=== PATIENT | male | born 1950 | race Caucasian/White ===

== ENCOUNTER → 2023-05-18 09:40 | Inpatient (IN) | payer SELFPAY ==
[2022-03-09] MEDS: CLOPIDOGREL 75 MG TABLET PO (08:24)
[2022-03-09] MEDS: ACETAMINOPHEN 650 MG TABLET ER 1300 MG PO ×2 (08:24→20:22)
[2022-03-09] MEDS: lisinopriL 2.5 MG TABLET PO (08:24)
[2022-03-09] MEDS: SERTRALINE 50 MG TABLET 75 MG PO (08:24)
[2022-03-09] MEDS: ASPIRIN 81 MG TAB.CHEW PO (08:24)
[2022-03-09] MEDS: ROSUVASTATIN CALCIUM 10 MG TABLET 40 MG PO (20:22)
[2022-03-09 22:39] VITALS: TEMP 36.3; O2SAT 96
[2022-03-10] MEDS: ASPIRIN 81 MG TAB.CHEW PO (08:00)
[2022-03-10] MEDS: CLOPIDOGREL 75 MG TABLET PO (08:00)
[2022-03-10] MEDS: lisinopriL 2.5 MG TABLET PO (08:00)
[2022-03-10] MEDS: ACETAMINOPHEN 650 MG TABLET ER 1300 MG PO ×2 (08:00→19:32)
[2022-03-10] MEDS: SERTRALINE 50 MG TABLET 75 MG PO (08:00)
[2022-03-10] MEDS: ROSUVASTATIN CALCIUM 10 MG TABLET 40 MG PO (19:32)
[2022-03-10 21:29] VITALS: TEMP 36.3; O2SAT 91
[2022-03-11] MEDS: CLOPIDOGREL 75 MG TABLET PO (08:22)
[2022-03-11] MEDS: ASPIRIN 81 MG TAB.CHEW PO (08:22)
[2022-03-11] MEDS: ACETAMINOPHEN 650 MG TABLET ER 1300 MG PO ×2 (08:22→19:46)
[2022-03-11] MEDS: SERTRALINE 50 MG TABLET 75 MG PO (08:22)
[2022-03-11] MEDS: lisinopriL 2.5 MG TABLET PO (08:22)
--- NOTE | 2022-03-11 13:32 | PC.PHA ---
Pharmacy Review ~ Patient admitted in January and continues on clopidogrel, asa 81 mg, sertraline, lisinopril, rosuvastatin and acetaminophen. No prn pain meds.
[2022-03-11] MEDS: ROSUVASTATIN CALCIUM 10 MG TABLET 40 MG PO (19:46)
[2022-03-11 21:07] VITALS: TEMP 36.6; O2SAT 94
[2022-03-12 08:00] VITALS: BP 135/78
[2022-03-12] MEDS: CLOPIDOGREL 75 MG TABLET PO (08:35)
[2022-03-12] MEDS: ACETAMINOPHEN 650 MG TABLET ER 1300 MG PO ×2 (08:35→20:05)
[2022-03-12] MEDS: ASPIRIN 81 MG TAB.CHEW PO (08:35)
[2022-03-12] MEDS: lisinopriL 2.5 MG TABLET PO (08:35)
[2022-03-12] MEDS: SERTRALINE 50 MG TABLET 75 MG PO (08:35)
[2022-03-12 17:07] VITALS: TEMP 36.2; O2SAT 95
[2022-03-12] MEDS: ROSUVASTATIN CALCIUM 10 MG TABLET 40 MG PO (20:05)
[2022-03-13] MEDS: ACETAMINOPHEN 650 MG TABLET ER 1300 MG PO ×2 (08:12→19:48)
[2022-03-13] MEDS: ASPIRIN 81 MG TAB.CHEW PO (08:12)
[2022-03-13] MEDS: CLOPIDOGREL 75 MG TABLET PO (08:12)
[2022-03-13] MEDS: lisinopriL 2.5 MG TABLET PO (08:12)
[2022-03-13] MEDS: SERTRALINE 50 MG TABLET 75 MG PO (08:12)
[2022-03-13] MEDS: ROSUVASTATIN CALCIUM 10 MG TABLET 40 MG PO (19:49)
[2022-03-13 21:53] VITALS: TEMP 36.7; O2SAT 95
[2022-03-14] MEDS: ASPIRIN 81 MG TAB.CHEW PO (08:17)
[2022-03-14] MEDS: SERTRALINE 50 MG TABLET 75 MG PO (08:17)
[2022-03-14] MEDS: CLOPIDOGREL 75 MG TABLET PO (08:17)
[2022-03-14] MEDS: lisinopriL 2.5 MG TABLET PO (08:17)
[2022-03-14] MEDS: ACETAMINOPHEN 650 MG TABLET ER 1300 MG PO ×2 (08:17→19:44)
[2022-03-14 17:03] VITALS: TEMP 36.4; O2SAT 96
[2022-03-14] MEDS: ROSUVASTATIN CALCIUM 10 MG TABLET 40 MG PO (19:45)
[2022-03-15 08:00] VITALS: BP 122/81
[2022-03-15] MEDS: ACETAMINOPHEN 650 MG TABLET ER 1300 MG PO ×2 (08:37→19:59)
[2022-03-15] MEDS: SERTRALINE 50 MG TABLET 75 MG PO (08:37)
[2022-03-15] MEDS: CLOPIDOGREL 75 MG TABLET PO (08:37)
[2022-03-15] MEDS: lisinopriL 2.5 MG TABLET PO (08:37)
[2022-03-15] MEDS: ASPIRIN 81 MG TAB.CHEW PO (08:37)
--- NOTE | 2022-03-15 13:51 | PC.NURSE ---
Open Area (Blood Blister) on (L) hand healed.
[2022-03-15 16:46] VITALS: TEMP 36.6; O2SAT 97
[2022-03-15] MEDS: ROSUVASTATIN CALCIUM 10 MG TABLET 40 MG PO (19:59)
[2022-03-16] MEDS: ACETAMINOPHEN 650 MG TABLET ER 1300 MG PO ×2 (08:11→19:57)
[2022-03-16] MEDS: SERTRALINE 50 MG TABLET 75 MG PO (08:11)
[2022-03-16] MEDS: lisinopriL 2.5 MG TABLET PO (08:11)
[2022-03-16] MEDS: CLOPIDOGREL 75 MG TABLET PO (08:11)
[2022-03-16] MEDS: ASPIRIN 81 MG TAB.CHEW PO (08:11)
[2022-03-16] MEDS: ROSUVASTATIN CALCIUM 10 MG TABLET 40 MG PO (19:58)
[2022-03-16 21:32] VITALS: TEMP 36.2; O2SAT 96
[2022-03-17] MEDS: ASPIRIN 81 MG TAB.CHEW PO (08:40)
[2022-03-17] MEDS: ACETAMINOPHEN 650 MG TABLET ER 1300 MG PO ×2 (08:40→20:13)
[2022-03-17] MEDS: CLOPIDOGREL 75 MG TABLET PO (08:40)
[2022-03-17] MEDS: SERTRALINE 50 MG TABLET 75 MG PO (08:41)
[2022-03-17] MEDS: lisinopriL 2.5 MG TABLET PO (08:41)
[2022-03-17 18:39] VITALS: TEMP 36.1; O2SAT 98
[2022-03-17] MEDS: ROSUVASTATIN CALCIUM 10 MG TABLET 40 MG PO (20:13)
[2022-03-18] MEDS: SERTRALINE 50 MG TABLET 75 MG PO (08:14)
[2022-03-18] MEDS: lisinopriL 2.5 MG TABLET PO (08:14)
[2022-03-18] MEDS: ASPIRIN 81 MG TAB.CHEW PO (08:14)
[2022-03-18] MEDS: ACETAMINOPHEN 650 MG TABLET ER 1300 MG PO ×2 (08:14→19:45)
[2022-03-18] MEDS: CLOPIDOGREL 75 MG TABLET PO (08:14)
[2022-03-18 16:00] VITALS: TEMP 36.6; O2SAT 96
[2022-03-18] MEDS: ROSUVASTATIN CALCIUM 10 MG TABLET 40 MG PO (19:45)
--- NOTE | 2022-03-19 02:53 | PC.NURSE ---
Week #1---care plan problems #1-19 reviewed. No changes made. Nothing added to temporary care plan. Has water available at bedside that he can drink per self. Pain---no c/o's pain during the noc. Continues to receive Tylenol 1300 mg BID.
--- NOTE | 2022-03-19 07:29 | PC.NURSE ---
Week #1: Care plan problems 1-19 and temporary care plan reviewed. No changes made. Nothing added to temporary care plan. Resident needs one assist with dressing, grooming, and bathing. He is able to participate and should be encouraged as much as possible. Does oral cares after staff set up. Staff assist as needed. Feeds self after set up. Is on 2 gram sodium diet. Uses adaptive mug for hot liquids. No reported problem with chewing or swallowing. Pain: Has no complaints of pain. Receives Tylenol 1300 mg BID scheduled.
[2022-03-19 08:00] VITALS: BP 138/82
[2022-03-19] MEDS: lisinopriL 2.5 MG TABLET PO (08:58)
[2022-03-19] MEDS: ACETAMINOPHEN 650 MG TABLET ER 1300 MG PO ×2 (08:58→19:54)
[2022-03-19] MEDS: ASPIRIN 81 MG TAB.CHEW PO (08:58)
[2022-03-19] MEDS: SERTRALINE 50 MG TABLET 75 MG PO (08:58)
[2022-03-19] MEDS: CLOPIDOGREL 75 MG TABLET PO (08:58)
--- NOTE | 2022-03-19 10:31 | PC.NURSE ---
Podiatry: Resident seen by In House Apple Sorter on 03/18/22.
--- NOTE | 2022-03-19 10:37 | PC.NURSE ---
Podiatry: Resident seen by In House Utility Worker [employer] on 03/18/22.
[2022-03-19] MEDS: COVID-19 VACC, MRNA(PFIZER)/PF 30 MCG/0.3 ML VIAL IM (15:43)
[2022-03-19 18:33] VITALS: BP 135/80; RESP 18; TEMP 36.6; O2SAT 97
[2022-03-19] MEDS: ROSUVASTATIN CALCIUM 10 MG TABLET 40 MG PO (19:54)
[2022-03-20] MEDS: ASPIRIN 81 MG TAB.CHEW PO (08:20)
[2022-03-20] MEDS: ACETAMINOPHEN 650 MG TABLET ER 1300 MG PO ×2 (08:20→19:48)
[2022-03-20] MEDS: lisinopriL 2.5 MG TABLET PO (08:20)
[2022-03-20] MEDS: CLOPIDOGREL 75 MG TABLET PO (08:20)
[2022-03-20] MEDS: SERTRALINE 50 MG TABLET 75 MG PO (08:20)
[2022-03-20 16:00] VITALS: TEMP 36.6; O2SAT 97
[2022-03-20] MEDS: ROSUVASTATIN CALCIUM 10 MG TABLET 40 MG PO (19:48)
[2022-03-21] MEDS: ASPIRIN 81 MG TAB.CHEW PO (08:09)
[2022-03-21] MEDS: ACETAMINOPHEN 650 MG TABLET ER 1300 MG PO ×2 (08:09→19:37)
[2022-03-21] MEDS: CLOPIDOGREL 75 MG TABLET PO (08:09)
[2022-03-21] MEDS: SERTRALINE 50 MG TABLET 75 MG PO (08:10)
[2022-03-21] MEDS: lisinopriL 2.5 MG TABLET PO (08:10)
--- NOTE | 2022-03-21 14:26 | PC.NURSE ---
Diarrhea: Resident had one loose stools after breakfast, nothing more reported as at now (end of this shift). Fluids encouraged and offered to prevent dehydration.
[2022-03-21 17:20] VITALS: TEMP 36.1; O2SAT 97
[2022-03-21] MEDS: ROSUVASTATIN CALCIUM 10 MG TABLET 40 MG PO (19:42)
[2022-03-22] MEDS: lisinopriL 2.5 MG TABLET PO (07:36)
[2022-03-22] MEDS: ASPIRIN 81 MG TAB.CHEW PO (07:36)
[2022-03-22] MEDS: SERTRALINE 50 MG TABLET 75 MG PO (07:36)
[2022-03-22] MEDS: ACETAMINOPHEN 650 MG TABLET ER 1300 MG PO ×2 (07:36→19:53)
[2022-03-22] MEDS: CLOPIDOGREL 75 MG TABLET PO (07:36)
[2022-03-22 12:53] VITALS: BP 136/84
[2022-03-22 16:00] VITALS: TEMP 36.8; O2SAT 96
[2022-03-22] MEDS: ROSUVASTATIN CALCIUM 10 MG TABLET 40 MG PO (19:53)
[2022-03-23] MEDS: CLOPIDOGREL 75 MG TABLET PO (08:16)
[2022-03-23] MEDS: ASPIRIN 81 MG TAB.CHEW PO (08:16)
[2022-03-23] MEDS: ACETAMINOPHEN 650 MG TABLET ER 1300 MG PO ×2 (08:16→19:37)
[2022-03-23] MEDS: SERTRALINE 50 MG TABLET 75 MG PO (08:16)
[2022-03-23] MEDS: lisinopriL 2.5 MG TABLET PO (08:16)
[2022-03-23 11:17] VITALS: TEMP 36.2; O2SAT 96
[2022-03-23] MEDS: ROSUVASTATIN CALCIUM 10 MG TABLET 40 MG PO (19:37)
[2022-03-23 21:03] VITALS: TEMP 36.6; O2SAT 96
[2022-03-23 23:00] VITALS: TEMP 36.1; O2SAT 96
[2022-03-24] MEDS: SERTRALINE 50 MG TABLET 75 MG PO (08:31)
[2022-03-24] MEDS: CLOPIDOGREL 75 MG TABLET PO (08:31)
[2022-03-24] MEDS: ASPIRIN 81 MG TAB.CHEW PO (08:31)
[2022-03-24] MEDS: ACETAMINOPHEN 650 MG TABLET ER 1300 MG PO ×2 (08:31→19:21)
[2022-03-24] MEDS: lisinopriL 2.5 MG TABLET PO (08:31)
[2022-03-24 10:37] VITALS: TEMP 36.2; O2SAT 95
[2022-03-24 15:19] VITALS: TEMP 36; O2SAT 96
[2022-03-24] MEDS: ROSUVASTATIN CALCIUM 10 MG TABLET 40 MG PO (19:21)
[2022-03-24 23:00] VITALS: TEMP 36.5; O2SAT 97
[2022-03-25 07:00] VITALS: TEMP 36.6; O2SAT 97
[2022-03-25] MEDS: ACETAMINOPHEN 650 MG TABLET ER 1300 MG PO ×2 (08:19→20:06)
[2022-03-25] MEDS: SERTRALINE 50 MG TABLET 75 MG PO (08:19)
[2022-03-25] MEDS: lisinopriL 2.5 MG TABLET PO (08:19)
[2022-03-25] MEDS: CLOPIDOGREL 75 MG TABLET PO (08:19)
[2022-03-25] MEDS: ASPIRIN 81 MG TAB.CHEW PO (08:19)
--- NOTE | 2022-03-25 10:41 | PC.SPIRITC ---
Information Services Assistant provided visit for support and connection.
[2022-03-25 16:46] VITALS: TEMP 36.7; O2SAT 98
[2022-03-25] MEDS: ROSUVASTATIN CALCIUM 10 MG TABLET 40 MG PO (20:06)
[2022-03-25 22:23] LABS: SARS PCR* Negative SARS-CoV-2 (Negative)
[2022-03-25 23:00] VITALS: TEMP 36.4; O2SAT 95
--- NOTE | 2022-03-26 03:25 | PC.NURSE ---
Week #2---care plan problems #20-29 reviewed and updated. Nothing added to temporary care plan. Does not get out of bed during the noc. Is independent with bed mobility using top siderails. Falls---no falls since 02/16/22. Is a high fall risk according to assessment done on 03/03/22.
--- NOTE | 2022-03-26 06:51 | PC.NURSE ---
Week #2: Care plan problems - and temporary care plan reviewed. No changes made. Nothing added to temporary care plan. He needs one assist with transfers and ambulation using transfer belt and 2ww. Needs encouragement to ambulate to meal. Is independent with wheelchair propulsion. Uses lap tray on the (L) side for arm support when in w/c. Independent with bed mobility and chair positioning. Top side rails in bed to aid for positioning. No alarms. Fall: No falls since 02/16/22. Is a high fall risk according to assessment done on 03/03/22.
[2022-03-26 07:00] VITALS: TEMP 36.5; O2SAT 99
[2022-03-26 08:00] VITALS: BP 138/80
[2022-03-26] MEDS: ACETAMINOPHEN 650 MG TABLET ER 1300 MG PO ×2 (08:12→19:19)
[2022-03-26] MEDS: CLOPIDOGREL 75 MG TABLET PO (08:12)
[2022-03-26] MEDS: ASPIRIN 81 MG TAB.CHEW PO (08:12)
[2022-03-26] MEDS: lisinopriL 2.5 MG TABLET PO (08:12)
[2022-03-26] MEDS: SERTRALINE 50 MG TABLET 75 MG PO (08:13)
[2022-03-26 13:07] VITALS: BP 141/85
[2022-03-26 17:15] VITALS: TEMP 36.3; O2SAT 95
[2022-03-26] MEDS: ROSUVASTATIN CALCIUM 10 MG TABLET 40 MG PO (19:19)
[2022-03-26] MEDS: CARBOXYMETHYLCELLULOSE (REFRESH PLUS) TEARS 1 DROP EYE-BOTH (19:25)
[2022-03-26 23:00] VITALS: TEMP 36.4; O2SAT 94
[2022-03-27 07:00] VITALS: TEMP 36.7; O2SAT 95
[2022-03-27] MEDS: ASPIRIN 81 MG TAB.CHEW PO (08:40)
[2022-03-27] MEDS: SERTRALINE 50 MG TABLET 75 MG PO (08:40)
[2022-03-27] MEDS: lisinopriL 2.5 MG TABLET PO (08:40)
[2022-03-27] MEDS: ACETAMINOPHEN 650 MG TABLET ER 1300 MG PO ×2 (08:40→19:34)
[2022-03-27] MEDS: CLOPIDOGREL 75 MG TABLET PO (08:40)
[2022-03-27 17:22] VITALS: TEMP 36.3; O2SAT 94
[2022-03-27] MEDS: CARBOXYMETHYLCELLULOSE (REFRESH PLUS) TEARS 1 DROP EYE-BOTH (19:34)
[2022-03-27] MEDS: ROSUVASTATIN CALCIUM 10 MG TABLET 40 MG PO (19:34)
[2022-03-28 00:35] VITALS: TEMP 36.2; O2SAT 94
[2022-03-28 07:00] VITALS: TEMP 36.8; O2SAT 94
[2022-03-28] MEDS: ASPIRIN 81 MG TAB.CHEW PO (08:10)
[2022-03-28] MEDS: SERTRALINE 50 MG TABLET 75 MG PO (08:10)
[2022-03-28] MEDS: ACETAMINOPHEN 650 MG TABLET ER 1300 MG PO ×2 (08:10→19:52)
[2022-03-28] MEDS: CLOPIDOGREL 75 MG TABLET PO (08:10)
[2022-03-28] MEDS: lisinopriL 2.5 MG TABLET PO (08:10)
[2022-03-28 17:05] VITALS: TEMP 36.9; O2SAT 96
[2022-03-28] MEDS: ROSUVASTATIN CALCIUM 10 MG TABLET 40 MG PO (19:52)
[2022-03-28 23:00] VITALS: TEMP 36.4; O2SAT 96
[2022-03-29] MEDS: ACETAMINOPHEN 650 MG TABLET ER 1300 MG PO ×2 (08:34→19:50)
[2022-03-29] MEDS: CLOPIDOGREL 75 MG TABLET PO (08:34)
[2022-03-29] MEDS: ASPIRIN 81 MG TAB.CHEW PO (08:34)
[2022-03-29] MEDS: SERTRALINE 50 MG TABLET 75 MG PO (08:34)
[2022-03-29] MEDS: lisinopriL 2.5 MG TABLET PO (08:34)
[2022-03-29 12:03] VITALS: TEMP 36.6; O2SAT 96
[2022-03-29 15:00] VITALS: TEMP 36.6; O2SAT 96
[2022-03-29 16:36] LABS: SARS PCR* Negative SARS-CoV-2 (Negative)
[2022-03-29] MEDS: ROSUVASTATIN CALCIUM 10 MG TABLET 40 MG PO (19:50)
[2022-03-29 23:00] VITALS: TEMP 36.6; O2SAT 96
[2022-03-30] MEDS: CLOPIDOGREL 75 MG TABLET PO (08:27)
[2022-03-30] MEDS: ACETAMINOPHEN 650 MG TABLET ER 1300 MG PO ×2 (08:27→19:21)
[2022-03-30] MEDS: lisinopriL 2.5 MG TABLET PO (08:27)
[2022-03-30] MEDS: SERTRALINE 50 MG TABLET 75 MG PO (08:27)
[2022-03-30] MEDS: ASPIRIN 81 MG TAB.CHEW PO (08:27)
[2022-03-30 13:49] VITALS: TEMP 36.3; O2SAT 97
[2022-03-30] MEDS: CARBOXYMETHYLCELLULOSE (REFRESH PLUS) TEARS 1 DROP EYE-BOTH (19:21)
[2022-03-30] MEDS: ROSUVASTATIN CALCIUM 10 MG TABLET 40 MG PO (19:22)
[2022-03-30 21:04] VITALS: TEMP 36.3; O2SAT 91
[2022-03-30 23:00] VITALS: TEMP 35.8; O2SAT 96
[2022-03-31] MEDS: ASPIRIN 81 MG TAB.CHEW PO (07:50)
[2022-03-31] MEDS: lisinopriL 2.5 MG TABLET PO (07:50)
[2022-03-31] MEDS: SERTRALINE 50 MG TABLET 75 MG PO (07:50)
[2022-03-31] MEDS: CLOPIDOGREL 75 MG TABLET PO (07:50)
[2022-03-31] MEDS: ACETAMINOPHEN 650 MG TABLET ER 1300 MG PO ×2 (07:50→19:40)
[2022-03-31 10:49] VITALS: TEMP 36.2; O2SAT 94
--- NOTE | 2022-03-31 14:14 | PC.PHA ---
Pharmacy Review~ Medication regimen unchanged since last review. Acetaminophen scheduled bid with no prn pain med. orders. Clopidogrel 75 mg daily with aspirin 81 mg continues. Low dose lisinopril continues, BP have been stable.
[2022-03-31] MEDS: ROSUVASTATIN CALCIUM 10 MG TABLET 40 MG PO (19:40)
[2022-03-31 21:39] VITALS: TEMP 36.6; O2SAT 95
[2022-03-31 23:00] VITALS: TEMP 36.3; O2SAT 92
[2022-04-01 07:00] VITALS: TEMP 36.8; O2SAT 100
[2022-04-01] MEDS: ACETAMINOPHEN 650 MG TABLET ER 1300 MG PO ×2 (08:16→20:02)
[2022-04-01] MEDS: ASPIRIN 81 MG TAB.CHEW PO (08:16)
[2022-04-01] MEDS: CLOPIDOGREL 75 MG TABLET PO (08:17)
[2022-04-01] MEDS: lisinopriL 2.5 MG TABLET PO (08:17)
[2022-04-01] MEDS: SERTRALINE 50 MG TABLET 75 MG PO (08:17)
--- NOTE | 2022-04-01 08:50 | PC.NURSE ---
Fall Follow-up: Neuro assessment completed and vital signs obtained. PERILLA is intact. Vitals signs are WNL. No new concerns at this time.
--- NOTE | 2022-04-01 09:10 | LTC.FALL ---
[facility] Fall Note: o Fall Date: 04/01/22 o Fall Time: 08:49 o What happened? ?According to resident, an attempt to kill a house fly on his bed resulted to falling. o Who found the resident and who responded? Unwitnessed o What was the resident doing? Attempting to kill a house fly on his bed o How the resident was found (knees, left side, arm under them), any hazards (cords, objects, nonskid slippers) brakes on? Proper equipment? Was sitting on the floor. Resident had nonskid socks on, he unlocked w/h brakes. o Did you assess for head trauma, spinal injuries, skeletal injuries, neurological changes and status, and head and neck pain? What did you find? Yes. No neuro concerns at this time. Resident reported not hitting head. o Did you assess ROM in shoulders, elbows, hips, knees, any other affected areas, unless there is suspected spinal injury. ROM assessment finding is within baseline. o Did you Assess for pain or discomfort? Yes. Denies pain. o What are the injuries and how are they being treated? No injuries noted at this time. o How was the resident transferred from the floor? Jose lift with two assist. o Did you call the MD or put a note in the ACCOUNT REVIEW SPECIALIST book? ACCOUNT REVIEW SPECIALIST is present in the facility, and has been notified and updated. o Enter vital signs. BP- 124/81; Pul- 87: 02- 96%; Resp- 20; Temp- 97.1 o Did you notify family? Yes. o What was the root cause of the fall? Why did it happen? Unknown. o Create an IMMEDIATE INTERVENTION to ensure that this won't immediately happen again. (Put in temporary care plan too) o Complete Safety report and huddle (now one form) o If resident is seen in ED or fractured something, note that you started a [facility] Report process. Instructions are at the East nurse's desk in a red binder labeled [facility] report.
--- NOTE | 2022-04-01 12:07 | PC.NURSE ---
Order: BP's reviewed by CAREER RESOURCE SPECIALISTDerrick. Change BP checks to weekly.
[2022-04-01 13:08] VITALS: BP 124/81; RESP 18; TEMP 36.8; O2SAT 100
--- NOTE | 2022-04-01 13:16 | PC.NURSE ---
Fall Incident: Fall incident reported at 08:49. According to resident, an attempt to kill a house fly on his bed resulted to falling. He denies hitting his head, and no denies pain. No injuries, bruising, and no signs of fracture or broken bones at this time. Neuro checks and Vital sign to be obtained hourly four 4 hours, then Q4H for 3 days.
--- NOTE | 2022-04-01 13:25 | PC.NURSE ---
Updates: Daughter Aracelis and Derrick ZIMMERMAN notified/updated on fall incident.
--- NOTE | 2022-04-01 13:43 | PC.NURSE ---
Fall Follow-up: Neuro assessment completed and vital signs obtained. PERILLA is intact. Vitals signs are WNL. No new concerns at this time.
--- NOTE | 2022-04-01 17:00 | PC.NURSE ---
Fall F/U: Resident resting comfortably in bed, watching TV. 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 VSS. Denies pain.
[2022-04-01 17:08] VITALS: BP 138/75; PULSE 80; RESP 16; TEMP 36.3; O2SAT 95
[2022-04-01] MEDS: ROSUVASTATIN CALCIUM 10 MG TABLET 40 MG PO (20:02)
[2022-04-01 21:08] VITALS: BP 128/80; PULSE 83; RESP 16; TEMP 36.6; O2SAT 94
[2022-04-01 21:28] VITALS: TEMP 36.6; O2SAT 95
--- NOTE | 2022-04-01 21:32 | PC.NURSE ---
Fall F/U: Resident resting in bed, watching TV. Ate 100% of dinner. Neuro at baseline and VSS. No pain reported at this time.
[2022-04-01 23:00] VITALS: TEMP 36.2; O2SAT 95
[2022-04-02 00:40] VITALS: BP 133/87; PULSE 60; RESP 16; TEMP 36.2; O2SAT 95
--- NOTE | 2022-04-02 01:38 | PC.NURSE ---
Fall f/u for 0040---Awakens easily. Denies any discomforts. VS stable. Hand grasps equal. SACHI.
--- NOTE | 2022-04-02 03:00 | PC.NURSE ---
Week #3---care plan problems #30-39 reviewed. No changes made. Temporary care plan updated re: fall of yesterday. No injuries noted. Continues to use the urinal per self during the noc. Does occ. miss it. Wears a pullup. Staff check urinal on rounds and empty if used. Skin---no issues at this time.
[2022-04-02 04:40] VITALS: BP 134/88; PULSE 64; RESP 16; TEMP 36.4; O2SAT 95
--- NOTE | 2022-04-02 05:18 | PC.NURSE ---
Fall f/u for 0440---Awake for VS and neuro checks. Both remain stable. Continues to deny any discomforts.
[2022-04-02 07:00] VITALS: BP 132/83; PULSE 75; TEMP 36.6; O2SAT 95; O2SAT 96
--- NOTE | 2022-04-02 07:51 | PC.NURSE ---
Week #3: Care plan problems 30-39 and temporary care plan reviewed. No changes made. No additions to temporary care plan. Resident is [place] [employer]. Needs staff assist with toileting. Staff toilets per his request. Encourage to ambulate to the toilet using transfer belt and walker, one assist. Wears pull ups. Pads, bo cares, clothing adjustment done by staff. Skin: No issues at this time. Skin is checked during cares and baths.
[2022-04-02] MEDS: ASPIRIN 81 MG TAB.CHEW PO (08:26)
[2022-04-02] MEDS: CLOPIDOGREL 75 MG TABLET PO (08:26)
[2022-04-02] MEDS: lisinopriL 2.5 MG TABLET PO (08:26)
[2022-04-02] MEDS: SERTRALINE 50 MG TABLET 75 MG PO (08:26)
[2022-04-02] MEDS: ACETAMINOPHEN 650 MG TABLET ER 1300 MG PO ×2 (08:26→19:59)
--- NOTE | 2022-04-02 13:02 | PC.NURSE ---
Fall Follow-up: Resident alert and oriented. No signs and symptoms of distress. PERRLA intact, and peripheral sandoval full, bilaterally. Denies pain with ROM in all joints except left weak arm. Vital signs obtained and are WNL. No new concerns, as related to fall incident, noted at this time.
--- NOTE | 2022-04-02 16:40 | PC.NURSE ---
Fall F/U: VSS, ROM WNL for resident, no c/o px, SACHI.
[2022-04-02 18:38] VITALS: BP 132/81; PULSE 75; RESP 16; TEMP 36.6; O2SAT 96
[2022-04-02] MEDS: ROSUVASTATIN CALCIUM 10 MG TABLET 40 MG PO (19:59)
[2022-04-02 20:26] VITALS: BP 135/79; PULSE 78; RESP 18; TEMP 36.1; O2SAT 95
--- NOTE | 2022-04-02 20:27 | PC.NURSE ---
Fall F/U: VSS, SACHI, ROM WNL. No c/o pain.
[2022-04-02 23:00] VITALS: TEMP 36; O2SAT 94
[2022-04-03] VITALS (7 sets, daily range): BP systolic 131–146; BP diastolic 76–92; PULSE 61–70; RESP 16; TEMP 36–36.7; O2SAT 94–96
--- NOTE | 2022-04-03 00:53 | PC.NURSE ---
Fall f/u for 0040---Lying in bed awake and watching TV. Denies any discomforts. VS stable. Hand grasps equal. SACHI.
--- NOTE | 2022-04-03 05:32 | PC.NURSE ---
Fall f/u for 439---Awakens easily when name called. VS and neuro's stable. Denies any discomforts.
[2022-04-03] MEDS: CLOPIDOGREL 75 MG TABLET PO (08:07)
[2022-04-03] MEDS: SERTRALINE 50 MG TABLET 75 MG PO (08:07)
[2022-04-03] MEDS: ASPIRIN 81 MG TAB.CHEW PO (08:07)
[2022-04-03] MEDS: ACETAMINOPHEN 650 MG TABLET ER 1300 MG PO ×2 (08:07→19:38)
[2022-04-03] MEDS: lisinopriL 2.5 MG TABLET PO (08:07)
--- NOTE | 2022-04-03 13:14 | PC.NURSE ---
Fall Follow-up: Resident alert and oriented. No signs and symptoms of distress. PERRLA intact, and peripheral sandoval full, bilaterally. Denies pain with ROM in all joints except left weak arm. Vital signs are within residents normal values. No new concerns, as related to fall incident, noted at this time.?
--- NOTE | 2022-04-03 16:47 | PC.NURSE ---
Fall F/U: VSS, SACHI, ROM WNL for resident, no c/o px. Last Vital Signs Temp 97.9 F 04/03/22 16:45 Pulse 70 04/03/22 16:45 Resp 16 04/03/22 16:45 BP 138/80 04/03/22 16:45 Pulse Ox 95 04/03/22 16:45
[2022-04-03] MEDS: ROSUVASTATIN CALCIUM 10 MG TABLET 40 MG PO (19:38)
--- NOTE | 2022-04-03 22:04 | PC.NURSE ---
Fall F/u: VSS, ROM WNL, SACHI, no c/o discomfort. Last Vital Signs Temp 98.0 F 04/03/22 21:45 Pulse 68 04/03/22 21:45 Resp 16 04/03/22 21:45 BP 136/82 04/03/22 21:45 Pulse Ox 96 04/03/22 21:45
[2022-04-04 00:40] VITALS: BP 128/80; PULSE 63; RESP 16; TEMP 36.1; O2SAT 95
--- NOTE | 2022-04-04 00:53 | PC.NURSE ---
Fall f/u for 39---Awakens easily when name called. Continues to deny any discomforts. Hand grasps equal. SACHI.
[2022-04-04 05:24] VITALS: BP 116/68; PULSE 67; RESP 16; TEMP 36.3; O2SAT 96
--- NOTE | 2022-04-04 05:24 | PC.NURSE ---
Fall f/u for 0440---Awakens easily. Denies any pain. VS and neuro's stable.
[2022-04-04 07:00] VITALS: TEMP 36.9; O2SAT 97
[2022-04-04] MEDS: lisinopriL 2.5 MG TABLET PO (08:24)
[2022-04-04] MEDS: CLOPIDOGREL 75 MG TABLET PO (08:24)
[2022-04-04] MEDS: SERTRALINE 50 MG TABLET 75 MG PO (08:24)
[2022-04-04] MEDS: ACETAMINOPHEN 650 MG TABLET ER 1300 MG PO ×2 (08:24→19:06)
[2022-04-04] MEDS: ASPIRIN 81 MG TAB.CHEW PO (08:24)
--- NOTE | 2022-04-04 14:25 | PC.NURSE ---
Addendum entered by Senait Sheehan RN 04/04/22 14:31: Out of Facility: Resident is out visiting with family. Was picked-up by daughter, Muna Orta, at 13:20. Original Note: Out of Facility: Resident is out visiting with family. Was picked-up by daughter, Muna Orta.
--- NOTE | 2022-04-04 14:33 | PC.NURSE ---
Fall Follow-up: Resident alert and oriented. No signs and symptoms of distress. PERRLA intact, and peripheral sandoval full, bilaterally. Denies pain. Vital signs are within residents normal values. No new concerns, as related to fall incident, noted at this time.?
--- NOTE | 2022-04-04 16:45 | PC.NURSE ---
Outing: Resident returned from family outing at 1640.
--- NOTE | 2022-04-04 17:54 | PC.NURSE ---
Fall F/U: Resident post fall VS and Neuro checks Q4Hx72 complete as of this AM. Intervention completed.
[2022-04-04] MEDS: ROSUVASTATIN CALCIUM 10 MG TABLET 40 MG PO (19:06)
[2022-04-04 21:46] VITALS: TEMP 36.8; O2SAT 97
--- NOTE | 2022-04-04 22:16 | PC.NURSE ---
Skin: Resident cut hand in bathroom at 1700. [id number] skin tear to back of right hand. Cleansed and bandage applied. Intervention started for monitoring.
[2022-04-04 23:00] VITALS: TEMP 36.6; O2SAT 96
[2022-04-05] MEDS: CLOPIDOGREL 75 MG TABLET PO (08:49)
[2022-04-05] MEDS: ASPIRIN 81 MG TAB.CHEW PO (08:49)
[2022-04-05] MEDS: SERTRALINE 50 MG TABLET 75 MG PO (08:49)
[2022-04-05] MEDS: lisinopriL 2.5 MG TABLET PO (08:49)
[2022-04-05] MEDS: ACETAMINOPHEN 650 MG TABLET ER 1300 MG PO ×2 (08:49→20:03)
[2022-04-05 11:00] VITALS: TEMP 36.3; O2SAT 97
[2022-04-05 15:00] VITALS: TEMP 36.9; O2SAT 94
[2022-04-05 19:33] LABS: SARS PCR* Negative SARS-CoV-2 (Negative)
[2022-04-05] MEDS: ROSUVASTATIN CALCIUM 10 MG TABLET 40 MG PO (20:03)
[2022-04-05 23:00] VITALS: TEMP 36.4; O2SAT 94
[2022-04-06] MEDS: SERTRALINE 50 MG TABLET 75 MG PO (08:58)
[2022-04-06] MEDS: lisinopriL 2.5 MG TABLET PO (08:58)
[2022-04-06] MEDS: ACETAMINOPHEN 650 MG TABLET ER 1300 MG PO ×2 (08:58→20:23)
[2022-04-06] MEDS: CLOPIDOGREL 75 MG TABLET PO (08:58)
[2022-04-06] MEDS: ASPIRIN 81 MG TAB.CHEW PO (08:58)
[2022-04-06 10:30] VITALS: TEMP 36.4; O2SAT 96
--- NOTE | 2022-04-06 10:54 | PC.SPIRITC ---
Liner Machine Operator provided visit for support and connection.
[2022-04-06 15:00] VITALS: TEMP 36.7; O2SAT 94
[2022-04-06] MEDS: ROSUVASTATIN CALCIUM 10 MG TABLET 40 MG PO (20:23)
[2022-04-06 23:00] VITALS: TEMP 37.1; O2SAT 98
[2022-04-07] MEDS: lisinopriL 2.5 MG TABLET PO (08:43)
[2022-04-07] MEDS: ACETAMINOPHEN 650 MG TABLET ER 1300 MG PO ×2 (08:43→19:42)
[2022-04-07] MEDS: SERTRALINE 50 MG TABLET 75 MG PO (08:43)
[2022-04-07] MEDS: CLOPIDOGREL 75 MG TABLET PO (08:43)
[2022-04-07] MEDS: ASPIRIN 81 MG TAB.CHEW PO (08:43)
[2022-04-07 11:27] VITALS: TEMP 36.8; O2SAT 96
[2022-04-07] MEDS: ROSUVASTATIN CALCIUM 10 MG TABLET 40 MG PO (19:42)
[2022-04-08] MEDS: lisinopriL 2.5 MG TABLET PO (07:59)
[2022-04-08] MEDS: ACETAMINOPHEN 650 MG TABLET ER 1300 MG PO ×2 (07:59→20:00)
[2022-04-08] MEDS: CLOPIDOGREL 75 MG TABLET PO (07:59)
[2022-04-08] MEDS: SERTRALINE 50 MG TABLET 75 MG PO (07:59)
[2022-04-08] MEDS: ASPIRIN 81 MG TAB.CHEW PO (07:59)
--- NOTE | 2022-04-08 11:54 | PC.NURSE ---
Week #4: Care plan problems 40-119 and temporary care plan reviewed. No changes made. Nothing added to temporary care plan. No changes noted in communication, hearing, vision, & orientation. He does communicate needs. Hearing intact. Wears glasses for reading. Is cognitively intact. Health condition stable. Staff administers medications. Mood/Behavior: Has one issue of resisting cares. Is on Zoloft 75mg daily with no adverse effects noted. Has no change in medication.
[2022-04-08] MEDS: ROSUVASTATIN CALCIUM 10 MG TABLET 40 MG PO (20:00)
[2022-04-08 21:34] VITALS: TEMP 36.8; O2SAT 96
--- NOTE | 2022-04-09 03:10 | PC.NURSE ---
Week #4---care plan problems #40+ reviewed. No changes made. Nothing added to temporary care plan. Can use call light for needs. No changes noted in hearing, vision, or orientation. No behavior problems at [facility]. Sleeps well. Continues to receive Zoloft 75 mg qd with no adverse effects noted.
[2022-04-09] MEDS: ACETAMINOPHEN 650 MG TABLET ER 1300 MG PO ×2 (08:42→20:20)
[2022-04-09] MEDS: ASPIRIN 81 MG TAB.CHEW PO (08:42)
[2022-04-09] MEDS: SERTRALINE 50 MG TABLET 75 MG PO (08:43)
[2022-04-09] MEDS: CLOPIDOGREL 75 MG TABLET PO (08:43)
[2022-04-09] MEDS: lisinopriL 2.5 MG TABLET PO (08:43)
--- NOTE | 2022-04-09 14:45 | PC.SOCIAL ---
Social work: Called Muna barry, who confirmed she is planning to take resident to his appointment at 10:00 on 04/16/22 at [facility]. Dtr is aware of how to contact social services specialist if plans change and transportation is needed.
[2022-04-09] MEDS: NICOTINE 4 MG GUM BUCCAL (18:49)
[2022-04-09] MEDS: ROSUVASTATIN CALCIUM 10 MG TABLET 40 MG PO (20:20)
[2022-04-09 21:57] VITALS: TEMP 35.9; O2SAT 97
--- NOTE | 2022-04-09 22:32 | PC.NURSE ---
Outing: Resident went out to family barbecue at 1715 and came back at 1999.
[2022-04-10] MEDS: ACETAMINOPHEN 650 MG TABLET ER 1300 MG PO ×2 (08:15→19:47)
[2022-04-10] MEDS: lisinopriL 2.5 MG TABLET PO (08:15)
[2022-04-10] MEDS: ASPIRIN 81 MG TAB.CHEW PO (08:15)
[2022-04-10] MEDS: CLOPIDOGREL 75 MG TABLET PO (08:15)
[2022-04-10] MEDS: SERTRALINE 50 MG TABLET 75 MG PO (08:15)
[2022-04-10] MEDS: ROSUVASTATIN CALCIUM 10 MG TABLET 40 MG PO (19:48)
[2022-04-10 22:32] VITALS: TEMP 36.9; O2SAT 95
[2022-04-11] MEDS: CLOPIDOGREL 75 MG TABLET PO (07:48)
[2022-04-11] MEDS: SERTRALINE 50 MG TABLET 75 MG PO (07:48)
[2022-04-11] MEDS: lisinopriL 2.5 MG TABLET PO (07:48)
[2022-04-11] MEDS: ASPIRIN 81 MG TAB.CHEW PO (07:48)
[2022-04-11] MEDS: ACETAMINOPHEN 650 MG TABLET ER 1300 MG PO ×2 (07:48→19:22)
[2022-04-11 18:28] VITALS: TEMP 36.4; O2SAT 95
[2022-04-11] MEDS: ROSUVASTATIN CALCIUM 10 MG TABLET 40 MG PO (19:22)
[2022-04-12] MEDS: ACETAMINOPHEN 650 MG TABLET ER 1300 MG PO ×2 (08:00→19:33)
[2022-04-12] MEDS: CLOPIDOGREL 75 MG TABLET PO (08:00)
[2022-04-12] MEDS: ASPIRIN 81 MG TAB.CHEW PO (08:00)
[2022-04-12] MEDS: lisinopriL 2.5 MG TABLET PO (08:01)
[2022-04-12] MEDS: SERTRALINE 50 MG TABLET 75 MG PO (08:01)
[2022-04-12 16:00] VITALS: TEMP 36.7; O2SAT 95
[2022-04-12] MEDS: ROSUVASTATIN CALCIUM 10 MG TABLET 40 MG PO (19:33)
[2022-04-13] MEDS: CLOPIDOGREL 75 MG TABLET PO (07:37)
[2022-04-13] MEDS: ACETAMINOPHEN 650 MG TABLET ER 1300 MG PO ×2 (07:37→19:12)
[2022-04-13] MEDS: SERTRALINE 50 MG TABLET 75 MG PO (07:37)
[2022-04-13] MEDS: lisinopriL 2.5 MG TABLET PO (07:37)
[2022-04-13] MEDS: ASPIRIN 81 MG TAB.CHEW PO (07:37)
[2022-04-13 17:05] VITALS: TEMP 36.4; O2SAT 93
[2022-04-13] MEDS: ROSUVASTATIN CALCIUM 10 MG TABLET 40 MG PO (19:12)
[2022-04-14] MEDS: lisinopriL 2.5 MG TABLET PO (08:33)
[2022-04-14] MEDS: CLOPIDOGREL 75 MG TABLET PO (08:33)
[2022-04-14] MEDS: ACETAMINOPHEN 650 MG TABLET ER 1300 MG PO ×2 (08:33→19:54)
[2022-04-14] MEDS: ASPIRIN 81 MG TAB.CHEW PO (08:33)
[2022-04-14] MEDS: SERTRALINE 50 MG TABLET 75 MG PO (08:34)
[2022-04-14 15:45] VITALS: TEMP 36.8; O2SAT 94
[2022-04-14] MEDS: ROSUVASTATIN CALCIUM 10 MG TABLET 40 MG PO (19:54)
[2022-04-14 21:32] VITALS: TEMP 36.8; O2SAT 94
[2022-04-15] MEDS: lisinopriL 2.5 MG TABLET PO (08:14)
[2022-04-15] MEDS: SERTRALINE 50 MG TABLET 75 MG PO (08:14)
[2022-04-15] MEDS: ACETAMINOPHEN 650 MG TABLET ER 1300 MG PO ×2 (08:14→19:47)
[2022-04-15] MEDS: ASPIRIN 81 MG TAB.CHEW PO (08:14)
[2022-04-15] MEDS: CLOPIDOGREL 75 MG TABLET PO (08:14)
--- NOTE | 2022-04-15 13:24 | PC.NURSE ---
Recertification Visit: Resident seen by NURSE RECEPTIONISTDerrick. Orders reviewed and renewed of 75 days with no changes.
[2022-04-15] MEDS: ROSUVASTATIN CALCIUM 10 MG TABLET 40 MG PO (19:47)
[2022-04-15 21:38] VITALS: TEMP 36.4; O2SAT 95
--- NOTE | 2022-04-16 03:22 | PC.NURSE ---
Week #1---care plan problems #1-19 reviewed. No changes as pertains to noc shift. Nothing added to temporary care plan. Has water available at bedside to drink per self. Staff replenish as needed. Pain---no c/o's pain at [facility]. Continues to receive Tylenol 1300 mg BID for pain control.
--- NOTE | 2022-04-16 07:23 | PC.NURSE ---
Week #1: Care plan problems 1-19 and temporary care plan reviewed. No changes made. Nothing added to temporary care plan. He needs assist with dressing, grooming and bathing. Is able to participate. Does shave self, oral cares & feeding after set up. Is on 2gm sodium diet. No problems with chewing or swallowing reported. Pain: Has no complain. Pain is managed with Tylenol 1300mg BID.
[2022-04-16] MEDS: SERTRALINE 50 MG TABLET 75 MG PO (08:54)
[2022-04-16] MEDS: lisinopriL 2.5 MG TABLET PO (08:54)
[2022-04-16] MEDS: ASPIRIN 81 MG TAB.CHEW PO (08:54)
[2022-04-16] MEDS: ACETAMINOPHEN 650 MG TABLET ER 1300 MG PO ×2 (08:54→19:34)
[2022-04-16] MEDS: CLOPIDOGREL 75 MG TABLET PO (08:54)
--- NOTE | 2022-04-16 11:30 | PC.NURSE ---
Appointment: Resident left [facility] for his Neurology appointment this morning. Daughter, Muna picked him up approximately, 9:35 AM..
--- NOTE | 2022-04-16 12:50 | PC.NURSE ---
Returned to Facility: Resident returned to [facility] at 1245. See new orders under charge nurse's notes.
--- NOTE | 2022-04-16 13:22 | NUTR.NU ---
Return to facility: Resident returned to [facility] at 1245. Has new orders - see more under Charge Nurse's notes.
[2022-04-16] MEDS: ROSUVASTATIN CALCIUM 10 MG TABLET 40 MG PO (19:34)
[2022-04-16 21:18] VITALS: BP 120/76; PULSE 76; RESP 16; TEMP 36.6; O2SAT 95; O2SAT 96
[2022-04-17] MEDS: lisinopriL 2.5 MG TABLET PO (08:26)
[2022-04-17] MEDS: ASPIRIN 81 MG TAB.CHEW PO (08:26)
[2022-04-17] MEDS: SERTRALINE 50 MG TABLET 75 MG PO (08:26)
[2022-04-17] MEDS: CLOPIDOGREL 75 MG TABLET PO (08:26)
[2022-04-17] MEDS: ACETAMINOPHEN 650 MG TABLET ER 1300 MG PO ×2 (08:26→19:57)
[2022-04-17 16:57] VITALS: TEMP 36.7; O2SAT 97
[2022-04-17] MEDS: ROSUVASTATIN CALCIUM 10 MG TABLET 40 MG PO (19:57)
[2022-04-18] MEDS: ASPIRIN 81 MG TAB.CHEW PO (08:43)
[2022-04-18] MEDS: CLOPIDOGREL 75 MG TABLET PO (08:43)
[2022-04-18] MEDS: lisinopriL 2.5 MG TABLET PO (08:43)
[2022-04-18] MEDS: SERTRALINE 50 MG TABLET 75 MG PO (08:43)
[2022-04-18] MEDS: ACETAMINOPHEN 650 MG TABLET ER 1300 MG PO ×2 (08:43→19:12)
[2022-04-18 17:10] VITALS: TEMP 36.7; O2SAT 97
[2022-04-18] MEDS: ROSUVASTATIN CALCIUM 10 MG TABLET 40 MG PO (19:12)
[2022-04-19 07:52] LABS: Cholesterol* 154 mg/dL (90-199); HDL Cholesterol* 50 mg/dL (>=40); LDL Cholesterol Calculated 78 mg/dL (<100); Triglycerides* 129 mg/dL (40-149)
[2022-04-19] MEDS: ASPIRIN 81 MG TAB.CHEW PO (09:01)
[2022-04-19] MEDS: ACETAMINOPHEN 650 MG TABLET ER 1300 MG PO ×2 (09:01→19:27)
[2022-04-19] MEDS: lisinopriL 2.5 MG TABLET PO (09:01)
[2022-04-19] MEDS: CLOPIDOGREL 75 MG TABLET PO (09:01)
[2022-04-19] MEDS: SERTRALINE 50 MG TABLET 75 MG PO (09:01)
[2022-04-19 15:00] VITALS: TEMP 36.6; O2SAT 95
[2022-04-19] MEDS: ROSUVASTATIN CALCIUM 10 MG TABLET 40 MG PO (19:27)
[2022-04-19 23:00] VITALS: TEMP 36.2; O2SAT 93
[2022-04-20] MEDS: ASPIRIN 81 MG TAB.CHEW PO (09:06)
[2022-04-20] MEDS: ACETAMINOPHEN 650 MG TABLET ER 1300 MG PO ×2 (09:06→19:34)
[2022-04-20] MEDS: CLOPIDOGREL 75 MG TABLET PO (09:06)
[2022-04-20] MEDS: SERTRALINE 50 MG TABLET 75 MG PO (09:07)
[2022-04-20] MEDS: lisinopriL 2.5 MG TABLET PO (09:07)
[2022-04-20 10:46] VITALS: TEMP 36.1; O2SAT 96
--- NOTE | 2022-04-20 14:32 | PC.NURSE ---
Lipid panel result reviewed by RN UROLOGY. Also 30 day manager of organizational development order from Neurologist noted by her. No new order.
[2022-04-20] MEDS: ROSUVASTATIN CALCIUM 10 MG TABLET 40 MG PO (19:34)
[2022-04-20 22:01] VITALS: TEMP 36.4; O2SAT 96
[2022-04-20 23:00] VITALS: TEMP 36.1; O2SAT 95
[2022-04-21] MEDS: lisinopriL 2.5 MG TABLET PO (08:46)
[2022-04-21] MEDS: SERTRALINE 50 MG TABLET 75 MG PO (08:46)
[2022-04-21] MEDS: ASPIRIN 81 MG TAB.CHEW PO (08:46)
[2022-04-21] MEDS: ACETAMINOPHEN 650 MG TABLET ER 1300 MG PO ×2 (08:46→19:21)
[2022-04-21] MEDS: CLOPIDOGREL 75 MG TABLET PO (08:46)
[2022-04-21 10:01] VITALS: TEMP 36.5; O2SAT 98
[2022-04-21 10:51] LABS: SARS PCR* Negative SARS-CoV-2 (Negative)
[2022-04-21 10:53] LABS: Chloride* 110 mmol/L (96-114); Potassium* 4.1 mmol/L (3.6-5.1); Sodium* 141 mmol/L (135-149)
[2022-04-21 10:56] LABS: Blood Urea Nitrogen* 33 mg/dL (7-30); Carbon Dioxide* 22 mmol/L (20-32); Creatinine* 0.8 mg/dL (0.5-1.5); Est. Creatinine Clearance* 59.37; Estimated Glomerular Filt Rate 93 ml/min
[2022-04-21 10:57] LABS: Calcium* 8.9 mg/dL (8.4-10.6); Glucose* 118 mg/dL (60-115)
[2022-04-21] MEDS: ROSUVASTATIN CALCIUM 10 MG TABLET 40 MG PO (19:21)
[2022-04-21 21:27] VITALS: TEMP 36.4; O2SAT 91
[2022-04-21 23:00] VITALS: TEMP 37.1; O2SAT 95
[2022-04-22] MEDS: lisinopriL 2.5 MG TABLET PO (08:45)
[2022-04-22] MEDS: SERTRALINE 50 MG TABLET 75 MG PO (08:45)
[2022-04-22] MEDS: CLOPIDOGREL 75 MG TABLET PO (08:45)
[2022-04-22] MEDS: ACETAMINOPHEN 650 MG TABLET ER 1300 MG PO ×2 (08:45→19:51)
[2022-04-22] MEDS: ASPIRIN 81 MG TAB.CHEW PO (08:45)
[2022-04-22 11:50] VITALS: TEMP 36.1; O2SAT 97
[2022-04-22 17:22] VITALS: TEMP 37.4; O2SAT 95
[2022-04-22 18:28] LABS: PCR FLU A Negative PCR FLU A (Negative); PCR FLU B Negative PCR FLU B (Negative)
[2022-04-22 18:37] LABS: SARS PCR* Negative SARS-CoV-2 (Negative)
--- NOTE | 2022-04-22 18:40 | PC.NURSE ---
Status: Tested resident for Covid/Flu A&B r/t 3 degree increase in temp from day shift, lethargy, and newly reported close contact exposure from resident daughter. Results negative for covid/flu.
[2022-04-22] MEDS: ROSUVASTATIN CALCIUM 10 MG TABLET 40 MG PO (19:51)
[2022-04-22 23:00] VITALS: TEMP 36.9; O2SAT 96
--- NOTE | 2022-04-23 02:22 | PC.NURSE ---
Week #2---care plan problems #20-29 reviewed. No changes made. Nothing added to temporary care plan. Does not get out of bed at [facility]. Remains independent with bed mobility using top siderails. Falls---had 1 fall from the w/c on 04/01. Sustained no injuries. Remains a high fall risk according to assessment done on 03/03/22.
[2022-04-23] MEDS: SERTRALINE 50 MG TABLET 75 MG PO (08:26)
[2022-04-23] MEDS: ACETAMINOPHEN 650 MG TABLET ER 1300 MG PO ×2 (08:26→19:46)
[2022-04-23] MEDS: lisinopriL 2.5 MG TABLET PO (08:26)
[2022-04-23] MEDS: ASPIRIN 81 MG TAB.CHEW PO (08:26)
[2022-04-23] MEDS: CLOPIDOGREL 75 MG TABLET PO (08:26)
[2022-04-23 10:33] VITALS: BP 121/79; PULSE 70; RESP 16; TEMP 36.5; TEMP 37.1; O2SAT 96; O2SAT 97
--- NOTE | 2022-04-23 11:00 | PC.NURSE ---
Week #2: Care plan problems - and temporary care plan reviewed. No changes made. Nothing added to temporary care plan. Resident needs one assist pivot transfer with turning to the (R), & ambulation with a walker & transfer belt. Independent with positioning in bed and chair. Top side rails up to aid with positioning. No alarms. Fall: Had one fall on 04/01 with no injury. Remains ahigh fall risk according to assessment done on 03/03.
[2022-04-23] MEDS: ROSUVASTATIN CALCIUM 10 MG TABLET 40 MG PO (19:47)
[2022-04-23 21:46] VITALS: TEMP 36.6; O2SAT 94
[2022-04-24 00:57] VITALS: TEMP 36.8; O2SAT 93
[2022-04-24] MEDS: CLOPIDOGREL 75 MG TABLET PO (08:56)
[2022-04-24] MEDS: ASPIRIN 81 MG TAB.CHEW PO (08:56)
[2022-04-24] MEDS: lisinopriL 2.5 MG TABLET PO (08:56)
[2022-04-24] MEDS: ACETAMINOPHEN 650 MG TABLET ER 1300 MG PO ×2 (08:56→19:13)
[2022-04-24] MEDS: SERTRALINE 50 MG TABLET 75 MG PO (08:57)
[2022-04-24 10:52] VITALS: TEMP 36.7; O2SAT 96
[2022-04-24] MEDS: ROSUVASTATIN CALCIUM 10 MG TABLET 40 MG PO (19:13)
[2022-04-24 21:12] VITALS: TEMP 36.6; O2SAT 94
[2022-04-24 23:00] VITALS: TEMP 36.5; O2SAT 96
[2022-04-25] MEDS: CLOPIDOGREL 75 MG TABLET PO (08:58)
[2022-04-25] MEDS: ACETAMINOPHEN 650 MG TABLET ER 1300 MG PO ×2 (08:58→19:30)
[2022-04-25] MEDS: SERTRALINE 50 MG TABLET 75 MG PO (08:58)
[2022-04-25] MEDS: ASPIRIN 81 MG TAB.CHEW PO (08:58)
[2022-04-25] MEDS: lisinopriL 2.5 MG TABLET PO (08:58)
[2022-04-25 09:58] VITALS: TEMP 36.2; O2SAT 96
[2022-04-25] MEDS: ROSUVASTATIN CALCIUM 10 MG TABLET 40 MG PO (19:31)
[2022-04-25 21:40] VITALS: TEMP 36.4; O2SAT 95
[2022-04-25 23:00] VITALS: TEMP 36.6; O2SAT 96
[2022-04-26] MEDS: ACETAMINOPHEN 650 MG TABLET ER 1300 MG PO ×2 (08:45→19:14)
[2022-04-26] MEDS: SERTRALINE 50 MG TABLET 75 MG PO (08:45)
[2022-04-26] MEDS: lisinopriL 2.5 MG TABLET PO (08:45)
[2022-04-26] MEDS: CLOPIDOGREL 75 MG TABLET PO (08:45)
[2022-04-26] MEDS: ASPIRIN 81 MG TAB.CHEW PO (08:45)
[2022-04-26 10:35] VITALS: TEMP 36.4; O2SAT 98
--- NOTE | 2022-04-26 10:59 | PC.NURSE ---
COVID TESTING: Resident provided verbal consent for outbreak COVID testing. Resident is currently asymptomatic. Resident/family will be notified only if resident is positive.
[2022-04-26 11:02] VITALS: BMI 27.2
[2022-04-26 14:52] LABS: SARS PCR* Negative SARS-CoV-2 (Negative)
[2022-04-26] MEDS: ROSUVASTATIN CALCIUM 10 MG TABLET 40 MG PO (19:14)
[2022-04-26 21:33] VITALS: TEMP 36.5; O2SAT 90
--- NOTE | 2022-04-26 21:59 | PC.NURSE ---
Per OT: Janes is able to ambulate using the left platform walker with a min A using gate belt with cues to attend to positioning of LUE and LLE during ambulation. Please encourage to walk to/from the bathroom with staff assistance. Please continue to use stroke positioning in bed and the wheelchair to provide support to Janes's LUE and LLE. Bed positioning handouts in posted on board. Please encourage Janes to complete his exercises 2x/daily. He is able to complete them on his own and just needs to be reminded to initiate them. Per Silvia Hi, OTR.
[2022-04-26 23:00] VITALS: TEMP 36.8; O2SAT 95
[2022-04-27] MEDS: ACETAMINOPHEN 650 MG TABLET ER 1300 MG PO ×2 (08:45→19:50)
[2022-04-27] MEDS: lisinopriL 2.5 MG TABLET PO (08:45)
[2022-04-27] MEDS: CLOPIDOGREL 75 MG TABLET PO (08:45)
[2022-04-27] MEDS: ASPIRIN 81 MG TAB.CHEW PO (08:45)
[2022-04-27] MEDS: SERTRALINE 50 MG TABLET 75 MG PO (08:46)
[2022-04-27 11:19] VITALS: TEMP 36.4; O2SAT 95
[2022-04-27] MEDS: ROSUVASTATIN CALCIUM 10 MG TABLET 40 MG PO (19:50)
[2022-04-27 21:28] VITALS: TEMP 36.5; O2SAT 92
[2022-04-27 23:00] VITALS: TEMP 36.6; O2SAT 96
[2022-04-28] MEDS: ACETAMINOPHEN 650 MG TABLET ER 1300 MG PO ×2 (07:40→19:25)
[2022-04-28] MEDS: ASPIRIN 81 MG TAB.CHEW PO (07:40)
[2022-04-28] MEDS: CLOPIDOGREL 75 MG TABLET PO (07:40)
[2022-04-28] MEDS: SERTRALINE 50 MG TABLET 75 MG PO (07:41)
[2022-04-28] MEDS: lisinopriL 2.5 MG TABLET PO (07:41)
[2022-04-28 10:57] VITALS: TEMP 35.8; O2SAT 95; BMI 26.6
[2022-04-28 10:59] VITALS: BMI 26.6
[2022-04-28] MEDS: ROSUVASTATIN CALCIUM 10 MG TABLET 40 MG PO (19:25)
[2022-04-28 21:46] VITALS: TEMP 36.7; O2SAT 94
[2022-04-28 23:00] VITALS: TEMP 36.5; O2SAT 93
[2022-04-29] MEDS: ASPIRIN 81 MG TAB.CHEW PO (08:51)
[2022-04-29] MEDS: CLOPIDOGREL 75 MG TABLET PO (08:51)
[2022-04-29] MEDS: ACETAMINOPHEN 650 MG TABLET ER 1300 MG PO ×2 (08:51→19:32)
[2022-04-29] MEDS: lisinopriL 2.5 MG TABLET PO (08:51)
[2022-04-29] MEDS: SERTRALINE 50 MG TABLET 75 MG PO (08:52)
[2022-04-29 10:07] VITALS: TEMP 36.2; O2SAT 97
[2022-04-29] MEDS: ROSUVASTATIN CALCIUM 10 MG TABLET 40 MG PO (19:32)
[2022-04-29 21:35] VITALS: TEMP 36.5; O2SAT 97
[2022-04-29 23:00] VITALS: TEMP 36.3; O2SAT 96
--- NOTE | 2022-04-30 02:44 | PC.NURSE ---
Week #3---care plan problems #30-39 reviewed. No changes made. Nothing added to temporary care plan. Uses urinal per self during the noc. Does occ. miss it but mostly stays dry. Skin---no issues at this time.
[2022-04-30] MEDS: CLOPIDOGREL 75 MG TABLET PO (08:09)
[2022-04-30] MEDS: ACETAMINOPHEN 650 MG TABLET ER 1300 MG PO ×2 (08:09→19:40)
[2022-04-30] MEDS: ASPIRIN 81 MG TAB.CHEW PO (08:09)
[2022-04-30] MEDS: lisinopriL 2.5 MG TABLET PO (08:09)
[2022-04-30] MEDS: SERTRALINE 50 MG TABLET 75 MG PO (08:10)
[2022-04-30 10:36] VITALS: TEMP 37.2; O2SAT 96
[2022-04-30] MEDS: ROSUVASTATIN CALCIUM 10 MG TABLET 40 MG PO (19:40)
[2022-04-30 21:50] VITALS: BP 118/78; PULSE 72; RESP 18; TEMP 37.1; O2SAT 96
[2022-04-30 23:00] VITALS: TEMP 36.5; O2SAT 96
[2022-05-01 07:00] VITALS: TEMP 36.7; O2SAT 94
[2022-05-01] MEDS: ACETAMINOPHEN 650 MG TABLET ER 1300 MG PO ×2 (08:28→20:24)
[2022-05-01] MEDS: SERTRALINE 50 MG TABLET 75 MG PO (08:28)
[2022-05-01] MEDS: lisinopriL 2.5 MG TABLET PO (08:28)
[2022-05-01] MEDS: ASPIRIN 81 MG TAB.CHEW PO (08:28)
[2022-05-01] MEDS: CLOPIDOGREL 75 MG TABLET PO (08:28)
[2022-05-01] MEDS: ROSUVASTATIN CALCIUM 10 MG TABLET 40 MG PO (20:24)
[2022-05-01 21:39] VITALS: TEMP 36.7; O2SAT 94
[2022-05-01 23:00] VITALS: TEMP 36.6; O2SAT 95
[2022-05-02] MEDS: SERTRALINE 50 MG TABLET 75 MG PO (08:26)
[2022-05-02] MEDS: lisinopriL 2.5 MG TABLET PO (08:26)
[2022-05-02] MEDS: CLOPIDOGREL 75 MG TABLET PO (08:26)
[2022-05-02] MEDS: ASPIRIN 81 MG TAB.CHEW PO (08:26)
[2022-05-02] MEDS: ACETAMINOPHEN 650 MG TABLET ER 1300 MG PO ×2 (08:26→19:43)
[2022-05-02 11:08] VITALS: TEMP 36.1; O2SAT 96
[2022-05-02 17:12] VITALS: TEMP 36.3; O2SAT 95
[2022-05-02] MEDS: ROSUVASTATIN CALCIUM 10 MG TABLET 40 MG PO (19:43)
[2022-05-02 23:00] VITALS: TEMP 36.3; O2SAT 94
--- NOTE | 2022-05-03 01:47 | PC.NURSE ---
Week #4: care plan problems #40-119 and vital signs reviewed.? No changes made, and nothing added to temporary care plan.? Vital signs are within resident's normal ranges. No significant changes noted in hearing, vision, or orientation.? No behavior problems noted or reported tonight.? Resident is able to use call light appropriately. Sleeps well at night.? Meds: Continues to receive Zoloft 75 mg PO Daily - no adverse effects noted or reported at this time.?
[2022-05-03] MEDS: SERTRALINE 50 MG TABLET 75 MG PO (07:48)
[2022-05-03] MEDS: ASPIRIN 81 MG TAB.CHEW PO (07:48)
[2022-05-03] MEDS: lisinopriL 2.5 MG TABLET PO (07:48)
[2022-05-03] MEDS: ACETAMINOPHEN 650 MG TABLET ER 1300 MG PO ×2 (07:48→19:52)
[2022-05-03] MEDS: CLOPIDOGREL 75 MG TABLET PO (07:48)
[2022-05-03 12:42] VITALS: TEMP 36.6; O2SAT 92
[2022-05-03 14:34] LABS: SARS PCR* Negative SARS-CoV-2 (Negative)
[2022-05-03 15:00] VITALS: TEMP 36.6; O2SAT 95
[2022-05-03] MEDS: ROSUVASTATIN CALCIUM 10 MG TABLET 40 MG PO (19:52)
[2022-05-03 23:00] VITALS: TEMP 36.6; O2SAT 95
[2022-05-04 07:00] VITALS: TEMP 36.6; O2SAT 97
[2022-05-04] MEDS: ACETAMINOPHEN 650 MG TABLET ER 1300 MG PO ×2 (08:18→19:20)
[2022-05-04] MEDS: lisinopriL 2.5 MG TABLET PO (08:18)
[2022-05-04] MEDS: ASPIRIN 81 MG TAB.CHEW PO (08:18)
[2022-05-04] MEDS: CLOPIDOGREL 75 MG TABLET PO (08:18)
[2022-05-04] MEDS: SERTRALINE 50 MG TABLET 75 MG PO (08:18)
[2022-05-04] MEDS: ROSUVASTATIN CALCIUM 10 MG TABLET 40 MG PO (19:20)
[2022-05-04 21:26] VITALS: TEMP 36.4; O2SAT 95
[2022-05-04 23:00] VITALS: TEMP 35.8; O2SAT 94
[2022-05-05] MEDS: SERTRALINE 50 MG TABLET 75 MG PO (07:19)
[2022-05-05] MEDS: ACETAMINOPHEN 650 MG TABLET ER 1300 MG PO ×2 (07:19→20:26)
[2022-05-05] MEDS: CLOPIDOGREL 75 MG TABLET PO (07:19)
[2022-05-05] MEDS: lisinopriL 2.5 MG TABLET PO (07:19)
[2022-05-05] MEDS: ASPIRIN 81 MG TAB.CHEW PO (07:19)
[2022-05-05 11:00] VITALS: TEMP 35.8; O2SAT 94; BMI 26.6
[2022-05-05] MEDS: ROSUVASTATIN CALCIUM 10 MG TABLET 40 MG PO (20:26)
[2022-05-05 21:12] VITALS: TEMP 36.4; O2SAT 96
[2022-05-05 23:00] VITALS: TEMP 36.5; O2SAT 95
[2022-05-06] MEDS: ACETAMINOPHEN 650 MG TABLET ER 1300 MG PO ×2 (08:29→19:30)
[2022-05-06] MEDS: CLOPIDOGREL 75 MG TABLET PO (08:30)
[2022-05-06] MEDS: lisinopriL 2.5 MG TABLET PO (08:30)
[2022-05-06] MEDS: ASPIRIN 81 MG TAB.CHEW PO (08:30)
[2022-05-06] MEDS: SERTRALINE 50 MG TABLET 75 MG PO (08:30)
--- NOTE | 2022-05-06 10:10 | PC.SPIRITC ---
Molder Fitting provided visit for support and connection.
[2022-05-06 10:19] VITALS: TEMP 36.2; O2SAT 97
[2022-05-06] MEDS: ROSUVASTATIN CALCIUM 10 MG TABLET 40 MG PO (19:30)
[2022-05-06 21:50] VITALS: TEMP 36.6; O2SAT 97
[2022-05-06 23:00] VITALS: TEMP 36.6; O2SAT 95
--- NOTE | 2022-05-07 04:01 | PC.NURSE ---
Week #4---care plan problems #40+ reviewed. No changes made. Nothing added to temporary care plan. Can use call light for needs. No changes noted in hearing, vision, or orientation. No behavior problems. Sleeps well. Continues to receive Zoloft 75 mg qd with no adverse effects noted.
[2022-05-07 07:00] VITALS: TEMP 36.9; O2SAT 94
[2022-05-07] MEDS: SERTRALINE 50 MG TABLET 75 MG PO (08:14)
[2022-05-07] MEDS: ACETAMINOPHEN 650 MG TABLET ER 1300 MG PO ×2 (08:14→19:13)
[2022-05-07] MEDS: ASPIRIN 81 MG TAB.CHEW PO (08:14)
[2022-05-07] MEDS: lisinopriL 2.5 MG TABLET PO (08:14)
[2022-05-07] MEDS: CLOPIDOGREL 75 MG TABLET PO (08:14)
[2022-05-07] MEDS: ROSUVASTATIN CALCIUM 10 MG TABLET 40 MG PO (19:13)
[2022-05-07 20:56] VITALS: TEMP 36.5; O2SAT 94
[2022-05-07 23:00] VITALS: TEMP 36.3; O2SAT 94
[2022-05-08 07:00] VITALS: TEMP 36.2; O2SAT 95
[2022-05-08] MEDS: ACETAMINOPHEN 650 MG TABLET ER 1300 MG PO ×2 (08:51→19:27)
[2022-05-08] MEDS: SERTRALINE 50 MG TABLET 75 MG PO (08:51)
[2022-05-08] MEDS: lisinopriL 2.5 MG TABLET PO (08:51)
[2022-05-08] MEDS: ASPIRIN 81 MG TAB.CHEW PO (08:51)
[2022-05-08] MEDS: CLOPIDOGREL 75 MG TABLET PO (08:51)
[2022-05-08 17:05] VITALS: TEMP 36.2; O2SAT 96
[2022-05-08] MEDS: ROSUVASTATIN CALCIUM 10 MG TABLET 40 MG PO (19:26)
[2022-05-09 00:22] VITALS: TEMP 36.3; O2SAT 96
[2022-05-09 07:00] VITALS: TEMP 36.5; O2SAT 94
[2022-05-09] MEDS: lisinopriL 2.5 MG TABLET PO (08:42)
[2022-05-09] MEDS: ACETAMINOPHEN 650 MG TABLET ER 1300 MG PO ×2 (08:42→19:38)
[2022-05-09] MEDS: SERTRALINE 50 MG TABLET 75 MG PO (08:42)
[2022-05-09] MEDS: ASPIRIN 81 MG TAB.CHEW PO (08:42)
[2022-05-09] MEDS: CLOPIDOGREL 75 MG TABLET PO (08:42)
[2022-05-09] MEDS: ROSUVASTATIN CALCIUM 10 MG TABLET 40 MG PO (19:38)
[2022-05-09 21:27] VITALS: TEMP 36.3; O2SAT 96
[2022-05-09 23:00] VITALS: TEMP 36.2; O2SAT 95
[2022-05-10 07:00] VITALS: TEMP 36.1; O2SAT 96
[2022-05-10] MEDS: ASPIRIN 81 MG TAB.CHEW PO (08:45)
[2022-05-10] MEDS: SERTRALINE 50 MG TABLET 75 MG PO (08:45)
[2022-05-10] MEDS: lisinopriL 2.5 MG TABLET PO (08:45)
[2022-05-10] MEDS: CLOPIDOGREL 75 MG TABLET PO (08:45)
[2022-05-10] MEDS: ACETAMINOPHEN 650 MG TABLET ER 1300 MG PO ×2 (08:45→19:59)
--- NOTE | 2022-05-10 11:26 | PC.NURSE ---
COVID OUTBREAK TESTING: Resident provided verbal consent for outbreak COVID testing. Resident is currently asymptomatic. Resident/family will be notified only if resident is positive.
[2022-05-10 13:13] LABS: SARS PCR* Negative SARS-CoV-2 (Negative)
[2022-05-10 15:00] VITALS: TEMP 36.7; O2SAT 94
[2022-05-10] MEDS: ROSUVASTATIN CALCIUM 10 MG TABLET 40 MG PO (19:59)
[2022-05-10 23:00] VITALS: TEMP 36.4; O2SAT 96
[2022-05-11] MEDS: CLOPIDOGREL 75 MG TABLET PO (08:58)
[2022-05-11] MEDS: ASPIRIN 81 MG TAB.CHEW PO (08:58)
[2022-05-11] MEDS: SERTRALINE 50 MG TABLET 75 MG PO (08:58)
[2022-05-11] MEDS: ACETAMINOPHEN 650 MG TABLET ER 1300 MG PO ×2 (08:58→19:38)
[2022-05-11] MEDS: lisinopriL 2.5 MG TABLET PO (08:58)
[2022-05-11 10:24] VITALS: TEMP 36; O2SAT 98
[2022-05-11] MEDS: ROSUVASTATIN CALCIUM 10 MG TABLET 40 MG PO (19:38)
[2022-05-11 21:27] VITALS: TEMP 36.4; O2SAT 95
[2022-05-11 23:00] VITALS: TEMP 36.2; O2SAT 96
[2022-05-12] MEDS: lisinopriL 2.5 MG TABLET PO (07:42)
[2022-05-12] MEDS: CLOPIDOGREL 75 MG TABLET PO (07:42)
[2022-05-12] MEDS: ACETAMINOPHEN 650 MG TABLET ER 1300 MG PO ×2 (07:42→20:04)
[2022-05-12] MEDS: ASPIRIN 81 MG TAB.CHEW PO (07:42)
[2022-05-12] MEDS: SERTRALINE 50 MG TABLET 75 MG PO (07:42)
[2022-05-12 09:20] VITALS: TEMP 36.1; O2SAT 94
[2022-05-12 10:10] VITALS: BMI 26.6
[2022-05-12] MEDS: ROSUVASTATIN CALCIUM 10 MG TABLET 40 MG PO (20:04)
[2022-05-12 21:42] VITALS: TEMP 36.5; O2SAT 95
[2022-05-12 23:00] VITALS: TEMP 36.5; O2SAT 94
[2022-05-13] MEDS: ACETAMINOPHEN 650 MG TABLET ER 1300 MG PO ×2 (08:22→19:08)
[2022-05-13] MEDS: CLOPIDOGREL 75 MG TABLET PO (08:22)
[2022-05-13] MEDS: lisinopriL 2.5 MG TABLET PO (08:22)
[2022-05-13] MEDS: SERTRALINE 50 MG TABLET 75 MG PO (08:22)
[2022-05-13] MEDS: ASPIRIN 81 MG TAB.CHEW PO (08:22)
[2022-05-13 11:05] VITALS: TEMP 36.4; O2SAT 97
[2022-05-13] MEDS: ROSUVASTATIN CALCIUM 10 MG TABLET 40 MG PO (19:08)
[2022-05-13 22:20] VITALS: TEMP 35.1; O2SAT 98
[2022-05-13 23:00] VITALS: TEMP 36.1; O2SAT 97
[2022-05-14 07:00] VITALS: TEMP 36.6; O2SAT 95
[2022-05-14] MEDS: ACETAMINOPHEN 650 MG TABLET ER 1300 MG PO ×2 (08:17→19:39)
[2022-05-14] MEDS: lisinopriL 2.5 MG TABLET PO (08:17)
[2022-05-14] MEDS: ASPIRIN 81 MG TAB.CHEW PO (08:17)
[2022-05-14] MEDS: SERTRALINE 50 MG TABLET 75 MG PO (08:17)
[2022-05-14] MEDS: CLOPIDOGREL 75 MG TABLET PO (08:17)
--- NOTE | 2022-05-14 16:47 | PC.NURSE ---
Week #1: Care plan problems 1-19 and temporary care plan reviewed. No changes made. Nothing added to temporary care plan. He needs assist with dressing, grooming and bathing. Is able to participate. Does shave self, oral cares & feeding after set up. Is on 2gm sodium diet. No problems with chewing or swallowing reported. Pain: Has no complaints. Pain is managed with Tylenol 1300mg BID.
[2022-05-14 18:38] VITALS: TEMP 36.7; O2SAT 96
[2022-05-14] MEDS: ROSUVASTATIN CALCIUM 10 MG TABLET 40 MG PO (19:39)
[2022-05-14 21:33] VITALS: BP 128/84; PULSE 72; RESP 16; TEMP 36.7; O2SAT 96
[2022-05-15] MEDS: ASPIRIN 81 MG TAB.CHEW PO (08:16)
[2022-05-15] MEDS: SERTRALINE 50 MG TABLET 75 MG PO (08:16)
[2022-05-15] MEDS: lisinopriL 2.5 MG TABLET PO (08:16)
[2022-05-15] MEDS: CLOPIDOGREL 75 MG TABLET PO (08:16)
[2022-05-15] MEDS: ACETAMINOPHEN 650 MG TABLET ER 1300 MG PO ×2 (08:16→19:39)
[2022-05-15] MEDS: ROSUVASTATIN CALCIUM 10 MG TABLET 40 MG PO (19:39)
[2022-05-15 20:33] VITALS: TEMP 36.7; O2SAT 96
--- NOTE | 2022-05-15 20:34 | PC.NURSE ---
Resident left unit for family outing at 1545. Returned to unit at 1934.
[2022-05-16] MEDS: lisinopriL 2.5 MG TABLET PO (08:15)
[2022-05-16] MEDS: SERTRALINE 50 MG TABLET 75 MG PO (08:15)
[2022-05-16] MEDS: ASPIRIN 81 MG TAB.CHEW PO (08:15)
[2022-05-16] MEDS: CLOPIDOGREL 75 MG TABLET PO (08:15)
[2022-05-16] MEDS: ACETAMINOPHEN 650 MG TABLET ER 1300 MG PO ×2 (08:15→19:16)
[2022-05-16] MEDS: ROSUVASTATIN CALCIUM 10 MG TABLET 40 MG PO (19:16)
[2022-05-16 20:50] VITALS: TEMP 36.6; O2SAT 95
[2022-05-17] MEDS: lisinopriL 2.5 MG TABLET PO (08:40)
[2022-05-17] MEDS: SERTRALINE 50 MG TABLET 75 MG PO (08:40)
[2022-05-17] MEDS: ASPIRIN 81 MG TAB.CHEW PO (08:40)
[2022-05-17] MEDS: ACETAMINOPHEN 650 MG TABLET ER 1300 MG PO ×2 (08:40→19:47)
[2022-05-17] MEDS: CLOPIDOGREL 75 MG TABLET PO (08:40)
[2022-05-17 17:11] VITALS: TEMP 36.4; O2SAT 93
[2022-05-17] MEDS: ROSUVASTATIN CALCIUM 10 MG TABLET 40 MG PO (19:47)
[2022-05-18] MEDS: CLOPIDOGREL 75 MG TABLET PO (08:18)
[2022-05-18] MEDS: lisinopriL 2.5 MG TABLET PO (08:18)
[2022-05-18] MEDS: SERTRALINE 50 MG TABLET 75 MG PO (08:18)
[2022-05-18] MEDS: ASPIRIN 81 MG TAB.CHEW PO (08:18)
[2022-05-18] MEDS: ACETAMINOPHEN 650 MG TABLET ER 1300 MG PO ×2 (08:18→19:30)
[2022-05-18 16:00] VITALS: TEMP 36.8; O2SAT 95
[2022-05-18] MEDS: ROSUVASTATIN CALCIUM 10 MG TABLET 40 MG PO (19:30)
[2022-05-19 07:00] VITALS: BMI 26.6
[2022-05-19] MEDS: SERTRALINE 50 MG TABLET 75 MG PO (08:49)
[2022-05-19] MEDS: ACETAMINOPHEN 650 MG TABLET ER 1300 MG PO ×2 (08:49→19:53)
[2022-05-19] MEDS: CLOPIDOGREL 75 MG TABLET PO (08:49)
[2022-05-19] MEDS: lisinopriL 2.5 MG TABLET PO (08:49)
[2022-05-19] MEDS: ASPIRIN 81 MG TAB.CHEW PO (08:49)
--- NOTE | 2022-05-19 09:07 | PC.NURSE ---
Skin check - Bruise noted on R shoulder and upper arm. Bruise has purple center and yellowing around the edges. Bruise is oblong in shape. 8 inches high. 3 inches wide. Pt says he fell when he attempted to walk using crutches on Tuesday while out with family. Pt says he fell on grass. Pt denies any pain. Pt capable of full ROM with no complaints or evidence of pain.
--- NOTE | 2022-05-19 13:38 | PC.NURSE ---
Worklist - Pain assessment intervention changed from Qshift to PRN.
[2022-05-19 16:00] VITALS: TEMP 36.9; O2SAT 95
[2022-05-19] MEDS: ROSUVASTATIN CALCIUM 10 MG TABLET 40 MG PO (19:53)
[2022-05-20] MEDS: ACETAMINOPHEN 650 MG TABLET ER 1300 MG PO ×2 (08:12→20:09)
[2022-05-20] MEDS: SERTRALINE 50 MG TABLET 75 MG PO (08:12)
[2022-05-20] MEDS: CLOPIDOGREL 75 MG TABLET PO (08:12)
[2022-05-20] MEDS: lisinopriL 2.5 MG TABLET PO (08:12)
[2022-05-20] MEDS: ASPIRIN 81 MG TAB.CHEW PO (08:12)
--- NOTE | 2022-05-20 11:32 | PC.NURSE ---
Week #1: Care plan problems 1-19 and temporary care plan reviewed. No changes made. Nothing added to temporary care plan. He needs extensive to limited assist with dressing, grooming and bathing. Is able to participate. Does shave self, oral cares after set up. Is on 2gm sodium diet. Feed independently after set up. No problems with chewing or swallowing reported. Pain: Has no complain. Pain is managed with Tylenol 1300mg BID. Is able to tell when in pain.
--- NOTE | 2022-05-20 12:32 | PC.NURSE ---
Order: Okay to administer Shingrix (Zoster vaccine). Administer 0.5ml IM X2 (each dose to be given 4 months apart) by Derrick ZIMMERMAN.
--- NOTE | 2022-05-20 14:44 | PC.NURSE ---
ASHLEY DALY: Resident aware of out of pocket cost of approx. $190 per pharmacy. Resident wants to continue w/vx despite cost.
[2022-05-20 17:01] VITALS: TEMP 36.6; O2SAT 96
[2022-05-20] MEDS: ROSUVASTATIN CALCIUM 10 MG TABLET 40 MG PO (20:09)
--- NOTE | 2022-05-20 21:33 | PC.NURSE ---
Shingles Vx: Shingrix Vx (Zoster) 0.5ml admin IM L deltoid @2014. Bandaid applied at site. No c/o pain at this time. T: 97.8 at time of injection. [employer]: Evocalize. Lyophilized gE Antigen component Lot #[id number]. Adjuvant Suspension Component Lot #[id number]. Exp: 05/13/23. Intervention for temp monitoring initiated.
--- NOTE | 2022-05-20 21:48 | PC.NURSE ---
Outing: Resident left unit with his daughter for a doctors appt at [facility] at 1430. Returned at 1630.
[2022-05-20 21:55] VITALS: TEMP 36.6
[2022-05-21 02:38] VITALS: TEMP 36.1
--- NOTE | 2022-05-21 02:39 | PC.NURSE ---
Week #1---care plan problems #1-19 reviewed. No changes made. Temporary care plan updated re: bruise right upper arm and shoulder from a fall he had while out with family on 05/15/22. Has water available at bedside to drink per self. Pain---no pain at noc this past month. Continues to receive Tylenol 1300 mg BID for pain control.
--- NOTE | 2022-05-21 05:21 | PC.NURSE ---
Status---Temp tonight was 97. Denied any discomforts. No side effects to shingles vaccine at this time.
[2022-05-21] MEDS: ACETAMINOPHEN 650 MG TABLET ER 1300 MG PO ×2 (08:44→20:06)
[2022-05-21] MEDS: SERTRALINE 50 MG TABLET 75 MG PO (08:44)
[2022-05-21] MEDS: lisinopriL 2.5 MG TABLET PO (08:44)
[2022-05-21] MEDS: ASPIRIN 81 MG TAB.CHEW PO (08:44)
[2022-05-21] MEDS: CLOPIDOGREL 75 MG TABLET PO (08:44)
[2022-05-21 10:55] VITALS: TEMP 36.1
--- NOTE | 2022-05-21 11:16 | PC.NURSE ---
Recert Visit: Resident seen by Dr. Cifuentes. Orders reviewed and renewed of 75 days with no changes. Request to obtain the visit note from neurology @ [facility] from 04/16/22 and note from his cardiology visit 05/20/22.
[2022-05-21 13:42] VITALS: BP 138/88; PULSE 75; RESP 16; TEMP 36.1; O2SAT 96
--- NOTE | 2022-05-21 15:17 | REH.OT ---
Addendum entered by Kaley Farley RN 07/15/22 16:01: After review with resident and staff for assessment. Have changed hot liquid assessment to: due to physical impairments resident may only drink hot liquids at table. Often eats/drinks in his room for meals . Original Note: Hot liquids assessment: Patient should consume hot liquids at table and with staff supervision due to physical deficits.
[2022-05-21] MEDS: ROSUVASTATIN CALCIUM 10 MG TABLET 40 MG PO (20:06)
[2022-05-21 21:14] VITALS: TEMP 36.6; O2SAT 94
[2022-05-22] MEDS: ASPIRIN 81 MG TAB.CHEW PO (08:44)
[2022-05-22] MEDS: CLOPIDOGREL 75 MG TABLET PO (08:44)
[2022-05-22] MEDS: lisinopriL 2.5 MG TABLET PO (08:44)
[2022-05-22] MEDS: ACETAMINOPHEN 650 MG TABLET ER 1300 MG PO ×2 (08:44→19:33)
[2022-05-22] MEDS: SERTRALINE 50 MG TABLET 75 MG PO (11:55)
[2022-05-22] MEDS: ROSUVASTATIN CALCIUM 10 MG TABLET 40 MG PO (19:33)
[2022-05-22 21:20] VITALS: TEMP 36.4; O2SAT 95
[2022-05-23] MEDS: SERTRALINE 50 MG TABLET 75 MG PO (08:36)
[2022-05-23] MEDS: ACETAMINOPHEN 650 MG TABLET ER 1300 MG PO ×2 (08:36→19:44)
[2022-05-23] MEDS: CLOPIDOGREL 75 MG TABLET PO (08:36)
[2022-05-23] MEDS: lisinopriL 2.5 MG TABLET PO (08:36)
[2022-05-23] MEDS: ASPIRIN 81 MG TAB.CHEW PO (08:36)
[2022-05-23] MEDS: ROSUVASTATIN CALCIUM 10 MG TABLET 40 MG PO (19:44)
[2022-05-23 20:52] VITALS: TEMP 36.4; O2SAT 96
[2022-05-24] MEDS: ACETAMINOPHEN 650 MG TABLET ER 1300 MG PO ×2 (09:00→19:16)
[2022-05-24] MEDS: SERTRALINE 50 MG TABLET 75 MG PO (09:00)
[2022-05-24] MEDS: lisinopriL 2.5 MG TABLET PO (09:00)
[2022-05-24] MEDS: CLOPIDOGREL 75 MG TABLET PO (09:00)
[2022-05-24] MEDS: ASPIRIN 81 MG TAB.CHEW PO (09:00)
[2022-05-24 16:00] VITALS: TEMP 36.7; O2SAT 95
[2022-05-24] MEDS: ROSUVASTATIN CALCIUM 10 MG TABLET 40 MG PO (19:16)
[2022-05-25] MEDS: lisinopriL 2.5 MG TABLET PO (08:57)
[2022-05-25] MEDS: ASPIRIN 81 MG TAB.CHEW PO (08:57)
[2022-05-25] MEDS: CLOPIDOGREL 75 MG TABLET PO (08:57)
[2022-05-25] MEDS: ACETAMINOPHEN 650 MG TABLET ER 1300 MG PO ×2 (08:57→19:43)
[2022-05-25] MEDS: SERTRALINE 50 MG TABLET 75 MG PO (08:58)
--- NOTE | 2022-05-25 13:30 | PC.NURSE ---
CARE CONFERENCE: Resident and daughter Muna present. Nursing, dietary, activities, and SW present. Nursing discussed current medications and provided a med list to daughter. Discussed recent cardiac/neuro follow up appointments--nursing to obtain notes from these visits per Dr. Cifuentes. Resident did participate in PT/OT for a couple of weeks this quarter per neurology order. Resident lacks motivation with ambulating and following therapy recommendations. Nursing to continue encouraging resident to walk short distances in his room and to and from meals. Resident agrees to this plan. Activities encouraged resident to participate in exercise class and other activities. Likes to spend time outside. SW reports that mood has been stable, no concerns. Resident and daughter deny any concerns with his care. Care plan reviewed and updated. Is full code. Uses no restraints. Does use 2 side rails to assist with positioning. Vulnerability- is at risk for being harmed due to balance and L sided deficit. No plans for discharge, parts counterman stay.
--- NOTE | 2022-05-25 14:02 | PC.NURSE ---
Outing: Went out with daughter for personal outing.
[2022-05-25 14:13] VITALS: BMI 26.6
--- NOTE | 2022-05-25 16:24 | PC.SOCIAL ---
Resident Care Conference was completed today at 1:30 pm. Team was present in room with resident and resident's daughter, Muna (in-person). Social Work discussed that resident's mood is stable and there are no concerns. Nursing, Nutrition, and Activities all provided updates on resident. Nursing asked family to notify [facility] if resident has any future appointments. Muna stated that the appointment resident just went to was for Cardiovascular and resident will have a follow up appointment in three months. Muna will provide the appointment information to Nursing when she gets the information from home.
--- NOTE | 2022-05-25 16:30 | PC.SPIRITC ---
provided visit for connection.
[2022-05-25] MEDS: ROSUVASTATIN CALCIUM 10 MG TABLET 40 MG PO (19:44)
[2022-05-25 21:38] VITALS: TEMP 36.3; O2SAT 94
--- NOTE | 2022-05-25 21:38 | PC.NURSE ---
Outing: Resident returned from outing at 1600.
[2022-05-26 07:00] VITALS: BMI 26.6
[2022-05-26] MEDS: SERTRALINE 50 MG TABLET 75 MG PO (08:32)
[2022-05-26] MEDS: ASPIRIN 81 MG TAB.CHEW PO (08:32)
[2022-05-26] MEDS: lisinopriL 2.5 MG TABLET PO (08:32)
[2022-05-26] MEDS: CLOPIDOGREL 75 MG TABLET PO (08:32)
[2022-05-26] MEDS: ACETAMINOPHEN 650 MG TABLET ER 1300 MG PO ×2 (08:32→19:27)
--- NOTE | 2022-05-26 10:58 | PC.NURSE ---
Skin check - Skin is intact, warm, dry, turgor <3, appropriate color. Bruise on RUE appears to be healing - fading, minimizing, turning more yellow/green.
[2022-05-26 16:00] VITALS: TEMP 36.6; O2SAT 95
[2022-05-26] MEDS: ROSUVASTATIN CALCIUM 10 MG TABLET 40 MG PO (19:27)
[2022-05-27] MEDS: ACETAMINOPHEN 650 MG TABLET ER 1300 MG PO ×2 (07:07→20:00)
[2022-05-27] MEDS: CLOPIDOGREL 75 MG TABLET PO (07:07)
[2022-05-27] MEDS: ASPIRIN 81 MG TAB.CHEW PO (07:07)
[2022-05-27] MEDS: lisinopriL 2.5 MG TABLET PO (07:08)
[2022-05-27] MEDS: SERTRALINE 50 MG TABLET 75 MG PO (07:08)
--- NOTE | 2022-05-27 10:22 | PC.SPIRITC ---
Gritting Machine Operator provided visit for connection and support, reflected on the past and how things have changed.
[2022-05-27 11:27] VITALS: TEMP 36.5; O2SAT 96
--- NOTE | 2022-05-27 11:28 | PC.NURSE ---
Tight socks: Resident took left sock off in the night stating it was too tight. No swelling noticed. Called daughter, Muna, to bring in larger socks.
[2022-05-27 18:33] VITALS: TEMP 36.5; O2SAT 96
[2022-05-27] MEDS: ROSUVASTATIN CALCIUM 10 MG TABLET 40 MG PO (20:00)
--- NOTE | 2022-05-28 02:49 | PC.NURSE ---
Week #2---care plan problems #20-29 reviewed. No changes made. Nothing added to temporary care plan. Does not get out of bed during the noc. Is independent with bed mobility using top siderails. Falls---had 1 fall this past month on 05/15/22 when out with family. Only injury was a bruise to right shoulder and upper arm. Remains a high fall risk according to assessment done on 03/03/22.
[2022-05-28] MEDS: ACETAMINOPHEN 650 MG TABLET ER 1300 MG PO ×2 (08:58→19:39)
[2022-05-28] MEDS: CLOPIDOGREL 75 MG TABLET PO (08:58)
[2022-05-28] MEDS: ASPIRIN 81 MG TAB.CHEW PO (08:58)
[2022-05-28] MEDS: lisinopriL 2.5 MG TABLET PO (08:58)
[2022-05-28] MEDS: SERTRALINE 50 MG TABLET 75 MG PO (08:59)
--- NOTE | 2022-05-28 09:29 | PC.NURSE ---
Week #2: Care plan problems - and temporary care plan reviewed. No changes made. Nothing added to temporary care plan. Resident needs one assist, transfer belt, walker with transfers and ambulation. Is able to self propel in wheelchair. Independent with repositioning self in bed/chair.
--- NOTE | 2022-05-28 09:37 | PC.NURSE ---
Week #2: Care plan problems - and temporary care plan reviewed. No changes made. Nothing added to temporary care plan. Needs one assist, transfer belt & walker with transfers and ambulation. Is able to self propel in wheelchair & reposition self in bed/chair. Staff to remind q2h repositioning. Top side rails up to aid for positioning. No alarms. Fall: No falls this past month. Is a low fall risk according to assessment done on 05/27/22.
[2022-05-28 14:06] VITALS: BP 130/80; PULSE 72; RESP 18; TEMP 36.3; O2SAT 96
[2022-05-28 18:16] VITALS: TEMP 36.6; O2SAT 96
[2022-05-28] MEDS: ROSUVASTATIN CALCIUM 10 MG TABLET 40 MG PO (19:39)
[2022-05-29] MEDS: ASPIRIN 81 MG TAB.CHEW PO (08:18)
[2022-05-29] MEDS: CLOPIDOGREL 75 MG TABLET PO (08:18)
[2022-05-29] MEDS: SERTRALINE 50 MG TABLET 75 MG PO (08:18)
[2022-05-29] MEDS: ACETAMINOPHEN 650 MG TABLET ER 1300 MG PO ×2 (08:18→19:00)
[2022-05-29] MEDS: lisinopriL 2.5 MG TABLET PO (08:18)
[2022-05-29] MEDS: ROSUVASTATIN CALCIUM 10 MG TABLET 40 MG PO (19:00)
[2022-05-29 20:21] VITALS: TEMP 37.1; O2SAT 96
[2022-05-30] MEDS: lisinopriL 2.5 MG TABLET PO (08:13)
[2022-05-30] MEDS: SERTRALINE 50 MG TABLET 75 MG PO (08:13)
[2022-05-30] MEDS: CLOPIDOGREL 75 MG TABLET PO (08:13)
[2022-05-30] MEDS: ACETAMINOPHEN 650 MG TABLET ER 1300 MG PO ×2 (08:13→20:11)
[2022-05-30] MEDS: ASPIRIN 81 MG TAB.CHEW PO (08:13)
[2022-05-30] MEDS: ROSUVASTATIN CALCIUM 10 MG TABLET 40 MG PO (20:11)
[2022-05-30 20:50] VITALS: TEMP 37.2; O2SAT 97
[2022-05-31] MEDS: ACETAMINOPHEN 650 MG TABLET ER 1300 MG PO ×2 (08:42→20:03)
[2022-05-31] MEDS: ASPIRIN 81 MG TAB.CHEW PO (08:42)
[2022-05-31] MEDS: CLOPIDOGREL 75 MG TABLET PO (08:42)
[2022-05-31] MEDS: lisinopriL 2.5 MG TABLET PO (08:42)
[2022-05-31] MEDS: SERTRALINE 50 MG TABLET 75 MG PO (08:42)
[2022-05-31 16:00] VITALS: TEMP 36.7; O2SAT 95
[2022-05-31] MEDS: ROSUVASTATIN CALCIUM 10 MG TABLET 40 MG PO (20:03)
[2022-06-01] MEDS: SERTRALINE 50 MG TABLET 75 MG PO (08:36)
[2022-06-01] MEDS: ASPIRIN 81 MG TAB.CHEW PO (08:36)
[2022-06-01] MEDS: CLOPIDOGREL 75 MG TABLET PO (08:36)
[2022-06-01] MEDS: lisinopriL 2.5 MG TABLET PO (08:36)
[2022-06-01] MEDS: ACETAMINOPHEN 650 MG TABLET ER 1300 MG PO ×2 (08:36→19:24)
[2022-06-01] MEDS: ROSUVASTATIN CALCIUM 10 MG TABLET 40 MG PO (19:24)
[2022-06-01 21:01] VITALS: TEMP 36.4; O2SAT 96
[2022-06-02 01:47] VITALS: TEMP 36.2; O2SAT 96
[2022-06-02 07:00] VITALS: TEMP 36.2; O2SAT 97
[2022-06-02] MEDS: ACETAMINOPHEN 650 MG TABLET ER 1300 MG PO ×2 (08:35→19:25)
[2022-06-02] MEDS: ASPIRIN 81 MG TAB.CHEW PO (08:35)
[2022-06-02] MEDS: lisinopriL 2.5 MG TABLET PO (08:35)
[2022-06-02] MEDS: SERTRALINE 50 MG TABLET 75 MG PO (08:35)
[2022-06-02] MEDS: CLOPIDOGREL 75 MG TABLET PO (08:35)
--- NOTE | 2022-06-02 10:26 | PC.NURSE ---
Skin check - No skin issues noted. Bruise on RUE resolved.
--- NOTE | 2022-06-02 12:23 | PC.PHA ---
Pharmacy Review ~ Patient continues on low dose aspirin and clopidogrel post stroke. Lisinopril 2.5 mg daily continues with blood pressures being stable. Sertraline 75 mg continues to be appropriate. No concerns with patient's current medication regimen.
[2022-06-02 15:00] VITALS: TEMP 36.6; O2SAT 95
[2022-06-02] MEDS: ROSUVASTATIN CALCIUM 10 MG TABLET 40 MG PO (19:25)
[2022-06-03 03:23] VITALS: TEMP 36.4; O2SAT 95
[2022-06-03] MEDS: ASPIRIN 81 MG TAB.CHEW PO (07:20)
[2022-06-03] MEDS: ACETAMINOPHEN 650 MG TABLET ER 1300 MG PO ×2 (07:20→20:05)
[2022-06-03] MEDS: CLOPIDOGREL 75 MG TABLET PO (07:20)
[2022-06-03] MEDS: lisinopriL 2.5 MG TABLET PO (07:20)
[2022-06-03] MEDS: SERTRALINE 50 MG TABLET 75 MG PO (07:20)
--- NOTE | 2022-06-03 09:37 | PC.NURSE ---
COVID OUTBREAK TESTING: Resident provided verbal consent for outbreak COVID testing. Resident is currently asymptomatic. Resident/family will be notified only if resident is positive.
--- NOTE | 2022-06-03 10:22 | PC.NURSE ---
Week #3: Care plan problems 30-39 and temporary care plan reviewed. No changes made. Nothing added to temporary care plan. He is continent of bowel & bladder. Needs one assist with toileting. Encourage to ambulate to the toilet with transfer belt and walker. When in bed uses a urinal, emptied by staff. Wears large briefs. Pads, bo cares, clothing adjustment managed by staff. Skin: No issues at this time. Bruises on (R) upper arm & shoulder resolved.
[2022-06-03 10:42] VITALS: TEMP 36.4; O2SAT 97
[2022-06-03 14:13] LABS: SARS PCR* Negative SARS-CoV-2 (Negative)
[2022-06-03] MEDS: ROSUVASTATIN CALCIUM 10 MG TABLET 40 MG PO (20:05)
[2022-06-03 21:14] VITALS: TEMP 36.7; O2SAT 97
--- NOTE | 2022-06-04 01:19 | PC.NURSE ---
Week #3: Skin summary: Resident has no new skin concerns at this time. Temporary care plan reviewed, no change. Care plan 30-39 reviewed, no change. Bathroom: Resident is independent in bathroom, will call if needing assistance.
[2022-06-04 04:00] VITALS: TEMP 36.6; O2SAT 98
[2022-06-04 07:00] VITALS: TEMP 36.3; O2SAT 97
[2022-06-04] MEDS: SERTRALINE 50 MG TABLET 75 MG PO (08:24)
[2022-06-04] MEDS: ACETAMINOPHEN 650 MG TABLET ER 1300 MG PO ×2 (08:24→20:05)
[2022-06-04] MEDS: CLOPIDOGREL 75 MG TABLET PO (08:24)
[2022-06-04] MEDS: ASPIRIN 81 MG TAB.CHEW PO (08:24)
[2022-06-04] MEDS: lisinopriL 2.5 MG TABLET PO (08:24)
--- NOTE | 2022-06-04 12:19 | PC.NURSE ---
MDS clarification: Reviewed MDS ADL charting for ANDRA 05/21-05/27, noted to have inconsistent charting. Interviewed NARs and determined that errors were made. Reviewed with staff. Resident uses limited assist of 1 with bed mobility, transfers, and hygiene. Resident needs extensive assist with dressing d/t to left sided weakness. Resident can independently use toilet and urinal at bedside. Resident is able to ambulate but did not do so in look back period. Once resident is in w/c can propel self with supervision to and from destinations. Resident eats independently after setup. Coded as such in MDS.
[2022-06-04 14:00] VITALS: BP 117/79; PULSE 80; RESP 18; TEMP 36.3; O2SAT 97
[2022-06-04] MEDS: ROSUVASTATIN CALCIUM 10 MG TABLET 40 MG PO (20:05)
[2022-06-04 22:30] VITALS: TEMP 36.4; O2SAT 96
[2022-06-05 01:32] VITALS: TEMP 36.4; O2SAT 96
[2022-06-05 07:00] VITALS: TEMP 36.3; O2SAT 95
[2022-06-05] MEDS: CLOPIDOGREL 75 MG TABLET PO (08:48)
[2022-06-05] MEDS: ACETAMINOPHEN 650 MG TABLET ER 1300 MG PO ×2 (08:48→19:53)
[2022-06-05] MEDS: ASPIRIN 81 MG TAB.CHEW PO (08:48)
[2022-06-05] MEDS: SERTRALINE 50 MG TABLET 75 MG PO (08:49)
[2022-06-05] MEDS: lisinopriL 2.5 MG TABLET PO (08:49)
[2022-06-05 16:48] VITALS: TEMP 36.3; O2SAT 97
[2022-06-05] MEDS: ROSUVASTATIN CALCIUM 10 MG TABLET 40 MG PO (19:53)
[2022-06-06 02:20] VITALS: TEMP 36.4; O2SAT 98
[2022-06-06 07:00] VITALS: TEMP 36.2; O2SAT 97
[2022-06-06] MEDS: ASPIRIN 81 MG TAB.CHEW PO (08:48)
[2022-06-06] MEDS: CLOPIDOGREL 75 MG TABLET PO (08:48)
[2022-06-06] MEDS: ACETAMINOPHEN 650 MG TABLET ER 1300 MG PO ×2 (08:48→19:46)
[2022-06-06] MEDS: lisinopriL 2.5 MG TABLET PO (08:48)
[2022-06-06] MEDS: SERTRALINE 50 MG TABLET 75 MG PO (08:48)
[2022-06-06 18:39] VITALS: TEMP 36.3; O2SAT 96
[2022-06-06] MEDS: ROSUVASTATIN CALCIUM 10 MG TABLET 40 MG PO (19:46)
[2022-06-06 23:00] VITALS: TEMP 36.7; O2SAT 96
[2022-06-07 07:00] VITALS: TEMP 36.2; O2SAT 96
[2022-06-07] MEDS: lisinopriL 2.5 MG TABLET PO (08:49)
[2022-06-07] MEDS: SERTRALINE 50 MG TABLET 75 MG PO (08:49)
[2022-06-07] MEDS: CLOPIDOGREL 75 MG TABLET PO (08:49)
[2022-06-07] MEDS: ACETAMINOPHEN 650 MG TABLET ER 1300 MG PO ×2 (08:49→20:02)
[2022-06-07] MEDS: ASPIRIN 81 MG TAB.CHEW PO (08:49)
--- NOTE | 2022-06-07 10:28 | PC.NURSE ---
COVID OUTBREAK TESTING: Resident provided verbal consent for outbreak COVID testing. Resident is currently asymptomatic. Resident/family will be notified only if resident is positive.
[2022-06-07 13:04] LABS: SARS PCR* Negative SARS-CoV-2 (Negative)
[2022-06-07 15:00] VITALS: TEMP 36.7; O2SAT 96
[2022-06-07] MEDS: ROSUVASTATIN CALCIUM 10 MG TABLET 40 MG PO (20:02)
[2022-06-08 03:56] VITALS: TEMP 36.4; O2SAT 96
[2022-06-08 07:00] VITALS: TEMP 36.7; O2SAT 98
[2022-06-08] MEDS: ASPIRIN 81 MG TAB.CHEW PO (08:29)
[2022-06-08] MEDS: ACETAMINOPHEN 650 MG TABLET ER 1300 MG PO ×2 (08:29→19:20)
[2022-06-08] MEDS: lisinopriL 2.5 MG TABLET PO (08:29)
[2022-06-08] MEDS: SERTRALINE 50 MG TABLET 75 MG PO (08:29)
[2022-06-08] MEDS: CLOPIDOGREL 75 MG TABLET PO (08:29)
[2022-06-08 17:07] VITALS: TEMP 36.4; O2SAT 97
[2022-06-08] MEDS: ROSUVASTATIN CALCIUM 10 MG TABLET 40 MG PO (19:20)
[2022-06-09 03:38] VITALS: TEMP 36.4; O2SAT 95
[2022-06-09 07:00] VITALS: TEMP 36.3; O2SAT 97; BMI 26.6
[2022-06-09] MEDS: ACETAMINOPHEN 650 MG TABLET ER 1300 MG PO ×2 (08:23→19:57)
[2022-06-09] MEDS: ASPIRIN 81 MG TAB.CHEW PO (08:23)
[2022-06-09] MEDS: CLOPIDOGREL 75 MG TABLET PO (08:23)
[2022-06-09] MEDS: SERTRALINE 50 MG TABLET 75 MG PO (08:23)
[2022-06-09] MEDS: lisinopriL 2.5 MG TABLET PO (08:23)
[2022-06-09 15:00] VITALS: TEMP 36.6; O2SAT 97
[2022-06-09] MEDS: ROSUVASTATIN CALCIUM 10 MG TABLET 40 MG PO (19:57)
[2022-06-10 03:36] VITALS: TEMP 36.6; O2SAT 95
[2022-06-10] MEDS: ACETAMINOPHEN 650 MG TABLET ER 1300 MG PO ×2 (07:02→19:57)
[2022-06-10] MEDS: CLOPIDOGREL 75 MG TABLET PO (07:03)
[2022-06-10] MEDS: SERTRALINE 50 MG TABLET 75 MG PO (07:03)
[2022-06-10] MEDS: ASPIRIN 81 MG TAB.CHEW PO (07:03)
[2022-06-10] MEDS: lisinopriL 2.5 MG TABLET PO (07:03)
[2022-06-10 11:16] VITALS: TEMP 36.6; O2SAT 97
[2022-06-10 17:17] VITALS: TEMP 36.4; O2SAT 99
[2022-06-10] MEDS: ROSUVASTATIN CALCIUM 10 MG TABLET 40 MG PO (19:57)
[2022-06-10 23:00] VITALS: TEMP 36.5; O2SAT 95
--- NOTE | 2022-06-11 03:32 | PC.NURSE ---
Week #4: Care plan 40-119, Temporary care plan, and Vital signs reviewed - nothing added and no change made at this time. No change in communication, hearing, vision, chronic health condition, or medication. Mood/behavior: Resident sleeps through the night - no behavioral concerns noted or reported at [facility] . Resident is on sertraline 75 mg daily - no adverse effect noted.
[2022-06-11 07:00] VITALS: TEMP 36.7; O2SAT 97
[2022-06-11] MEDS: SERTRALINE 50 MG TABLET 75 MG PO (08:24)
[2022-06-11] MEDS: ASPIRIN 81 MG TAB.CHEW PO (08:24)
[2022-06-11] MEDS: lisinopriL 2.5 MG TABLET PO (08:24)
[2022-06-11] MEDS: CLOPIDOGREL 75 MG TABLET PO (08:24)
[2022-06-11] MEDS: ACETAMINOPHEN 650 MG TABLET ER 1300 MG PO ×2 (08:24→19:05)
[2022-06-11 18:41] VITALS: TEMP 36.6; O2SAT 98
[2022-06-11] MEDS: ROSUVASTATIN CALCIUM 10 MG TABLET 40 MG PO (19:05)
--- NOTE | 2022-06-11 20:56 | PC.NURSE ---
Week #4 Weekly summary: Vital signs are stable. Resident is not on any Psychotropic meds. Mood is stable. spends alot of his day in his room watching television. No new temporary care plan additions. No changes to the care plan #40-119. There has been no changes to his ability to communicate. His hearing,vision and orientation have not changed. Chronic health conditions remain, no changes in medications. Resident has his medications administered to him.
[2022-06-11 21:44] VITALS: BP 119/77; PULSE 74; RESP 18; TEMP 36.6; O2SAT 98
[2022-06-12 03:56] VITALS: TEMP 36.6; O2SAT 96
[2022-06-12 07:00] VITALS: TEMP 36.6; O2SAT 96
[2022-06-12] MEDS: ACETAMINOPHEN 650 MG TABLET ER 1300 MG PO ×2 (08:12→19:36)
[2022-06-12] MEDS: lisinopriL 2.5 MG TABLET PO (08:12)
[2022-06-12] MEDS: SERTRALINE 50 MG TABLET 75 MG PO (08:12)
[2022-06-12] MEDS: ASPIRIN 81 MG TAB.CHEW PO (08:12)
[2022-06-12] MEDS: CLOPIDOGREL 75 MG TABLET PO (08:12)
[2022-06-12 15:00] VITALS: TEMP 36.7; O2SAT 95
[2022-06-12] MEDS: ROSUVASTATIN CALCIUM 10 MG TABLET 40 MG PO (19:36)
[2022-06-12 23:00] VITALS: TEMP 36.2; O2SAT 97
[2022-06-13] MEDS: CLOPIDOGREL 75 MG TABLET PO (08:24)
[2022-06-13] MEDS: SERTRALINE 50 MG TABLET 75 MG PO (08:24)
[2022-06-13] MEDS: lisinopriL 2.5 MG TABLET PO (08:24)
[2022-06-13] MEDS: ASPIRIN 81 MG TAB.CHEW PO (08:24)
[2022-06-13] MEDS: ACETAMINOPHEN 650 MG TABLET ER 1300 MG PO ×2 (08:24→19:19)
[2022-06-13 10:27] VITALS: TEMP 36.2; O2SAT 98
[2022-06-13] MEDS: ROSUVASTATIN CALCIUM 10 MG TABLET 40 MG PO (19:19)
[2022-06-13 20:52] VITALS: TEMP 36.4; O2SAT 94
[2022-06-14 02:49] VITALS: TEMP 36.6; O2SAT 94
[2022-06-14 07:00] VITALS: TEMP 37; O2SAT 95
[2022-06-14] MEDS: lisinopriL 2.5 MG TABLET PO (08:27)
[2022-06-14] MEDS: ASPIRIN 81 MG TAB.CHEW PO (08:27)
[2022-06-14] MEDS: ACETAMINOPHEN 650 MG TABLET ER 1300 MG PO ×2 (08:27→19:34)
[2022-06-14] MEDS: CLOPIDOGREL 75 MG TABLET PO (08:27)
[2022-06-14] MEDS: SERTRALINE 50 MG TABLET 75 MG PO (08:27)
[2022-06-14 12:49] LABS: SARS PCR* Negative SARS-CoV-2 (Negative)
[2022-06-14 15:00] VITALS: TEMP 37; O2SAT 95
[2022-06-14] MEDS: ROSUVASTATIN CALCIUM 10 MG TABLET 40 MG PO (19:34)
[2022-06-15 07:00] VITALS: TEMP 36.4; O2SAT 90
[2022-06-15] MEDS: lisinopriL 2.5 MG TABLET PO (08:47)
[2022-06-15] MEDS: ASPIRIN 81 MG TAB.CHEW PO (08:47)
[2022-06-15] MEDS: ACETAMINOPHEN 650 MG TABLET ER 1300 MG PO ×2 (08:47→20:07)
[2022-06-15] MEDS: SERTRALINE 50 MG TABLET 75 MG PO (08:47)
[2022-06-15] MEDS: CLOPIDOGREL 75 MG TABLET PO (08:47)
--- NOTE | 2022-06-15 11:54 | NUTR.NU ---
RDN informed of resident requesting 2 sausages at breakfast every morning. Resident is currently on a 2 gm diet - sausages are not in compliance with this diet. RDN visited with resident regarding this and provided different options for him at breakfast, however resident reported he really enjoys sausage. Resident interested in changing diet from 2 gm to Regular. RDN wrote diet request change in CAD PROGRAMMER book. RDN encouraged resident to let staff know of any questions or requests he may have. Informed POWER PRESS TENDER and Culinary staff.
[2022-06-15] MEDS: ROSUVASTATIN CALCIUM 10 MG TABLET 40 MG PO (20:07)
[2022-06-15 21:17] VITALS: TEMP 36.4; O2SAT 95
--- NOTE | 2022-06-15 21:18 | PC.NURSE ---
Outing: Resident left for outing with daughter at 1545, returned at 1730.
[2022-06-16 01:59] VITALS: TEMP 36.9; O2SAT 97
[2022-06-16] MEDS: lisinopriL 2.5 MG TABLET PO (07:05)
[2022-06-16] MEDS: ACETAMINOPHEN 650 MG TABLET ER 1300 MG PO ×2 (07:05→19:19)
[2022-06-16] MEDS: ASPIRIN 81 MG TAB.CHEW PO (07:05)
[2022-06-16] MEDS: CLOPIDOGREL 75 MG TABLET PO (07:05)
[2022-06-16] MEDS: SERTRALINE 50 MG TABLET 75 MG PO (07:05)
[2022-06-16 11:22] VITALS: BP 136/81; PULSE 62; RESP 16; TEMP 36.7; O2SAT 97; BMI 26.6
[2022-06-16 15:00] VITALS: TEMP 36.2; O2SAT 97
[2022-06-16] MEDS: ROSUVASTATIN CALCIUM 10 MG TABLET 40 MG PO (19:19)
[2022-06-16 23:00] VITALS: TEMP 36.1; O2SAT 94
[2022-06-17] MEDS: SERTRALINE 50 MG TABLET 75 MG PO (08:55)
[2022-06-17] MEDS: ASPIRIN 81 MG TAB.CHEW PO (08:55)
[2022-06-17] MEDS: lisinopriL 2.5 MG TABLET PO (08:55)
[2022-06-17] MEDS: ACETAMINOPHEN 650 MG TABLET ER 1300 MG PO ×2 (08:55→19:39)
[2022-06-17] MEDS: CLOPIDOGREL 75 MG TABLET PO (08:55)
[2022-06-17 11:03] VITALS: TEMP 36.3; O2SAT 95
[2022-06-17 18:46] VITALS: TEMP 36.4; O2SAT 95
[2022-06-17] MEDS: ROSUVASTATIN CALCIUM 10 MG TABLET 40 MG PO (19:39)
--- NOTE | 2022-06-18 01:37 | PC.NURSE ---
Week #1: Resident has not complained of pain on NOC in the past month. Is on Acetaminophen 1300mg PO BID. Temporary care plan reviewed, no change. Care plan -19 reviewed, no change. Resident is one assist with ADLs when needed, will call. Nutrition changed 06/17/22 to; 2gm sodium to regular. Has covered mug at bedside.
[2022-06-18 02:22] VITALS: TEMP 36.4; O2SAT 93
[2022-06-18] MEDS: SERTRALINE 50 MG TABLET 75 MG PO (07:40)
[2022-06-18] MEDS: ASPIRIN 81 MG TAB.CHEW PO (07:40)
[2022-06-18] MEDS: ACETAMINOPHEN 650 MG TABLET ER 1300 MG PO ×2 (07:40→19:47)
[2022-06-18] MEDS: lisinopriL 2.5 MG TABLET PO (07:40)
[2022-06-18] MEDS: CLOPIDOGREL 75 MG TABLET PO (07:40)
[2022-06-18 11:07] VITALS: TEMP 36.4; O2SAT 97
--- NOTE | 2022-06-18 11:13 | PC.NURSE ---
Week #1: Care plan problems -19 and temporary care plan reviewed. Care plan updated. Nothing added to temporary care plan. He needs extensive to limited? assist with dressing, grooming and bathing. Is able to participate. Does shave self, oral cares ? after set up. 06/17/22 diet changed to regular per resident request. Feed independently after set up. No problems with chewing or swallowing reported. Pain: Has no complain. Pain is managed with Tylenol 1300mg BID. Is able to tell when in pain.
[2022-06-18] MEDS: ROSUVASTATIN CALCIUM 10 MG TABLET 40 MG PO (19:47)
[2022-06-18 21:57] VITALS: TEMP 37.1; O2SAT 97
[2022-06-19 01:36] VITALS: TEMP 36.6; O2SAT 95
[2022-06-19] MEDS: CLOPIDOGREL 75 MG TABLET PO (08:21)
[2022-06-19] MEDS: ACETAMINOPHEN 650 MG TABLET ER 1300 MG PO ×2 (08:21→19:53)
[2022-06-19] MEDS: ASPIRIN 81 MG TAB.CHEW PO (08:21)
[2022-06-19] MEDS: lisinopriL 2.5 MG TABLET PO (08:21)
[2022-06-19] MEDS: SERTRALINE 50 MG TABLET 75 MG PO (08:21)
[2022-06-19 10:56] VITALS: TEMP 36.1; O2SAT 96
[2022-06-19 17:01] VITALS: TEMP 36.6; O2SAT 96
[2022-06-19] MEDS: ROSUVASTATIN CALCIUM 10 MG TABLET 40 MG PO (19:53)
[2022-06-19 23:00] VITALS: TEMP 36.7; O2SAT 96
[2022-06-20] MEDS: SERTRALINE 50 MG TABLET 75 MG PO (08:05)
[2022-06-20] MEDS: lisinopriL 2.5 MG TABLET PO (08:05)
[2022-06-20] MEDS: CLOPIDOGREL 75 MG TABLET PO (08:05)
[2022-06-20] MEDS: ASPIRIN 81 MG TAB.CHEW PO (08:05)
[2022-06-20] MEDS: ACETAMINOPHEN 650 MG TABLET ER 1300 MG PO ×2 (08:05→20:12)
[2022-06-20 11:03] VITALS: TEMP 36.3; O2SAT 95
[2022-06-20 16:58] VITALS: TEMP 36.4; O2SAT 98
[2022-06-20] MEDS: ROSUVASTATIN CALCIUM 10 MG TABLET 40 MG PO (20:11)
[2022-06-20 23:00] VITALS: TEMP 36.3; O2SAT 97
[2022-06-21] MEDS: lisinopriL 2.5 MG TABLET PO (08:30)
[2022-06-21] MEDS: SERTRALINE 50 MG TABLET 75 MG PO (08:30)
[2022-06-21] MEDS: CLOPIDOGREL 75 MG TABLET PO (08:30)
[2022-06-21] MEDS: ASPIRIN 81 MG TAB.CHEW PO (08:30)
[2022-06-21] MEDS: ACETAMINOPHEN 650 MG TABLET ER 1300 MG PO ×2 (08:30→19:41)
[2022-06-21 11:13] VITALS: TEMP 36.2; O2SAT 97
[2022-06-21 12:51] LABS: SARS PCR* Negative SARS-CoV-2 (Negative)
[2022-06-21 15:00] VITALS: TEMP 36.7; O2SAT 95
--- NOTE | 2022-06-21 16:00 | PC.NURSE ---
COVID OUTBREAK TESTING: Resident provided verbal consent for outbreak COVID testing. Resident is currently asymptomatic. Resident/family will be notified only if resident is positive.
[2022-06-21] MEDS: ROSUVASTATIN CALCIUM 10 MG TABLET 40 MG PO (19:41)
[2022-06-22 02:31] VITALS: TEMP 35.9; O2SAT 95
[2022-06-22] MEDS: ASPIRIN 81 MG TAB.CHEW PO (08:10)
[2022-06-22] MEDS: ACETAMINOPHEN 650 MG TABLET ER 1300 MG PO ×2 (08:10→19:53)
[2022-06-22] MEDS: lisinopriL 2.5 MG TABLET PO (08:10)
[2022-06-22] MEDS: SERTRALINE 50 MG TABLET 75 MG PO (08:10)
[2022-06-22] MEDS: CLOPIDOGREL 75 MG TABLET PO (08:10)
[2022-06-22 10:43] VITALS: TEMP 36.2; O2SAT 95
[2022-06-22] MEDS: ROSUVASTATIN CALCIUM 10 MG TABLET 40 MG PO (19:53)
[2022-06-22 21:08] VITALS: TEMP 36.6; O2SAT 96
--- NOTE | 2022-06-22 21:09 | PC.NURSE ---
Outing: Resident went out with daughter at 1425, returned at 1740.
[2022-06-22 23:00] VITALS: TEMP 36.6; O2SAT 96
[2022-06-23] MEDS: lisinopriL 2.5 MG TABLET PO (07:25)
[2022-06-23] MEDS: SERTRALINE 50 MG TABLET 75 MG PO (07:25)
[2022-06-23] MEDS: ACETAMINOPHEN 650 MG TABLET ER 1300 MG PO ×2 (07:25→19:05)
[2022-06-23] MEDS: CLOPIDOGREL 75 MG TABLET PO (07:25)
[2022-06-23] MEDS: ASPIRIN 81 MG TAB.CHEW PO (07:25)
[2022-06-23 13:36] VITALS: BP 129/75; PULSE 69; RESP 18; TEMP 36.2; O2SAT 95
[2022-06-23 13:39] VITALS: BMI 26.8
[2022-06-23 15:00] VITALS: TEMP 36.7; O2SAT 95
--- NOTE | 2022-06-23 15:56 | PC.SPIRITC ---
provided visit for connection and support.
[2022-06-23] MEDS: ROSUVASTATIN CALCIUM 10 MG TABLET 40 MG PO (19:05)
[2022-06-24 02:54] VITALS: TEMP 36.3; O2SAT 97
[2022-06-24] MEDS: SERTRALINE 50 MG TABLET 75 MG PO (08:30)
[2022-06-24] MEDS: CLOPIDOGREL 75 MG TABLET PO (08:30)
[2022-06-24] MEDS: lisinopriL 2.5 MG TABLET PO (08:30)
[2022-06-24] MEDS: ACETAMINOPHEN 650 MG TABLET ER 1300 MG PO ×2 (08:30→20:32)
[2022-06-24] MEDS: ASPIRIN 81 MG TAB.CHEW PO (08:30)
[2022-06-24 10:16] VITALS: TEMP 36.1; O2SAT 95
[2022-06-24 18:44] VITALS: TEMP 36.5; O2SAT 95
[2022-06-24] MEDS: ROSUVASTATIN CALCIUM 10 MG TABLET 40 MG PO (20:32)
--- NOTE | 2022-06-24 21:59 | PC.NURSE ---
Status: Resident reported feeling congested. Denied any other symptoms. Requested order for Claritan, stated he typically take this in the fall d/t allergies. Note left for MD to review.
[2022-06-24 23:00] VITALS: TEMP 36.3; O2SAT 94
--- NOTE | 2022-06-25 03:40 | PC.NURSE ---
Week #2: Temporary care plan, Vital signs, and Care plan problems #20-29 reviewed.? No changes made.? Nothing added to temporary care plan.? Does not get out of bed overnights.? Is independent with bed mobility using top side-rails for repositioning. Falls: Last fall incident occurred on 05/15/22 when out with family.? Remains a high fall risk based on assessment done on 05/27/22.
[2022-06-25] MEDS: SERTRALINE 50 MG TABLET 75 MG PO (08:23)
[2022-06-25] MEDS: ACETAMINOPHEN 650 MG TABLET ER 1300 MG PO ×2 (08:23→19:14)
[2022-06-25] MEDS: lisinopriL 2.5 MG TABLET PO (08:23)
[2022-06-25] MEDS: CLOPIDOGREL 75 MG TABLET PO (08:23)
[2022-06-25] MEDS: ASPIRIN 81 MG TAB.CHEW PO (08:23)
[2022-06-25 10:55] VITALS: TEMP 36.3; O2SAT 96
--- NOTE | 2022-06-25 12:19 | PC.NURSE ---
Order: Claritin 10mg daily PO PRN allergy symptoms x [address] Cifuentes.
[2022-06-25] MEDS: ROSUVASTATIN CALCIUM 10 MG TABLET 40 MG PO (19:14)
[2022-06-25 21:38] VITALS: TEMP 36.3; O2SAT 96
[2022-06-26 01:27] VITALS: TEMP 36.3; O2SAT 97
[2022-06-26] MEDS: lisinopriL 2.5 MG TABLET PO (08:13)
[2022-06-26] MEDS: CLOPIDOGREL 75 MG TABLET PO (08:13)
[2022-06-26] MEDS: SERTRALINE 50 MG TABLET 75 MG PO (08:13)
[2022-06-26] MEDS: ACETAMINOPHEN 650 MG TABLET ER 1300 MG PO ×2 (08:13→20:12)
[2022-06-26] MEDS: ASPIRIN 81 MG TAB.CHEW PO (08:13)
[2022-06-26 10:44] VITALS: TEMP 36.4; O2SAT 95
[2022-06-26] MEDS: ROSUVASTATIN CALCIUM 10 MG TABLET 40 MG PO (20:12)
[2022-06-26 21:54] VITALS: TEMP 36.5; O2SAT 95
[2022-06-26 23:00] VITALS: TEMP 36.3; O2SAT 97
[2022-06-27] MEDS: ASPIRIN 81 MG TAB.CHEW PO (08:21)
[2022-06-27] MEDS: ACETAMINOPHEN 650 MG TABLET ER 1300 MG PO ×2 (08:21→19:51)
[2022-06-27] MEDS: SERTRALINE 50 MG TABLET 75 MG PO (08:21)
[2022-06-27] MEDS: lisinopriL 2.5 MG TABLET PO (08:21)
[2022-06-27] MEDS: CLOPIDOGREL 75 MG TABLET PO (08:21)
[2022-06-27 10:42] VITALS: TEMP 36.1; O2SAT 96
[2022-06-27] MEDS: ROSUVASTATIN CALCIUM 10 MG TABLET 40 MG PO (19:51)
[2022-06-27 21:36] VITALS: TEMP 36.5; O2SAT 97
[2022-06-27 23:24] VITALS: TEMP 36.6; O2SAT 96
[2022-06-28] MEDS: ACETAMINOPHEN 650 MG TABLET ER 1300 MG PO ×2 (08:21→19:40)
[2022-06-28] MEDS: lisinopriL 2.5 MG TABLET PO (08:21)
[2022-06-28] MEDS: ASPIRIN 81 MG TAB.CHEW PO (08:21)
[2022-06-28] MEDS: SERTRALINE 50 MG TABLET 75 MG PO (08:21)
[2022-06-28] MEDS: CLOPIDOGREL 75 MG TABLET PO (08:21)
[2022-06-28 10:51] VITALS: TEMP 36.2; O2SAT 92
--- NOTE | 2022-06-28 13:49 | PC.NURSE ---
COVID OUTBREAK TESTING: Resident provided verbal consent for outbreak COVID testing. Resident is currently asymptomatic. Resident/family will be notified only if resident is positive.
[2022-06-28 15:00] VITALS: TEMP 36.6; O2SAT 95
[2022-06-28 16:11] LABS: SARS PCR* Negative SARS-CoV-2 (Negative)
[2022-06-28] MEDS: ROSUVASTATIN CALCIUM 10 MG TABLET 40 MG PO (19:40)
[2022-06-28 23:57] VITALS: TEMP 36.6; O2SAT 96
[2022-06-29] MEDS: ASPIRIN 81 MG TAB.CHEW PO (08:01)
[2022-06-29] MEDS: lisinopriL 2.5 MG TABLET PO (08:01)
[2022-06-29] MEDS: CLOPIDOGREL 75 MG TABLET PO (08:01)
[2022-06-29] MEDS: ACETAMINOPHEN 650 MG TABLET ER 1300 MG PO ×2 (08:01→19:47)
[2022-06-29] MEDS: SERTRALINE 50 MG TABLET 75 MG PO (08:01)
[2022-06-29 11:02] VITALS: TEMP 36.6; O2SAT 96
[2022-06-29] MEDS: LORATADINE 10 MG TABLET PO (16:51)
[2022-06-29] MEDS: ROSUVASTATIN CALCIUM 10 MG TABLET 40 MG PO (19:47)
[2022-06-29 21:28] VITALS: TEMP 36.6; O2SAT 94
[2022-06-30 01:32] VITALS: TEMP 36.6; O2SAT 97
[2022-06-30] MEDS: CLOPIDOGREL 75 MG TABLET PO (07:56)
[2022-06-30] MEDS: ASPIRIN 81 MG TAB.CHEW PO (07:56)
[2022-06-30] MEDS: ACETAMINOPHEN 650 MG TABLET ER 1300 MG PO ×2 (07:56→19:17)
[2022-06-30] MEDS: lisinopriL 2.5 MG TABLET PO (07:56)
[2022-06-30] MEDS: SERTRALINE 50 MG TABLET 75 MG PO (07:56)
[2022-06-30 14:00] VITALS: TEMP 36.4; O2SAT 98
--- NOTE | 2022-06-30 14:00 | PC.PHA ---
Pharmacy Review ~ Patient continues on same medication regime as he recovers from stroke and considers further interventions for stroke prevention therefore no recommendations to stop any meds this review. Renal Dosing for Oseltamivir: Treatment:30 mg po BID for 5 days Prophylaxis:30 mg po daily for 14 days or longer (see policy).
[2022-06-30 14:01] VITALS: BP 112/75; PULSE 74; RESP 18; TEMP 36.4; O2SAT 98
[2022-06-30 14:04] VITALS: BMI 58.8
[2022-06-30] MEDS: ROSUVASTATIN CALCIUM 10 MG TABLET 40 MG PO (19:17)
[2022-07-01] MEDS: SERTRALINE 50 MG TABLET 75 MG PO (08:17)
[2022-07-01] MEDS: ACETAMINOPHEN 650 MG TABLET ER 1300 MG PO ×2 (08:17→19:58)
[2022-07-01] MEDS: lisinopriL 2.5 MG TABLET PO (08:17)
[2022-07-01] MEDS: ASPIRIN 81 MG TAB.CHEW PO (08:17)
[2022-07-01] MEDS: CLOPIDOGREL 75 MG TABLET PO (08:17)
--- NOTE | 2022-07-01 10:35 | PC.NURSE ---
Order: Change Loratadine 10mg PRN to daily by Derrick ZIMMERMAN.
--- NOTE | 2022-07-01 12:25 | PC.NURSE ---
Week #3: Care plan problems 30-39 and temporary care plan reviewed. No changes made. Nothing added to temporary care plan. He is continent of bowel & bladder. Needs one assist with toileting. Encourage to ambulate to the toilet with transfer belt and walker. When in bed uses a urinal, emptied by staff. Wears large briefs. Pads, bo cares, clothing adjustment managed by staff. Skin: No issues at this time. Skin is checked during cares and on bath day..
[2022-07-01] MEDS: ROSUVASTATIN CALCIUM 10 MG TABLET 40 MG PO (19:58)
--- NOTE | 2022-07-02 01:09 | PC.NURSE ---
Week #3: Resident has no new skin issues at this time. Temporary care plan reviewed, no change. Care plan 30-39 reviewed, no change. Resident is continent of bowel and bladder. Has urinal at bedside. Will call if needing assistance.
[2022-07-02] MEDS: CLOPIDOGREL 75 MG TABLET PO (07:44)
[2022-07-02] MEDS: ASPIRIN 81 MG TAB.CHEW PO (07:44)
[2022-07-02] MEDS: lisinopriL 2.5 MG TABLET PO (07:44)
[2022-07-02] MEDS: ACETAMINOPHEN 650 MG TABLET ER 1300 MG PO ×2 (07:44→19:39)
[2022-07-02] MEDS: SERTRALINE 50 MG TABLET 75 MG PO (07:45)
[2022-07-02] MEDS: LORATADINE 10 MG TABLET PO (07:47)
[2022-07-02] MEDS: ROSUVASTATIN CALCIUM 10 MG TABLET 40 MG PO (19:39)
[2022-07-03] MEDS: CLOPIDOGREL 75 MG TABLET PO (07:48)
[2022-07-03] MEDS: SERTRALINE 50 MG TABLET 75 MG PO (07:48)
[2022-07-03] MEDS: ASPIRIN 81 MG TAB.CHEW PO (07:48)
[2022-07-03] MEDS: ACETAMINOPHEN 650 MG TABLET ER 1300 MG PO ×2 (07:48→20:01)
[2022-07-03] MEDS: lisinopriL 2.5 MG TABLET PO (07:48)
[2022-07-03] MEDS: LORATADINE 10 MG TABLET PO (07:48)
[2022-07-03] MEDS: ROSUVASTATIN CALCIUM 10 MG TABLET 40 MG PO (20:01)
[2022-07-04] MEDS: ASPIRIN 81 MG TAB.CHEW PO (07:30)
[2022-07-04] MEDS: lisinopriL 2.5 MG TABLET PO (07:30)
[2022-07-04] MEDS: CLOPIDOGREL 75 MG TABLET PO (07:30)
[2022-07-04] MEDS: SERTRALINE 50 MG TABLET 75 MG PO (07:30)
[2022-07-04] MEDS: ACETAMINOPHEN 650 MG TABLET ER 1300 MG PO ×2 (07:30→19:42)
[2022-07-04] MEDS: LORATADINE 10 MG TABLET PO (07:30)
[2022-07-04] MEDS: ROSUVASTATIN CALCIUM 10 MG TABLET 40 MG PO (19:42)
--- NOTE | 2022-07-04 21:21 | PC.NURSE ---
Outing: resident left with daughter at 1630, returned at 1815.
[2022-07-05] MEDS: lisinopriL 2.5 MG TABLET PO (08:51)
[2022-07-05] MEDS: ACETAMINOPHEN 650 MG TABLET ER 1300 MG PO ×2 (08:51→19:52)
[2022-07-05] MEDS: LORATADINE 10 MG TABLET PO (08:51)
[2022-07-05] MEDS: ASPIRIN 81 MG TAB.CHEW PO (08:51)
[2022-07-05] MEDS: SERTRALINE 50 MG TABLET 75 MG PO (08:51)
[2022-07-05] MEDS: CLOPIDOGREL 75 MG TABLET PO (08:51)
[2022-07-05] MEDS: ROSUVASTATIN CALCIUM 10 MG TABLET 40 MG PO (19:52)
[2022-07-06] MEDS: SERTRALINE 50 MG TABLET 75 MG PO (08:30)
[2022-07-06] MEDS: ASPIRIN 81 MG TAB.CHEW PO (08:30)
[2022-07-06] MEDS: lisinopriL 2.5 MG TABLET PO (08:30)
[2022-07-06] MEDS: CLOPIDOGREL 75 MG TABLET PO (08:30)
[2022-07-06] MEDS: ACETAMINOPHEN 650 MG TABLET ER 1300 MG PO ×2 (08:30→19:49)
[2022-07-06] MEDS: LORATADINE 10 MG TABLET PO (08:30)
--- NOTE | 2022-07-06 12:27 | PC.SPIRITC ---
Manager Category provided visit for support and connection.
[2022-07-06] MEDS: ROSUVASTATIN CALCIUM 10 MG TABLET 40 MG PO (19:49)
[2022-07-07 07:00] VITALS: PULSE 68; RESP 18; TEMP 36.6; O2SAT 97; BMI 26.9
[2022-07-07] MEDS: CLOPIDOGREL 75 MG TABLET PO (07:38)
[2022-07-07] MEDS: SERTRALINE 50 MG TABLET 75 MG PO (07:38)
[2022-07-07] MEDS: ASPIRIN 81 MG TAB.CHEW PO (07:38)
[2022-07-07] MEDS: ACETAMINOPHEN 650 MG TABLET ER 1300 MG PO ×2 (07:38→19:54)
[2022-07-07] MEDS: LORATADINE 10 MG TABLET PO (07:38)
[2022-07-07] MEDS: lisinopriL 2.5 MG TABLET PO (07:38)
--- NOTE | 2022-07-07 09:37 | PC.NURSE ---
Skin Check - No wilma of concern. Skin intact, appropriate color, warm, dry,
--- NOTE | 2022-07-07 11:32 | PC.SOCIAL ---
Met with resident and resident's daughter, Muna Orta, in residents room. Provided Muna with the paperwork and attached documentation needed to file a emt intermediate care claim. Informed Muna to called social work department if she has any other questions.
[2022-07-07] MEDS: ROSUVASTATIN CALCIUM 10 MG TABLET 40 MG PO (19:54)
[2022-07-08] MEDS: LORATADINE 10 MG TABLET PO (08:19)
[2022-07-08] MEDS: ACETAMINOPHEN 650 MG TABLET ER 1300 MG PO ×2 (08:19→20:10)
[2022-07-08] MEDS: SERTRALINE 50 MG TABLET 75 MG PO (08:19)
[2022-07-08] MEDS: lisinopriL 2.5 MG TABLET PO (08:19)
[2022-07-08] MEDS: ASPIRIN 81 MG TAB.CHEW PO (08:19)
[2022-07-08] MEDS: CLOPIDOGREL 75 MG TABLET PO (08:19)
[2022-07-08] MEDS: ROSUVASTATIN CALCIUM 10 MG TABLET 40 MG PO (20:10)
--- NOTE | 2022-07-09 02:31 | PC.NURSE ---
Week #4: No change in mood/behavior. Temporary care plan reviewed. Fall dated 04/02/22 resolved. Bruise dated 05/21/22 resolved. Care plan problems 40-119 reviewed with no changes or additions. Currently receives sertraline 75mg daily with no adverse effects. No change in communication, hearing, vision, or orientation. No change in chronic health condition. Was started on Claritin 10mg daily on 06/25/22 with no adverse drug effects. All medications administered by licensed nursing staff. Sleeps well through the night with no behavioral concerns.
--- NOTE | 2022-07-09 07:31 | PC.NURSE ---
Week #4: Care plan problems 40-119 and temporary care plan reviewed. No changes made. Nothing added to temporary care plan. No change in communication, hearing, vision, and orientation. He does communicate his needs. Hearing fine. Wears reading glasses. Cognition intact. Chronic health condition stable. Does not self administer medications. VS fine. Mood/Behavior: No issues. Continues on Zoloft 75mg daily with no adverse effects noted. No change in medication.
[2022-07-09] MEDS: LORATADINE 10 MG TABLET PO (08:01)
[2022-07-09] MEDS: lisinopriL 2.5 MG TABLET PO (08:01)
[2022-07-09] MEDS: SERTRALINE 50 MG TABLET 75 MG PO (08:01)
[2022-07-09] MEDS: ACETAMINOPHEN 650 MG TABLET ER 1300 MG PO ×2 (08:01→19:49)
[2022-07-09] MEDS: ASPIRIN 81 MG TAB.CHEW PO (08:01)
[2022-07-09] MEDS: CLOPIDOGREL 75 MG TABLET PO (08:01)
--- NOTE | 2022-07-09 16:36 | PC.NURSE ---
Week #4: Resident has no issues with mood/behavior is on Zoloft 75mg PO Daily. Temporary care plan reviewed, no change. Care plan 40-119 reviewed, no change. No change in communication or orientation. Resident is fed medication in pudding.
[2022-07-09] MEDS: ROSUVASTATIN CALCIUM 10 MG TABLET 40 MG PO (19:52)
[2022-07-10] MEDS: ASPIRIN 81 MG TAB.CHEW PO (07:49)
[2022-07-10] MEDS: CLOPIDOGREL 75 MG TABLET PO (07:49)
[2022-07-10] MEDS: lisinopriL 2.5 MG TABLET PO (07:49)
[2022-07-10] MEDS: LORATADINE 10 MG TABLET PO (07:49)
[2022-07-10] MEDS: SERTRALINE 50 MG TABLET 75 MG PO (07:49)
[2022-07-10] MEDS: ACETAMINOPHEN 650 MG TABLET ER 1300 MG PO ×2 (07:49→19:47)
[2022-07-10] MEDS: ROSUVASTATIN CALCIUM 10 MG TABLET 40 MG PO (19:47)
[2022-07-11] MEDS: lisinopriL 2.5 MG TABLET PO (07:51)
[2022-07-11] MEDS: ASPIRIN 81 MG TAB.CHEW PO (07:51)
[2022-07-11] MEDS: ACETAMINOPHEN 650 MG TABLET ER 1300 MG PO ×2 (07:51→19:39)
[2022-07-11] MEDS: CLOPIDOGREL 75 MG TABLET PO (07:51)
[2022-07-11] MEDS: LORATADINE 10 MG TABLET PO (07:52)
[2022-07-11] MEDS: SERTRALINE 50 MG TABLET 75 MG PO (07:52)
[2022-07-11] MEDS: ROSUVASTATIN CALCIUM 10 MG TABLET 40 MG PO (19:42)
[2022-07-12] MEDS: LORATADINE 10 MG TABLET PO (08:56)
[2022-07-12] MEDS: SERTRALINE 50 MG TABLET 75 MG PO (08:56)
[2022-07-12] MEDS: lisinopriL 2.5 MG TABLET PO (08:56)
[2022-07-12] MEDS: CLOPIDOGREL 75 MG TABLET PO (08:56)
[2022-07-12] MEDS: ASPIRIN 81 MG TAB.CHEW PO (08:56)
[2022-07-12] MEDS: ACETAMINOPHEN 650 MG TABLET ER 1300 MG PO ×2 (08:56→19:19)
[2022-07-12] MEDS: ROSUVASTATIN CALCIUM 10 MG TABLET 40 MG PO (19:19)
[2022-07-13] MEDS: LORATADINE 10 MG TABLET PO (08:57)
[2022-07-13] MEDS: SERTRALINE 50 MG TABLET 75 MG PO (08:57)
[2022-07-13] MEDS: ACETAMINOPHEN 650 MG TABLET ER 1300 MG PO ×2 (08:57→19:49)
[2022-07-13] MEDS: ASPIRIN 81 MG TAB.CHEW PO (08:57)
[2022-07-13] MEDS: lisinopriL 2.5 MG TABLET PO (08:57)
[2022-07-13] MEDS: CLOPIDOGREL 75 MG TABLET PO (08:57)
--- NOTE | 2022-07-13 13:08 | PC.NURSE ---
Addendum entered by Bere Hager RN 07/13/22 13:16: Per AN/SYQ 13 NAV/C2 OPERATOR complete blood pressure checks 3x/week x 1 week. Original Note: Order: AN/SYQ 13 NAV/C2 OPERATOR, Derrick here. Discontinue Refresh Plus 1 drop QID PRN, & Nicotine 4mg Q1H PRN.
--- NOTE | 2022-07-13 13:18 | PC.NURSE ---
Order: Discontinue Refresh plus 1 drop QID PRN & Nicotine 4mg Q1H PRN for non usage by Derrick ZIMMERMAN.
[2022-07-13] MEDS: ROSUVASTATIN CALCIUM 10 MG TABLET 40 MG PO (19:50)
[2022-07-14 07:00] VITALS: BP 120/76; PULSE 67; RESP 20; TEMP 36.6; O2SAT 98; BMI 26.9
[2022-07-14] MEDS: LORATADINE 10 MG TABLET PO (08:21)
[2022-07-14] MEDS: CLOPIDOGREL 75 MG TABLET PO (08:21)
[2022-07-14] MEDS: ACETAMINOPHEN 650 MG TABLET ER 1300 MG PO ×2 (08:21→20:05)
[2022-07-14] MEDS: lisinopriL 2.5 MG TABLET PO (08:21)
[2022-07-14] MEDS: ASPIRIN 81 MG TAB.CHEW PO (08:21)
[2022-07-14] MEDS: SERTRALINE 50 MG TABLET 75 MG PO (08:21)
--- NOTE | 2022-07-14 10:09 | PC.NURSE ---
Skin check - Noted less than 3 topical scratches bilaterally on shins. Pt said he was unaware of them and may have been scratching. Discussed applying lotion to BLL with GARY.
[2022-07-14] MEDS: ROSUVASTATIN CALCIUM 10 MG TABLET 40 MG PO (20:05)
[2022-07-15] MEDS: ASPIRIN 81 MG TAB.CHEW PO (07:31)
[2022-07-15] MEDS: lisinopriL 2.5 MG TABLET PO (07:31)
[2022-07-15] MEDS: CLOPIDOGREL 75 MG TABLET PO (07:31)
[2022-07-15] MEDS: SERTRALINE 50 MG TABLET 75 MG PO (07:31)
[2022-07-15] MEDS: LORATADINE 10 MG TABLET PO (07:31)
[2022-07-15] MEDS: ACETAMINOPHEN 650 MG TABLET ER 1300 MG PO ×2 (07:31→19:32)
[2022-07-15] MEDS: ROSUVASTATIN CALCIUM 10 MG TABLET 40 MG PO (19:32)
--- NOTE | 2022-07-16 01:36 | PC.NURSE ---
Week #1: Currently receives acetaminophen 1300mg BID for pain management which is noted to be effective. Has self reported chronic R shoulder pain. Temporary care plan and care plan problems 1-19 reviewed with no changes. Assist of 1 with ADLs. No concerns with chewing or swallowing.
--- NOTE | 2022-07-16 07:12 | PC.NURSE ---
Week #1: Care plan problems 1-19 and temporary care plan reviewed. No changes made. Nothing added to temporary care plan. He needs extensive to limited? assist with dressing, grooming and bathing. Is able to participate with ADL's & should be encouraged as much as possible. Does shave self, & oral cares ? after set up. Diet changed to regular. Feed independently after set up. No problems with chewing or swallowing reported. Pain: Has chronic pain. Pain is controlled with Tylenol 1300mg BID. Has had no complain. Is able to tell when in pain.
[2022-07-16] MEDS: SERTRALINE 50 MG TABLET 75 MG PO (08:00)
[2022-07-16] MEDS: ACETAMINOPHEN 650 MG TABLET ER 1300 MG PO ×2 (08:00→19:29)
[2022-07-16] MEDS: CLOPIDOGREL 75 MG TABLET PO (08:00)
[2022-07-16] MEDS: ASPIRIN 81 MG TAB.CHEW PO (08:00)
[2022-07-16] MEDS: lisinopriL 2.5 MG TABLET PO (08:00)
[2022-07-16] MEDS: LORATADINE 10 MG TABLET PO (08:00)
[2022-07-16] MEDS: ROSUVASTATIN CALCIUM 10 MG TABLET 40 MG PO (19:29)
[2022-07-17] MEDS: ASPIRIN 81 MG TAB.CHEW PO (08:58)
[2022-07-17] MEDS: ACETAMINOPHEN 650 MG TABLET ER 1300 MG PO ×2 (08:58→19:40)
[2022-07-17] MEDS: SERTRALINE 50 MG TABLET 75 MG PO (08:58)
[2022-07-17] MEDS: lisinopriL 2.5 MG TABLET PO (08:58)
[2022-07-17] MEDS: CLOPIDOGREL 75 MG TABLET PO (08:58)
[2022-07-17] MEDS: LORATADINE 10 MG TABLET PO (08:58)
[2022-07-17] MEDS: ROSUVASTATIN CALCIUM 10 MG TABLET 40 MG PO (19:40)
[2022-07-18] MEDS: lisinopriL 2.5 MG TABLET PO (08:56)
[2022-07-18] MEDS: LORATADINE 10 MG TABLET PO (08:56)
[2022-07-18] MEDS: CLOPIDOGREL 75 MG TABLET PO (08:56)
[2022-07-18] MEDS: ACETAMINOPHEN 650 MG TABLET ER 1300 MG PO ×2 (08:56→19:58)
[2022-07-18] MEDS: ASPIRIN 81 MG TAB.CHEW PO (08:56)
[2022-07-18] MEDS: SERTRALINE 50 MG TABLET 75 MG PO (08:56)
[2022-07-18] MEDS: ROSUVASTATIN CALCIUM 10 MG TABLET 40 MG PO (19:58)
[2022-07-19] MEDS: ASPIRIN 81 MG TAB.CHEW PO (08:52)
[2022-07-19] MEDS: LORATADINE 10 MG TABLET PO (08:52)
[2022-07-19] MEDS: ACETAMINOPHEN 650 MG TABLET ER 1300 MG PO ×2 (08:52→19:24)
[2022-07-19] MEDS: SERTRALINE 50 MG TABLET 75 MG PO (08:52)
[2022-07-19] MEDS: lisinopriL 2.5 MG TABLET PO (08:52)
[2022-07-19] MEDS: CLOPIDOGREL 75 MG TABLET PO (08:52)
[2022-07-19] MEDS: ROSUVASTATIN CALCIUM 10 MG TABLET 40 MG PO (19:24)
[2022-07-20] MEDS: LORATADINE 10 MG TABLET PO (08:51)
[2022-07-20] MEDS: ACETAMINOPHEN 650 MG TABLET ER 1300 MG PO ×2 (08:51→19:48)
[2022-07-20] MEDS: ASPIRIN 81 MG TAB.CHEW PO (08:51)
[2022-07-20] MEDS: lisinopriL 2.5 MG TABLET PO (08:51)
[2022-07-20] MEDS: CLOPIDOGREL 75 MG TABLET PO (08:51)
[2022-07-20] MEDS: SERTRALINE 50 MG TABLET 75 MG PO (08:52)
--- NOTE | 2022-07-20 14:47 | PC.NURSE ---
PSYCHOTROPIC MED CONSENT FORM: Signed by resident and put in residents paper chart.
[2022-07-20] MEDS: ROSUVASTATIN CALCIUM 10 MG TABLET 40 MG PO (19:48)
[2022-07-21 07:00] VITALS: BP 143/86; PULSE 67; RESP 18; TEMP 35.8; O2SAT 97
[2022-07-21] MEDS: CLOPIDOGREL 75 MG TABLET PO (08:58)
[2022-07-21] MEDS: lisinopriL 2.5 MG TABLET PO (08:58)
[2022-07-21] MEDS: ASPIRIN 81 MG TAB.CHEW PO (08:58)
[2022-07-21] MEDS: ACETAMINOPHEN 650 MG TABLET ER 1300 MG PO ×2 (08:58→19:44)
[2022-07-21] MEDS: LORATADINE 10 MG TABLET PO (08:58)
[2022-07-21] MEDS: SERTRALINE 50 MG TABLET 75 MG PO (08:58)
--- NOTE | 2022-07-21 11:07 | PC.NURSE ---
Skin check - Resident got no skin concerns.
[2022-07-21] MEDS: ROSUVASTATIN CALCIUM 10 MG TABLET 40 MG PO (19:44)
[2022-07-22] MEDS: ACETAMINOPHEN 650 MG TABLET ER 1300 MG PO ×2 (07:43→19:34)
[2022-07-22] MEDS: CLOPIDOGREL 75 MG TABLET PO (07:43)
[2022-07-22] MEDS: lisinopriL 2.5 MG TABLET PO (07:43)
[2022-07-22] MEDS: ASPIRIN 81 MG TAB.CHEW PO (07:43)
[2022-07-22] MEDS: SERTRALINE 50 MG TABLET 75 MG PO (07:43)
[2022-07-22] MEDS: LORATADINE 10 MG TABLET PO (07:43)
[2022-07-22] MEDS: ROSUVASTATIN CALCIUM 10 MG TABLET 40 MG PO (19:34)
--- NOTE | 2022-07-23 02:50 | PC.NURSE ---
WEEKLY CHARTING - WEEK 2: Vital signs reviewed with no concerns. Temporary and comprehensive care plan reviewed. No changes. Resident is independent with bed mobility with half side rails bilaterally. Assist of 1 for pivot transfer. Able to propel self in w/c. Uses left sided lap tray for arm support when in w/c. limited to extensive assist of 1 for ambulation. Is resistive to ambulation. Staff provide encouragement to ambulate. Per latest fall risk assessment, resident is at low risk for falls.
[2022-07-23] MEDS: lisinopriL 2.5 MG TABLET PO (08:01)
[2022-07-23] MEDS: ACETAMINOPHEN 650 MG TABLET ER 1300 MG PO ×2 (08:01→19:47)
[2022-07-23] MEDS: ASPIRIN 81 MG TAB.CHEW PO (08:01)
[2022-07-23] MEDS: SERTRALINE 50 MG TABLET 75 MG PO (08:01)
[2022-07-23] MEDS: CLOPIDOGREL 75 MG TABLET PO (08:01)
[2022-07-23] MEDS: LORATADINE 10 MG TABLET PO (08:01)
--- NOTE | 2022-07-23 10:48 | PC.NURSE ---
Week #2 -Mobility: Care plan reviewed, no changes made. Nothing added to temporary care plan. Transfers and ambulate with one assist, transfer belt and walker. Continue to encourage with ambulation as he is resistive. Is able to wheel self. Staff to remind or assist with repositioning q2h and PRN. Top side rails up in bed to aid for positioning. No alarms. Fall: No falls the past month. Remains alow fall risk according to assessment done on 05/27/22.
[2022-07-23] MEDS: ROSUVASTATIN CALCIUM 10 MG TABLET 40 MG PO (19:47)
[2022-07-24] MEDS: lisinopriL 2.5 MG TABLET PO (08:02)
[2022-07-24] MEDS: ASPIRIN 81 MG TAB.CHEW PO (08:02)
[2022-07-24] MEDS: LORATADINE 10 MG TABLET PO (08:02)
[2022-07-24] MEDS: ACETAMINOPHEN 650 MG TABLET ER 1300 MG PO ×2 (08:02→19:27)
[2022-07-24] MEDS: CLOPIDOGREL 75 MG TABLET PO (08:02)
[2022-07-24] MEDS: SERTRALINE 50 MG TABLET 75 MG PO (08:02)
[2022-07-24] MEDS: ROSUVASTATIN CALCIUM 10 MG TABLET 40 MG PO (19:46)
[2022-07-25] MEDS: CLOPIDOGREL 75 MG TABLET PO (08:18)
[2022-07-25] MEDS: ASPIRIN 81 MG TAB.CHEW PO (08:18)
[2022-07-25] MEDS: SERTRALINE 50 MG TABLET 75 MG PO (08:18)
[2022-07-25] MEDS: LORATADINE 10 MG TABLET PO (08:18)
[2022-07-25] MEDS: ACETAMINOPHEN 650 MG TABLET ER 1300 MG PO ×2 (08:18→19:43)
[2022-07-25] MEDS: lisinopriL 2.5 MG TABLET PO (08:18)
[2022-07-25] MEDS: ROSUVASTATIN CALCIUM 10 MG TABLET 40 MG PO (19:46)
[2022-07-26] MEDS: ASPIRIN 81 MG TAB.CHEW PO (08:03)
[2022-07-26] MEDS: ACETAMINOPHEN 650 MG TABLET ER 1300 MG PO ×2 (08:03→20:40)
[2022-07-26] MEDS: CLOPIDOGREL 75 MG TABLET PO (08:04)
[2022-07-26] MEDS: LORATADINE 10 MG TABLET PO (08:04)
[2022-07-26] MEDS: SERTRALINE 50 MG TABLET 75 MG PO (08:04)
[2022-07-26] MEDS: lisinopriL 2.5 MG TABLET PO (08:04)
[2022-07-26] MEDS: ROSUVASTATIN CALCIUM 10 MG TABLET 40 MG PO (20:40)
[2022-07-27] MEDS: ACETAMINOPHEN 650 MG TABLET ER 1300 MG PO ×2 (08:52→19:17)
[2022-07-27] MEDS: lisinopriL 2.5 MG TABLET PO (08:52)
[2022-07-27] MEDS: LORATADINE 10 MG TABLET PO (08:52)
[2022-07-27] MEDS: SERTRALINE 50 MG TABLET 75 MG PO (08:52)
[2022-07-27] MEDS: ASPIRIN 81 MG TAB.CHEW PO (08:52)
[2022-07-27] MEDS: CLOPIDOGREL 75 MG TABLET PO (08:52)
--- NOTE | 2022-07-27 12:09 | PC.NURSE ---
Recert Visit: Resident seen by EVENT SET UP SPECIALISTDerrick. Orders reviewed and renewed of 75 days without changes.
[2022-07-27] MEDS: ROSUVASTATIN CALCIUM 10 MG TABLET 40 MG PO (19:17)
[2022-07-28 07:00] VITALS: BP 135/84; PULSE 68; RESP 24; TEMP 36.8; O2SAT 95; BMI 27.1
[2022-07-28] MEDS: ACETAMINOPHEN 650 MG TABLET ER 1300 MG PO ×2 (08:14→20:12)
[2022-07-28] MEDS: lisinopriL 2.5 MG TABLET PO (08:15)
[2022-07-28] MEDS: CLOPIDOGREL 75 MG TABLET PO (08:15)
[2022-07-28] MEDS: ASPIRIN 81 MG TAB.CHEW PO (08:15)
[2022-07-28] MEDS: LORATADINE 10 MG TABLET PO (08:16)
[2022-07-28] MEDS: SERTRALINE 50 MG TABLET 75 MG PO (08:16)
--- NOTE | 2022-07-28 10:10 | PC.NURSE ---
Skin check - No areas of concern
[2022-07-28] MEDS: ROSUVASTATIN CALCIUM 10 MG TABLET 40 MG PO (20:12)
[2022-07-29] MEDS: CLOPIDOGREL 75 MG TABLET PO (08:51)
[2022-07-29] MEDS: ASPIRIN 81 MG TAB.CHEW PO (08:51)
[2022-07-29] MEDS: ACETAMINOPHEN 650 MG TABLET ER 1300 MG PO ×2 (08:51→20:21)
[2022-07-29] MEDS: lisinopriL 2.5 MG TABLET PO (08:51)
[2022-07-29] MEDS: LORATADINE 10 MG TABLET PO (08:51)
[2022-07-29] MEDS: SERTRALINE 50 MG TABLET 75 MG PO (08:51)
[2022-07-29] MEDS: ROSUVASTATIN CALCIUM 10 MG TABLET 40 MG PO (20:24)
--- NOTE | 2022-07-30 03:02 | PC.NURSE ---
WEEKLY CHARTING - WEEK 3: Vital signs reviewed with no significant abnormalities. Temporary and comprehensive care plan reviewed with no changes. Per weekly skin assessment documentation, no skin integrity issues at this time. Is continent of bowel and bladder. Uses the urinal independently when in bed. 1 extensive assist with toileting for bo-cares, clothing adjustment, and incontinent product management. Wears a large brief. Keep call light in reach. Staff encourage resident to ambulate to toilet.
--- NOTE | 2022-07-30 07:23 | PC.NURSE ---
Week #3 - Toileting: Care plan problems reviewed, no changes made. Nothing added to temporary care plan. Resident is continent of bowel and bladder. Needs one extensive assist with toileting: pericares, clothing and pad management. Uses a urinal when in bed. Wears large briefs. Encourage to ambulate to the toilet as much as possible with assist, gait belt and walker. Vital signs reviewed, no concerns. Skin: No issues at this time. Skin is checked during acres and on bath day.
[2022-07-30] MEDS: ASPIRIN 81 MG TAB.CHEW PO (08:50)
[2022-07-30] MEDS: ACETAMINOPHEN 650 MG TABLET ER 1300 MG PO ×2 (08:50→19:22)
[2022-07-30] MEDS: SERTRALINE 50 MG TABLET 75 MG PO (08:51)
[2022-07-30] MEDS: lisinopriL 2.5 MG TABLET PO (08:51)
[2022-07-30] MEDS: LORATADINE 10 MG TABLET PO (08:51)
[2022-07-30] MEDS: CLOPIDOGREL 75 MG TABLET PO (08:51)
[2022-07-30] MEDS: ROSUVASTATIN CALCIUM 10 MG TABLET 40 MG PO (19:22)
[2022-07-31] MEDS: ACETAMINOPHEN 650 MG TABLET ER 1300 MG PO ×2 (07:34→20:08)
[2022-07-31] MEDS: SERTRALINE 50 MG TABLET 75 MG PO (07:35)
[2022-07-31] MEDS: ASPIRIN 81 MG TAB.CHEW PO (07:35)
[2022-07-31] MEDS: CLOPIDOGREL 75 MG TABLET PO (07:35)
[2022-07-31] MEDS: lisinopriL 2.5 MG TABLET PO (07:35)
[2022-07-31] MEDS: LORATADINE 10 MG TABLET PO (07:35)
[2022-07-31] MEDS: ROSUVASTATIN CALCIUM 10 MG TABLET 40 MG PO (20:08)
[2022-08-01] MEDS: LORATADINE 10 MG TABLET PO (08:57)
[2022-08-01] MEDS: SERTRALINE 50 MG TABLET 75 MG PO (08:57)
[2022-08-01] MEDS: CLOPIDOGREL 75 MG TABLET PO (08:57)
[2022-08-01] MEDS: lisinopriL 2.5 MG TABLET PO (08:57)
[2022-08-01] MEDS: ACETAMINOPHEN 650 MG TABLET ER 1300 MG PO ×2 (08:57→19:33)
[2022-08-01] MEDS: ASPIRIN 81 MG TAB.CHEW PO (08:57)
[2022-08-01] MEDS: ROSUVASTATIN CALCIUM 10 MG TABLET 40 MG PO (19:33)
[2022-08-02] MEDS: lisinopriL 2.5 MG TABLET PO (07:51)
[2022-08-02] MEDS: CLOPIDOGREL 75 MG TABLET PO (07:51)
[2022-08-02] MEDS: ASPIRIN 81 MG TAB.CHEW PO (07:51)
[2022-08-02] MEDS: ACETAMINOPHEN 650 MG TABLET ER 1300 MG PO ×2 (07:51→19:32)
[2022-08-02] MEDS: SERTRALINE 50 MG TABLET 75 MG PO (07:52)
[2022-08-02] MEDS: LORATADINE 10 MG TABLET PO (07:52)
[2022-08-02] MEDS: ROSUVASTATIN CALCIUM 10 MG TABLET 40 MG PO (19:32)
[2022-08-03] MEDS: lisinopriL 2.5 MG TABLET PO (07:52)
[2022-08-03] MEDS: ACETAMINOPHEN 650 MG TABLET ER 1300 MG PO ×2 (07:52→19:19)
[2022-08-03] MEDS: CLOPIDOGREL 75 MG TABLET PO (07:52)
[2022-08-03] MEDS: ASPIRIN 81 MG TAB.CHEW PO (07:52)
[2022-08-03] MEDS: SERTRALINE 50 MG TABLET 75 MG PO (07:53)
[2022-08-03] MEDS: LORATADINE 10 MG TABLET PO (07:53)
--- NOTE | 2022-08-03 14:49 | PC.SPIRITC ---
provided visit for connection and support.
[2022-08-03 17:48] LABS: SARS PCR* Negative SARS-CoV-2 (Negative)
[2022-08-03] MEDS: ROSUVASTATIN CALCIUM 10 MG TABLET 40 MG PO (19:19)
--- NOTE | 2022-08-03 21:09 | PC.NURSE ---
Resident c/o a sore throat that started this afternoon. No other symptoms present. T:97.6, Sats: 94%. COVID swab done.
[2022-08-04] MEDS: SERTRALINE 50 MG TABLET 75 MG PO (08:08)
[2022-08-04] MEDS: lisinopriL 2.5 MG TABLET PO (08:08)
[2022-08-04] MEDS: LORATADINE 10 MG TABLET PO (08:08)
[2022-08-04] MEDS: ACETAMINOPHEN 650 MG TABLET ER 1300 MG PO ×2 (08:08→19:58)
[2022-08-04] MEDS: ASPIRIN 81 MG TAB.CHEW PO (08:08)
[2022-08-04] MEDS: CLOPIDOGREL 75 MG TABLET PO (08:08)
[2022-08-04 09:37] VITALS: BP 148/80; PULSE 68; RESP 20; TEMP 36.3; O2SAT 95; BMI 26.9
--- NOTE | 2022-08-04 15:08 | PC.PHA ---
Medication Review~ Medication monitoring:Sertraline 75 mg Comments or Irregularity:Patient continues on sertraline for depression and expresses that he would like to continue. Suggested Course: Patient has cognitive capacity to request continuation of sertraline, GDR clinically contraindicated at this time. Other medications reviewed. Clopidogrel continues post stroke and is appropriate, note that he will bruise easier while taking this medication and it is considered an anticoagulant.
[2022-08-04] MEDS: ROSUVASTATIN CALCIUM 10 MG TABLET 40 MG PO (19:58)
[2022-08-05] MEDS: ACETAMINOPHEN 650 MG TABLET ER 1300 MG PO ×2 (08:14→19:37)
[2022-08-05] MEDS: ASPIRIN 81 MG TAB.CHEW PO (08:14)
[2022-08-05] MEDS: CLOPIDOGREL 75 MG TABLET PO (08:14)
[2022-08-05] MEDS: SERTRALINE 50 MG TABLET 75 MG PO (08:14)
[2022-08-05] MEDS: lisinopriL 2.5 MG TABLET PO (08:14)
[2022-08-05] MEDS: LORATADINE 10 MG TABLET PO (08:14)
[2022-08-05] MEDS: ROSUVASTATIN CALCIUM 10 MG TABLET 40 MG PO (19:37)
--- NOTE | 2022-08-06 00:08 | PC.NURSE ---
WEEKLY CHARTING - WEEK 4: Vital signs reviewed - no concerns. Temporary and comprehensive care plan reviewed with no change. No documented behaviors in the last month. Currently receives sertraline 75mg daily with no adverse effects. Hearing is intact. Able to communicate needs without difficulty. Has visual impairment. Requires glasses for reading only. Cognitively intact and able to make own decisions. No medication changes in the last month. Medications administered by licensed nurse. Chronic health conditions stable.
--- NOTE | 2022-08-06 07:44 | PC.NURSE ---
Week #4: Care plan reviewed, no changes made. Nothing added to temporary care plan. No changes noted in communication, hearing, vision, or orientation. Resident does communicate needs and use the call light. Cognition intact. Hearing adequate. Wears reading glasses. Chronic health condition stable. Does not self administer medications. Vital signs reviewed with no concerns. Mood/Behavior: No issues the past month. Continues on Zoloft 75 mg daily with no adverse effects noted. No change in medication.
[2022-08-06] MEDS: ASPIRIN 81 MG TAB.CHEW PO (08:33)
[2022-08-06] MEDS: LORATADINE 10 MG TABLET PO (08:33)
[2022-08-06] MEDS: lisinopriL 2.5 MG TABLET PO (08:33)
[2022-08-06] MEDS: CLOPIDOGREL 75 MG TABLET PO (08:33)
[2022-08-06] MEDS: ACETAMINOPHEN 650 MG TABLET ER 1300 MG PO ×2 (08:33→19:46)
[2022-08-06] MEDS: SERTRALINE 50 MG TABLET 75 MG PO (08:33)
[2022-08-06] MEDS: ROSUVASTATIN CALCIUM 10 MG TABLET 40 MG PO (19:49)
[2022-08-07] MEDS: LORATADINE 10 MG TABLET PO (08:24)
[2022-08-07] MEDS: ACETAMINOPHEN 650 MG TABLET ER 1300 MG PO ×2 (08:24→21:06)
[2022-08-07] MEDS: SERTRALINE 50 MG TABLET 75 MG PO (08:24)
[2022-08-07] MEDS: CLOPIDOGREL 75 MG TABLET PO (08:24)
[2022-08-07] MEDS: lisinopriL 2.5 MG TABLET PO (08:24)
[2022-08-07] MEDS: ASPIRIN 81 MG TAB.CHEW PO (08:24)
[2022-08-07] MEDS: ROSUVASTATIN CALCIUM 10 MG TABLET 40 MG PO (21:06)
[2022-08-08] MEDS: LORATADINE 10 MG TABLET PO (07:56)
[2022-08-08] MEDS: lisinopriL 2.5 MG TABLET PO (07:56)
[2022-08-08] MEDS: ACETAMINOPHEN 650 MG TABLET ER 1300 MG PO ×2 (07:56→19:46)
[2022-08-08] MEDS: CLOPIDOGREL 75 MG TABLET PO (07:56)
[2022-08-08] MEDS: ASPIRIN 81 MG TAB.CHEW PO (07:56)
[2022-08-08] MEDS: SERTRALINE 50 MG TABLET 75 MG PO (07:57)
[2022-08-08] MEDS: ROSUVASTATIN CALCIUM 10 MG TABLET 40 MG PO (19:57)
[2022-08-09] MEDS: ACETAMINOPHEN 650 MG TABLET ER 1300 MG PO ×2 (09:00→19:46)
[2022-08-09] MEDS: lisinopriL 2.5 MG TABLET PO (09:00)
[2022-08-09] MEDS: ASPIRIN 81 MG TAB.CHEW PO (09:00)
[2022-08-09] MEDS: CLOPIDOGREL 75 MG TABLET PO (09:00)
[2022-08-09] MEDS: SERTRALINE 50 MG TABLET 75 MG PO (09:01)
[2022-08-09] MEDS: LORATADINE 10 MG TABLET PO (09:01)
[2022-08-09] MEDS: ROSUVASTATIN CALCIUM 10 MG TABLET 40 MG PO (19:46)
[2022-08-10] MEDS: ACETAMINOPHEN 650 MG TABLET ER 1300 MG PO ×2 (08:52→19:17)
[2022-08-10] MEDS: SERTRALINE 50 MG TABLET 75 MG PO (08:53)
[2022-08-10] MEDS: LORATADINE 10 MG TABLET PO (08:53)
[2022-08-10] MEDS: ASPIRIN 81 MG TAB.CHEW PO (08:53)
[2022-08-10] MEDS: lisinopriL 2.5 MG TABLET PO (08:53)
[2022-08-10] MEDS: CLOPIDOGREL 75 MG TABLET PO (08:53)
[2022-08-10 15:31] VITALS: BMI 26.9
[2022-08-10] MEDS: ROSUVASTATIN CALCIUM 10 MG TABLET 40 MG PO (19:17)
[2022-08-11 07:00] VITALS: BP 138/84; PULSE 72; RESP 16; TEMP 36.4; O2SAT 94; BMI 26.9
[2022-08-11] MEDS: ASPIRIN 81 MG TAB.CHEW PO (08:15)
[2022-08-11] MEDS: LORATADINE 10 MG TABLET PO (08:15)
[2022-08-11] MEDS: ACETAMINOPHEN 650 MG TABLET ER 1300 MG PO ×2 (08:15→19:08)
[2022-08-11] MEDS: SERTRALINE 50 MG TABLET 75 MG PO (08:15)
[2022-08-11] MEDS: CLOPIDOGREL 75 MG TABLET PO (08:15)
[2022-08-11] MEDS: lisinopriL 2.5 MG TABLET PO (08:15)
--- NOTE | 2022-08-11 10:10 | PC.NURSE ---
Skin check - No areas of concern noted. Skin warm, dry, appropriate color, intact.
[2022-08-11] MEDS: ROSUVASTATIN CALCIUM 10 MG TABLET 40 MG PO (19:08)
[2022-08-12] MEDS: ACETAMINOPHEN 650 MG TABLET ER 1300 MG PO ×2 (08:10→19:45)
[2022-08-12] MEDS: LORATADINE 10 MG TABLET PO (08:10)
[2022-08-12] MEDS: ASPIRIN 81 MG TAB.CHEW PO (08:10)
[2022-08-12] MEDS: lisinopriL 2.5 MG TABLET PO (08:10)
[2022-08-12] MEDS: CLOPIDOGREL 75 MG TABLET PO (08:10)
[2022-08-12] MEDS: SERTRALINE 50 MG TABLET 75 MG PO (08:10)
--- NOTE | 2022-08-12 15:10 | PC.NURSE ---
MDS clarification: Reviewed MDS ADL charting for ANDRA 08/12/22, noted to have inconsistent charting. Interviewed NARs and determined that errors were made. Reviewed with staff. Coded as such in MDS.
[2022-08-12] MEDS: ROSUVASTATIN CALCIUM 10 MG TABLET 40 MG PO (19:49)
--- NOTE | 2022-08-12 20:00 | PC.NURSE ---
Hot Liquid Assessment: due to physical impairments resident to only drink hot liquids at a table.
[2022-08-13] MEDS: LORATADINE 10 MG TABLET PO (08:15)
[2022-08-13] MEDS: ASPIRIN 81 MG TAB.CHEW PO (08:15)
[2022-08-13] MEDS: ACETAMINOPHEN 650 MG TABLET ER 1300 MG PO ×2 (08:15→19:10)
[2022-08-13] MEDS: lisinopriL 2.5 MG TABLET PO (08:15)
[2022-08-13] MEDS: SERTRALINE 50 MG TABLET 75 MG PO (08:15)
[2022-08-13] MEDS: CLOPIDOGREL 75 MG TABLET PO (08:15)
[2022-08-13] MEDS: ROSUVASTATIN CALCIUM 10 MG TABLET 40 MG PO (19:10)
[2022-08-14] MEDS: ACETAMINOPHEN 650 MG TABLET ER 1300 MG PO ×2 (08:02→19:54)
[2022-08-14] MEDS: SERTRALINE 50 MG TABLET 75 MG PO (08:02)
[2022-08-14] MEDS: CLOPIDOGREL 75 MG TABLET PO (08:02)
[2022-08-14] MEDS: lisinopriL 2.5 MG TABLET PO (08:02)
[2022-08-14] MEDS: LORATADINE 10 MG TABLET PO (08:02)
[2022-08-14] MEDS: ASPIRIN 81 MG TAB.CHEW PO (08:02)
[2022-08-14] MEDS: ROSUVASTATIN CALCIUM 10 MG TABLET 40 MG PO (19:54)
[2022-08-15] MEDS: ACETAMINOPHEN 650 MG TABLET ER 1300 MG PO ×2 (08:04→19:31)
[2022-08-15] MEDS: lisinopriL 2.5 MG TABLET PO (08:04)
[2022-08-15] MEDS: ASPIRIN 81 MG TAB.CHEW PO (08:04)
[2022-08-15] MEDS: LORATADINE 10 MG TABLET PO (08:04)
[2022-08-15] MEDS: CLOPIDOGREL 75 MG TABLET PO (08:04)
[2022-08-15] MEDS: SERTRALINE 50 MG TABLET 75 MG PO (08:04)
[2022-08-15] MEDS: ROSUVASTATIN CALCIUM 10 MG TABLET 40 MG PO (19:31)
[2022-08-16] MEDS: lisinopriL 2.5 MG TABLET PO (08:14)
[2022-08-16] MEDS: CLOPIDOGREL 75 MG TABLET PO (08:14)
[2022-08-16] MEDS: ASPIRIN 81 MG TAB.CHEW PO (08:14)
[2022-08-16] MEDS: SERTRALINE 50 MG TABLET 75 MG PO (08:14)
[2022-08-16] MEDS: LORATADINE 10 MG TABLET PO (08:14)
[2022-08-16] MEDS: ACETAMINOPHEN 650 MG TABLET ER 1300 MG PO ×2 (08:14→19:43)
--- NOTE | 2022-08-16 13:21 | PC.NURSE ---
Appointment: Resident went to see the neurologist with daughter @1000, returned @ 1300. Has an appointment on 08/26 @ 0815 for a heart monitor. Daughter will fruit picker machine operator @ 0715.
[2022-08-16] MEDS: ROSUVASTATIN CALCIUM 10 MG TABLET 40 MG PO (19:43)
[2022-08-17] MEDS: ACETAMINOPHEN 650 MG TABLET ER 1300 MG PO ×2 (08:29→19:59)
[2022-08-17] MEDS: ASPIRIN 81 MG TAB.CHEW PO (08:29)
[2022-08-17] MEDS: CLOPIDOGREL 75 MG TABLET PO (08:29)
[2022-08-17] MEDS: lisinopriL 2.5 MG TABLET PO (08:29)
[2022-08-17] MEDS: SERTRALINE 50 MG TABLET 75 MG PO (08:30)
[2022-08-17] MEDS: LORATADINE 10 MG TABLET PO (08:30)
--- NOTE | 2022-08-17 15:16 | PC.SOCIAL ---
Care Conference held in resident's room today at 1:30 pm. Resident's daughter, Muna, was present in person for care conference. Reviewed resident's care plan and provided updates from Ratna Farley in Nursing, Sharda Hale in Nutrition, Valery Alvarez in Life Enrichment, and this worker from Social Work. Social Work met with resident and conducted a mood assessment. Resident's mood is stable and there are no concerns with resident's mood. Resident and daughter discussed looking into the possibility of resident moving to assisted living at [facility]. Family is wondering if assisted living is appropriate for resident. Nursing will discuss with therapy and nursing staff. Encouraged resident to come out to eat for meals more. Resident will begin to try to come out for lunch to start. Encouraged resident to come out of resident's room and join in on activities that are available. Daughter would like to see resident walk more and join in on activities more.
--- NOTE | 2022-08-17 15:30 | PC.NURSE ---
CARE CONFERENCE: Resident and daughter Muna present. Nursing, dietary, activities, and SW present. Nursing discussed current medications and provided a med list to daughter. Discussed recent cardiac/neuro follow up appointments. Resident lacks motivation with ambulating and following therapy recommendations. During care conference daughter had stated that resident has been telling her that he is walking and going down to meals frequently. This has not been the case the past few months. Encouraged resident to go out for meals and to walk with staff. Nursing to continue encouraging resident to walk short distances in his room and to and from meals. Resident agrees to this plan. Activities encouraged resident to participate in exercise class and other activities, resident was reluctant. Likes to spend time in room watching TV. SW reports that mood has been stable, no concerns. Resident stated he does not want to do a GDR of Zoloft at this time. Resident and daughter deny any concerns with his care. Care plan reviewed and updated. Is full code. Uses no restraints. Does use 2 side rails to assist with positioning.? Vulnerability- is at risk for being harmed due to balance and L sided deficit. No plans for discharge, mcc stay. Resident asked about a different walker and if staff felt he could move to an assisted living. Advised that nurse will discuss with therapy team on recommendations and follow up with resident and daughter.
[2022-08-17] MEDS: ROSUVASTATIN CALCIUM 10 MG TABLET 40 MG PO (19:59)
[2022-08-18 07:00] VITALS: BP 134/89; PULSE 66; RESP 20; TEMP 36.3; O2SAT 95; BMI 27.2
[2022-08-18] MEDS: ACETAMINOPHEN 650 MG TABLET ER 1300 MG PO (07:23)
[2022-08-18] MEDS: LORATADINE 10 MG TABLET PO (07:24)
[2022-08-18] MEDS: SERTRALINE 50 MG TABLET 75 MG PO (07:24)
[2022-08-18] MEDS: CLOPIDOGREL 75 MG TABLET PO (07:24)
[2022-08-18] MEDS: lisinopriL 2.5 MG TABLET PO (07:24)
[2022-08-18] MEDS: ASPIRIN 81 MG TAB.CHEW PO (07:24)
[2022-08-18 07:51] LABS: Cholesterol* 140 mg/dL (90-199); Triglycerides* 142 mg/dL (40-149)
[2022-08-18 07:52] LABS: HDL Cholesterol* 48 mg/dL (>=40); LDL Cholesterol Calculated 64 mg/dL (<100)
--- NOTE | 2022-08-18 09:25 | PC.NURSE ---
Skin check - No areas of concern noted. Skin dry, intact, warm, appropriate color.
[2022-08-19] MEDS: ACETAMINOPHEN 650 MG TABLET ER 1300 MG PO ×3 (08:04→19:28)
[2022-08-19] MEDS: ROSUVASTATIN CALCIUM 10 MG TABLET 40 MG PO ×2 (08:04→19:28)
[2022-08-19] MEDS: CLOPIDOGREL 75 MG TABLET PO (08:05)
[2022-08-19] MEDS: LORATADINE 10 MG TABLET PO (08:05)
[2022-08-19] MEDS: lisinopriL 2.5 MG TABLET PO (08:05)
[2022-08-19] MEDS: SERTRALINE 50 MG TABLET 75 MG PO (08:05)
[2022-08-19] MEDS: ASPIRIN 81 MG TAB.CHEW PO (08:05)
--- NOTE | 2022-08-19 13:48 | PC.NURSE ---
Appointment: Resident went to [facility] to have an MRI then to see sales assistants and salespersons with daughter.
--- NOTE | 2022-08-19 21:36 | PC.NURSE ---
Appointment: Resident returned from appointment at 1610. Written order to follow up in 1 yr w/ carotid duplex.
--- NOTE | 2022-08-20 02:11 | PC.NURSE ---
WEEKLY CHARTING - WEEK 1: Vital signs reviewed. Occasional minor elevations in BP. Temporary and comprehensive care plans reviewed with no change. Hx of right shoulder pain. Currently receives acetaminophen 1300mg BID for pain management which is noted to be effective. Denies pain when asked. Requires limited to extensive assist of 1 with dressing, grooming, and bathing. Able to complete oral cares independently after set-up. Regular diet, regular texture, with thin liquids. Able to eat independently after set-up. No reports of chewing/swallowing issues. Weight is stable.
--- NOTE | 2022-08-20 07:41 | PC.NURSE ---
Week #1: Comprehensive care plan reviewed, no changes made. Nothing added to temporary care plan. Resident needs limited to extensive assist of one with dressing, grooming and bathing. Encourage to participate as much as he can. Able to do own oral cares & shaving after set up. Feed independently after set up. No problems with chewing or swallowing reported. Pain: Has chronic pain controlled with Tylenol 1300mg BID. Has had no complain of pain. Is able to verbalize when in pain.
[2022-08-20] MEDS: SERTRALINE 50 MG TABLET 75 MG PO (08:37)
[2022-08-20] MEDS: LORATADINE 10 MG TABLET PO (08:37)
[2022-08-20] MEDS: lisinopriL 2.5 MG TABLET PO (08:37)
[2022-08-20] MEDS: CLOPIDOGREL 75 MG TABLET PO (08:37)
[2022-08-20] MEDS: ASPIRIN 81 MG TAB.CHEW PO (08:37)
[2022-08-20] MEDS: ACETAMINOPHEN 650 MG TABLET ER 1300 MG PO ×2 (08:37→19:59)
[2022-08-20] MEDS: ROSUVASTATIN CALCIUM 10 MG TABLET 40 MG PO (20:03)
[2022-08-21] MEDS: LORATADINE 10 MG TABLET PO (08:26)
[2022-08-21] MEDS: CLOPIDOGREL 75 MG TABLET PO (08:26)
[2022-08-21] MEDS: ACETAMINOPHEN 650 MG TABLET ER 1300 MG PO ×2 (08:26→19:23)
[2022-08-21] MEDS: lisinopriL 2.5 MG TABLET PO (08:26)
[2022-08-21] MEDS: ASPIRIN 81 MG TAB.CHEW PO (08:26)
[2022-08-21] MEDS: SERTRALINE 50 MG TABLET 75 MG PO (08:26)
[2022-08-21] MEDS: ROSUVASTATIN CALCIUM 10 MG TABLET 40 MG PO (19:23)
[2022-08-22] MEDS: CLOPIDOGREL 75 MG TABLET PO (08:39)
[2022-08-22] MEDS: ACETAMINOPHEN 650 MG TABLET ER 1300 MG PO ×2 (08:39→19:02)
[2022-08-22] MEDS: SERTRALINE 50 MG TABLET 75 MG PO (08:39)
[2022-08-22] MEDS: ASPIRIN 81 MG TAB.CHEW PO (08:39)
[2022-08-22] MEDS: LORATADINE 10 MG TABLET PO (08:39)
[2022-08-22] MEDS: lisinopriL 2.5 MG TABLET PO (08:39)
[2022-08-22] MEDS: ROSUVASTATIN CALCIUM 10 MG TABLET 40 MG PO (19:02)
[2022-08-23] MEDS: ASPIRIN 81 MG TAB.CHEW PO (07:29)
[2022-08-23] MEDS: lisinopriL 2.5 MG TABLET PO (07:29)
[2022-08-23] MEDS: CLOPIDOGREL 75 MG TABLET PO (07:29)
[2022-08-23] MEDS: SERTRALINE 50 MG TABLET 75 MG PO (07:29)
[2022-08-23] MEDS: ACETAMINOPHEN 650 MG TABLET ER 1300 MG PO ×2 (07:29→19:49)
[2022-08-23] MEDS: LORATADINE 10 MG TABLET PO (07:29)
--- NOTE | 2022-08-23 11:02 | PC.NURSE ---
Resident APPt: Resident out with his daughter for Line Camera Operator appointment at 0715.
--- NOTE | 2022-08-23 11:18 | PC.NURSE ---
Resident APPt: Resident out of facility to see programmer analyst health it at 0715 with his daughter.
[2022-08-23] MEDS: ROSUVASTATIN CALCIUM 10 MG TABLET 40 MG PO (19:49)
[2022-08-24] MEDS: ASPIRIN 81 MG TAB.CHEW PO (07:43)
[2022-08-24] MEDS: lisinopriL 2.5 MG TABLET PO (07:43)
[2022-08-24] MEDS: LORATADINE 10 MG TABLET PO (07:43)
[2022-08-24] MEDS: CLOPIDOGREL 75 MG TABLET PO (07:43)
[2022-08-24] MEDS: ACETAMINOPHEN 650 MG TABLET ER 1300 MG PO ×2 (07:43→19:55)
[2022-08-24] MEDS: SERTRALINE 50 MG TABLET 75 MG PO (07:43)
--- NOTE | 2022-08-24 10:40 | PC.NURSE ---
Heart Monitor: Change heart pad every 5 days for 30 days, charge heart sensor every 5 days for 90 minutes for 30 days by Derrick ZIMMERMAN.
[2022-08-24] MEDS: ROSUVASTATIN CALCIUM 10 MG TABLET 40 MG PO (19:55)
[2022-08-25 07:00] VITALS: BP 142/92; PULSE 85; RESP 20; TEMP 36.5; O2SAT 95; BMI 27.4
[2022-08-25] MEDS: CLOPIDOGREL 75 MG TABLET PO (07:39)
[2022-08-25] MEDS: lisinopriL 2.5 MG TABLET PO (07:39)
[2022-08-25] MEDS: ACETAMINOPHEN 650 MG TABLET ER 1300 MG PO ×2 (07:39→19:56)
[2022-08-25] MEDS: ASPIRIN 81 MG TAB.CHEW PO (07:39)
[2022-08-25] MEDS: LORATADINE 10 MG TABLET PO (07:40)
[2022-08-25] MEDS: SERTRALINE 50 MG TABLET 75 MG PO (07:40)
--- NOTE | 2022-08-25 09:33 | PC.PHA ---
MEDICATION REVIEW: MEDICATION MONITORING: Sertraline 75 mg daily, continues per patient's wishes for no GDR (see care conference note). Acetaminophen for pain bid, no other prn pain med. orders Rosuvastatin, Aspirin, clopidogrel, lisinopril for cardiac and stroke indications, per nursing notes patient continues to see retail client manager and neurologist. Loratadine 10 mg daily for allergies IRREGULARITY OR COMMENTS:Per nursing notes patient not always motivated to move to meals and other activities, therefore I am also in favor of continuing Sertraline and consider GDR not clinically indicated at time of August review. No antibiotics or benzodiazepines prescribed since last review. SUGGESTED COURSE OF ACTION: Depending on patient's level of motivation on going, he may benefit from an increase in his sertraline. Recommend providers assess and discuss with patient.
[2022-08-25] MEDS: ROSUVASTATIN CALCIUM 10 MG TABLET 40 MG PO (19:56)
[2022-08-26] MEDS: SERTRALINE 50 MG TABLET 75 MG PO (08:32)
[2022-08-26] MEDS: ASPIRIN 81 MG TAB.CHEW PO (08:32)
[2022-08-26] MEDS: lisinopriL 2.5 MG TABLET PO (08:32)
[2022-08-26] MEDS: LORATADINE 10 MG TABLET PO (08:32)
[2022-08-26] MEDS: CLOPIDOGREL 75 MG TABLET PO (08:32)
[2022-08-26] MEDS: ACETAMINOPHEN 650 MG TABLET ER 1300 MG PO ×2 (08:32→20:20)
[2022-08-26] MEDS: ROSUVASTATIN CALCIUM 10 MG TABLET 40 MG PO (20:20)
--- NOTE | 2022-08-27 02:54 | PC.NURSE ---
WEEKLY CHARTING - WEEK 2: Vital signs reviewed with no concerns. Temporary and comprehensive care plan reviewed - no change. Requires 1 assist for transfers and ambulation. Is able to propel w/c independently with use of lap tray on the left side. Is independent with bed mobility. Half side rails in place bilaterally. Per fall risk assessment, is at low risk for falls. Call light in reach.
[2022-08-27] MEDS: ASPIRIN 81 MG TAB.CHEW PO (07:13)
[2022-08-27] MEDS: LORATADINE 10 MG TABLET PO (07:13)
[2022-08-27] MEDS: SERTRALINE 50 MG TABLET 75 MG PO (07:13)
[2022-08-27] MEDS: CLOPIDOGREL 75 MG TABLET PO (07:13)
[2022-08-27] MEDS: lisinopriL 2.5 MG TABLET PO (07:13)
[2022-08-27] MEDS: ACETAMINOPHEN 650 MG TABLET ER 1300 MG PO ×2 (07:13→20:24)
--- NOTE | 2022-08-27 08:21 | PC.NURSE ---
Week #2 -Mobility: Care plan reviewed, no changes made. Nothing added to temporary care plan. Transfers and ambulate with one assist, transfer belt and walker. Continue to encourage with ambulation. Frequently refused. Is able to wheel self. Staff to remind or assist with repositioning q2h and PRN. Is able to reposition self. Top side rails up in bed to aid for positioning/bed mobility. No alarms. Fall: No falls the past month. Remains a low fall risk according to assessment done on 08/12/22.
[2022-08-27] MEDS: ROSUVASTATIN CALCIUM 10 MG TABLET 40 MG PO (20:24)
[2022-08-28] MEDS: LORATADINE 10 MG TABLET PO (08:46)
[2022-08-28] MEDS: CLOPIDOGREL 75 MG TABLET PO (08:46)
[2022-08-28] MEDS: ASPIRIN 81 MG TAB.CHEW PO (08:46)
[2022-08-28] MEDS: lisinopriL 2.5 MG TABLET PO (08:46)
[2022-08-28] MEDS: ACETAMINOPHEN 650 MG TABLET ER 1300 MG PO ×2 (08:46→19:46)
[2022-08-28] MEDS: SERTRALINE 50 MG TABLET 75 MG PO (08:46)
[2022-08-28] MEDS: ROSUVASTATIN CALCIUM 10 MG TABLET 40 MG PO (19:46)
[2022-08-29] MEDS: ACETAMINOPHEN 650 MG TABLET ER 1300 MG PO ×2 (08:34→19:51)
[2022-08-29] MEDS: ASPIRIN 81 MG TAB.CHEW PO (08:34)
[2022-08-29] MEDS: LORATADINE 10 MG TABLET PO (08:35)
[2022-08-29] MEDS: CLOPIDOGREL 75 MG TABLET PO (08:35)
[2022-08-29] MEDS: SERTRALINE 50 MG TABLET 75 MG PO (08:35)
[2022-08-29] MEDS: lisinopriL 2.5 MG TABLET PO (08:35)
[2022-08-29] MEDS: ROSUVASTATIN CALCIUM 10 MG TABLET 40 MG PO (19:51)
[2022-08-30] MEDS: LORATADINE 10 MG TABLET PO (08:25)
[2022-08-30] MEDS: CLOPIDOGREL 75 MG TABLET PO (08:25)
[2022-08-30] MEDS: SERTRALINE 50 MG TABLET 75 MG PO (08:25)
[2022-08-30] MEDS: ASPIRIN 81 MG TAB.CHEW PO (08:25)
[2022-08-30] MEDS: ACETAMINOPHEN 650 MG TABLET ER 1300 MG PO ×2 (08:25→19:53)
[2022-08-30] MEDS: lisinopriL 2.5 MG TABLET PO (08:25)
[2022-08-30] MEDS: ROSUVASTATIN CALCIUM 10 MG TABLET 40 MG PO (19:53)
[2022-08-31] MEDS: LORATADINE 10 MG TABLET PO (07:57)
[2022-08-31] MEDS: lisinopriL 2.5 MG TABLET PO (07:57)
[2022-08-31] MEDS: CLOPIDOGREL 75 MG TABLET PO (07:57)
[2022-08-31] MEDS: ASPIRIN 81 MG TAB.CHEW PO (07:57)
[2022-08-31] MEDS: ACETAMINOPHEN 650 MG TABLET ER 1300 MG PO ×2 (07:57→19:38)
[2022-08-31] MEDS: SERTRALINE 50 MG TABLET 75 MG PO (07:57)
[2022-08-31] MEDS: ROSUVASTATIN CALCIUM 10 MG TABLET 40 MG PO (19:38)
[2022-09-01 07:00] VITALS: BP 145/83; PULSE 54; RESP 16; TEMP 36.4; O2SAT 95; BMI 27.6
[2022-09-01] MEDS: ACETAMINOPHEN 650 MG TABLET ER 1300 MG PO ×2 (08:26→19:15)
[2022-09-01] MEDS: CLOPIDOGREL 75 MG TABLET PO (08:26)
[2022-09-01] MEDS: ASPIRIN 81 MG TAB.CHEW PO (08:26)
[2022-09-01] MEDS: lisinopriL 2.5 MG TABLET PO (08:27)
[2022-09-01] MEDS: LORATADINE 10 MG TABLET PO (08:27)
[2022-09-01] MEDS: SERTRALINE 50 MG TABLET 75 MG PO (08:27)
--- NOTE | 2022-09-01 08:38 | PC.SPIRITC ---
Late entry for 08/31/22: Flight Readiness Technician provided visit for support and connection.
--- NOTE | 2022-09-01 09:42 | PC.NURSE ---
Skin check - No areas of concern. Skin dry, intact, appropriate color, warm.
[2022-09-01] MEDS: ROSUVASTATIN CALCIUM 10 MG TABLET 40 MG PO (19:15)
[2022-09-02] MEDS: ACETAMINOPHEN 650 MG TABLET ER 1300 MG PO ×2 (08:43→20:31)
[2022-09-02] MEDS: ASPIRIN 81 MG TAB.CHEW PO (08:44)
[2022-09-02] MEDS: LORATADINE 10 MG TABLET PO (08:44)
[2022-09-02] MEDS: lisinopriL 2.5 MG TABLET PO (08:44)
[2022-09-02] MEDS: CLOPIDOGREL 75 MG TABLET PO (08:44)
[2022-09-02] MEDS: SERTRALINE 50 MG TABLET 75 MG PO (08:44)
--- NOTE | 2022-09-02 08:50 | PC.NURSE ---
Met with resident to complete a side rail utilization assessment and he indicated he did not want to use side rails. Will continue with interventions call light in reach, w/c at bedside, bed in low position.
--- NOTE | 2022-09-02 13:38 | PC.NURSE ---
Evacuee Assessment: Resident is ambulatory but only short distances due to weakness. Level 2 appropriate at this time.
--- NOTE | 2022-09-02 15:00 | PC.NURSE ---
[employer] information faxed per request. Folder with information in DRAWER IN STITCH BONDING MACHINE office.
[2022-09-02] MEDS: ROSUVASTATIN CALCIUM 10 MG TABLET 40 MG PO (20:31)
--- NOTE | 2022-09-02 21:50 | PC.NURSE ---
Resident requested L side bed rail be left up for positioning this evening.
--- NOTE | 2022-09-03 02:49 | PC.NURSE ---
WEEKLY CHARTING - WEEK 3: Vital signs reviewed with no concerns. Temporary and comprehensive care plan reviewed - incontinent product updated. Per weekly skin assessment, no skin concerns. Is continent of bowel and bladder. Uses urinal independently. Will occasionally miss the urinal when using in bed. Staff empty urinal PRN. Assist of 1 to ambulate to toilet and provide bo-care, pad management, and clothing adjustment.
[2022-09-03] MEDS: CLOPIDOGREL 75 MG TABLET PO (07:56)
[2022-09-03] MEDS: ACETAMINOPHEN 650 MG TABLET ER 1300 MG PO ×2 (07:56→20:09)
[2022-09-03] MEDS: ASPIRIN 81 MG TAB.CHEW PO (07:56)
[2022-09-03] MEDS: SERTRALINE 50 MG TABLET 75 MG PO (07:57)
[2022-09-03] MEDS: lisinopriL 2.5 MG TABLET PO (07:57)
[2022-09-03] MEDS: LORATADINE 10 MG TABLET PO (07:57)
[2022-09-03] MEDS: ROSUVASTATIN CALCIUM 10 MG TABLET 40 MG PO (20:13)
--- NOTE | 2022-09-03 22:14 | PC.NURSE ---
Week #3 Charting: Temporary care plan reviewed, no change. Care plan reviewed, no change. Skin summary: no skin issues or concerns at this time. Toileting: Resident is continent of bowel and bladder, wears a pull up for break through incontinence. Resident typically uses urinal at bedside.
[2022-09-04] MEDS: lisinopriL 2.5 MG TABLET PO (08:07)
[2022-09-04] MEDS: ASPIRIN 81 MG TAB.CHEW PO (08:07)
[2022-09-04] MEDS: CLOPIDOGREL 75 MG TABLET PO (08:07)
[2022-09-04] MEDS: ACETAMINOPHEN 650 MG TABLET ER 1300 MG PO ×2 (08:07→20:31)
[2022-09-04] MEDS: LORATADINE 10 MG TABLET PO (08:07)
[2022-09-04] MEDS: SERTRALINE 50 MG TABLET 75 MG PO (08:08)
[2022-09-04] MEDS: ROSUVASTATIN CALCIUM 10 MG TABLET 40 MG PO (20:31)
[2022-09-05] MEDS: LORATADINE 10 MG TABLET PO (08:36)
[2022-09-05] MEDS: CLOPIDOGREL 75 MG TABLET PO (08:36)
[2022-09-05] MEDS: ACETAMINOPHEN 650 MG TABLET ER 1300 MG PO ×2 (08:36→19:56)
[2022-09-05] MEDS: ASPIRIN 81 MG TAB.CHEW PO (08:36)
[2022-09-05] MEDS: SERTRALINE 50 MG TABLET 75 MG PO (08:36)
[2022-09-05] MEDS: lisinopriL 2.5 MG TABLET PO (08:36)
[2022-09-05] MEDS: ROSUVASTATIN CALCIUM 10 MG TABLET 40 MG PO (19:56)
[2022-09-06] MEDS: ACETAMINOPHEN 650 MG TABLET ER 1300 MG PO ×2 (07:56→20:13)
[2022-09-06] MEDS: CLOPIDOGREL 75 MG TABLET PO (07:56)
[2022-09-06] MEDS: SERTRALINE 50 MG TABLET 75 MG PO (07:56)
[2022-09-06] MEDS: ASPIRIN 81 MG TAB.CHEW PO (07:56)
[2022-09-06] MEDS: LORATADINE 10 MG TABLET PO (07:56)
[2022-09-06] MEDS: lisinopriL 2.5 MG TABLET PO (07:56)
[2022-09-06] MEDS: ROSUVASTATIN CALCIUM 10 MG TABLET 40 MG PO (20:13)
[2022-09-07] MEDS: SERTRALINE 50 MG TABLET 75 MG PO (08:54)
[2022-09-07] MEDS: ACETAMINOPHEN 650 MG TABLET ER 1300 MG PO ×2 (08:54→19:40)
[2022-09-07] MEDS: CLOPIDOGREL 75 MG TABLET PO (08:54)
[2022-09-07] MEDS: LORATADINE 10 MG TABLET PO (08:54)
[2022-09-07] MEDS: lisinopriL 2.5 MG TABLET PO (08:54)
[2022-09-07] MEDS: ASPIRIN 81 MG TAB.CHEW PO (08:54)
[2022-09-07] MEDS: ROSUVASTATIN CALCIUM 10 MG TABLET 40 MG PO (19:40)
[2022-09-08 07:00] VITALS: BP 155/90; PULSE 65; RESP 16; TEMP 36.1; O2SAT 97; BMI 27.7
[2022-09-08] MEDS: SERTRALINE 50 MG TABLET 75 MG PO (08:30)
[2022-09-08] MEDS: ACETAMINOPHEN 650 MG TABLET ER 1300 MG PO ×2 (08:30→19:48)
[2022-09-08] MEDS: CLOPIDOGREL 75 MG TABLET PO (08:30)
[2022-09-08] MEDS: ASPIRIN 81 MG TAB.CHEW PO (08:30)
[2022-09-08] MEDS: LORATADINE 10 MG TABLET PO (08:30)
[2022-09-08] MEDS: lisinopriL 2.5 MG TABLET PO (08:30)
--- NOTE | 2022-09-08 09:07 | PC.NURSE ---
Skin check - No areas of conecern noted. Skin dry, warm, intact, appropriate color, elastic.
--- NOTE | 2022-09-08 14:39 | PC.SPIRITC ---
I provided visit for support and connection.
[2022-09-08] MEDS: ROSUVASTATIN CALCIUM 10 MG TABLET 40 MG PO (19:48)
[2022-09-09] MEDS: CLOPIDOGREL 75 MG TABLET PO (08:05)
[2022-09-09] MEDS: ACETAMINOPHEN 650 MG TABLET ER 1300 MG PO ×2 (08:05→19:36)
[2022-09-09] MEDS: SERTRALINE 50 MG TABLET 75 MG PO (08:05)
[2022-09-09] MEDS: lisinopriL 2.5 MG TABLET PO (08:05)
[2022-09-09] MEDS: ASPIRIN 81 MG TAB.CHEW PO (08:05)
[2022-09-09] MEDS: LORATADINE 10 MG TABLET PO (08:33)
--- NOTE | 2022-09-09 09:15 | PC.NURSE ---
Late Entry for 09/08/22: Walker: Family brought walker from home. Assessed by PT, recommends not to use, continue to use the platform walker for amb & transfers. Will return to family.
[2022-09-09] MEDS: ROSUVASTATIN CALCIUM 10 MG TABLET 40 MG PO (19:38)
--- NOTE | 2022-09-10 01:15 | PC.NURSE ---
WEEKLY CHARTING - WEEK 4: Vital signs reviewed. Temporary and comprehensive care plan reviewed - no change. Five documented behaviors in the last month including refusing cares, lack of motivation, and social isolation. Currently receives sertraline 75mg daily with no adverse effects. Able to communicate needs appropriately. Hearing is intact. Wears glasses for reading. Is cognitively intact. No medication changes. Medications administered by nurse. No change in health condition.
[2022-09-10] MEDS: ACETAMINOPHEN 650 MG TABLET ER 1300 MG PO ×2 (08:09→19:39)
[2022-09-10] MEDS: CLOPIDOGREL 75 MG TABLET PO (08:10)
[2022-09-10] MEDS: LORATADINE 10 MG TABLET PO (08:10)
[2022-09-10] MEDS: lisinopriL 2.5 MG TABLET PO (08:10)
[2022-09-10] MEDS: ASPIRIN 81 MG TAB.CHEW PO (08:10)
[2022-09-10] MEDS: SERTRALINE 50 MG TABLET 75 MG PO (08:10)
--- NOTE | 2022-09-10 11:08 | PC.NURSE ---
WEEKLY CHARTING - WEEK 4: Temporary, comprehensive and vital signs care plan reviewed with no change. Resident refuses cares at times and social isolation most of time. Resident is on sertraline 75mg daily with no adverse effects noted or reported for the last 4 wks. No changes with health statues. No medication changes. Resident alert and oriented x4, able to communicate needs appropriately. Hearing is intact. Wears glasses for reading. Medications administered by nurse.
--- NOTE | 2022-09-10 15:30 | PC.NURSE ---
Side rail Assessment/Providers Orders/Informed Consent: Completed side rail utilization assessment, RBVO both bed rails up to promote independence/positioning at all times. Requested by resident. DX: cerebrovascular disease per Destini Meza NP. Bed rail informed consent form signed and filed. Side rail pamphlet given to resident at this time. Intervention in place/Care Plan and Care Sheets updated.
[2022-09-10] MEDS: ROSUVASTATIN CALCIUM 10 MG TABLET 40 MG PO (19:39)
[2022-09-11] MEDS: ACETAMINOPHEN 650 MG TABLET ER 1300 MG PO ×2 (08:15→19:31)
[2022-09-11] MEDS: LORATADINE 10 MG TABLET PO (08:15)
[2022-09-11] MEDS: CLOPIDOGREL 75 MG TABLET PO (08:15)
[2022-09-11] MEDS: SERTRALINE 50 MG TABLET 75 MG PO (08:15)
[2022-09-11] MEDS: lisinopriL 2.5 MG TABLET PO (08:15)
[2022-09-11] MEDS: ASPIRIN 81 MG TAB.CHEW PO (08:15)
[2022-09-11] MEDS: ROSUVASTATIN CALCIUM 10 MG TABLET 40 MG PO (19:31)
[2022-09-12] MEDS: ACETAMINOPHEN 650 MG TABLET ER 1300 MG PO ×2 (08:41→20:47)
[2022-09-12] MEDS: ASPIRIN 81 MG TAB.CHEW PO (08:41)
[2022-09-12] MEDS: lisinopriL 2.5 MG TABLET PO (08:42)
[2022-09-12] MEDS: LORATADINE 10 MG TABLET PO (08:42)
[2022-09-12] MEDS: SERTRALINE 50 MG TABLET 75 MG PO (08:42)
[2022-09-12] MEDS: CLOPIDOGREL 75 MG TABLET PO (08:42)
[2022-09-12] MEDS: ROSUVASTATIN CALCIUM 10 MG TABLET 40 MG PO (20:47)
[2022-09-13] MEDS: LORATADINE 10 MG TABLET PO (08:49)
[2022-09-13] MEDS: lisinopriL 2.5 MG TABLET PO (08:49)
[2022-09-13] MEDS: ACETAMINOPHEN 650 MG TABLET ER 1300 MG PO ×2 (08:49→19:56)
[2022-09-13] MEDS: ASPIRIN 81 MG TAB.CHEW PO (08:49)
[2022-09-13] MEDS: SERTRALINE 50 MG TABLET 75 MG PO (08:49)
[2022-09-13] MEDS: CLOPIDOGREL 75 MG TABLET PO (08:49)
[2022-09-13 09:54] VITALS: TEMP 36; O2SAT 97
--- NOTE | 2022-09-13 13:22 | PC.NURSE ---
COVID OUTBREAK TESTING: Resident provided verbal consent for outbreak COVID testing. Resident is currently asymptomatic. Resident/family will be notified only if resident is positive.
[2022-09-13 16:55] VITALS: TEMP 36.7; O2SAT 95
[2022-09-13 17:18] LABS: SARS PCR* Negative SARS-CoV-2 (Negative)
[2022-09-13] MEDS: ROSUVASTATIN CALCIUM 10 MG TABLET 40 MG PO (19:56)
[2022-09-13 23:00] VITALS: TEMP 36.7; O2SAT 93
[2022-09-14 07:00] VITALS: TEMP 36.2; O2SAT 98
[2022-09-14] MEDS: LORATADINE 10 MG TABLET PO (08:54)
[2022-09-14] MEDS: ACETAMINOPHEN 650 MG TABLET ER 1300 MG PO ×2 (08:54→19:47)
[2022-09-14] MEDS: CLOPIDOGREL 75 MG TABLET PO (08:54)
[2022-09-14] MEDS: SERTRALINE 50 MG TABLET 75 MG PO (08:54)
[2022-09-14] MEDS: ASPIRIN 81 MG TAB.CHEW PO (08:54)
[2022-09-14] MEDS: lisinopriL 2.5 MG TABLET PO (08:54)
[2022-09-14] MEDS: ROSUVASTATIN CALCIUM 10 MG TABLET 40 MG PO (19:47)
[2022-09-14 20:50] VITALS: TEMP 36.6; O2SAT 95
[2022-09-14 23:00] VITALS: TEMP 36.2; O2SAT 93
[2022-09-15 07:00] VITALS: BP 156/86; PULSE 67; RESP 20; TEMP 36; O2SAT 95; BMI 27.7
[2022-09-15] MEDS: CLOPIDOGREL 75 MG TABLET PO (07:38)
[2022-09-15] MEDS: ACETAMINOPHEN 650 MG TABLET ER 1300 MG PO ×2 (07:38→19:47)
[2022-09-15] MEDS: LORATADINE 10 MG TABLET PO (07:38)
[2022-09-15] MEDS: lisinopriL 2.5 MG TABLET PO (07:38)
[2022-09-15] MEDS: ASPIRIN 81 MG TAB.CHEW PO (07:38)
[2022-09-15] MEDS: SERTRALINE 50 MG TABLET 75 MG PO (07:38)
--- NOTE | 2022-09-15 10:06 | PC.NURSE ---
Skin check - No areas of concern. Skin is dry, warm, appropriate color, elastic, and intact.
--- NOTE | 2022-09-15 13:10 | PC.SPIRITC ---
I provided brief visit for support and connection.
[2022-09-15 15:00] VITALS: TEMP 36.6; O2SAT 96
[2022-09-15] MEDS: ROSUVASTATIN CALCIUM 10 MG TABLET 40 MG PO (19:47)
[2022-09-15 23:00] VITALS: TEMP 36.4; O2SAT 93
[2022-09-16 07:00] VITALS: TEMP 36.5; O2SAT 97
[2022-09-16] MEDS: lisinopriL 2.5 MG TABLET PO (08:31)
[2022-09-16] MEDS: CLOPIDOGREL 75 MG TABLET PO (08:31)
[2022-09-16] MEDS: SERTRALINE 50 MG TABLET 75 MG PO (08:31)
[2022-09-16] MEDS: ASPIRIN 81 MG TAB.CHEW PO (08:31)
[2022-09-16] MEDS: ACETAMINOPHEN 650 MG TABLET ER 1300 MG PO (08:31)
[2022-09-16] MEDS: LORATADINE 10 MG TABLET PO (08:31)
--- NOTE | 2022-09-16 10:53 | PC.NURSE ---
Order: VENTILATOR SPECIALIST here. Discontinue Tylenol 1300mg BID. Tylenol 1000mg BID @ ,20
--- NOTE | 2022-09-16 10:55 | PC.NURSE ---
Addendum entered by Bere Hager RN 09/16/22 10:59: Charted on wrong resident. Original Note: Family Update: Daughter contacted and updated of fall, no injury.
--- NOTE | 2022-09-16 11:57 | PC.NURSE ---
Order: Decrease Zoloft 75mg daily to 50mg by Derrick ZIMMERMAN.
[2022-09-16] MEDS: ACETAMINOPHEN 500 MG TABLET 1000 MG PO (20:05)
[2022-09-16] MEDS: ROSUVASTATIN CALCIUM 10 MG TABLET 40 MG PO (20:05)
[2022-09-16 21:54] VITALS: TEMP 36.6; O2SAT 96
[2022-09-16 23:00] VITALS: TEMP 36.3; O2SAT 93
--- NOTE | 2022-09-17 03:11 | PC.NURSE ---
WEEKLY CHARTING - WEEK 1: Vital signs reviewed. Most recent BP values elevated. Temporary and comprehensive care plan reviewed - no change. Hx of intermittent right shoulder pain. Receives scheduled ES acetaminophen BID for pain management. Limited to extensive assist of 1 with dressing, grooming, and bathing. Set-up with encouragement for oral care. Eats independently after set-up. No chewing or swallowing problems. Receives a regular diet. Weight is trending upward.
--- NOTE | 2022-09-17 06:53 | PC.NURSE ---
Week #1- ADL's: Comprehensive care plan reviewed, no changes made. Nothing added to temporary care plan. Resident needs limited to extensive assist of one with dressing, grooming and bathing. Encourage to participate as much as he can. Able to do own oral cares & shaving after set up. Feed independently after set up. Is on regular diet. No problems with chewing or swallowing reported. Vital signs reviewed. Latest BP's slightly elevated. Continue with weekly VS monitoring. Pain: Has history of (R) shoulder pain. Pain controlled with Tylenol 1300mg BID. 09/16/22 Tylenol ER discontinued, changed to Tylenol 1000mg BID. Has had no complain of pain. Is able to verbalize when in pain.
[2022-09-17] MEDS: ACETAMINOPHEN 500 MG TABLET 1000 MG PO ×2 (08:33→20:14)
[2022-09-17] MEDS: lisinopriL 2.5 MG TABLET PO (08:34)
[2022-09-17] MEDS: LORATADINE 10 MG TABLET PO (08:34)
[2022-09-17] MEDS: ASPIRIN 81 MG TAB.CHEW PO (08:34)
[2022-09-17] MEDS: SERTRALINE 50 MG TABLET PO (08:34)
[2022-09-17] MEDS: CLOPIDOGREL 75 MG TABLET PO (08:34)
[2022-09-17 10:43] VITALS: TEMP 36.2; O2SAT 94
--- NOTE | 2022-09-17 12:35 | PC.NURSE ---
Recert Visit: Resident seen by Dr. Cifuentes. Orders reviewed and renewed of 75 days without changes. 08/16/22 Neuro notes reviewed.
[2022-09-17] MEDS: ROSUVASTATIN CALCIUM 10 MG TABLET 40 MG PO (20:18)
[2022-09-17 21:21] VITALS: TEMP 36.4; O2SAT 97
[2022-09-17 23:00] VITALS: TEMP 35.8; O2SAT 96
[2022-09-18] MEDS: ASPIRIN 81 MG TAB.CHEW PO (08:15)
[2022-09-18] MEDS: CLOPIDOGREL 75 MG TABLET PO (08:15)
[2022-09-18] MEDS: LORATADINE 10 MG TABLET PO (08:15)
[2022-09-18] MEDS: lisinopriL 2.5 MG TABLET PO (08:15)
[2022-09-18] MEDS: ACETAMINOPHEN 500 MG TABLET 1000 MG PO ×2 (08:15→19:44)
[2022-09-18] MEDS: SERTRALINE 50 MG TABLET PO (08:16)
[2022-09-18 09:52] VITALS: TEMP 36.4; O2SAT 95
[2022-09-18] MEDS: ROSUVASTATIN CALCIUM 10 MG TABLET 40 MG PO (19:45)
[2022-09-18 20:59] VITALS: TEMP 36.6; O2SAT 95
[2022-09-18 23:00] VITALS: TEMP 36.6; O2SAT 95
[2022-09-19] MEDS: ASPIRIN 81 MG TAB.CHEW PO (08:25)
[2022-09-19] MEDS: CLOPIDOGREL 75 MG TABLET PO (08:25)
[2022-09-19] MEDS: ACETAMINOPHEN 500 MG TABLET 1000 MG PO ×2 (08:25→20:26)
[2022-09-19] MEDS: lisinopriL 2.5 MG TABLET PO (08:26)
[2022-09-19] MEDS: LORATADINE 10 MG TABLET PO (08:26)
[2022-09-19] MEDS: SERTRALINE 50 MG TABLET PO (08:26)
[2022-09-19 09:42] VITALS: TEMP 36.2; O2SAT 96
[2022-09-19] MEDS: ROSUVASTATIN CALCIUM 10 MG TABLET 40 MG PO (20:26)
[2022-09-19 21:15] VITALS: TEMP 36.1; O2SAT 96
[2022-09-19 23:00] VITALS: TEMP 35.7; O2SAT 95
[2022-09-20] MEDS: LORATADINE 10 MG TABLET PO (07:26)
[2022-09-20] MEDS: lisinopriL 2.5 MG TABLET PO (07:26)
[2022-09-20] MEDS: ACETAMINOPHEN 500 MG TABLET 1000 MG PO ×2 (07:26→19:08)
[2022-09-20] MEDS: CLOPIDOGREL 75 MG TABLET PO (07:26)
[2022-09-20] MEDS: ASPIRIN 81 MG TAB.CHEW PO (07:26)
[2022-09-20] MEDS: SERTRALINE 50 MG TABLET PO (07:27)
[2022-09-20 14:54] VITALS: TEMP 36.9; O2SAT 96
--- NOTE | 2022-09-20 14:56 | PC.NURSE ---
Mushtaq Cortez here to meet with resident about finances and spoke to myself and his daughter.
[2022-09-20 15:00] VITALS: TEMP 36.4; O2SAT 97
[2022-09-20] MEDS: ROSUVASTATIN CALCIUM 10 MG TABLET 40 MG PO (19:09)
[2022-09-20 22:01] LABS: SARS PCR* Negative SARS-CoV-2 (Negative)
[2022-09-20 23:00] VITALS: TEMP 36.6; O2SAT 95
--- NOTE | 2022-09-21 06:52 | PC.NURSE ---
Order: Increase Lisinopril to 5mg daily, check BP daily x 2 weeks & update MD/FORMS ANALYST with BP readings.
[2022-09-21 07:00] VITALS: TEMP 36.7; O2SAT 96
[2022-09-21] MEDS: CLOPIDOGREL 75 MG TABLET PO (08:22)
[2022-09-21] MEDS: ASPIRIN 81 MG TAB.CHEW PO (08:22)
[2022-09-21] MEDS: ACETAMINOPHEN 500 MG TABLET 1000 MG PO ×2 (08:22→20:56)
[2022-09-21] MEDS: SERTRALINE 50 MG TABLET PO (08:22)
[2022-09-21] MEDS: lisinopriL 2.5 MG TABLET 5 MG PO (08:22)
[2022-09-21] MEDS: LORATADINE 10 MG TABLET PO (08:22)
[2022-09-21] MEDS: ROSUVASTATIN CALCIUM 10 MG TABLET 40 MG PO (20:56)
[2022-09-21 21:54] VITALS: TEMP 36.6; O2SAT 98
[2022-09-21 23:00] VITALS: TEMP 36.3; O2SAT 93
[2022-09-22] MEDS: lisinopriL 2.5 MG TABLET 5 MG PO (09:00)
[2022-09-22] MEDS: ACETAMINOPHEN 500 MG TABLET 1000 MG PO ×2 (09:00→19:26)
[2022-09-22] MEDS: CLOPIDOGREL 75 MG TABLET PO (09:00)
[2022-09-22] MEDS: SERTRALINE 50 MG TABLET PO (09:00)
[2022-09-22] MEDS: ASPIRIN 81 MG TAB.CHEW PO (09:00)
[2022-09-22] MEDS: LORATADINE 10 MG TABLET PO (09:00)
[2022-09-22 10:25] VITALS: BP 137/88; PULSE 78; RESP 18; TEMP 36.3; O2SAT 96
[2022-09-22 11:09] VITALS: BMI 27.6
[2022-09-22 15:00] VITALS: TEMP 36.5; O2SAT 96
[2022-09-22 16:00] VITALS: BP 126/78
[2022-09-22] MEDS: ROSUVASTATIN CALCIUM 10 MG TABLET 40 MG PO (19:26)
[2022-09-22 23:00] VITALS: TEMP 36.4; O2SAT 93
[2022-09-23] MEDS: ACETAMINOPHEN 500 MG TABLET 1000 MG PO ×2 (08:33→19:27)
[2022-09-23] MEDS: ASPIRIN 81 MG TAB.CHEW PO (08:34)
[2022-09-23] MEDS: SERTRALINE 50 MG TABLET PO (08:34)
[2022-09-23] MEDS: LORATADINE 10 MG TABLET PO (08:34)
[2022-09-23] MEDS: lisinopriL 2.5 MG TABLET 5 MG PO (08:34)
[2022-09-23] MEDS: CLOPIDOGREL 75 MG TABLET PO (08:34)
[2022-09-23 10:29] VITALS: TEMP 36.4; O2SAT 94
--- NOTE | 2022-09-23 11:25 | PC.NURSE ---
[employer] information faxed per request. Folder with information in DIRECTOR OF ASSESSING office.
[2022-09-23] MEDS: ROSUVASTATIN CALCIUM 10 MG TABLET 40 MG PO (19:30)
[2022-09-23 21:32] VITALS: BP 133/77; TEMP 36.3; O2SAT 95
--- NOTE | 2022-09-23 21:44 | PC.NURSE ---
Status: Resident removed heart monitor and told securities underwriter that today is the day that he is scheduled to be done with the heart monitor. Heart monitor, senior informatica developer, and accessories were given to SHEAR SCRAP[employer] to mail out tomorrow.
[2022-09-23 23:00] VITALS: TEMP 36.4; O2SAT 95
--- NOTE | 2022-09-24 03:26 | PC.NURSE ---
WEEKLY CHARTING - WEEK 2: Vital signs reviewed. Temporary and comprehensive care plan reviewed - temporary care plan updated. Heart monitor has been removed per order. Requires 1 limited to extensive assist with transfers and ambulation. Uses FWW with left sided platform attachment for ambulation. Able to propel w/c independently with left lap tray for arm support. Independent with bed mobility. Has 1/4 side rails bilaterally as enabler for bed mobility. Per fall risk assessment, resident is at low risk for falls. Fall interventions: call light in reach, w/c at bedside, falling star magnet, bed in low position.
--- NOTE | 2022-09-24 07:30 | PC.NURSE ---
Week #2 -Mobility: Care plan reviewed, no changes made. Nothing added to temporary care plan. Transfers and ambulate with one assist, transfer belt and platform walker. Continue to encourage with ambulation. Frequently refused. Is able to wheel self. Staff to remind or assist with repositioning q2h and PRN. Is able to reposition self. Both side rails up for bed mobility & comfort per his request. No alarms. Fall: No falls the past month. Remains a low fall risk according to assessment done on 08/12/22.
[2022-09-24] MEDS: ACETAMINOPHEN 500 MG TABLET 1000 MG PO ×2 (08:19→19:50)
[2022-09-24] MEDS: SERTRALINE 50 MG TABLET PO (08:20)
[2022-09-24] MEDS: CLOPIDOGREL 75 MG TABLET PO (08:20)
[2022-09-24] MEDS: ASPIRIN 81 MG TAB.CHEW PO (08:20)
[2022-09-24] MEDS: lisinopriL 2.5 MG TABLET 5 MG PO (08:20)
[2022-09-24] MEDS: LORATADINE 10 MG TABLET PO (08:20)
[2022-09-24 10:08] VITALS: TEMP 36.5; O2SAT 96
--- NOTE | 2022-09-24 13:26 | PC.NURSE ---
Ambulation Assistance: Resident was encourage to come out for lunch , however he refused and informed that he prefer to eat in his room.
[2022-09-24 17:00] VITALS: TEMP 36.7; O2SAT 95
[2022-09-24 17:07] VITALS: BP 122/78
[2022-09-24] MEDS: ROSUVASTATIN CALCIUM 10 MG TABLET 40 MG PO (19:50)
[2022-09-24 23:00] VITALS: TEMP 36.3; O2SAT 94
[2022-09-25 07:00] VITALS: TEMP 36.1; O2SAT 96
[2022-09-25] MEDS: CLOPIDOGREL 75 MG TABLET PO (08:48)
[2022-09-25] MEDS: ACETAMINOPHEN 500 MG TABLET 1000 MG PO ×2 (08:48→20:10)
[2022-09-25] MEDS: lisinopriL 2.5 MG TABLET 5 MG PO (08:48)
[2022-09-25] MEDS: SERTRALINE 50 MG TABLET PO (08:48)
[2022-09-25] MEDS: LORATADINE 10 MG TABLET PO (08:48)
[2022-09-25] MEDS: ASPIRIN 81 MG TAB.CHEW PO (08:48)
[2022-09-25 16:58] VITALS: TEMP 36.6; O2SAT 97
[2022-09-25] MEDS: ROSUVASTATIN CALCIUM 10 MG TABLET 40 MG PO (20:10)
[2022-09-25 21:35] VITALS: BP 131/73
[2022-09-25 23:00] VITALS: TEMP 36.7; O2SAT 92
[2022-09-26 07:00] VITALS: TEMP 36.5; O2SAT 95
[2022-09-26] MEDS: CLOPIDOGREL 75 MG TABLET PO (08:35)
[2022-09-26] MEDS: lisinopriL 2.5 MG TABLET 5 MG PO (08:35)
[2022-09-26] MEDS: LORATADINE 10 MG TABLET PO (08:35)
[2022-09-26] MEDS: SERTRALINE 50 MG TABLET PO (08:35)
[2022-09-26] MEDS: ACETAMINOPHEN 500 MG TABLET 1000 MG PO ×2 (08:35→19:21)
[2022-09-26] MEDS: ASPIRIN 81 MG TAB.CHEW PO (08:35)
[2022-09-26 17:04] VITALS: TEMP 36.8; O2SAT 97
[2022-09-26] MEDS: ROSUVASTATIN CALCIUM 10 MG TABLET 40 MG PO (19:22)
[2022-09-26 21:27] VITALS: BP 118/79
[2022-09-26 23:00] VITALS: TEMP 36.7; O2SAT 96
[2022-09-27 07:00] VITALS: TEMP 36.6; O2SAT 98
[2022-09-27] MEDS: LORATADINE 10 MG TABLET PO (08:23)
[2022-09-27] MEDS: lisinopriL 2.5 MG TABLET 5 MG PO (08:23)
[2022-09-27] MEDS: ACETAMINOPHEN 500 MG TABLET 1000 MG PO ×2 (08:23→19:30)
[2022-09-27] MEDS: SERTRALINE 50 MG TABLET PO (08:23)
[2022-09-27] MEDS: CLOPIDOGREL 75 MG TABLET PO (08:23)
[2022-09-27] MEDS: ASPIRIN 81 MG TAB.CHEW PO (08:23)
--- NOTE | 2022-09-27 11:52 | PC.NURSE ---
COVID OUTBREAK TESTING: Resident provided verbal consent for outbreak COVID testing. Resident is currently asymptomatic. Resident/family will be notified only if resident is positive.
[2022-09-27 13:04] LABS: SARS PCR* Negative SARS-CoV-2 (Negative)
[2022-09-27 15:00] VITALS: TEMP 36.6; O2SAT 96
[2022-09-27 16:00] VITALS: BP 119/79
[2022-09-27] MEDS: ROSUVASTATIN CALCIUM 10 MG TABLET 40 MG PO (19:30)
[2022-09-27 23:00] VITALS: TEMP 36.6; O2SAT 95
[2022-09-28 07:00] VITALS: TEMP 36.6; O2SAT 97
[2022-09-28] MEDS: CLOPIDOGREL 75 MG TABLET PO (08:47)
[2022-09-28] MEDS: ACETAMINOPHEN 500 MG TABLET 1000 MG PO ×2 (08:47→20:00)
[2022-09-28] MEDS: ASPIRIN 81 MG TAB.CHEW PO (08:47)
[2022-09-28] MEDS: lisinopriL 2.5 MG TABLET 5 MG PO (08:47)
[2022-09-28] MEDS: SERTRALINE 50 MG TABLET PO (08:48)
[2022-09-28] MEDS: LORATADINE 10 MG TABLET PO (08:48)
[2022-09-28 17:11] VITALS: TEMP 36.9; O2SAT 98
[2022-09-28] MEDS: ROSUVASTATIN CALCIUM 10 MG TABLET 40 MG PO (20:00)
[2022-09-28 21:18] VITALS: BP 132/91
[2022-09-28 23:00] VITALS: TEMP 36.6; O2SAT 93
[2022-09-29 07:00] VITALS: BP 155/86; PULSE 74; RESP 20; TEMP 36.2; O2SAT 96; BMI 27.7
[2022-09-29] MEDS: ASPIRIN 81 MG TAB.CHEW PO (07:13)
[2022-09-29] MEDS: SERTRALINE 50 MG TABLET PO (07:13)
[2022-09-29] MEDS: LORATADINE 10 MG TABLET PO (07:13)
[2022-09-29] MEDS: CLOPIDOGREL 75 MG TABLET PO (07:13)
[2022-09-29] MEDS: ACETAMINOPHEN 500 MG TABLET 1000 MG PO ×2 (07:13→19:17)
[2022-09-29] MEDS: lisinopriL 2.5 MG TABLET 5 MG PO (07:13)
--- NOTE | 2022-09-29 09:39 | PC.NURSE ---
Skin check - No areas of concern. Skin is dry, intact, warm, appropriate color, elastic.
--- NOTE | 2022-09-29 14:30 | PC.PHA ---
MEDICATION REVIEW MEDICATION MONITORING:Sertraline 50 mg daily decreased from 75 mg on 09/16/22 IRREGULARITY/COMMENTS: Blood pressure has been trending high at time of this review, current blood pressure medications have room for adjustment if necessary given his stroke history. Clopidogrel continues. SUGGESTED COURSE OF ACTION: No medication recommendations for September
[2022-09-29 15:00] VITALS: TEMP 36.6; O2SAT 95
[2022-09-29 16:00] VITALS: BP 144/79
[2022-09-29] MEDS: ROSUVASTATIN CALCIUM 10 MG TABLET 40 MG PO (19:17)
[2022-09-29 23:00] VITALS: TEMP 36.7; O2SAT 94
[2022-09-30] MEDS: ACETAMINOPHEN 500 MG TABLET 1000 MG PO ×2 (07:41→19:59)
[2022-09-30] MEDS: ASPIRIN 81 MG TAB.CHEW PO (07:41)
[2022-09-30] MEDS: CLOPIDOGREL 75 MG TABLET PO (07:42)
[2022-09-30] MEDS: lisinopriL 2.5 MG TABLET 5 MG PO (07:42)
[2022-09-30] MEDS: SERTRALINE 50 MG TABLET PO (07:42)
[2022-09-30] MEDS: LORATADINE 10 MG TABLET PO (07:42)
[2022-09-30 10:11] VITALS: TEMP 36.2; O2SAT 96
--- NOTE | 2022-09-30 13:30 | PC.NURSE ---
Ambulation Assistance : Resident refused to come to the dining area for breakfast and lunch, He however sat on the wheel chair in his room to have lunch.
[2022-09-30 16:49] VITALS: TEMP 36.7; O2SAT 94
--- NOTE | 2022-09-30 16:51 | PC.SOCIAL ---
Received a phone call from resident's sister, Kathy Logan, at [phone]. Kathy visited resident yesterday in [facility] and was inquiring on whether [facility] was an appropriate setting for resident as he seems isolated and like he possibly could be in another setting like assisted living. Informed Kathy that this worker would have to see if [facility] has permission to share information with her as this worker does not see her on the contact list. Suggested that Kathy discuss with resident's children. Kathy stated that she has tried to ask resident's daughter questions before but she gets mad. Kathy stated she will try to discuss with her again. Kathy informed that when she was in resident's room she noticed that resident had a stack of unopened [employer] cards in his room. Kathy wondered if staff would assist with mail for resident. Kathy did open the cards and read them to resident yesterday. This worker assured that this worker will discuss with the team and ensure that resident is getting his needs met with his mail. This worker offered to Kathy if she has any concerns or further questions she can reach out to the social work department. This worker will follow up with [facility] team regarding phone call.
[2022-09-30] MEDS: ROSUVASTATIN CALCIUM 10 MG TABLET 40 MG PO (19:59)
[2022-09-30 21:39] VITALS: BP 133/78
[2022-09-30 23:00] VITALS: TEMP 36.8; O2SAT 94
--- NOTE | 2022-10-01 02:45 | PC.NURSE ---
WEEKLY CHARTING - WEEK 3: Vital signs reviewed.Temporary and comprehensive care plan reviewed - no change. No documented skin concerns. Continent of bowel and bladder. Wears pull-up. Uses urinal independently when in bed. Staff to encourage ambulation to toilet, though resident is resistive. Extensive assist of 1 with toileting including clothing/pad management and bo-cares.
[2022-10-01] MEDS: SERTRALINE 50 MG TABLET PO (08:20)
[2022-10-01] MEDS: ACETAMINOPHEN 500 MG TABLET 1000 MG PO ×2 (08:20→19:58)
[2022-10-01] MEDS: CLOPIDOGREL 75 MG TABLET PO (08:20)
[2022-10-01] MEDS: ASPIRIN 81 MG TAB.CHEW PO (08:20)
[2022-10-01] MEDS: lisinopriL 2.5 MG TABLET 5 MG PO (08:20)
[2022-10-01] MEDS: LORATADINE 10 MG TABLET PO (08:20)
[2022-10-01 10:27] VITALS: TEMP 36.8; O2SAT 97
[2022-10-01] MEDS: ROSUVASTATIN CALCIUM 10 MG TABLET 40 MG PO (19:58)
[2022-10-01 20:59] VITALS: BP 131/81; TEMP 36.9; O2SAT 96
[2022-10-01 23:00] VITALS: TEMP 36.6; O2SAT 95
[2022-10-02] MEDS: SERTRALINE 50 MG TABLET PO (08:16)
[2022-10-02] MEDS: CLOPIDOGREL 75 MG TABLET PO (08:16)
[2022-10-02] MEDS: ACETAMINOPHEN 500 MG TABLET 1000 MG PO ×2 (08:16→19:44)
[2022-10-02] MEDS: ASPIRIN 81 MG TAB.CHEW PO (08:16)
[2022-10-02] MEDS: lisinopriL 2.5 MG TABLET 5 MG PO (08:16)
[2022-10-02] MEDS: LORATADINE 10 MG TABLET PO (08:16)
[2022-10-02 09:20] VITALS: TEMP 36.9; O2SAT 97
--- NOTE | 2022-10-02 13:51 | PC.NURSE ---
Ambulation Assistance: Resident refused ambulation today. He says that he is feeling tired.
[2022-10-02] MEDS: ROSUVASTATIN CALCIUM 10 MG TABLET 40 MG PO (19:44)
[2022-10-02 21:19] VITALS: BP 123/78; TEMP 36.9; O2SAT 94
[2022-10-02 23:00] VITALS: TEMP 36.8; O2SAT 96
[2022-10-03] MEDS: SERTRALINE 50 MG TABLET PO (08:04)
[2022-10-03] MEDS: CLOPIDOGREL 75 MG TABLET PO (08:04)
[2022-10-03] MEDS: ACETAMINOPHEN 500 MG TABLET 1000 MG PO ×2 (08:04→19:31)
[2022-10-03] MEDS: ASPIRIN 81 MG TAB.CHEW PO (08:04)
[2022-10-03] MEDS: LORATADINE 10 MG TABLET PO (08:04)
[2022-10-03] MEDS: lisinopriL 2.5 MG TABLET 5 MG PO (08:04)
[2022-10-03 11:01] VITALS: TEMP 37.2; O2SAT 98
[2022-10-03] MEDS: ROSUVASTATIN CALCIUM 10 MG TABLET 40 MG PO (19:31)
[2022-10-03 20:47] VITALS: BP 125/84; TEMP 36.7; O2SAT 95
--- NOTE | 2022-10-03 20:48 | PC.NURSE ---
Ambulation assistance: Resident refused ambulation.
[2022-10-03 23:00] VITALS: TEMP 35.8; O2SAT 96
[2022-10-04] MEDS: ASPIRIN 81 MG TAB.CHEW PO (08:30)
[2022-10-04] MEDS: LORATADINE 10 MG TABLET PO (08:30)
[2022-10-04] MEDS: ACETAMINOPHEN 500 MG TABLET 1000 MG PO ×2 (08:30→19:22)
[2022-10-04] MEDS: lisinopriL 2.5 MG TABLET 5 MG PO (08:30)
[2022-10-04] MEDS: CLOPIDOGREL 75 MG TABLET PO (08:30)
[2022-10-04] MEDS: SERTRALINE 50 MG TABLET PO (08:30)
[2022-10-04 10:25] VITALS: TEMP 36.6; O2SAT 97
[2022-10-04 14:50] LABS: SARS PCR* Negative SARS-CoV-2 (Negative)
[2022-10-04 15:00] VITALS: TEMP 36.6; O2SAT 97
[2022-10-04 16:00] VITALS: BP 125/70
[2022-10-04] MEDS: ROSUVASTATIN CALCIUM 10 MG TABLET 40 MG PO (19:22)
[2022-10-04 23:00] VITALS: TEMP 35.8; O2SAT 93
[2022-10-05 07:00] VITALS: TEMP 36.8; O2SAT 97
[2022-10-05] MEDS: ASPIRIN 81 MG TAB.CHEW PO (08:23)
[2022-10-05] MEDS: CLOPIDOGREL 75 MG TABLET PO (08:23)
[2022-10-05] MEDS: ACETAMINOPHEN 500 MG TABLET 1000 MG PO ×2 (08:23→20:21)
[2022-10-05] MEDS: SERTRALINE 50 MG TABLET PO (08:23)
[2022-10-05] MEDS: LORATADINE 10 MG TABLET PO (08:23)
[2022-10-05] MEDS: lisinopriL 2.5 MG TABLET 5 MG PO (08:23)
--- NOTE | 2022-10-05 10:57 | PC.NURSE ---
Skin - L great toe has skin flap 2.5cmx1.5cm on tip. Minimal bleeding. Skin flap removed and toe cleaned. Area is pink and fleshy. Pt denies pain. Toe shows no s/s of infection - not warm, swollen, or red. Wound covered with band-aid. Will continue to monitor. Pt thinks he may have injured toe yesterday when he stubbed it against his w/c.
[2022-10-05] MEDS: ROSUVASTATIN CALCIUM 10 MG TABLET 40 MG PO (20:21)
[2022-10-05 21:25] VITALS: TEMP 37.1; O2SAT 94
[2022-10-05 21:26] VITALS: BP 113/72
[2022-10-05 23:00] VITALS: TEMP 36.6; O2SAT 94
[2022-10-06 07:00] VITALS: BP 138/83; PULSE 72; RESP 20; TEMP 36.4; O2SAT 96; BMI 27.7
[2022-10-06] MEDS: lisinopriL 2.5 MG TABLET 5 MG PO (08:03)
[2022-10-06] MEDS: SERTRALINE 50 MG TABLET PO (08:03)
[2022-10-06] MEDS: ASPIRIN 81 MG TAB.CHEW PO (08:03)
[2022-10-06] MEDS: LORATADINE 10 MG TABLET PO (08:03)
[2022-10-06] MEDS: CLOPIDOGREL 75 MG TABLET PO (08:03)
[2022-10-06] MEDS: ACETAMINOPHEN 500 MG TABLET 1000 MG PO ×2 (08:03→19:36)
--- NOTE | 2022-10-06 09:12 | PC.NURSE ---
Skin check - Skin warm, dry, elastic, appropriate color. Small open area tip of L great toe - top layer of skin missing. 2.5cmx1.5cm. Pt thinks it was caused by stubbing toe. Pt denies pain. No signs of infection.
[2022-10-06 15:00] VITALS: TEMP 36.5; O2SAT 94
[2022-10-06 16:00] VITALS: BP 107/73
[2022-10-06] MEDS: ROSUVASTATIN CALCIUM 10 MG TABLET 40 MG PO (19:36)
--- NOTE | 2022-10-06 20:51 | PC.NURSE ---
Ambulation Assistance: Resident refused to ambulate.
[2022-10-06 23:00] VITALS: TEMP 36.4; O2SAT 94
[2022-10-07] MEDS: SERTRALINE 50 MG TABLET PO (08:22)
[2022-10-07] MEDS: lisinopriL 2.5 MG TABLET 5 MG PO (08:22)
[2022-10-07] MEDS: LORATADINE 10 MG TABLET PO (08:22)
[2022-10-07] MEDS: ACETAMINOPHEN 500 MG TABLET 1000 MG PO ×2 (08:22→19:14)
[2022-10-07] MEDS: CLOPIDOGREL 75 MG TABLET PO (08:22)
[2022-10-07] MEDS: ASPIRIN 81 MG TAB.CHEW PO (08:22)
[2022-10-07 10:24] VITALS: TEMP 36.6; O2SAT 96
--- NOTE | 2022-10-07 12:07 | PC.NURSE ---
Reviewed pharmacy notes: Discussed blood pressure with provider ACTUARIAL SCIENCE PROFESSOR Destini Meza. No changes in medications needed at this time per ACTUARIAL SCIENCE PROFESSOR.
[2022-10-07 15:00] VITALS: TEMP 36; O2SAT 95
[2022-10-07 16:00] VITALS: BP 110/74
[2022-10-07] MEDS: ROSUVASTATIN CALCIUM 10 MG TABLET 40 MG PO (19:14)
--- NOTE | 2022-10-07 21:44 | PC.NURSE ---
Ambulation Assistance: Resident refused to ambulate.
[2022-10-07 23:00] VITALS: TEMP 36.3; O2SAT 93
--- NOTE | 2022-10-08 03:08 | PC.NURSE ---
WEEKLY CHARTING - WEEK 4: Vital signs reviewed. Improvement noted in BP values since increase in lisinopril dose. Temporary and comprehensive care plan reviewed - no change. Two behaviors of refusing cares documented in the last month. Currently receives sertraline 50mg daily with no adverse effects. Dose reduction on 09/16 with no noted change in behavior or sleep pattern. Able to communicate needs appropriately. Hearing is intact. Wears glasses for reading. Cognitively intact. Medications administered by nurse. No change in health condition.
[2022-10-08] MEDS: ACETAMINOPHEN 500 MG TABLET 1000 MG PO ×2 (08:24→20:00)
[2022-10-08] MEDS: ASPIRIN 81 MG TAB.CHEW PO (08:24)
[2022-10-08] MEDS: CLOPIDOGREL 75 MG TABLET PO (08:24)
[2022-10-08] MEDS: LORATADINE 10 MG TABLET PO (08:24)
[2022-10-08] MEDS: SERTRALINE 50 MG TABLET PO (08:24)
[2022-10-08] MEDS: lisinopriL 2.5 MG TABLET 5 MG PO (08:24)
[2022-10-08 11:14] VITALS: TEMP 37; O2SAT 96
--- NOTE | 2022-10-08 13:21 | PC.NURSE ---
Week #4: Comprehensive care plan reviewed, no changes made. Nothing added to temporary care plan. No changes noted in communication, hearing, vision, or orientation. Resident does communicate needs. Hearing fine. Use reading glasses. Cognition intact. 09/21 Lisinopril was increased. BP checked x 2 weeks & is within normal range. Continue with weekly VS monitoring. Nurse administer all medications. Mood/Behavior: Last month has episodes of resisting cares and improved with re-approach and given space. 09/16/22 Zoloft decreased, no changes in mood noted. Continue to monitor for changes.
[2022-10-08] MEDS: ROSUVASTATIN CALCIUM 10 MG TABLET 40 MG PO (20:00)
[2022-10-08 22:45] VITALS: TEMP 36.7; O2SAT 96
[2022-10-08 22:46] VITALS: BP 126/78
[2022-10-08 23:00] VITALS: TEMP 36.4; O2SAT 93
[2022-10-09 07:00] VITALS: TEMP 36.6; O2SAT 95
[2022-10-09] MEDS: ACETAMINOPHEN 500 MG TABLET 1000 MG PO ×2 (08:09→20:10)
[2022-10-09] MEDS: ASPIRIN 81 MG TAB.CHEW PO (08:09)
[2022-10-09] MEDS: SERTRALINE 50 MG TABLET PO (08:10)
[2022-10-09] MEDS: LORATADINE 10 MG TABLET PO (08:10)
[2022-10-09] MEDS: lisinopriL 2.5 MG TABLET 5 MG PO (08:10)
[2022-10-09] MEDS: CLOPIDOGREL 75 MG TABLET PO (08:10)
[2022-10-09] MEDS: ROSUVASTATIN CALCIUM 10 MG TABLET 40 MG PO (20:10)
[2022-10-09 21:41] VITALS: BP 126/85; TEMP 36.6; O2SAT 95
[2022-10-09 23:00] VITALS: TEMP 36.6; O2SAT 95
[2022-10-10 07:00] VITALS: TEMP 36.2; O2SAT 96
[2022-10-10] MEDS: ACETAMINOPHEN 500 MG TABLET 1000 MG PO ×2 (08:17→20:01)
[2022-10-10] MEDS: CLOPIDOGREL 75 MG TABLET PO (08:18)
[2022-10-10] MEDS: ASPIRIN 81 MG TAB.CHEW PO (08:18)
[2022-10-10] MEDS: LORATADINE 10 MG TABLET PO (08:18)
[2022-10-10] MEDS: SERTRALINE 50 MG TABLET PO (08:18)
[2022-10-10] MEDS: lisinopriL 2.5 MG TABLET 5 MG PO (08:18)
[2022-10-10 17:12] VITALS: TEMP 36.7; O2SAT 94
[2022-10-10] MEDS: ROSUVASTATIN CALCIUM 10 MG TABLET 40 MG PO (20:01)
[2022-10-10 23:00] VITALS: TEMP 36.6; O2SAT 95
[2022-10-11] MEDS: ACETAMINOPHEN 500 MG TABLET 1000 MG PO ×2 (08:30→19:44)
[2022-10-11] MEDS: LORATADINE 10 MG TABLET PO (08:30)
[2022-10-11] MEDS: SERTRALINE 50 MG TABLET PO (08:30)
[2022-10-11] MEDS: lisinopriL 2.5 MG TABLET 5 MG PO (08:30)
[2022-10-11] MEDS: ASPIRIN 81 MG TAB.CHEW PO (08:30)
[2022-10-11] MEDS: CLOPIDOGREL 75 MG TABLET PO (08:30)
--- NOTE | 2022-10-11 10:20 | PC.NURSE ---
COVID OUTBREAK TESTING Resident provided verbal consent for outbreak COVID testing. Resident is currently asymptomatic.? Resident/family will be notified only if resident is positive.
[2022-10-11 10:33] VITALS: TEMP 36.3; O2SAT 99
[2022-10-11 13:06] LABS: SARS PCR* Negative SARS-CoV-2 (Negative)
[2022-10-11 15:00] VITALS: TEMP 36.8; O2SAT 95
[2022-10-11 16:00] VITALS: BP 121/76
[2022-10-11] MEDS: ROSUVASTATIN CALCIUM 10 MG TABLET 40 MG PO (19:44)
[2022-10-11 23:00] VITALS: TEMP 36.8; O2SAT 94
[2022-10-12] MEDS: ASPIRIN 81 MG TAB.CHEW PO (08:08)
[2022-10-12] MEDS: ACETAMINOPHEN 500 MG TABLET 1000 MG PO ×2 (08:08→20:23)
[2022-10-12] MEDS: CLOPIDOGREL 75 MG TABLET PO (08:08)
[2022-10-12] MEDS: lisinopriL 2.5 MG TABLET 5 MG PO (08:08)
[2022-10-12] MEDS: LORATADINE 10 MG TABLET PO (08:09)
[2022-10-12] MEDS: SERTRALINE 50 MG TABLET PO (08:09)
[2022-10-12 09:53] VITALS: TEMP 36.3; O2SAT 96
[2022-10-12] MEDS: ROSUVASTATIN CALCIUM 10 MG TABLET 40 MG PO (20:23)
[2022-10-12 21:16] VITALS: TEMP 36.8; O2SAT 94
[2022-10-12 23:00] VITALS: TEMP 36.3; O2SAT 93
[2022-10-13 07:00] VITALS: BP 152/87; PULSE 70; RESP 16; TEMP 36.2; O2SAT 98; BMI 28.1
--- NOTE | 2022-10-13 07:02 | PC.NURSE ---
BP's: 10/12/22 reviewed by BOARD SETTER, no new order.
[2022-10-13] MEDS: lisinopriL 2.5 MG TABLET 5 MG PO (07:10)
[2022-10-13] MEDS: ASPIRIN 81 MG TAB.CHEW PO (07:10)
[2022-10-13] MEDS: LORATADINE 10 MG TABLET PO (07:10)
[2022-10-13] MEDS: CLOPIDOGREL 75 MG TABLET PO (07:10)
[2022-10-13] MEDS: ACETAMINOPHEN 500 MG TABLET 1000 MG PO ×2 (07:10→19:23)
[2022-10-13] MEDS: SERTRALINE 50 MG TABLET PO (07:11)
--- NOTE | 2022-10-13 07:13 | PC.NURSE ---
Skin: Open area 1cm x.75 on (L) great toe noted, covered with band aid. Per resident it was a blood blister from last week that opened. Cleansed, bacitracin applied, cover with band aid. PUFF IRONER to check.
[2022-10-13 15:00] VITALS: TEMP 36.8; O2SAT 95
[2022-10-13] MEDS: ROSUVASTATIN CALCIUM 10 MG TABLET 40 MG PO (19:23)
[2022-10-13 23:00] VITALS: TEMP 36.6; O2SAT 93
[2022-10-14 07:00] VITALS: TEMP 36.6; O2SAT 95
[2022-10-14] MEDS: ASPIRIN 81 MG TAB.CHEW PO (08:08)
[2022-10-14] MEDS: CLOPIDOGREL 75 MG TABLET PO (08:08)
[2022-10-14] MEDS: ACETAMINOPHEN 500 MG TABLET 1000 MG PO ×2 (08:08→19:48)
[2022-10-14] MEDS: lisinopriL 2.5 MG TABLET 5 MG PO (08:08)
[2022-10-14] MEDS: SERTRALINE 50 MG TABLET PO (08:09)
[2022-10-14] MEDS: LORATADINE 10 MG TABLET PO (08:09)
--- NOTE | 2022-10-14 12:59 | PC.NURSE ---
Addendum entered by Kaley Farley RN 10/15/22 14:08: Spoke to resident and he stated he hit his left great toe last week on his w/c causing a blister which now has opened. Original Note: Left great toe open area assessed by ENTRY MANAGER. Order: Cleanse with wound pattern cleaner, apply Mepilex, change Q3D or PRN.
[2022-10-14 15:00] VITALS: TEMP 36.6; O2SAT 96
[2022-10-14] MEDS: ROSUVASTATIN CALCIUM 10 MG TABLET 40 MG PO (19:48)
[2022-10-14 23:00] VITALS: TEMP 36.5; O2SAT 96
[2022-10-15] MEDS: LORATADINE 10 MG TABLET PO (07:25)
[2022-10-15] MEDS: ACETAMINOPHEN 500 MG TABLET 1000 MG PO ×2 (07:25→20:07)
[2022-10-15] MEDS: CLOPIDOGREL 75 MG TABLET PO (07:25)
[2022-10-15] MEDS: lisinopriL 2.5 MG TABLET 5 MG PO (07:25)
[2022-10-15] MEDS: ASPIRIN 81 MG TAB.CHEW PO (07:25)
[2022-10-15] MEDS: SERTRALINE 50 MG TABLET PO (07:26)
[2022-10-15 10:15] VITALS: TEMP 36.6; O2SAT 97
[2022-10-15] MEDS: ROSUVASTATIN CALCIUM 10 MG TABLET 40 MG PO (20:08)
[2022-10-15 21:13] VITALS: TEMP 36.4; O2SAT 95
[2022-10-15 23:00] VITALS: TEMP 37; O2SAT 95
[2022-10-16] MEDS: lisinopriL 2.5 MG TABLET 5 MG PO (08:19)
[2022-10-16] MEDS: ACETAMINOPHEN 500 MG TABLET 1000 MG PO ×2 (08:19→20:10)
[2022-10-16] MEDS: ASPIRIN 81 MG TAB.CHEW PO (08:19)
[2022-10-16] MEDS: LORATADINE 10 MG TABLET PO (08:19)
[2022-10-16] MEDS: SERTRALINE 50 MG TABLET PO (08:19)
[2022-10-16] MEDS: CLOPIDOGREL 75 MG TABLET PO (08:19)
[2022-10-16 09:27] VITALS: TEMP 36.9; O2SAT 99
[2022-10-16] MEDS: ROSUVASTATIN CALCIUM 10 MG TABLET 40 MG PO (20:11)
[2022-10-16 21:16] VITALS: TEMP 36.3; O2SAT 95
[2022-10-16 23:00] VITALS: TEMP 36.4; O2SAT 93
[2022-10-17] MEDS: ACETAMINOPHEN 500 MG TABLET 1000 MG PO ×2 (08:11→20:10)
[2022-10-17] MEDS: lisinopriL 2.5 MG TABLET 5 MG PO (08:12)
[2022-10-17] MEDS: ASPIRIN 81 MG TAB.CHEW PO (08:12)
[2022-10-17] MEDS: SERTRALINE 50 MG TABLET PO (08:12)
[2022-10-17] MEDS: LORATADINE 10 MG TABLET PO (08:12)
[2022-10-17] MEDS: CLOPIDOGREL 75 MG TABLET PO (08:12)
[2022-10-17 10:51] VITALS: TEMP 36.7; O2SAT 97
[2022-10-17] MEDS: ROSUVASTATIN CALCIUM 10 MG TABLET 40 MG PO (20:10)
[2022-10-17 21:05] VITALS: TEMP 36.6; O2SAT 99
[2022-10-17 23:00] VITALS: TEMP 36.6; O2SAT 95
[2022-10-18 07:00] VITALS: TEMP 36.4; O2SAT 94
[2022-10-18] MEDS: CLOPIDOGREL 75 MG TABLET PO (08:03)
[2022-10-18] MEDS: LORATADINE 10 MG TABLET PO (08:03)
[2022-10-18] MEDS: SERTRALINE 50 MG TABLET PO (08:03)
[2022-10-18] MEDS: lisinopriL 2.5 MG TABLET 5 MG PO (08:03)
[2022-10-18] MEDS: ACETAMINOPHEN 500 MG TABLET 1000 MG PO ×2 (08:03→19:21)
[2022-10-18] MEDS: ASPIRIN 81 MG TAB.CHEW PO (08:04)
--- NOTE | 2022-10-18 09:43 | PC.NURSE ---
COVID OUTBREAK TESTING Residents family gave verbal consent for outbreak COVID testing. Resident is currently asymptomatic.? Resident/family will be notified only if resident is positive.
[2022-10-18 12:33] LABS: SARS PCR* Negative SARS-CoV-2 (Negative)
[2022-10-18 15:00] VITALS: TEMP 36.6; O2SAT 94
[2022-10-18] MEDS: ROSUVASTATIN CALCIUM 10 MG TABLET 40 MG PO (19:21)
[2022-10-19 03:51] VITALS: TEMP 36.6; O2SAT 95
[2022-10-19 07:00] VITALS: TEMP 36.3; O2SAT 94
[2022-10-19] MEDS: ACETAMINOPHEN 500 MG TABLET 1000 MG PO ×2 (08:35→20:21)
[2022-10-19] MEDS: CLOPIDOGREL 75 MG TABLET PO (08:36)
[2022-10-19] MEDS: lisinopriL 2.5 MG TABLET 5 MG PO (08:36)
[2022-10-19] MEDS: ASPIRIN 81 MG TAB.CHEW PO (08:36)
[2022-10-19] MEDS: SERTRALINE 50 MG TABLET PO (08:36)
[2022-10-19] MEDS: LORATADINE 10 MG TABLET PO (08:36)
[2022-10-19 14:02] VITALS: BMI 28.0
[2022-10-19] MEDS: ROSUVASTATIN CALCIUM 10 MG TABLET 40 MG PO (20:21)
[2022-10-19 21:37] VITALS: TEMP 36.1; O2SAT 96
[2022-10-19 23:00] VITALS: TEMP 36.9; O2SAT 95
[2022-10-20] MEDS: SERTRALINE 50 MG TABLET PO (08:10)
[2022-10-20] MEDS: LORATADINE 10 MG TABLET PO (08:10)
[2022-10-20] MEDS: ASPIRIN 81 MG TAB.CHEW PO (08:10)
[2022-10-20] MEDS: ACETAMINOPHEN 500 MG TABLET 1000 MG PO ×2 (08:10→19:12)
[2022-10-20] MEDS: CLOPIDOGREL 75 MG TABLET PO (08:10)
[2022-10-20] MEDS: lisinopriL 2.5 MG TABLET 5 MG PO (08:10)
[2022-10-20 10:32] VITALS: BP 152/92; PULSE 88; RESP 18; TEMP 36.1; O2SAT 96
[2022-10-20 15:00] VITALS: TEMP 36.6; O2SAT 96
[2022-10-20] MEDS: ROSUVASTATIN CALCIUM 10 MG TABLET 40 MG PO (19:12)
[2022-10-20 21:27] VITALS: TEMP 36.6; O2SAT 96
[2022-10-21] MEDS: ASPIRIN 81 MG TAB.CHEW PO (07:58)
[2022-10-21] MEDS: ACETAMINOPHEN 500 MG TABLET 1000 MG PO ×2 (07:58→20:20)
[2022-10-21] MEDS: SERTRALINE 50 MG TABLET PO (07:58)
[2022-10-21] MEDS: LORATADINE 10 MG TABLET PO (07:58)
[2022-10-21] MEDS: lisinopriL 2.5 MG TABLET 5 MG PO (07:58)
[2022-10-21] MEDS: CLOPIDOGREL 75 MG TABLET PO (07:58)
[2022-10-21 10:04] VITALS: TEMP 36.8; O2SAT 94
[2022-10-21] MEDS: ROSUVASTATIN CALCIUM 10 MG TABLET 40 MG PO (20:20)
[2022-10-21 20:54] VITALS: TEMP 36.5; O2SAT 94
[2022-10-21 23:00] VITALS: TEMP 36.6; O2SAT 94
--- NOTE | 2022-10-22 02:48 | PC.NURSE ---
WEEKLY CHARTING - WEEK 1: Vital signs reviewed. BP values remain elevated at times. Temporary and comprehensive care plan reviewed - no change. Occasional right shoulder pain. Able to verbalize pain appropriately. Receives scheduled ES acetaminophen BID for pain management. Limited to extensive assist of 1 with dressing, grooming, and bathing. Set-up for oral cares. Staff provide encouragement. Able to eat independently after set-up. No chewing or swallowing problems. Receives a regular diet with thin liquids.
[2022-10-22 07:00] VITALS: TEMP 36.3; O2SAT 93
[2022-10-22] MEDS: SERTRALINE 50 MG TABLET PO (08:10)
[2022-10-22] MEDS: ASPIRIN 81 MG TAB.CHEW PO (08:10)
[2022-10-22] MEDS: LORATADINE 10 MG TABLET PO (08:10)
[2022-10-22] MEDS: ACETAMINOPHEN 500 MG TABLET 1000 MG PO ×2 (08:10→19:54)
[2022-10-22] MEDS: CLOPIDOGREL 75 MG TABLET PO (08:10)
[2022-10-22] MEDS: lisinopriL 2.5 MG TABLET 5 MG PO (08:10)
[2022-10-22 15:00] VITALS: TEMP 36.3; O2SAT 97
[2022-10-22] MEDS: ROSUVASTATIN CALCIUM 10 MG TABLET 40 MG PO (19:54)
[2022-10-22 21:42] VITALS: TEMP 36.4; O2SAT 95
--- NOTE | 2022-10-22 21:50 | PC.NURSE ---
Weekly Charting: Week 1_ Care plans reviewed. No changes to the Comprehensive care plan and addition to Temporary is increase in Lisinopril and monitor B/P daily until 10-04-22. He continues to have some elevated blood pressures. No complaints of pain and receives scheduled DONIS 1000mg BID. Resident continues to spend most of his day if not all of his day in his room in his bed watching television. Is in a good mood each time this designer writer approaches him. He receives limited assist for dressing and bathing. Able to do grooming with set up. Uses urinal for urination.
[2022-10-22 23:00] VITALS: TEMP 36.6; O2SAT 95
[2022-10-23 07:00] VITALS: TEMP 36.4; O2SAT 93
[2022-10-23] MEDS: SERTRALINE 50 MG TABLET PO (08:05)
[2022-10-23] MEDS: LORATADINE 10 MG TABLET PO (08:05)
[2022-10-23] MEDS: ASPIRIN 81 MG TAB.CHEW PO (08:05)
[2022-10-23] MEDS: lisinopriL 2.5 MG TABLET 5 MG PO (08:05)
[2022-10-23] MEDS: ACETAMINOPHEN 500 MG TABLET 1000 MG PO ×2 (08:05→20:01)
[2022-10-23] MEDS: CLOPIDOGREL 75 MG TABLET PO (08:05)
[2022-10-23 18:53] VITALS: TEMP 36.6; O2SAT 94
[2022-10-23] MEDS: ROSUVASTATIN CALCIUM 10 MG TABLET 40 MG PO (20:01)
[2022-10-23 23:00] VITALS: TEMP 36.4; O2SAT 93
[2022-10-24 07:00] VITALS: TEMP 36.1; O2SAT 95
[2022-10-24] MEDS: LORATADINE 10 MG TABLET PO (07:56)
[2022-10-24] MEDS: SERTRALINE 50 MG TABLET PO (07:56)
[2022-10-24] MEDS: ASPIRIN 81 MG TAB.CHEW PO (07:56)
[2022-10-24] MEDS: lisinopriL 2.5 MG TABLET 5 MG PO (07:56)
[2022-10-24] MEDS: CLOPIDOGREL 75 MG TABLET PO (07:56)
[2022-10-24] MEDS: ACETAMINOPHEN 500 MG TABLET 1000 MG PO ×2 (07:56→19:41)
[2022-10-24] MEDS: ROSUVASTATIN CALCIUM 10 MG TABLET 40 MG PO (19:41)
[2022-10-24 21:59] VITALS: TEMP 36.6; O2SAT 95
[2022-10-24 23:00] VITALS: TEMP 36.4; O2SAT 93
[2022-10-25] MEDS: ASPIRIN 81 MG TAB.CHEW PO (08:16)
[2022-10-25] MEDS: CLOPIDOGREL 75 MG TABLET PO (08:16)
[2022-10-25] MEDS: ACETAMINOPHEN 500 MG TABLET 1000 MG PO ×2 (08:16→19:31)
[2022-10-25] MEDS: LORATADINE 10 MG TABLET PO (08:17)
[2022-10-25] MEDS: lisinopriL 2.5 MG TABLET 5 MG PO (08:17)
[2022-10-25] MEDS: SERTRALINE 50 MG TABLET PO (08:17)
[2022-10-25 10:23] VITALS: TEMP 36.5; O2SAT 96
[2022-10-25 11:59] LABS: SARS PCR* Negative SARS-CoV-2 (Negative)
--- NOTE | 2022-10-25 14:05 | PC.NURSE ---
COVID OUTBREAK TESTING Resident gave verbal consent for outbreak COVID testing. Resident is currently asymptomatic.? Resident/family will be notified only if resident is positive.
[2022-10-25 15:00] VITALS: TEMP 36.5; O2SAT 98
[2022-10-25] MEDS: ROSUVASTATIN CALCIUM 10 MG TABLET 40 MG PO (19:31)
[2022-10-25 23:00] VITALS: TEMP 36.7; O2SAT 92
[2022-10-26] MEDS: SERTRALINE 50 MG TABLET PO (08:39)
[2022-10-26] MEDS: ASPIRIN 81 MG TAB.CHEW PO (08:39)
[2022-10-26] MEDS: lisinopriL 2.5 MG TABLET 5 MG PO (08:39)
[2022-10-26] MEDS: CLOPIDOGREL 75 MG TABLET PO (08:39)
[2022-10-26] MEDS: LORATADINE 10 MG TABLET PO (08:39)
[2022-10-26] MEDS: ACETAMINOPHEN 500 MG TABLET 1000 MG PO ×2 (08:39→19:58)
[2022-10-26 10:00] VITALS: TEMP 36.7; O2SAT 95
--- NOTE | 2022-10-26 12:23 | PC.NURSE ---
(L) great toe wound assessed by KAIWHAKAHAERE. Order:Cleanse with wound cleanser, apply large band aid, change q2 days.
--- NOTE | 2022-10-26 15:30 | PC.NURSE ---
CARE CONFERENCE: Resident and daughter Muna present. Nursing, dietary, activities, and SW present. Discussed recent cardiac/neuro follow up appointments. Daughter states she is trying to find the password so that she can get into his mychart to see results. She stated I'm working on it. Medication list not need at this time per daughter/resident. Discussed decrease in Zoloft over past 90 days and no ill effects noted. Daughter stated that he dad is how he was previous to stroke and that she did not see a difference in his mood on or off the Zoloft. Will update EDUCATION CONSULTANT. SW reports that mood has been stable, no concerns. Resident lacks motivation with ambulating and following therapy recommendations. Resident has been walking in hallway once per day since previous care conference and today asked to have 3# weights brought to his room for arm exercises. Also stated he will try coming out for exercise class twice weekly. Continued to encourage resident to go out for meals and to walk with staff.? Nursing to continue encouraging resident to walk short distances in his room and to and from meals. Resident agrees to this plan. Resident likes to spend time in room watching TV. Resident stated he does not want to do a GDR of Zoloft at this time. Resident and daughter deny any concerns with his care. Care plan reviewed and updated. Is full code. Uses no restraints. Does use 2 side rails to assist with positioning.? Vulnerability- is at risk for being harmed due to balance and L sided deficit. No plans for discharge, meterman stay.
--- NOTE | 2022-10-26 15:53 | PC.SOCIAL ---
Resident care conference held today in resident's room at 1:30 pm. Resident's daughter, Muna Orta, was present in person. Updates provided by Ratna Farley in Nursing, Valery Lund in Life Enrichment, Sharda Najera in Nutrition, and this worker in social work. Resident's care plan was reviewed. Resident requested 3lb weights for in his room to exercise. [employer] will provide the weights to resident. Resident agreed to join the group exercise on Tuesday's and Tuesday's each week. Resident's mood is stable at this time. Social work will follow up as necessary.
[2022-10-26 16:54] VITALS: TEMP 37; O2SAT 96
[2022-10-26] MEDS: ROSUVASTATIN CALCIUM 10 MG TABLET 40 MG PO (19:58)
[2022-10-26 23:00] VITALS: TEMP 36.6; O2SAT 94
[2022-10-27] MEDS: ASPIRIN 81 MG TAB.CHEW PO (07:13)
[2022-10-27] MEDS: LORATADINE 10 MG TABLET PO (07:13)
[2022-10-27] MEDS: lisinopriL 2.5 MG TABLET 5 MG PO (07:13)
[2022-10-27] MEDS: SERTRALINE 50 MG TABLET PO (07:13)
[2022-10-27] MEDS: ACETAMINOPHEN 500 MG TABLET 1000 MG PO ×2 (07:13→19:22)
[2022-10-27] MEDS: CLOPIDOGREL 75 MG TABLET PO (07:13)
[2022-10-27 09:45] VITALS: BMI 62.4
[2022-10-27 09:47] VITALS: BP 157/84; PULSE 76; RESP 17; TEMP 36.8; O2SAT 98
--- NOTE | 2022-10-27 11:08 | PC.SPIRITC ---
I provided visit for connection and support.
--- NOTE | 2022-10-27 12:55 | PC.PHA1 ---
COMMERCIAL ADMINISTRATOR PHARMACIST'S MEDICATION REVIEW: MEDICATION MONITORING:sertraline 50 mg daily, GDR continues but at yesterday's care conference patient expressed that he does not want to stop sertraline. IRREGULARITY OR COMMENTS: Blood pressures have been trending high at time of review. SUGGESTED COURSE OF ACTION TAKEN: Sertraline dose may need to be resumed per patient request. Lisinopril dose may need increase.
[2022-10-27 15:00] VITALS: TEMP 36.8; O2SAT 95
[2022-10-27] MEDS: ROSUVASTATIN CALCIUM 10 MG TABLET 40 MG PO (19:22)
[2022-10-27 23:00] VITALS: TEMP 37; O2SAT 92
[2022-10-28] MEDS: ACETAMINOPHEN 500 MG TABLET 1000 MG PO ×2 (07:25→20:04)
[2022-10-28] MEDS: LORATADINE 10 MG TABLET PO (07:26)
[2022-10-28] MEDS: lisinopriL 2.5 MG TABLET 5 MG PO (07:26)
[2022-10-28] MEDS: SERTRALINE 50 MG TABLET PO (07:26)
[2022-10-28] MEDS: ASPIRIN 81 MG TAB.CHEW PO (07:26)
[2022-10-28] MEDS: CLOPIDOGREL 75 MG TABLET PO (07:26)
[2022-10-28 09:17] VITALS: TEMP 36.6; O2SAT 97
--- NOTE | 2022-10-28 11:50 | PC.NURSE ---
BP's/Order: Elevated values, reviewed by E LEARNING SPECIALIST. Order: Check BP 3X/week.
[2022-10-28 16:47] VITALS: TEMP 36.2; O2SAT 96
--- NOTE | 2022-10-28 18:06 | PC.NURSE ---
Pharmacy Review done: Reviewed with CASING SPLITTER. At this time rejected recommendation d/t lisinopril increased on 09/17 to 5 mg ordered for 3x/week BP monitoring instead of weekly.
[2022-10-28] MEDS: ROSUVASTATIN CALCIUM 10 MG TABLET 40 MG PO (20:04)
[2022-10-28 23:00] VITALS: TEMP 37.1; O2SAT 92
--- NOTE | 2022-10-29 03:23 | PC.NURSE ---
WEEKLY CHARTING - WEEK 2: Vital signs reviewed. Continues with elevated BP values. Reviewed by FOOD EXPEDITOR on 10/28 - new order to check BP 3x/week. Temporary and comprehensive care plan reviewed - no change. 1 limited to extensive assist with transfers and ambulation. Uses FWW with left sided platform attachment for ambulation. Is resistive to ambulation. Able to propel w/c independently with left lap tray for arm support. Independent with bed mobility. Staff to provide cues/reminders to reposition. Has 1/4 side rails bilaterally as enabler for bed mobility. Per fall risk assessment, resident is at low risk for falls. Fall interventions: call light in reach, w/c at bedside, falling star magnet, bed in low position with brakes locked.
--- NOTE | 2022-10-29 07:30 | PC.NURSE ---
Week #2-Mobility: Comprehensive and temporary care plan reviewed. No changes made and nothing added to temporary care plan. Resident needs one assist, gait belt and platform walker for transfers & ambulation. Needs encouragement with ambulation. Is able to wheel self with a left tray for arm support. Able to reposition self in bed/chair. 2 1/4 side rails up at all times to promote independence with positioning. No alarms. Continues with elevated BP, HUMAN RESOURCES ANALYST aware. Recommends BP checks 3x/wk and will be reviewed. Fall: No falls the past month. Remains a low fall risk according to assessment done on 10/21/22. Fall interventions: Call light within reach, wheelchair at bedside locked, bed in low position with brakes locked.
[2022-10-29] MEDS: ACETAMINOPHEN 500 MG TABLET 1000 MG PO ×2 (08:16→19:28)
[2022-10-29] MEDS: lisinopriL 2.5 MG TABLET 5 MG PO (08:16)
[2022-10-29] MEDS: CLOPIDOGREL 75 MG TABLET PO (08:16)
[2022-10-29] MEDS: SERTRALINE 50 MG TABLET PO (08:16)
[2022-10-29] MEDS: LORATADINE 10 MG TABLET PO (08:16)
[2022-10-29] MEDS: ASPIRIN 81 MG TAB.CHEW PO (08:16)
[2022-10-29 09:55] VITALS: TEMP 36.6; O2SAT 97
--- NOTE | 2022-10-29 18:38 | PC.NURSE ---
Ambulation assistance: Resident refused ambulation
[2022-10-29] MEDS: ROSUVASTATIN CALCIUM 10 MG TABLET 40 MG PO (19:28)
[2022-10-29 20:24] VITALS: BP 155/86; TEMP 36.6; O2SAT 94
[2022-10-29 23:00] VITALS: TEMP 35.9; O2SAT 94
[2022-10-30] MEDS: CLOPIDOGREL 75 MG TABLET PO (07:58)
[2022-10-30] MEDS: ACETAMINOPHEN 500 MG TABLET 1000 MG PO ×2 (07:58→19:42)
[2022-10-30] MEDS: SERTRALINE 50 MG TABLET PO (07:58)
[2022-10-30] MEDS: ASPIRIN 81 MG TAB.CHEW PO (07:58)
[2022-10-30] MEDS: LORATADINE 10 MG TABLET PO (07:58)
[2022-10-30] MEDS: lisinopriL 2.5 MG TABLET 5 MG PO (07:58)
[2022-10-30 09:26] VITALS: TEMP 36.9; O2SAT 97
--- NOTE | 2022-10-30 10:52 | PC.NURSE ---
Wound care : Dressing done to left toe and it has healed well. The wound is dry and no discharge. Resident has no pain. To discuss with ZAK Segundo whether to leave it expose to air.
--- NOTE | 2022-10-30 15:41 | PC.NURSE ---
Resident left unit with daughter at 1345, returned at 1510.
[2022-10-30 15:43] VITALS: TEMP 36.8; O2SAT 98
[2022-10-30] MEDS: ROSUVASTATIN CALCIUM 10 MG TABLET 40 MG PO (19:42)
[2022-10-30 23:00] VITALS: TEMP 36.6; O2SAT 96
[2022-10-31] MEDS: CLOPIDOGREL 75 MG TABLET PO (07:57)
[2022-10-31] MEDS: ACETAMINOPHEN 500 MG TABLET 1000 MG PO ×2 (07:57→19:21)
[2022-10-31] MEDS: ASPIRIN 81 MG TAB.CHEW PO (07:57)
[2022-10-31] MEDS: lisinopriL 2.5 MG TABLET 5 MG PO (07:58)
[2022-10-31] MEDS: LORATADINE 10 MG TABLET PO (07:58)
[2022-10-31] MEDS: SERTRALINE 50 MG TABLET PO (07:58)
[2022-10-31 09:42] VITALS: TEMP 36.6; O2SAT 96
[2022-10-31] MEDS: ROSUVASTATIN CALCIUM 10 MG TABLET 40 MG PO (19:21)
[2022-10-31 21:26] VITALS: TEMP 36.6; O2SAT 96
[2022-10-31 23:00] VITALS: TEMP 36.1; O2SAT 93
[2022-11-01] MEDS: ACETAMINOPHEN 500 MG TABLET 1000 MG PO ×2 (07:22→19:43)
[2022-11-01] MEDS: ASPIRIN 81 MG TAB.CHEW PO (07:22)
[2022-11-01] MEDS: CLOPIDOGREL 75 MG TABLET PO (07:22)
[2022-11-01] MEDS: SERTRALINE 50 MG TABLET PO (07:22)
[2022-11-01] MEDS: LORATADINE 10 MG TABLET PO (07:22)
[2022-11-01] MEDS: lisinopriL 2.5 MG TABLET 5 MG PO (07:22)
[2022-11-01 09:38] VITALS: TEMP 36; O2SAT 95
--- NOTE | 2022-11-01 11:12 | PC.NURSE ---
COVID OUTBREAK TESTING Resident gave verbal consent for outbreak COVID testing. Resident is currently asymptomatic.? Resident/family will be notified only if resident is positive.
[2022-11-01 12:29] LABS: SARS PCR* Negative SARS-CoV-2 (Negative)
[2022-11-01 16:55] VITALS: TEMP 36.3; O2SAT 96
[2022-11-01] MEDS: ROSUVASTATIN CALCIUM 10 MG TABLET 40 MG PO (19:43)
[2022-11-01 19:59] VITALS: BP 119/81
[2022-11-01 23:00] VITALS: TEMP 36.3; O2SAT 97
[2022-11-02] MEDS: LORATADINE 10 MG TABLET PO (08:18)
[2022-11-02] MEDS: SERTRALINE 50 MG TABLET PO (08:18)
[2022-11-02] MEDS: ASPIRIN 81 MG TAB.CHEW PO (08:18)
[2022-11-02] MEDS: lisinopriL 2.5 MG TABLET 5 MG PO (08:18)
[2022-11-02] MEDS: CLOPIDOGREL 75 MG TABLET PO (08:18)
[2022-11-02] MEDS: ACETAMINOPHEN 500 MG TABLET 1000 MG PO ×2 (08:18→19:57)
[2022-11-02 10:27] VITALS: TEMP 36.8; O2SAT 96
--- NOTE | 2022-11-02 12:10 | PC.NURSE ---
(L) great toe wound viewed by SERVICE PLUMBER. Treatment discontinued.
[2022-11-02] MEDS: ROSUVASTATIN CALCIUM 10 MG TABLET 40 MG PO (19:57)
[2022-11-02 21:21] VITALS: TEMP 37.1; O2SAT 95
[2022-11-02 23:00] VITALS: TEMP 37.1; O2SAT 95
[2022-11-03] MEDS: CLOPIDOGREL 75 MG TABLET PO (07:47)
[2022-11-03] MEDS: ASPIRIN 81 MG TAB.CHEW PO (07:47)
[2022-11-03] MEDS: lisinopriL 2.5 MG TABLET 5 MG PO (07:47)
[2022-11-03] MEDS: ACETAMINOPHEN 500 MG TABLET 1000 MG PO ×2 (07:47→20:30)
[2022-11-03] MEDS: LORATADINE 10 MG TABLET PO (07:47)
[2022-11-03] MEDS: SERTRALINE 50 MG TABLET PO (07:47)
[2022-11-03 09:03] VITALS: TEMP 36.1; O2SAT 95
[2022-11-03 11:07] VITALS: BP 124/72; PULSE 60; RESP 18; TEMP 36.2; O2SAT 97; BMI 28.7
[2022-11-03 15:00] VITALS: TEMP 36.5; O2SAT 96
[2022-11-03 16:00] VITALS: BP 122/72
[2022-11-03] MEDS: ROSUVASTATIN CALCIUM 10 MG TABLET 40 MG PO (20:31)
[2022-11-03 23:47] VITALS: TEMP 36.4; O2SAT 96
[2022-11-04] MEDS: ACETAMINOPHEN 500 MG TABLET 1000 MG PO ×2 (07:44→19:42)
[2022-11-04] MEDS: CLOPIDOGREL 75 MG TABLET PO (07:44)
[2022-11-04] MEDS: ASPIRIN 81 MG TAB.CHEW PO (07:44)
[2022-11-04] MEDS: SERTRALINE 50 MG TABLET PO (07:44)
[2022-11-04] MEDS: lisinopriL 2.5 MG TABLET 5 MG PO (07:44)
[2022-11-04] MEDS: LORATADINE 10 MG TABLET PO (07:44)
[2022-11-04 11:03] VITALS: TEMP 36.1; O2SAT 96
[2022-11-04] MEDS: ROSUVASTATIN CALCIUM 10 MG TABLET 40 MG PO (19:42)
[2022-11-04 21:15] VITALS: TEMP 37; O2SAT 96
--- NOTE | 2022-11-04 21:29 | PC.NURSE ---
Ambulation assistance: Resident refused ambulation
[2022-11-04 23:00] VITALS: TEMP 36.4; O2SAT 96
--- NOTE | 2022-11-05 06:42 | PC.NURSE ---
WEEK 3 TOILETING AND SKIN Vital signs reviewed, stable. Temporary and comprehensive care plan reviewed - no change. Resident got no documented skin concerns. Continent of bowel and bladder but wears pull-up and uses urinal independently when in bed. Extensive assist of 1 with toileting including clothing/pad management and bo-cares.
[2022-11-05] MEDS: ASPIRIN 81 MG TAB.CHEW PO (07:38)
[2022-11-05] MEDS: CLOPIDOGREL 75 MG TABLET PO (07:38)
[2022-11-05] MEDS: ACETAMINOPHEN 500 MG TABLET 1000 MG PO ×2 (07:38→20:18)
[2022-11-05] MEDS: lisinopriL 2.5 MG TABLET 5 MG PO (07:38)
[2022-11-05] MEDS: LORATADINE 10 MG TABLET PO (07:39)
[2022-11-05] MEDS: SERTRALINE 50 MG TABLET PO (07:39)
[2022-11-05 10:42] VITALS: TEMP 36.4; O2SAT 96
[2022-11-05] MEDS: ROSUVASTATIN CALCIUM 10 MG TABLET 40 MG PO (20:18)
[2022-11-05 22:02] VITALS: TEMP 36.8; O2SAT 97
[2022-11-06 01:04] VITALS: TEMP 36.4; O2SAT 94
[2022-11-06 07:00] VITALS: TEMP 36.5; O2SAT 98
[2022-11-06] MEDS: ACETAMINOPHEN 500 MG TABLET 1000 MG PO ×2 (07:47→19:37)
[2022-11-06] MEDS: CLOPIDOGREL 75 MG TABLET PO (07:47)
[2022-11-06] MEDS: lisinopriL 2.5 MG TABLET 5 MG PO (07:47)
[2022-11-06] MEDS: ASPIRIN 81 MG TAB.CHEW PO (07:47)
[2022-11-06] MEDS: LORATADINE 10 MG TABLET PO (07:47)
[2022-11-06] MEDS: SERTRALINE 50 MG TABLET PO (07:48)
[2022-11-06 15:10] VITALS: BP 131/82
--- NOTE | 2022-11-06 15:18 | PC.NURSE ---
Weekly Charting-Week # 3: Reviewed temporary care plan and comprehensive care plan with no changes. Vital signs are stable with blood pressure lower. Left great toe is healed. No other new skin concerns. Resident is independant with urinal use in bed and receives assistance to the bathroom for bowel movements. He wears pull ups and is able to wipe himself.
--- NOTE | 2022-11-06 17:04 | PC.NURSE ---
Covid Test: Resident complained of a scratchy sore throat and has a nasal sounding voice. Afebrile. Was sleeping soundly this afternoon which is not the norm for him. Awaiting results of the test.
[2022-11-06 17:40] LABS: SARS PCR* Negative SARS-CoV-2 (Negative)
--- NOTE | 2022-11-06 18:15 | PC.NURSE ---
Sars Report: Covid test was negative.
[2022-11-06] MEDS: ROSUVASTATIN CALCIUM 10 MG TABLET 40 MG PO (19:38)
[2022-11-06 21:33] VITALS: TEMP 37; O2SAT 95
--- NOTE | 2022-11-06 21:58 | PC.NURSE ---
Cold Symptoms: Joselito continues to complain of sore throat and also a headache. His Covid test was negative. Was given his scheduled DONIS at bedtime and upon going to his room to see if Tylenol was helpful he was sleeping.
[2022-11-07 00:11] VITALS: TEMP 37; O2SAT 95
[2022-11-07 07:00] VITALS: TEMP 36.6; O2SAT 95
[2022-11-07] MEDS: SERTRALINE 50 MG TABLET PO (07:57)
[2022-11-07] MEDS: lisinopriL 2.5 MG TABLET 5 MG PO (07:57)
[2022-11-07] MEDS: ASPIRIN 81 MG TAB.CHEW PO (07:57)
[2022-11-07] MEDS: CLOPIDOGREL 75 MG TABLET PO (07:57)
[2022-11-07] MEDS: LORATADINE 10 MG TABLET PO (07:57)
[2022-11-07] MEDS: ACETAMINOPHEN 500 MG TABLET 1000 MG PO ×2 (07:57→19:50)
[2022-11-07] MEDS: ROSUVASTATIN CALCIUM 10 MG TABLET 40 MG PO (19:50)
[2022-11-07 21:31] VITALS: TEMP 37.2; O2SAT 100
--- NOTE | 2022-11-07 21:58 | PC.NURSE ---
Cold Symptoms: Janes is still having sinus headache pain. Able to give him Tylenol which is helpful and also put a warm pack on his sinuses.
[2022-11-07 23:00] VITALS: TEMP 36.3; O2SAT 94
[2022-11-08] MEDS: ASPIRIN 81 MG TAB.CHEW PO (07:44)
[2022-11-08] MEDS: LORATADINE 10 MG TABLET PO (07:44)
[2022-11-08] MEDS: SERTRALINE 50 MG TABLET PO (07:44)
[2022-11-08] MEDS: lisinopriL 2.5 MG TABLET 5 MG PO (07:44)
[2022-11-08] MEDS: CLOPIDOGREL 75 MG TABLET PO (07:44)
[2022-11-08] MEDS: ACETAMINOPHEN 500 MG TABLET 1000 MG PO ×2 (07:44→19:36)
[2022-11-08 10:50] VITALS: TEMP 36.6; O2SAT 94
--- NOTE | 2022-11-08 11:50 | PC.NURSE ---
COVID OUTBREAK TESTING Resident gave verbal consent for outbreak COVID testing. Resident is currently asymptomatic.? Resident/family will be notified only if resident is positive.
[2022-11-08 14:00] LABS: SARS PCR* Negative SARS-CoV-2 (Negative)
--- NOTE | 2022-11-08 14:00 | PC.NURSE ---
Ambulation: Resident refused d/t not feeling well.
[2022-11-08 15:00] VITALS: TEMP 36.7; O2SAT 94
[2022-11-08 16:00] VITALS: BP 121/82
[2022-11-08] MEDS: ROSUVASTATIN CALCIUM 10 MG TABLET 40 MG PO (19:37)
[2022-11-08 23:00] VITALS: TEMP 36.4; O2SAT 93
[2022-11-09] MEDS: ACETAMINOPHEN 500 MG TABLET 1000 MG PO ×2 (07:37→20:34)
[2022-11-09] MEDS: SERTRALINE 50 MG TABLET PO (07:37)
[2022-11-09] MEDS: ASPIRIN 81 MG TAB.CHEW PO (07:37)
[2022-11-09] MEDS: LORATADINE 10 MG TABLET PO (07:37)
[2022-11-09] MEDS: lisinopriL 2.5 MG TABLET 5 MG PO (07:37)
[2022-11-09] MEDS: CLOPIDOGREL 75 MG TABLET PO (07:37)
[2022-11-09 10:18] VITALS: TEMP 36.4; O2SAT 94
[2022-11-09] MEDS: ROSUVASTATIN CALCIUM 10 MG TABLET 40 MG PO (20:34)
[2022-11-09 21:51] VITALS: TEMP 36.3; O2SAT 94
[2022-11-09 23:00] VITALS: TEMP 36.4; O2SAT 94
[2022-11-10 07:00] VITALS: BP 118/71; PULSE 73; RESP 16; TEMP 36.4; O2SAT 97; BMI 28.5
[2022-11-10] MEDS: CLOPIDOGREL 75 MG TABLET PO (08:18)
[2022-11-10] MEDS: ACETAMINOPHEN 500 MG TABLET 1000 MG PO ×2 (08:18→19:16)
[2022-11-10] MEDS: ASPIRIN 81 MG TAB.CHEW PO (08:18)
[2022-11-10] MEDS: LORATADINE 10 MG TABLET PO (08:18)
[2022-11-10] MEDS: SERTRALINE 50 MG TABLET PO (08:18)
[2022-11-10] MEDS: lisinopriL 2.5 MG TABLET 5 MG PO (08:18)
[2022-11-10 15:00] VITALS: TEMP 36.6; O2SAT 95
[2022-11-10 16:00] VITALS: BP 124/68
[2022-11-10] MEDS: ROSUVASTATIN CALCIUM 10 MG TABLET 40 MG PO (19:17)
[2022-11-10 23:00] VITALS: TEMP 37.1; O2SAT 91
[2022-11-11] MEDS: lisinopriL 2.5 MG TABLET 5 MG PO (07:43)
[2022-11-11] MEDS: SERTRALINE 50 MG TABLET PO (07:43)
[2022-11-11] MEDS: CLOPIDOGREL 75 MG TABLET PO (07:43)
[2022-11-11] MEDS: ACETAMINOPHEN 500 MG TABLET 1000 MG PO ×2 (07:43→19:32)
[2022-11-11] MEDS: LORATADINE 10 MG TABLET PO (07:43)
[2022-11-11] MEDS: ASPIRIN 81 MG TAB.CHEW PO (07:43)
[2022-11-11 10:28] VITALS: TEMP 36.3; O2SAT 93
[2022-11-11] MEDS: ROSUVASTATIN CALCIUM 10 MG TABLET 40 MG PO (19:32)
[2022-11-11 22:03] VITALS: TEMP 36.6; O2SAT 96
[2022-11-11 23:00] VITALS: TEMP 37; O2SAT 94
--- NOTE | 2022-11-12 03:36 | PC.NURSE ---
WEEKLY CHARTING - WEEK 4: Vital signs reviewed - no concerns. Temporary and comprehensive care plan reviewed - no change. Documented behaviors of refusal of care. Sleeps well through the night. Currently receives sertraline 50mg daily with no adverse effects. Able to communicate needs. No hearing impairment. Wears glasses for reading. Cognitively intact. All medications administered by licensed nurse. No change in health condition.
[2022-11-12 07:00] VITALS: TEMP 36.6; O2SAT 96
--- NOTE | 2022-11-12 07:29 | PC.NURSE ---
Week #4: Comprehensive & temporary care plan reviewed. No changes made. Nothing added to temporary care plan. No changes noted in communication, hearing, vision, or orientation. Resident does communicate needs. Hearing fine. Use reading glasses. Cognition intact. Chronic health condition stable. Continue BP monitoring 3x/week and FIELD ACCOUNT MANAGER to review. Nurse administer all medications. Mood/Behavior: Last month has few episodes of resisting cares r/t not feeling well. Continues on Zoloft 50mg daily with no adverse effects noted. Continues on mood/behavior monitoring PRN.
[2022-11-12] MEDS: ACETAMINOPHEN 500 MG TABLET 1000 MG PO ×2 (08:22→19:31)
[2022-11-12] MEDS: ASPIRIN 81 MG TAB.CHEW PO (08:22)
[2022-11-12] MEDS: LORATADINE 10 MG TABLET PO (08:22)
[2022-11-12] MEDS: SERTRALINE 50 MG TABLET PO (08:22)
[2022-11-12] MEDS: CLOPIDOGREL 75 MG TABLET PO (08:22)
[2022-11-12] MEDS: lisinopriL 2.5 MG TABLET 5 MG PO (08:22)
[2022-11-12] MEDS: ROSUVASTATIN CALCIUM 10 MG TABLET 40 MG PO (19:31)
[2022-11-12 21:27] VITALS: BP 113/76; TEMP 36.4; O2SAT 93
--- NOTE | 2022-11-12 21:36 | PC.NURSE ---
Ambulation assistance: Resident refused ambulation
[2022-11-12 23:00] VITALS: TEMP 36.4; O2SAT 93
[2022-11-13] MEDS: LORATADINE 10 MG TABLET PO (07:44)
[2022-11-13] MEDS: ASPIRIN 81 MG TAB.CHEW PO (07:44)
[2022-11-13] MEDS: ACETAMINOPHEN 500 MG TABLET 1000 MG PO ×2 (07:44→19:14)
[2022-11-13] MEDS: CLOPIDOGREL 75 MG TABLET PO (07:44)
[2022-11-13] MEDS: SERTRALINE 50 MG TABLET PO (07:44)
[2022-11-13] MEDS: lisinopriL 2.5 MG TABLET 5 MG PO (07:44)
[2022-11-13 11:04] VITALS: TEMP 36.5; O2SAT 98
[2022-11-13 16:39] VITALS: TEMP 36.6; O2SAT 96
[2022-11-13] MEDS: ROSUVASTATIN CALCIUM 10 MG TABLET 40 MG PO (19:14)
--- NOTE | 2022-11-13 21:39 | PC.NURSE ---
Ambulation assistance: Resident refused to ambulate this shift.
[2022-11-13 23:00] VITALS: TEMP 36.3; O2SAT 96
[2022-11-14] MEDS: ACETAMINOPHEN 500 MG TABLET 1000 MG PO ×2 (08:17→19:18)
[2022-11-14] MEDS: lisinopriL 2.5 MG TABLET 5 MG PO (08:17)
[2022-11-14] MEDS: ASPIRIN 81 MG TAB.CHEW PO (08:17)
[2022-11-14] MEDS: CLOPIDOGREL 75 MG TABLET PO (08:17)
[2022-11-14] MEDS: LORATADINE 10 MG TABLET PO (08:18)
[2022-11-14] MEDS: SERTRALINE 50 MG TABLET PO (08:18)
[2022-11-14 10:08] VITALS: TEMP 36.2; O2SAT 97
[2022-11-14 16:20] VITALS: TEMP 36.6; O2SAT 96
[2022-11-14] MEDS: ROSUVASTATIN CALCIUM 10 MG TABLET 40 MG PO (19:18)
[2022-11-14 21:43] VITALS: TEMP 36.6; O2SAT 95
[2022-11-15 07:00] VITALS: TEMP 36.3; O2SAT 94
[2022-11-15] MEDS: ASPIRIN 81 MG TAB.CHEW PO (08:15)
[2022-11-15] MEDS: ACETAMINOPHEN 500 MG TABLET 1000 MG PO ×2 (08:15→19:12)
[2022-11-15] MEDS: LORATADINE 10 MG TABLET PO (08:15)
[2022-11-15] MEDS: lisinopriL 2.5 MG TABLET 5 MG PO (08:15)
[2022-11-15] MEDS: CLOPIDOGREL 75 MG TABLET PO (08:15)
[2022-11-15] MEDS: SERTRALINE 50 MG TABLET PO (08:15)
--- NOTE | 2022-11-15 10:00 | PC.NURSE ---
COVID OUTBREAK TESTING Resident gave verbal consent for outbreak COVID testing. Resident is currently asymptomatic.? Resident/family will be notified only if resident is positive.
[2022-11-15 11:52] LABS: SARS PCR* Negative SARS-CoV-2 (Negative)
[2022-11-15 15:00] VITALS: TEMP 36.6; O2SAT 95
[2022-11-15 16:00] VITALS: BP 122/78
[2022-11-15] MEDS: ROSUVASTATIN CALCIUM 10 MG TABLET 40 MG PO (19:12)
[2022-11-15 23:00] VITALS: TEMP 36.2; O2SAT 94
[2022-11-16 07:00] VITALS: TEMP 36.6; O2SAT 96
[2022-11-16] MEDS: ACETAMINOPHEN 500 MG TABLET 1000 MG PO ×2 (08:21→20:13)
[2022-11-16] MEDS: ASPIRIN 81 MG TAB.CHEW PO (08:22)
[2022-11-16] MEDS: CLOPIDOGREL 75 MG TABLET PO (08:22)
[2022-11-16] MEDS: LORATADINE 10 MG TABLET PO (08:23)
[2022-11-16] MEDS: lisinopriL 2.5 MG TABLET 5 MG PO (08:23)
[2022-11-16] MEDS: SERTRALINE 50 MG TABLET PO (08:23)
[2022-11-16] MEDS: ROSUVASTATIN CALCIUM 10 MG TABLET 40 MG PO (20:13)
[2022-11-16 21:39] VITALS: TEMP 36.9; O2SAT 96
[2022-11-16 23:55] VITALS: TEMP 36.6; O2SAT 92
[2022-11-17 07:00] VITALS: BP 126/80; PULSE 76; RESP 18; TEMP 36.3; O2SAT 93; BMI 28.7
[2022-11-17] MEDS: lisinopriL 2.5 MG TABLET 5 MG PO (08:19)
[2022-11-17] MEDS: ACETAMINOPHEN 500 MG TABLET 1000 MG PO ×2 (08:19→19:32)
[2022-11-17] MEDS: SERTRALINE 50 MG TABLET PO (08:19)
[2022-11-17] MEDS: CLOPIDOGREL 75 MG TABLET PO (08:19)
[2022-11-17] MEDS: LORATADINE 10 MG TABLET PO (08:19)
[2022-11-17] MEDS: ASPIRIN 81 MG TAB.CHEW PO (08:19)
[2022-11-17 15:00] VITALS: TEMP 36.6; O2SAT 100
[2022-11-17 16:00] VITALS: BP 135/84
[2022-11-17] MEDS: ROSUVASTATIN CALCIUM 10 MG TABLET 40 MG PO (19:32)
[2022-11-17 23:00] VITALS: TEMP 36.7; O2SAT 96
[2022-11-18 07:00] VITALS: TEMP 36.2; O2SAT 96
[2022-11-18] MEDS: LORATADINE 10 MG TABLET PO (08:11)
[2022-11-18] MEDS: ASPIRIN 81 MG TAB.CHEW PO (08:11)
[2022-11-18] MEDS: ACETAMINOPHEN 500 MG TABLET 1000 MG PO ×2 (08:11→19:29)
[2022-11-18] MEDS: CLOPIDOGREL 75 MG TABLET PO (08:11)
[2022-11-18] MEDS: lisinopriL 2.5 MG TABLET 5 MG PO (08:11)
[2022-11-18] MEDS: SERTRALINE 50 MG TABLET PO (08:12)
[2022-11-18 15:00] VITALS: TEMP 36.4; O2SAT 94
[2022-11-18] MEDS: ROSUVASTATIN CALCIUM 10 MG TABLET 40 MG PO (19:29)
--- NOTE | 2022-11-19 00:36 | PC.NURSE ---
WEEKLY CHARTING - WEEK 1: Vital signs reviewed - no concerns. Temporary and comprehensive care plan reviewed - no change. Chronic right shoulder pain. Receives acetaminophen 1000mg BID for pain management which is noted to be effective. Requires limited to extensive assist with dressing, grooming, and bathing. Is able to participate with ADLs and should be encouraged to do so. Set-up and cueing for oral care. Receives a regular diet with regular texture and thin liquids. Appetite is excellent. Able to eat independently after set-up. Is to sit up for all meals. No eating in bed. Gradual weight gain noted.
[2022-11-19] MEDS: ACETAMINOPHEN 500 MG TABLET 1000 MG PO ×2 (07:48→19:43)
[2022-11-19] MEDS: CLOPIDOGREL 75 MG TABLET PO (07:49)
[2022-11-19] MEDS: SERTRALINE 50 MG TABLET PO (07:49)
[2022-11-19] MEDS: lisinopriL 2.5 MG TABLET 5 MG PO (07:49)
[2022-11-19] MEDS: LORATADINE 10 MG TABLET PO (07:49)
[2022-11-19] MEDS: ASPIRIN 81 MG TAB.CHEW PO (07:49)
--- NOTE | 2022-11-19 10:51 | PC.NURSE ---
Week #1- ADL's: Comprehensive and temporary care plan reviewed. No changes made. Nothing added to temporary care plan. Resident needs limited to extensive assist of one with dressing, grooming and bathing. Encourage to participate as much as he can. Able to do own oral cares & shaving after set up/cueing. Feed independently after set up. Is on regular diet, thin liquids. No problems with chewing or swallowing reported. Vital signs reviewed, no concerns. BP monitored 3x/week. REHABILITATION DIRECTOR to review. Pain: Has history of (R) shoulder pain. Pain controlled with Tylenol 1000mg BID. Has had no complain of pain. Is able to verbalize when in pain.
[2022-11-19 16:37] VITALS: TEMP 36.6; O2SAT 95
[2022-11-19] MEDS: ROSUVASTATIN CALCIUM 10 MG TABLET 40 MG PO (19:43)
[2022-11-19 21:34] VITALS: TEMP 36.6; O2SAT 959
[2022-11-19 21:36] VITALS: BP 158/82
[2022-11-20] MEDS: ACETAMINOPHEN 500 MG TABLET 1000 MG PO ×2 (07:56→19:52)
[2022-11-20] MEDS: lisinopriL 2.5 MG TABLET 5 MG PO (07:57)
[2022-11-20] MEDS: CLOPIDOGREL 75 MG TABLET PO (07:57)
[2022-11-20] MEDS: LORATADINE 10 MG TABLET PO (07:57)
[2022-11-20] MEDS: SERTRALINE 50 MG TABLET PO (07:57)
[2022-11-20] MEDS: ASPIRIN 81 MG TAB.CHEW PO (07:57)
[2022-11-20 16:46] VITALS: TEMP 36.5; O2SAT 92
[2022-11-20] MEDS: ROSUVASTATIN CALCIUM 10 MG TABLET 40 MG PO (19:53)
[2022-11-20 21:44] VITALS: TEMP 36.4; O2SAT 92
[2022-11-21] MEDS: lisinopriL 2.5 MG TABLET 5 MG PO (08:14)
[2022-11-21] MEDS: SERTRALINE 50 MG TABLET PO (08:14)
[2022-11-21] MEDS: ASPIRIN 81 MG TAB.CHEW PO (08:14)
[2022-11-21] MEDS: ACETAMINOPHEN 500 MG TABLET 1000 MG PO ×2 (08:14→20:14)
[2022-11-21] MEDS: CLOPIDOGREL 75 MG TABLET PO (08:14)
[2022-11-21] MEDS: LORATADINE 10 MG TABLET PO (08:16)
[2022-11-21] MEDS: ROSUVASTATIN CALCIUM 10 MG TABLET 40 MG PO (20:14)
[2022-11-21 23:09] VITALS: TEMP 36.5; O2SAT 94
[2022-11-22] MEDS: LORATADINE 10 MG TABLET PO (07:40)
[2022-11-22] MEDS: ACETAMINOPHEN 500 MG TABLET 1000 MG PO ×2 (07:40→19:04)
[2022-11-22] MEDS: SERTRALINE 50 MG TABLET PO (07:40)
[2022-11-22] MEDS: lisinopriL 2.5 MG TABLET 5 MG PO (07:40)
[2022-11-22] MEDS: ASPIRIN 81 MG TAB.CHEW PO (07:40)
[2022-11-22] MEDS: CLOPIDOGREL 75 MG TABLET PO (07:40)
--- NOTE | 2022-11-22 13:35 | PC.NURSE ---
Podiatry: Resident refused service.
[2022-11-22 15:00] VITALS: TEMP 36.6; O2SAT 96
[2022-11-22 16:00] VITALS: BP 121/80
[2022-11-22] MEDS: ROSUVASTATIN CALCIUM 10 MG TABLET 40 MG PO (19:04)
[2022-11-23] MEDS: ACETAMINOPHEN 500 MG TABLET 1000 MG PO ×2 (07:36→20:37)
[2022-11-23] MEDS: ASPIRIN 81 MG TAB.CHEW PO (07:37)
[2022-11-23] MEDS: CLOPIDOGREL 75 MG TABLET PO (07:37)
[2022-11-23] MEDS: lisinopriL 2.5 MG TABLET 5 MG PO (07:37)
[2022-11-23] MEDS: LORATADINE 10 MG TABLET PO (07:37)
[2022-11-23] MEDS: SERTRALINE 50 MG TABLET PO (07:37)
[2022-11-23 15:00] VITALS: TEMP 37; O2SAT 97
[2022-11-23] MEDS: ROSUVASTATIN CALCIUM 10 MG TABLET 40 MG PO (20:37)
[2022-11-24 07:00] VITALS: BP 148/83; PULSE 64; RESP 18; TEMP 36.3; O2SAT 97; BMI 28.5
[2022-11-24] MEDS: ACETAMINOPHEN 500 MG TABLET 1000 MG PO ×2 (07:03→19:56)
[2022-11-24] MEDS: LORATADINE 10 MG TABLET PO (07:03)
[2022-11-24] MEDS: ASPIRIN 81 MG TAB.CHEW PO (07:03)
[2022-11-24] MEDS: lisinopriL 2.5 MG TABLET 5 MG PO (07:03)
[2022-11-24] MEDS: CLOPIDOGREL 75 MG TABLET PO (07:03)
[2022-11-24] MEDS: SERTRALINE 50 MG TABLET PO (07:04)
--- NOTE | 2022-11-24 11:27 | PC.NURSE ---
Small bruise measuring approximately 1 cm x 0.7 cm located to posterior R hand this morning: Resident reported this is a result of him bumping his hand in the bathroom when toileting. No complications observed.
--- NOTE | 2022-11-24 11:44 | PC.PHA1 ---
BAND SEWER PHARMACIST'S MEDICATION REVIEW: MEDICATION MONITORING:Sertraline 50 mg daily IRREGULARITY OR COMMENTS:Patient continues to recover from a stroke, he wishes to continue sertraline and dose increase could be considered as his rehab. continues. Blood pressures in November have been higher that usual, currently taking lisinopril 5 mg daily SUGGESTED COURSE OF ACTION TAKEN: Patient could be taking subtherapeutic doses of sertraline and lisinopril.
--- NOTE | 2022-11-24 16:05 | PC.SPIRITC ---
Late entry from 11/23/2022 I provided visit for support and connection.
[2022-11-24 17:13] VITALS: TEMP 36.4; O2SAT 95
[2022-11-24] MEDS: ROSUVASTATIN CALCIUM 10 MG TABLET 40 MG PO (19:56)
--- NOTE | 2022-11-25 08:27 | PC.NURSE ---
Neurology appointment for today cancelled as per resident. Daughter has jury duty.
[2022-11-25] MEDS: CLOPIDOGREL 75 MG TABLET PO (08:39)
[2022-11-25] MEDS: LORATADINE 10 MG TABLET PO (08:39)
[2022-11-25] MEDS: lisinopriL 2.5 MG TABLET 5 MG PO (08:39)
[2022-11-25] MEDS: ACETAMINOPHEN 500 MG TABLET 1000 MG PO ×2 (08:39→20:01)
[2022-11-25] MEDS: ASPIRIN 81 MG TAB.CHEW PO (08:39)
[2022-11-25] MEDS: SERTRALINE 50 MG TABLET PO (08:41)
--- NOTE | 2022-11-25 12:34 | PC.NURSE ---
BP's: Reviewed by MUSIC COORDINATORDerrick. Change 3x/week to weekly. BP's are stable.
[2022-11-25] MEDS: ROSUVASTATIN CALCIUM 10 MG TABLET 40 MG PO (20:01)
[2022-11-25 21:56] VITALS: TEMP 36.3; O2SAT 92
[2022-11-25 23:46] VITALS: TEMP 36.7; O2SAT 94
--- NOTE | 2022-11-26 01:28 | PC.NURSE ---
Weekly charting Week 2: Vitals reviewed, Noted some elevated BP. Comprehensive care plan and temporary care plan reviewed. No changes made, Nothing added to temporary care plan. Res is able to reposition himself in bed independently. As per fall assessment, is at high risk for fall. Fall Prevention: Call light within reach w/c at bedside locked, bed in low position locked. Res resistive to ambulation in room/hallway, staff continue to encourage ambulation using GB and 2ww.
[2022-11-26 06:52] VITALS: TEMP 36.6; O2SAT 98
--- NOTE | 2022-11-26 07:13 | PC.NURSE ---
Week #2-Mobility: Comprehensive and temporary care plan reviewed. No changes made and nothing added to temporary care plan. Resident needs one assist, gait belt and platform walker for transfers & ambulation. Needs encouragement with ambulation. Is able to wheel self with a left tray for arm support. Able to reposition self in bed/chair. Bilateral 1/4 side rails up at all times to promote independence with positioning. No alarms. BP's reviewed by SPARK PLUG ASSEMBLER on 11/25/22. BP monitoring changed to weekly, BP's stable. Fall: No falls the past month. Remains a low fall risk according to assessment done on 10/21/22. Fall interventions: Call light within reach, wheelchair at bedside locked, bed in low position with brakes locked.
[2022-11-26] MEDS: ACETAMINOPHEN 500 MG TABLET 1000 MG PO ×2 (07:40→19:28)
[2022-11-26] MEDS: LORATADINE 10 MG TABLET PO (07:41)
[2022-11-26] MEDS: lisinopriL 2.5 MG TABLET 5 MG PO (07:41)
[2022-11-26] MEDS: SERTRALINE 50 MG TABLET PO (07:41)
[2022-11-26] MEDS: CLOPIDOGREL 75 MG TABLET PO (07:41)
[2022-11-26] MEDS: ASPIRIN 81 MG TAB.CHEW PO (07:41)
[2022-11-26 15:00] VITALS: TEMP 36.6; O2SAT 95
[2022-11-26 16:00] VITALS: BP 121/80; BP 129/79
[2022-11-26] MEDS: ROSUVASTATIN CALCIUM 10 MG TABLET 40 MG PO (19:28)
[2022-11-27 00:18] VITALS: TEMP 36.4; O2SAT 97
[2022-11-27] MEDS: lisinopriL 2.5 MG TABLET 5 MG PO (08:38)
[2022-11-27] MEDS: CLOPIDOGREL 75 MG TABLET PO (08:38)
[2022-11-27] MEDS: ASPIRIN 81 MG TAB.CHEW PO (08:38)
[2022-11-27] MEDS: ACETAMINOPHEN 500 MG TABLET 1000 MG PO ×2 (08:38→19:03)
[2022-11-27] MEDS: LORATADINE 10 MG TABLET PO (08:38)
[2022-11-27] MEDS: SERTRALINE 50 MG TABLET PO (08:38)
[2022-11-27 10:19] VITALS: TEMP 36.3; O2SAT 96
[2022-11-27 15:00] VITALS: TEMP 36.8; O2SAT 95
[2022-11-27] MEDS: ROSUVASTATIN CALCIUM 10 MG TABLET 40 MG PO (19:03)
[2022-11-28 00:02] VITALS: TEMP 36.7; O2SAT 95
[2022-11-28] MEDS: CLOPIDOGREL 75 MG TABLET PO (08:05)
[2022-11-28] MEDS: ASPIRIN 81 MG TAB.CHEW PO (08:05)
[2022-11-28] MEDS: ACETAMINOPHEN 500 MG TABLET 1000 MG PO ×2 (08:05→19:26)
[2022-11-28] MEDS: lisinopriL 2.5 MG TABLET 5 MG PO (08:05)
[2022-11-28] MEDS: SERTRALINE 50 MG TABLET PO (08:05)
[2022-11-28] MEDS: LORATADINE 10 MG TABLET PO (08:05)
[2022-11-28 10:10] VITALS: TEMP 36.4; O2SAT 97
[2022-11-28 15:00] VITALS: TEMP 36.5; O2SAT 98
[2022-11-28] MEDS: ROSUVASTATIN CALCIUM 10 MG TABLET 40 MG PO (19:26)
[2022-11-28 23:49] VITALS: TEMP 36.4; O2SAT 95
[2022-11-29 07:00] VITALS: TEMP 36.6; O2SAT 98
[2022-11-29] MEDS: LORATADINE 10 MG TABLET PO (07:23)
[2022-11-29] MEDS: lisinopriL 2.5 MG TABLET 5 MG PO (07:23)
[2022-11-29] MEDS: SERTRALINE 50 MG TABLET PO (07:23)
[2022-11-29] MEDS: CLOPIDOGREL 75 MG TABLET PO (07:23)
[2022-11-29] MEDS: ASPIRIN 81 MG TAB.CHEW PO (07:23)
[2022-11-29] MEDS: ACETAMINOPHEN 500 MG TABLET 1000 MG PO ×2 (07:23→19:17)
--- NOTE | 2022-11-29 10:00 | PC.NURSE ---
COVID OUTBREAK TESTING Resident gave verbal consent for outbreak COVID testing. Resident is currently asymptomatic.? Resident/family will be notified only if resident is positive.
[2022-11-29 12:31] LABS: SARS PCR* Negative SARS-CoV-2 (Negative)
[2022-11-29 15:00] VITALS: TEMP 36.6; O2SAT 96
[2022-11-29 16:00] VITALS: BP 133/84
[2022-11-29] MEDS: ROSUVASTATIN CALCIUM 10 MG TABLET 40 MG PO (19:17)
[2022-11-29 23:56] VITALS: TEMP 36.6; O2SAT 98
[2022-11-30 07:00] VITALS: TEMP 36.5; O2SAT 95
[2022-11-30] MEDS: ACETAMINOPHEN 500 MG TABLET 1000 MG PO ×2 (07:52→20:05)
[2022-11-30] MEDS: ASPIRIN 81 MG TAB.CHEW PO (07:52)
[2022-11-30] MEDS: CLOPIDOGREL 75 MG TABLET PO (07:52)
[2022-11-30] MEDS: LORATADINE 10 MG TABLET PO (07:53)
[2022-11-30] MEDS: lisinopriL 2.5 MG TABLET 5 MG PO (07:53)
[2022-11-30] MEDS: SERTRALINE 50 MG TABLET PO (07:53)
--- NOTE | 2022-11-30 16:10 | PC.NURSE ---
Antipsychotropic Medication Review: Resident doing well. Decrease in his Zoloft noted today per Destini Meza NP. Will review again February 2023 or sooner if needed.
[2022-11-30] MEDS: ROSUVASTATIN CALCIUM 10 MG TABLET 40 MG PO (20:06)
[2022-11-30 22:57] VITALS: TEMP 36.6; O2SAT 94
[2022-11-30 23:00] VITALS: TEMP 36.7; O2SAT 94
[2022-12-01 07:00] VITALS: BP 161/90; PULSE 84; RESP 18; TEMP 37; O2SAT 94
[2022-12-01] MEDS: ACETAMINOPHEN 500 MG TABLET 1000 MG PO ×2 (07:50→19:57)
[2022-12-01] MEDS: ASPIRIN 81 MG TAB.CHEW PO (07:51)
[2022-12-01] MEDS: LORATADINE 10 MG TABLET PO (07:51)
[2022-12-01] MEDS: lisinopriL 2.5 MG TABLET 5 MG PO (07:51)
[2022-12-01] MEDS: CLOPIDOGREL 75 MG TABLET PO (07:51)
[2022-12-01] MEDS: SERTRALINE 50 MG TABLET 25 MG PO (07:52)
[2022-12-01 10:38] VITALS: BMI 28.8
[2022-12-01 15:00] VITALS: TEMP 36.6; O2SAT 97
[2022-12-01] MEDS: ROSUVASTATIN CALCIUM 10 MG TABLET 40 MG PO (19:58)
[2022-12-01 23:00] VITALS: TEMP 36.4; O2SAT 97
[2022-12-02] MEDS: CLOPIDOGREL 75 MG TABLET PO (07:44)
[2022-12-02] MEDS: ASPIRIN 81 MG TAB.CHEW PO (07:44)
[2022-12-02] MEDS: LORATADINE 10 MG TABLET PO (07:44)
[2022-12-02] MEDS: lisinopriL 2.5 MG TABLET 5 MG PO (07:44)
[2022-12-02] MEDS: ACETAMINOPHEN 500 MG TABLET 1000 MG PO ×2 (07:44→19:22)
[2022-12-02] MEDS: SERTRALINE 50 MG TABLET 25 MG PO (07:46)
[2022-12-02 09:53] VITALS: TEMP 36.8; O2SAT 96
[2022-12-02 15:13] VITALS: TEMP 36.3; O2SAT 95
[2022-12-02] MEDS: ROSUVASTATIN CALCIUM 10 MG TABLET 40 MG PO (19:22)
[2022-12-02 23:00] VITALS: TEMP 36.6; O2SAT 95
--- NOTE | 2022-12-03 03:31 | PC.NURSE ---
WEEKLY CHARTING - WEEK 3: Vital signs reviewed. Last recorded BP value elevated. Continue with routine monitoring and update MD/LATHE TENDER as needed. Temporary and comprehensive care plan reviewed - no change. Currently has small scabbed area on anterior LLE left SHANIKA with no s/sx of infection. No other documented skin integrity concerns. Continent of bowel and bladder. Wears pull-up. Assist of 1 with toileting needs including bo-cares, pad management, and clothing adjustment. Uses urinal independently when in bed. Staff empty urinal on 1st and 3rd rounds at night.
[2022-12-03 07:00] VITALS: TEMP 36.5; O2SAT 93
--- NOTE | 2022-12-03 07:26 | PC.NURSE ---
Week #3 - Toileting: Comprehensive and temporary care plan reviewed. No changes made. Nothing added to temporary care plan. Resident is continent of bowel and bladder. Needs one extensive assist with toileting: bo cares, clothing and pad management. Uses a urinal when in bed. Wears medium pull ups.? Encourage to ambulate to the toilet as much as possible with assist, gait belt and walker. Vital signs reviewed, BP last assessment is elevated. Continue weekly monitoring & refer to INSPECTOR MACHINE CUT GLASS/MD as needed. Skin: Has a small scab on LLE, PATTERN GRADER, no s/s of infection. Skin is checked during cares and on bath day.
[2022-12-03] MEDS: ACETAMINOPHEN 500 MG TABLET 1000 MG PO ×2 (07:37→20:39)
[2022-12-03] MEDS: CLOPIDOGREL 75 MG TABLET PO (07:37)
[2022-12-03] MEDS: ASPIRIN 81 MG TAB.CHEW PO (07:37)
[2022-12-03] MEDS: SERTRALINE 50 MG TABLET 25 MG PO (07:38)
[2022-12-03] MEDS: lisinopriL 2.5 MG TABLET 5 MG PO (07:38)
[2022-12-03] MEDS: LORATADINE 10 MG TABLET PO (07:38)
--- NOTE | 2022-12-03 13:43 | PC.NURSE ---
Out for lunch: Resident went out with family for lunch at 1200 and will be back this evening at 1700 hours. No med sent with him.
[2022-12-03 17:11] VITALS: TEMP 37; O2SAT 94
[2022-12-03] MEDS: ROSUVASTATIN CALCIUM 10 MG TABLET 40 MG PO (20:39)
[2022-12-03 23:00] VITALS: TEMP 36.4; O2SAT 94
[2022-12-04 07:00] VITALS: TEMP 36.3; O2SAT 95
[2022-12-04] MEDS: CLOPIDOGREL 75 MG TABLET PO (08:05)
[2022-12-04] MEDS: LORATADINE 10 MG TABLET PO (08:05)
[2022-12-04] MEDS: ACETAMINOPHEN 500 MG TABLET 1000 MG PO ×2 (08:05→20:07)
[2022-12-04] MEDS: ASPIRIN 81 MG TAB.CHEW PO (08:05)
[2022-12-04] MEDS: lisinopriL 2.5 MG TABLET 5 MG PO (08:05)
[2022-12-04] MEDS: SERTRALINE 50 MG TABLET 25 MG PO (08:05)
[2022-12-04 17:00] VITALS: TEMP 36.8; O2SAT 95
[2022-12-04] MEDS: ROSUVASTATIN CALCIUM 10 MG TABLET 40 MG PO (20:07)
[2022-12-04 23:00] VITALS: TEMP 36.7; O2SAT 94
[2022-12-05 07:00] VITALS: TEMP 36.2; O2SAT 97
[2022-12-05] MEDS: lisinopriL 2.5 MG TABLET 5 MG PO (07:59)
[2022-12-05] MEDS: CLOPIDOGREL 75 MG TABLET PO (07:59)
[2022-12-05] MEDS: ASPIRIN 81 MG TAB.CHEW PO (07:59)
[2022-12-05] MEDS: ACETAMINOPHEN 500 MG TABLET 1000 MG PO ×2 (07:59→19:43)
[2022-12-05] MEDS: SERTRALINE 50 MG TABLET 25 MG PO (08:00)
[2022-12-05] MEDS: LORATADINE 10 MG TABLET PO (08:00)
[2022-12-05 16:49] VITALS: TEMP 36.4; O2SAT 94
[2022-12-05] MEDS: ROSUVASTATIN CALCIUM 10 MG TABLET 40 MG PO (19:43)
[2022-12-05 23:00] VITALS: TEMP 36.3; O2SAT 94
[2022-12-06 07:00] VITALS: TEMP 36.7; O2SAT 97
[2022-12-06] MEDS: ACETAMINOPHEN 500 MG TABLET 1000 MG PO ×2 (07:08→19:10)
[2022-12-06] MEDS: SERTRALINE 50 MG TABLET 25 MG PO (07:08)
[2022-12-06] MEDS: CLOPIDOGREL 75 MG TABLET PO (07:08)
[2022-12-06] MEDS: LORATADINE 10 MG TABLET PO (07:08)
[2022-12-06] MEDS: lisinopriL 2.5 MG TABLET 5 MG PO (07:08)
[2022-12-06] MEDS: ASPIRIN 81 MG TAB.CHEW PO (07:08)
--- NOTE | 2022-12-06 11:58 | PC.NURSE ---
COVID OUTBREAK TESTING Resident gave verbal consent for outbreak COVID testing. Resident is currently asymptomatic.? Resident/family will be notified only if resident is positive.
[2022-12-06 12:49] LABS: SARS PCR* Negative SARS-CoV-2 (Negative)
[2022-12-06 15:00] VITALS: TEMP 36.5; O2SAT 96
[2022-12-06] MEDS: ROSUVASTATIN CALCIUM 10 MG TABLET 40 MG PO (19:10)
[2022-12-06 23:00] VITALS: TEMP 36.3; O2SAT 95
[2022-12-07] MEDS: LORATADINE 10 MG TABLET PO (07:45)
[2022-12-07] MEDS: lisinopriL 2.5 MG TABLET 5 MG PO (07:45)
[2022-12-07] MEDS: ACETAMINOPHEN 500 MG TABLET 1000 MG PO ×2 (07:45→20:00)
[2022-12-07] MEDS: SERTRALINE 50 MG TABLET 25 MG PO (07:45)
[2022-12-07] MEDS: CLOPIDOGREL 75 MG TABLET PO (07:45)
[2022-12-07] MEDS: ASPIRIN 81 MG TAB.CHEW PO (07:45)
[2022-12-07 10:23] VITALS: TEMP 36.9; O2SAT 95
[2022-12-07] MEDS: ROSUVASTATIN CALCIUM 10 MG TABLET 40 MG PO (20:00)
[2022-12-07 21:42] VITALS: TEMP 36.3; O2SAT 94
[2022-12-07 23:00] VITALS: TEMP 36.5; O2SAT 94
[2022-12-08 07:00] VITALS: BP 127/80; PULSE 82; RESP 18; TEMP 35.9; TEMP 36.1; O2SAT 97; BMI 28.5
[2022-12-08] MEDS: ASPIRIN 81 MG TAB.CHEW PO (08:29)
[2022-12-08] MEDS: CLOPIDOGREL 75 MG TABLET PO (08:29)
[2022-12-08] MEDS: LORATADINE 10 MG TABLET PO (08:29)
[2022-12-08] MEDS: SERTRALINE 50 MG TABLET 25 MG PO (08:29)
[2022-12-08] MEDS: ACETAMINOPHEN 500 MG TABLET 1000 MG PO ×2 (08:29→20:17)
[2022-12-08] MEDS: lisinopriL 2.5 MG TABLET 5 MG PO (08:29)
[2022-12-08 15:00] VITALS: TEMP 36.6; O2SAT 97
[2022-12-08] MEDS: ROSUVASTATIN CALCIUM 10 MG TABLET 40 MG PO (20:17)
[2022-12-08 23:00] VITALS: TEMP 36.7; O2SAT 93
[2022-12-09 07:00] VITALS: TEMP 36.8; O2SAT 93
[2022-12-09] MEDS: ACETAMINOPHEN 500 MG TABLET 1000 MG PO ×2 (08:51→19:57)
[2022-12-09] MEDS: ASPIRIN 81 MG TAB.CHEW PO (08:51)
[2022-12-09] MEDS: LORATADINE 10 MG TABLET PO (08:52)
[2022-12-09] MEDS: SERTRALINE 50 MG TABLET 25 MG PO (08:52)
[2022-12-09] MEDS: CLOPIDOGREL 75 MG TABLET PO (08:52)
[2022-12-09] MEDS: lisinopriL 2.5 MG TABLET 5 MG PO (08:52)
[2022-12-09 16:53] VITALS: TEMP 36.4; O2SAT 96
[2022-12-09] MEDS: ROSUVASTATIN CALCIUM 10 MG TABLET 40 MG PO (19:57)
[2022-12-09 23:00] VITALS: TEMP 36.7; O2SAT 95
--- NOTE | 2022-12-10 01:08 | PC.NURSE ---
WEEKLY CHARTING - WEEK 4: Vital signs reviewed - no concerns. Temporary and comprehensive care plan reviewed - no change. Two documented behaviors in the last month of refusal of care and meals. Receives sertraline 25mg daily with no adverse effects. Sertraline dose was decreased on 11/30. No noted change in mood or behavior. Able to communicate needs without difficulty. Hearing intact. Wears glasses for reading. Cognitively intact. All medications administered by licensed nurse. Health condition stable at this time.
--- NOTE | 2022-12-10 07:39 | PC.NURSE ---
Week #4: Comprehensive and temporary care plan reviewed. No changes made, & nothing added to temporary care plan. No changes noted in communication, hearing, vision, or orientation. Resident does make his needs known. Uses reading glasses. Hears fine. Cognition intact. Chronic health condition stable. BP's stable, reviewed by NURSE COLLEGE. Monitoring back to weekly. Mood/Behavior: Has few episodes of resisting cares. Re approach did help. 11/30 Zoloft decreased to 25mg daily with no adverse effects noted. And no behavioral/mood changes noted. Staff to monitor changes and report to provider as needed.
[2022-12-10] MEDS: ACETAMINOPHEN 500 MG TABLET 1000 MG PO ×2 (08:19→20:18)
[2022-12-10] MEDS: LORATADINE 10 MG TABLET PO (08:19)
[2022-12-10] MEDS: SERTRALINE 50 MG TABLET 25 MG PO (08:19)
[2022-12-10] MEDS: lisinopriL 2.5 MG TABLET 5 MG PO (08:19)
[2022-12-10] MEDS: CLOPIDOGREL 75 MG TABLET PO (08:19)
[2022-12-10] MEDS: ASPIRIN 81 MG TAB.CHEW PO (08:19)
[2022-12-10 09:42] VITALS: TEMP 36.9; O2SAT 98
[2022-12-10 15:00] VITALS: TEMP 37.1; O2SAT 100
[2022-12-10] MEDS: ROSUVASTATIN CALCIUM 10 MG TABLET 40 MG PO (20:18)
[2022-12-10 23:42] VITALS: TEMP 36.7; O2SAT 96
[2022-12-11] MEDS: ACETAMINOPHEN 500 MG TABLET 1000 MG PO ×2 (07:46→20:18)
[2022-12-11] MEDS: lisinopriL 2.5 MG TABLET 5 MG PO (07:47)
[2022-12-11] MEDS: ASPIRIN 81 MG TAB.CHEW PO (07:47)
[2022-12-11] MEDS: LORATADINE 10 MG TABLET PO (07:47)
[2022-12-11] MEDS: SERTRALINE 50 MG TABLET 25 MG PO (07:47)
[2022-12-11] MEDS: CLOPIDOGREL 75 MG TABLET PO (07:47)
[2022-12-11 10:24] VITALS: TEMP 36.8; O2SAT 97
[2022-12-11 15:00] VITALS: TEMP 36.6; O2SAT 96
[2022-12-11] MEDS: ROSUVASTATIN CALCIUM 10 MG TABLET 40 MG PO (20:18)
[2022-12-11 23:59] VITALS: TEMP 36.7; O2SAT 92
[2022-12-12] MEDS: lisinopriL 2.5 MG TABLET 5 MG PO (07:48)
[2022-12-12] MEDS: CLOPIDOGREL 75 MG TABLET PO (07:48)
[2022-12-12] MEDS: ASPIRIN 81 MG TAB.CHEW PO (07:48)
[2022-12-12] MEDS: SERTRALINE 50 MG TABLET 25 MG PO (07:48)
[2022-12-12] MEDS: ACETAMINOPHEN 500 MG TABLET 1000 MG PO ×2 (07:48→20:56)
[2022-12-12] MEDS: LORATADINE 10 MG TABLET PO (07:48)
[2022-12-12 09:55] VITALS: TEMP 36.6; O2SAT 97
[2022-12-12 15:00] VITALS: TEMP 36.1; O2SAT 95
[2022-12-12] MEDS: ROSUVASTATIN CALCIUM 10 MG TABLET 40 MG PO (20:56)
[2022-12-12 23:41] VITALS: TEMP 36.3; O2SAT 94
[2022-12-13 07:00] VITALS: TEMP 36.8; O2SAT 92
[2022-12-13] MEDS: CLOPIDOGREL 75 MG TABLET PO (08:10)
[2022-12-13] MEDS: LORATADINE 10 MG TABLET PO (08:10)
[2022-12-13] MEDS: SERTRALINE 50 MG TABLET 25 MG PO (08:10)
[2022-12-13] MEDS: ACETAMINOPHEN 500 MG TABLET 1000 MG PO ×2 (08:10→19:09)
[2022-12-13] MEDS: ASPIRIN 81 MG TAB.CHEW PO (08:10)
[2022-12-13] MEDS: lisinopriL 2.5 MG TABLET 5 MG PO (08:10)
--- NOTE | 2022-12-13 11:06 | PC.NURSE ---
COVID OUTBREAK TESTING Resident and residents family gave verbal consent for outbreak COVID testing. Resident is currently asymptomatic.? Resident/family will be notified only if resident is positive.
[2022-12-13 11:18] LABS: SARS PCR* Negative SARS-CoV-2 (Negative)
[2022-12-13 15:00] VITALS: TEMP 36.6; O2SAT 96
[2022-12-13] MEDS: ROSUVASTATIN CALCIUM 10 MG TABLET 40 MG PO (19:09)
[2022-12-14 01:17] VITALS: TEMP 36.7; O2SAT 96
[2022-12-14 07:00] VITALS: TEMP 36.3; O2SAT 96
[2022-12-14] MEDS: ASPIRIN 81 MG TAB.CHEW PO (07:31)
[2022-12-14] MEDS: ACETAMINOPHEN 500 MG TABLET 1000 MG PO ×2 (07:31→19:51)
[2022-12-14] MEDS: CLOPIDOGREL 75 MG TABLET PO (07:31)
[2022-12-14] MEDS: lisinopriL 2.5 MG TABLET 5 MG PO (07:32)
[2022-12-14] MEDS: SERTRALINE 50 MG TABLET 25 MG PO (07:32)
[2022-12-14] MEDS: LORATADINE 10 MG TABLET PO (07:32)
--- NOTE | 2022-12-14 12:08 | PC.SPIRITC ---
I provided visit for connection and support.
[2022-12-14 17:13] VITALS: TEMP 36.7; O2SAT 95
[2022-12-14] MEDS: ROSUVASTATIN CALCIUM 10 MG TABLET 40 MG PO (19:51)
[2022-12-14 23:00] VITALS: TEMP 36.4; O2SAT 93
[2022-12-15 07:00] VITALS: TEMP 36.8; O2SAT 98; BMI 29.2
[2022-12-15] MEDS: lisinopriL 2.5 MG TABLET 5 MG PO (07:31)
[2022-12-15] MEDS: ACETAMINOPHEN 500 MG TABLET 1000 MG PO ×2 (07:31→20:22)
[2022-12-15] MEDS: CLOPIDOGREL 75 MG TABLET PO (07:31)
[2022-12-15] MEDS: ASPIRIN 81 MG TAB.CHEW PO (07:31)
[2022-12-15] MEDS: SERTRALINE 50 MG TABLET 25 MG PO (07:32)
[2022-12-15] MEDS: LORATADINE 10 MG TABLET PO (07:32)
[2022-12-15 07:39] VITALS: BP 149/89; PULSE 77; RESP 18; TEMP 36.8; O2SAT 98
[2022-12-15 15:00] VITALS: TEMP 36.4; O2SAT 98
[2022-12-15] MEDS: ROSUVASTATIN CALCIUM 10 MG TABLET 40 MG PO (20:22)
[2022-12-15 23:00] VITALS: TEMP 36.6; O2SAT 94
[2022-12-16] MEDS: CLOPIDOGREL 75 MG TABLET PO (08:14)
[2022-12-16] MEDS: LORATADINE 10 MG TABLET PO (08:14)
[2022-12-16] MEDS: ASPIRIN 81 MG TAB.CHEW PO (08:14)
[2022-12-16] MEDS: lisinopriL 2.5 MG TABLET 5 MG PO (08:14)
[2022-12-16] MEDS: SERTRALINE 50 MG TABLET 25 MG PO (08:14)
[2022-12-16] MEDS: ACETAMINOPHEN 500 MG TABLET 1000 MG PO ×2 (08:14→19:18)
[2022-12-16 09:50] VITALS: TEMP 36.5; O2SAT 95
[2022-12-16 15:13] VITALS: TEMP 36.9; O2SAT 94
[2022-12-16] MEDS: ROSUVASTATIN CALCIUM 10 MG TABLET 40 MG PO (19:18)
[2022-12-16 23:00] VITALS: TEMP 36.4; O2SAT 94
--- NOTE | 2022-12-17 00:40 | PC.NURSE ---
WEEKLY CHARTING - WEEK 1: Vital signs reviewed - elevated BP values at times. Temporary and comprehensive care plan reviewed - no change. Has chronic right shoulder pain. Receives acetaminophen 1000mg BID for pain management which is noted to be effective. Limited to extensive assist with dressing, grooming, and bathing. Able to participate with ADLs. Staff encourage participation. Set-up with cues for oral care. Receives a regular diet with regular texture and thin liquids. Appetite is excellent. Eats independently after set-up. Must sit up for all meals. Is not to eat in bed. Continues with gradual weight gain.
[2022-12-17 07:00] VITALS: TEMP 36.8; O2SAT 93
[2022-12-17] MEDS: ACETAMINOPHEN 500 MG TABLET 1000 MG PO ×2 (08:36→19:02)
[2022-12-17] MEDS: ASPIRIN 81 MG TAB.CHEW PO (08:37)
[2022-12-17] MEDS: LORATADINE 10 MG TABLET PO (08:37)
[2022-12-17] MEDS: CLOPIDOGREL 75 MG TABLET PO (08:37)
[2022-12-17] MEDS: lisinopriL 2.5 MG TABLET 5 MG PO (08:37)
[2022-12-17] MEDS: SERTRALINE 50 MG TABLET 25 MG PO (08:37)
--- NOTE | 2022-12-17 10:26 | PC.NURSE ---
Week #1 - ADL's: Comprehensive and temporary care plan reviewed. No changes made, nothing added to temporary care plan. Resident needs extensive to limited assist with dressing, grooming, bathing and hygiene. Encourage to participate as able. Does oral cares and feed independently after set up. Is on regular diet, thin liquids. No problems with chewing/swallowing reported. Vital signs has occasional elevated BP's. Continue weekly monitoring and refer to provider as needed. Pain: Has history of shoulder pain controlled with Tylenol 100mg BID. No complaints presented. Is able to make needs known ifin pain.
[2022-12-17 15:00] VITALS: TEMP 36.3; O2SAT 94
[2022-12-17] MEDS: ROSUVASTATIN CALCIUM 10 MG TABLET 40 MG PO (19:02)
[2022-12-17 23:00] VITALS: TEMP 36.6; O2SAT 94
[2022-12-18 07:00] VITALS: TEMP 36.6; O2SAT 94
[2022-12-18] MEDS: lisinopriL 2.5 MG TABLET 5 MG PO (08:12)
[2022-12-18] MEDS: LORATADINE 10 MG TABLET PO (08:12)
[2022-12-18] MEDS: CLOPIDOGREL 75 MG TABLET PO (08:12)
[2022-12-18] MEDS: ASPIRIN 81 MG TAB.CHEW PO (08:12)
[2022-12-18] MEDS: ACETAMINOPHEN 500 MG TABLET 1000 MG PO ×2 (08:12→19:33)
[2022-12-18] MEDS: SERTRALINE 50 MG TABLET 25 MG PO (08:12)
[2022-12-18 17:04] VITALS: TEMP 36.8; O2SAT 96
[2022-12-18] MEDS: ROSUVASTATIN CALCIUM 10 MG TABLET 40 MG PO (19:34)
[2022-12-18 23:00] VITALS: TEMP 36.7; O2SAT 94
[2022-12-19 07:00] VITALS: TEMP 36.5; O2SAT 97
[2022-12-19] MEDS: ACETAMINOPHEN 500 MG TABLET 1000 MG PO ×2 (08:04→19:33)
[2022-12-19] MEDS: SERTRALINE 50 MG TABLET 25 MG PO (08:05)
[2022-12-19] MEDS: lisinopriL 2.5 MG TABLET 5 MG PO (08:05)
[2022-12-19] MEDS: LORATADINE 10 MG TABLET PO (08:05)
[2022-12-19] MEDS: ASPIRIN 81 MG TAB.CHEW PO (08:05)
[2022-12-19] MEDS: CLOPIDOGREL 75 MG TABLET PO (08:05)
[2022-12-19 15:00] VITALS: TEMP 36.8; O2SAT 97
[2022-12-19] MEDS: ROSUVASTATIN CALCIUM 10 MG TABLET 40 MG PO (19:33)
[2022-12-19 23:00] VITALS: TEMP 36.4; O2SAT 94
[2022-12-20 07:00] VITALS: TEMP 36.3; O2SAT 96
[2022-12-20] MEDS: ASPIRIN 81 MG TAB.CHEW PO (08:01)
[2022-12-20] MEDS: ACETAMINOPHEN 500 MG TABLET 1000 MG PO ×2 (08:01→20:03)
[2022-12-20] MEDS: SERTRALINE 50 MG TABLET 25 MG PO (08:02)
[2022-12-20] MEDS: lisinopriL 2.5 MG TABLET 5 MG PO (08:02)
[2022-12-20] MEDS: LORATADINE 10 MG TABLET PO (08:02)
[2022-12-20] MEDS: CLOPIDOGREL 75 MG TABLET PO (08:02)
--- NOTE | 2022-12-20 12:37 | PC.NURSE ---
COVID OUTBREAK TESTING Resident gave verbal consent for outbreak COVID testing. Resident is currently asymptomatic.? Resident/family will be notified only if resident is positive.
[2022-12-20 14:02] LABS: SARS PCR* Negative SARS-CoV-2 (Negative)
[2022-12-20 15:00] VITALS: TEMP 37.1; O2SAT 97
[2022-12-20] MEDS: ROSUVASTATIN CALCIUM 10 MG TABLET 40 MG PO (20:03)
[2022-12-20 23:00] VITALS: TEMP 36.7; O2SAT 94
[2022-12-21 07:00] VITALS: TEMP 36.4; O2SAT 92
[2022-12-21] MEDS: CLOPIDOGREL 75 MG TABLET PO (07:32)
[2022-12-21] MEDS: ASPIRIN 81 MG TAB.CHEW PO (07:32)
[2022-12-21] MEDS: ACETAMINOPHEN 500 MG TABLET 1000 MG PO ×2 (07:32→19:47)
[2022-12-21] MEDS: LORATADINE 10 MG TABLET PO (07:33)
[2022-12-21] MEDS: lisinopriL 2.5 MG TABLET 5 MG PO (07:33)
[2022-12-21] MEDS: SERTRALINE 50 MG TABLET 25 MG PO (07:33)
--- NOTE | 2022-12-21 13:57 | PC.NURSE ---
Resident went out with daughter Flor today, leaving at approximately 1215 and is still out with daughter. Nursing will update oncoming shift.
[2022-12-21 15:00] VITALS: TEMP 36.6; O2SAT 98
[2022-12-21] MEDS: ROSUVASTATIN CALCIUM 10 MG TABLET 40 MG PO (19:47)
[2022-12-21 23:00] VITALS: TEMP 36.4; O2SAT 94
[2022-12-22 07:00] VITALS: BP 128/81; PULSE 63; RESP 18; TEMP 36.4; O2SAT 96; BMI 29.3
[2022-12-22] MEDS: lisinopriL 2.5 MG TABLET 5 MG PO (07:25)
[2022-12-22] MEDS: ASPIRIN 81 MG TAB.CHEW PO (07:25)
[2022-12-22] MEDS: CLOPIDOGREL 75 MG TABLET PO (07:25)
[2022-12-22] MEDS: ACETAMINOPHEN 500 MG TABLET 1000 MG PO ×2 (07:25→19:04)
[2022-12-22] MEDS: SERTRALINE 50 MG TABLET 25 MG PO (07:26)
[2022-12-22] MEDS: LORATADINE 10 MG TABLET PO (07:26)
--- NOTE | 2022-12-22 11:20 | PC.PHA1 ---
MEAT SALES AND STORAGE MANAGER PHARMACIST'S MEDICATION REVIEW: MEDICATION MONITORING:Sertraline 25 mg daily IRREGULARITY OR COMMENTS:Sertraline dose reduced end of November, nursing notes report patient doing well with change. No other medication changes since last review, blood pressures have been stable on lisinopril 5 mg. Plavix continues post stroke. SUGGESTED COURSE OF ACTION TAKEN:No medication recommendations this review.
[2022-12-22 15:00] VITALS: TEMP 36.9; O2SAT 96
--- NOTE | 2022-12-22 16:20 | PC.SPIRITC ---
I provided visit for support and connection.
[2022-12-22] MEDS: ROSUVASTATIN CALCIUM 10 MG TABLET 40 MG PO (19:04)
[2022-12-22 23:00] VITALS: TEMP 36.5; O2SAT 92
[2022-12-23] MEDS: ACETAMINOPHEN 500 MG TABLET 1000 MG PO ×2 (07:49→19:17)
[2022-12-23] MEDS: LORATADINE 10 MG TABLET PO (07:49)
[2022-12-23] MEDS: SERTRALINE 50 MG TABLET 25 MG PO (07:49)
[2022-12-23] MEDS: ASPIRIN 81 MG TAB.CHEW PO (07:49)
[2022-12-23] MEDS: lisinopriL 2.5 MG TABLET 5 MG PO (07:49)
[2022-12-23] MEDS: CLOPIDOGREL 75 MG TABLET PO (07:49)
[2022-12-23 10:24] VITALS: TEMP 36.8; O2SAT 96
--- NOTE | 2022-12-23 14:05 | PC.NURSE ---
After resident came back from outing with daughter he was asking staff if he could use a cane instead of his walker with arm rest. Spoke in IDT to therapy team and due to residents balance/weakness d/t previous stroke the safest option for resident is to use the walker that therapy recommends and not a cane. Resident updated.
[2022-12-23 15:00] VITALS: TEMP 36.8; O2SAT 97
[2022-12-23] MEDS: ROSUVASTATIN CALCIUM 10 MG TABLET 40 MG PO (19:17)
[2022-12-23 23:00] VITALS: TEMP 36.3; O2SAT 92
--- NOTE | 2022-12-24 01:51 | PC.NURSE ---
WEEKLY CHARTING - WEEK 2: Vital signs reviewed - no concerns. Temporary and comprehensive care plan reviewed - no change. Limited to extensive assist of 1 with gait belt for transfers. FWW with left platform attachment for ambulation with assist of 1. Resistive to ambulation at times. Propels w/c independently with left lap tray in place. Independent with bed mobility. Staff provide reminders to reposition. Bilateral 1/4 side rails as enabler for bed mobility. Per fall risk assessment, resident is at low risk for falls. Fall interventions: w/c at bedside with brakes locked, call light in reach, falling star magnet, bed in low position with brakes locked.
--- NOTE | 2022-12-24 06:48 | PC.NURSE ---
Weekly Charting, Week 2-Mobility: Comprehensive and temporary care plan reviewed. No changes made and nothing added to temporary care plan. Resident needs one assist, gait belt and platform walker for transfers & ambulation. Needs encouragement with ambulation. Is able to wheel self with a left tray for arm support. Able to reposition self in bed/chair.? Bilateral 1/4 side rails up at all times to promote independence with positioning. No alarms. BP's reviewed by CUSTOMER LOGISTICS MANAGER on 11/25/22. BP monitoring changed to weekly, BP's stable. Fall: No falls the past month. Remains a low fall risk according to assessment done on 10/21/22. Fall interventions: Call light within reach, wheelchair at bedside locked, bed in low position with brakes locked.
[2022-12-24 07:00] VITALS: TEMP 36.5; O2SAT 98
[2022-12-24] MEDS: ACETAMINOPHEN 500 MG TABLET 1000 MG PO ×2 (07:56→19:50)
[2022-12-24] MEDS: CLOPIDOGREL 75 MG TABLET PO (07:57)
[2022-12-24] MEDS: lisinopriL 2.5 MG TABLET 5 MG PO (07:57)
[2022-12-24] MEDS: ASPIRIN 81 MG TAB.CHEW PO (07:57)
[2022-12-24] MEDS: LORATADINE 10 MG TABLET PO (07:57)
[2022-12-24] MEDS: SERTRALINE 50 MG TABLET 25 MG PO (07:57)
[2022-12-24 17:04] VITALS: TEMP 36.4; O2SAT 95
[2022-12-24] MEDS: ROSUVASTATIN CALCIUM 10 MG TABLET 40 MG PO (19:50)
[2022-12-25 00:07] VITALS: TEMP 36.6; O2SAT 96
[2022-12-25] MEDS: lisinopriL 2.5 MG TABLET 5 MG PO (08:17)
[2022-12-25] MEDS: LORATADINE 10 MG TABLET PO (08:17)
[2022-12-25] MEDS: ASPIRIN 81 MG TAB.CHEW PO (08:17)
[2022-12-25] MEDS: SERTRALINE 50 MG TABLET 25 MG PO (08:17)
[2022-12-25] MEDS: CLOPIDOGREL 75 MG TABLET PO (08:17)
[2022-12-25] MEDS: ACETAMINOPHEN 500 MG TABLET 1000 MG PO ×2 (08:17→19:22)
[2022-12-25 13:23] VITALS: TEMP 36.9; O2SAT 94
[2022-12-25 15:01] VITALS: TEMP 36.2; O2SAT 94
[2022-12-25] MEDS: ROSUVASTATIN CALCIUM 10 MG TABLET 40 MG PO (19:22)
[2022-12-25 23:49] VITALS: TEMP 36.6; O2SAT 96
[2022-12-26] MEDS: ASPIRIN 81 MG TAB.CHEW PO (07:53)
[2022-12-26] MEDS: SERTRALINE 50 MG TABLET 25 MG PO (07:53)
[2022-12-26] MEDS: CLOPIDOGREL 75 MG TABLET PO (07:53)
[2022-12-26] MEDS: ACETAMINOPHEN 500 MG TABLET 1000 MG PO ×2 (07:53→19:34)
[2022-12-26] MEDS: lisinopriL 2.5 MG TABLET 5 MG PO (07:53)
[2022-12-26] MEDS: LORATADINE 10 MG TABLET PO (07:53)
[2022-12-26 10:36] VITALS: TEMP 36.4; O2SAT 97
[2022-12-26 16:54] VITALS: TEMP 36.8; O2SAT 96
[2022-12-26] MEDS: ROSUVASTATIN CALCIUM 10 MG TABLET 40 MG PO (19:34)
[2022-12-26 23:47] VITALS: TEMP 36.4; O2SAT 95
[2022-12-27 07:00] VITALS: TEMP 36.8; O2SAT 96
[2022-12-27] MEDS: ACETAMINOPHEN 500 MG TABLET 1000 MG PO ×2 (07:40→19:04)
[2022-12-27] MEDS: LORATADINE 10 MG TABLET PO (07:41)
[2022-12-27] MEDS: lisinopriL 2.5 MG TABLET 5 MG PO (07:41)
[2022-12-27] MEDS: CLOPIDOGREL 75 MG TABLET PO (07:41)
[2022-12-27] MEDS: ASPIRIN 81 MG TAB.CHEW PO (07:41)
[2022-12-27] MEDS: SERTRALINE 50 MG TABLET 25 MG PO (07:41)
--- NOTE | 2022-12-27 11:44 | PC.NURSE ---
COVID OUTBREAK TESTING Resident gave verbal consent for outbreak COVID testing. Resident is currently asymptomatic.? Resident/family will be notified only if resident is positive.
[2022-12-27 13:17] LABS: SARS PCR* Negative SARS-CoV-2 (Negative)
[2022-12-27 15:00] VITALS: TEMP 36.6; O2SAT 95
[2022-12-27] MEDS: ROSUVASTATIN CALCIUM 10 MG TABLET 40 MG PO (19:04)
[2022-12-27 23:00] VITALS: TEMP 36.3; O2SAT 94
[2022-12-28 07:00] VITALS: TEMP 37.2; O2SAT 97
[2022-12-28] MEDS: ASPIRIN 81 MG TAB.CHEW PO (08:15)
[2022-12-28] MEDS: CLOPIDOGREL 75 MG TABLET PO (08:15)
[2022-12-28] MEDS: ACETAMINOPHEN 500 MG TABLET 1000 MG PO ×2 (08:15→19:53)
[2022-12-28] MEDS: lisinopriL 2.5 MG TABLET 5 MG PO (08:15)
[2022-12-28] MEDS: SERTRALINE 50 MG TABLET 25 MG PO (08:16)
[2022-12-28] MEDS: LORATADINE 10 MG TABLET PO (08:16)
[2022-12-28 17:03] VITALS: TEMP 36.7; O2SAT 94
[2022-12-28] MEDS: ROSUVASTATIN CALCIUM 10 MG TABLET 40 MG PO (19:53)
[2022-12-28 23:00] VITALS: TEMP 36.2; O2SAT 96
[2022-12-29 07:00] VITALS: BP 144/82; PULSE 64; RESP 18; TEMP 36; O2SAT 96; BMI 29.4
[2022-12-29] MEDS: ACETAMINOPHEN 500 MG TABLET 1000 MG PO ×2 (07:47→19:00)
[2022-12-29] MEDS: lisinopriL 2.5 MG TABLET 5 MG PO (07:48)
[2022-12-29] MEDS: SERTRALINE 50 MG TABLET 25 MG PO (07:48)
[2022-12-29] MEDS: ASPIRIN 81 MG TAB.CHEW PO (07:48)
[2022-12-29] MEDS: CLOPIDOGREL 75 MG TABLET PO (07:48)
[2022-12-29] MEDS: LORATADINE 10 MG TABLET PO (07:48)
[2022-12-29] MEDS: ROSUVASTATIN CALCIUM 10 MG TABLET 40 MG PO (19:00)
[2022-12-30] MEDS: ACETAMINOPHEN 500 MG TABLET 1000 MG PO ×2 (07:26→19:43)
[2022-12-30] MEDS: ASPIRIN 81 MG TAB.CHEW PO (07:26)
[2022-12-30] MEDS: CLOPIDOGREL 75 MG TABLET PO (07:27)
[2022-12-30] MEDS: lisinopriL 2.5 MG TABLET 5 MG PO (07:27)
[2022-12-30] MEDS: LORATADINE 10 MG TABLET PO (07:27)
[2022-12-30] MEDS: SERTRALINE 50 MG TABLET 25 MG PO (07:27)
[2022-12-30] MEDS: ROSUVASTATIN CALCIUM 10 MG TABLET 40 MG PO (19:43)
--- NOTE | 2022-12-31 01:25 | PC.NURSE ---
WEEKLY CHARTING WEEK 3 Vital signs reviewed, elevated BP noted. SUGAR DRIER aware. Vitals check weekly. Comprehensive and temporary care plan reviewed. No changes made. Toileting: Is continent of both bowel and bladder. Use urinal independently when in bed. Staff empty the urinal during first round, 3rd round and when needed. Wears medium pull ups. Skin: Has old scab to anterior LLE that open to air. Skin check done every bath days and during cares.
[2022-12-31] MEDS: ASPIRIN 81 MG TAB.CHEW PO (08:42)
[2022-12-31] MEDS: lisinopriL 2.5 MG TABLET 5 MG PO (08:42)
[2022-12-31] MEDS: SERTRALINE 50 MG TABLET 25 MG PO (08:42)
[2022-12-31] MEDS: LORATADINE 10 MG TABLET PO (08:42)
[2022-12-31] MEDS: CLOPIDOGREL 75 MG TABLET PO (08:42)
[2022-12-31] MEDS: ACETAMINOPHEN 500 MG TABLET 1000 MG PO ×2 (08:42→19:51)
--- NOTE | 2022-12-31 14:43 | PC.NURSE ---
Weekly Charting for Week#3-Toileting and skin: Vitals signs are stable. No changes made to comprehensive and temporary care plans. Reviewed skin notes with skin being in good condition and warm and dry. No new concerns. Resident is continent of bowel and bladder. Uses the urinal while in bed and staff will empty for him. He uses the toilet for bm's and usually will wheel himself into the bathroom. Can manage his pericares and clothing and undergarment needs.
[2022-12-31] MEDS: ROSUVASTATIN CALCIUM 10 MG TABLET 40 MG PO (19:51)
[2023-01-01] MEDS: LORATADINE 10 MG TABLET PO (08:21)
[2023-01-01] MEDS: SERTRALINE 50 MG TABLET 25 MG PO (08:21)
[2023-01-01] MEDS: ACETAMINOPHEN 500 MG TABLET 1000 MG PO ×2 (08:21→19:10)
[2023-01-01] MEDS: CLOPIDOGREL 75 MG TABLET PO (08:21)
[2023-01-01] MEDS: ASPIRIN 81 MG TAB.CHEW PO (08:21)
[2023-01-01] MEDS: lisinopriL 2.5 MG TABLET 5 MG PO (08:21)
[2023-01-01] MEDS: ROSUVASTATIN CALCIUM 10 MG TABLET 40 MG PO (19:10)
[2023-01-02] MEDS: ACETAMINOPHEN 500 MG TABLET 1000 MG PO ×2 (07:56→19:57)
[2023-01-02] MEDS: CLOPIDOGREL 75 MG TABLET PO (07:57)
[2023-01-02] MEDS: LORATADINE 10 MG TABLET PO (07:57)
[2023-01-02] MEDS: lisinopriL 2.5 MG TABLET 5 MG PO (07:57)
[2023-01-02] MEDS: ASPIRIN 81 MG TAB.CHEW PO (07:57)
[2023-01-02] MEDS: SERTRALINE 50 MG TABLET 25 MG PO (07:57)
[2023-01-02] MEDS: ROSUVASTATIN CALCIUM 10 MG TABLET 40 MG PO (19:57)
[2023-01-03] MEDS: ACETAMINOPHEN 500 MG TABLET 1000 MG PO ×2 (07:37→19:07)
[2023-01-03] MEDS: LORATADINE 10 MG TABLET PO (07:37)
[2023-01-03] MEDS: lisinopriL 2.5 MG TABLET 5 MG PO (07:37)
[2023-01-03] MEDS: SERTRALINE 50 MG TABLET 25 MG PO (07:37)
[2023-01-03] MEDS: ASPIRIN 81 MG TAB.CHEW PO (07:37)
[2023-01-03] MEDS: CLOPIDOGREL 75 MG TABLET PO (07:37)
[2023-01-03] MEDS: ROSUVASTATIN CALCIUM 10 MG TABLET 40 MG PO (19:08)
[2023-01-04] MEDS: CLOPIDOGREL 75 MG TABLET PO (07:25)
[2023-01-04] MEDS: LORATADINE 10 MG TABLET PO (07:25)
[2023-01-04] MEDS: ACETAMINOPHEN 500 MG TABLET 1000 MG PO ×2 (07:25→19:46)
[2023-01-04] MEDS: lisinopriL 2.5 MG TABLET 5 MG PO (07:25)
[2023-01-04] MEDS: ASPIRIN 81 MG TAB.CHEW PO (07:25)
[2023-01-04] MEDS: SERTRALINE 50 MG TABLET 25 MG PO (07:26)
[2023-01-04] MEDS: ROSUVASTATIN CALCIUM 10 MG TABLET 40 MG PO (19:47)
[2023-01-05 07:00] VITALS: BP 128/83; PULSE 67; RESP 18; TEMP 36.6; O2SAT 95; BMI 29.6
[2023-01-05] MEDS: LORATADINE 10 MG TABLET PO (07:49)
[2023-01-05] MEDS: ASPIRIN 81 MG TAB.CHEW PO (07:49)
[2023-01-05] MEDS: ACETAMINOPHEN 500 MG TABLET 1000 MG PO ×2 (07:49→19:35)
[2023-01-05] MEDS: lisinopriL 2.5 MG TABLET 5 MG PO (07:49)
[2023-01-05] MEDS: CLOPIDOGREL 75 MG TABLET PO (07:49)
[2023-01-05] MEDS: SERTRALINE 50 MG TABLET 25 MG PO (07:50)
[2023-01-05] MEDS: ROSUVASTATIN CALCIUM 10 MG TABLET 40 MG PO (19:35)
[2023-01-06] MEDS: lisinopriL 2.5 MG TABLET 5 MG PO (08:10)
[2023-01-06] MEDS: CLOPIDOGREL 75 MG TABLET PO (08:10)
[2023-01-06] MEDS: ACETAMINOPHEN 500 MG TABLET 1000 MG PO ×2 (08:10→19:51)
[2023-01-06] MEDS: LORATADINE 10 MG TABLET PO (08:10)
[2023-01-06] MEDS: ASPIRIN 81 MG TAB.CHEW PO (08:10)
[2023-01-06] MEDS: SERTRALINE 50 MG TABLET 25 MG PO (08:11)
--- NOTE | 2023-01-06 09:38 | PC.SPIRITC ---
provided visit for support and connection along with [employer] schedule.
[2023-01-06] MEDS: ROSUVASTATIN CALCIUM 10 MG TABLET 40 MG PO (19:51)
--- NOTE | 2023-01-07 00:32 | PC.NURSE ---
WEEKLY CHARTING - WEEK 4: Vital signs reviewed with no concerns. Temporary and comprehensive care plan reviewed - no change. Documented behavior of refusal of care x2 in the last month. Currently on sertraline 25mg daily with no adverse drug effects noted. Able to communicate needs verbally. No hearing impairment. Wears glasses for reading. Cognitively intact. All medications administered by licensed nurse. Health condition currently stable.
--- NOTE | 2023-01-07 07:09 | PC.NURSE ---
Weekly Charting-Week 4: Comprehensive and temporary care plan reviewed. No changes made, & nothing added to temporary care plan. No changes noted in communication, hearing, vision, or orientation. Resident does make his needs known. Uses reading glasses. Hears fine. Cognition intact. Chronic health condition stable. Vital signs reviewed, no concerns. Mood/Behavior: Has 2 episodes of resisting cares last month. Is on Zoloft 25mg daily with no adverse effects noted. Staff to monitor changes and report to provider as needed.
[2023-01-07] MEDS: ASPIRIN 81 MG TAB.CHEW PO (08:07)
[2023-01-07] MEDS: ACETAMINOPHEN 500 MG TABLET 1000 MG PO ×2 (08:07→20:02)
[2023-01-07] MEDS: LORATADINE 10 MG TABLET PO (08:08)
[2023-01-07] MEDS: SERTRALINE 50 MG TABLET 25 MG PO (08:08)
[2023-01-07] MEDS: CLOPIDOGREL 75 MG TABLET PO (08:08)
[2023-01-07] MEDS: lisinopriL 2.5 MG TABLET 5 MG PO (08:08)
[2023-01-07] MEDS: ROSUVASTATIN CALCIUM 10 MG TABLET 40 MG PO (20:02)
[2023-01-08] MEDS: ACETAMINOPHEN 500 MG TABLET 1000 MG PO ×2 (07:58→19:13)
[2023-01-08] MEDS: LORATADINE 10 MG TABLET PO (07:59)
[2023-01-08] MEDS: lisinopriL 2.5 MG TABLET 5 MG PO (07:59)
[2023-01-08] MEDS: ASPIRIN 81 MG TAB.CHEW PO (07:59)
[2023-01-08] MEDS: SERTRALINE 50 MG TABLET 25 MG PO (07:59)
[2023-01-08] MEDS: CLOPIDOGREL 75 MG TABLET PO (07:59)
--- NOTE | 2023-01-08 12:47 | PC.NURSE ---
ANA: Resident went out with family to his sister`s place in [place] and will be back by 1800 hours.
[2023-01-08] MEDS: ROSUVASTATIN CALCIUM 10 MG TABLET 40 MG PO (19:13)
[2023-01-09] MEDS: ACETAMINOPHEN 500 MG TABLET 1000 MG PO ×2 (08:02→19:23)
[2023-01-09] MEDS: ASPIRIN 81 MG TAB.CHEW PO (08:02)
[2023-01-09] MEDS: LORATADINE 10 MG TABLET PO (08:02)
[2023-01-09] MEDS: CLOPIDOGREL 75 MG TABLET PO (08:02)
[2023-01-09] MEDS: SERTRALINE 50 MG TABLET 25 MG PO (08:02)
[2023-01-09] MEDS: lisinopriL 2.5 MG TABLET 5 MG PO (08:02)
[2023-01-09] MEDS: ROSUVASTATIN CALCIUM 10 MG TABLET 40 MG PO (19:23)
[2023-01-10] MEDS: ACETAMINOPHEN 500 MG TABLET 1000 MG PO ×2 (07:11→19:07)
[2023-01-10] MEDS: ASPIRIN 81 MG TAB.CHEW PO (07:12)
[2023-01-10] MEDS: lisinopriL 2.5 MG TABLET 5 MG PO (07:12)
[2023-01-10] MEDS: CLOPIDOGREL 75 MG TABLET PO (07:12)
[2023-01-10] MEDS: SERTRALINE 50 MG TABLET 25 MG PO (07:12)
[2023-01-10] MEDS: LORATADINE 10 MG TABLET PO (07:12)
[2023-01-10 13:10] VITALS: BMI 29.6
[2023-01-10] MEDS: ROSUVASTATIN CALCIUM 10 MG TABLET 40 MG PO (19:07)
[2023-01-11] MEDS: ACETAMINOPHEN 500 MG TABLET 1000 MG PO ×2 (08:19→19:28)
[2023-01-11] MEDS: ASPIRIN 81 MG TAB.CHEW PO (08:19)
[2023-01-11] MEDS: lisinopriL 2.5 MG TABLET 5 MG PO (08:19)
[2023-01-11] MEDS: SERTRALINE 50 MG TABLET 25 MG PO (08:19)
[2023-01-11] MEDS: CLOPIDOGREL 75 MG TABLET PO (08:19)
[2023-01-11] MEDS: LORATADINE 10 MG TABLET PO (08:19)
[2023-01-11] MEDS: ROSUVASTATIN CALCIUM 10 MG TABLET 40 MG PO (19:28)
[2023-01-12 07:00] VITALS: BMI 29.0
[2023-01-12] MEDS: lisinopriL 2.5 MG TABLET 5 MG PO (07:18)
[2023-01-12] MEDS: ACETAMINOPHEN 500 MG TABLET 1000 MG PO ×2 (07:18→19:35)
[2023-01-12] MEDS: ASPIRIN 81 MG TAB.CHEW PO (07:18)
[2023-01-12] MEDS: LORATADINE 10 MG TABLET PO (07:18)
[2023-01-12] MEDS: CLOPIDOGREL 75 MG TABLET PO (07:18)
[2023-01-12] MEDS: SERTRALINE 50 MG TABLET 25 MG PO (07:19)
--- NOTE | 2023-01-12 07:48 | PC.NURSE ---
Resident reports moderate formed BM on 01/11/23. He is therefore not on bowel protocol today.
[2023-01-12 09:21] VITALS: BP 146/85; PULSE 74; RESP 18; TEMP 36.5; O2SAT 96
--- NOTE | 2023-01-12 16:06 | PC.SPIRITC ---
Janes talked about his daughter visiting her aunt/his [id number] who is dying of brain cancer. Per Janes, it is the same cancer that his from. I provided visit for connection and support.
[2023-01-12] MEDS: ROSUVASTATIN CALCIUM 10 MG TABLET 40 MG PO (19:35)
[2023-01-13] MEDS: CLOPIDOGREL 75 MG TABLET PO (07:55)
[2023-01-13] MEDS: lisinopriL 2.5 MG TABLET 5 MG PO (07:55)
[2023-01-13] MEDS: LORATADINE 10 MG TABLET PO (07:55)
[2023-01-13] MEDS: ACETAMINOPHEN 500 MG TABLET 1000 MG PO ×2 (07:55→19:26)
[2023-01-13] MEDS: SERTRALINE 50 MG TABLET 25 MG PO (07:55)
[2023-01-13] MEDS: ASPIRIN 81 MG TAB.CHEW PO (07:55)
[2023-01-13 10:39] VITALS: BMI 29.5
[2023-01-13] MEDS: ROSUVASTATIN CALCIUM 10 MG TABLET 40 MG PO (19:26)
--- NOTE | 2023-01-14 01:00 | PC.NURSE ---
WEEKLY CHARTING - WEEK 1: Vital signs reviewed - no concerns. Temporary and comprehensive care plan reviewed - no change. Hx of chronic right shoulder pain. Currently on acetaminophen 1000mg BID for pain management which is noted to be effective. Requires limited to extensive assist with dressing, grooming, and bathing. Participates with ADLs. Needs setup and cues for completion of oral care. Receives a regular diet with regular texture and thin liquids. Appetite is excellent. Eats independently after set-up. Must sit up vertically for all meals.
[2023-01-14] MEDS: CLOPIDOGREL 75 MG TABLET PO (07:37)
[2023-01-14] MEDS: SERTRALINE 50 MG TABLET 25 MG PO (07:37)
[2023-01-14] MEDS: LORATADINE 10 MG TABLET PO (07:37)
[2023-01-14] MEDS: lisinopriL 2.5 MG TABLET 5 MG PO (07:37)
[2023-01-14] MEDS: ACETAMINOPHEN 500 MG TABLET 1000 MG PO ×2 (07:37→19:48)
[2023-01-14] MEDS: ASPIRIN 81 MG TAB.CHEW PO (07:37)
--- NOTE | 2023-01-14 07:53 | PC.NURSE ---
Weekly Charting, Week 1 - ADL's: Comprehensive and temporary care plan reviewed. No changes made, nothing added to temporary care plan. Resident needs extensive to limited assist with dressing, grooming, bathing and hygiene. Encourage to participate as able. Does oral cares and feed independently after set up. Is on regular diet, regular texture, thin liquids. No problems with chewing/swallowing reported. Vital signs reviewed, no concerns. Pain: Has history of shoulder pain controlled with Tylenol 100mg BID. No complain of pain the past months. Is able to make needs known if in pain.
[2023-01-14] MEDS: ROSUVASTATIN CALCIUM 10 MG TABLET 40 MG PO (19:48)
[2023-01-15] MEDS: SERTRALINE 50 MG TABLET 25 MG PO (08:12)
[2023-01-15] MEDS: LORATADINE 10 MG TABLET PO (08:12)
[2023-01-15] MEDS: ASPIRIN 81 MG TAB.CHEW PO (08:12)
[2023-01-15] MEDS: ACETAMINOPHEN 500 MG TABLET 1000 MG PO ×2 (08:12→19:36)
[2023-01-15] MEDS: CLOPIDOGREL 75 MG TABLET PO (08:12)
[2023-01-15] MEDS: lisinopriL 2.5 MG TABLET 5 MG PO (08:12)
[2023-01-15] MEDS: ROSUVASTATIN CALCIUM 10 MG TABLET 40 MG PO (19:36)
[2023-01-16] MEDS: ASPIRIN 81 MG TAB.CHEW PO (08:00)
[2023-01-16] MEDS: lisinopriL 2.5 MG TABLET 5 MG PO (08:00)
[2023-01-16] MEDS: LORATADINE 10 MG TABLET PO (08:00)
[2023-01-16] MEDS: CLOPIDOGREL 75 MG TABLET PO (08:00)
[2023-01-16] MEDS: SERTRALINE 50 MG TABLET 25 MG PO (08:00)
[2023-01-16] MEDS: ACETAMINOPHEN 500 MG TABLET 1000 MG PO ×2 (08:00→20:35)
[2023-01-16] MEDS: ROSUVASTATIN CALCIUM 10 MG TABLET 40 MG PO (20:35)
[2023-01-17] MEDS: ASPIRIN 81 MG TAB.CHEW PO (07:24)
[2023-01-17] MEDS: ACETAMINOPHEN 500 MG TABLET 1000 MG PO ×2 (07:24→20:15)
[2023-01-17] MEDS: SERTRALINE 50 MG TABLET 25 MG PO (07:25)
[2023-01-17] MEDS: CLOPIDOGREL 75 MG TABLET PO (07:25)
[2023-01-17] MEDS: lisinopriL 2.5 MG TABLET 5 MG PO (07:25)
[2023-01-17] MEDS: LORATADINE 10 MG TABLET PO (07:25)
[2023-01-17] MEDS: ROSUVASTATIN CALCIUM 10 MG TABLET 40 MG PO (20:16)
[2023-01-18] MEDS: ACETAMINOPHEN 500 MG TABLET 1000 MG PO ×2 (07:23→19:39)
[2023-01-18] MEDS: LORATADINE 10 MG TABLET PO (07:23)
[2023-01-18] MEDS: ASPIRIN 81 MG TAB.CHEW PO (07:23)
[2023-01-18] MEDS: SERTRALINE 50 MG TABLET 25 MG PO (07:23)
[2023-01-18] MEDS: lisinopriL 2.5 MG TABLET 5 MG PO (07:23)
[2023-01-18] MEDS: CLOPIDOGREL 75 MG TABLET PO (07:23)
--- NOTE | 2023-01-18 13:00 | PC.NURSE ---
CARE CONFERENCE: Resident and daughter Muna present. Nursing, dietary, activities, and SW present. Nursing discussed current medications and provided a med list to daughter. Resident continues to lack motivation with ambulating and following therapy recommendations. During care conference daughter had stated that resident has been telling her that he is walking and going down to meals frequently. Once again discussed that this has not been the case the past few months. Encouraged resident to go out for meals and to walk with staff.?Also encouraged resident to participate in exercise activities. Nursing to continue encouraging resident. Resident agrees to this plan. Activities also encouraged resident to participate in exercise class and other activities, resident agrees that he should try to participate more. Likes to spend time in room watching TV. SW reports that mood has been stable, no concerns. Dietary - weight has slowly increased. Encouraged to participate in exercise and ambulation. Per provider note, GDR of Zoloft occured on 12/21/22, residents daughter was aware as it was discusse with her. Resident and daughter deny any concerns with his care. Care plan reviewed and updated. Is full code. Uses no restraints. Does use 2 side rails to assist with positioning per his request.?Vulnerability- is at risk for being harmed due to balance and L sided deficit. No plans for discharge, long term care social worker stay.
--- NOTE | 2023-01-18 13:33 | PC.NURSE ---
MDS Clarification: ADLs. Staff were interviewed regarding ADL documentation. Bed mobility ? resident was independent for all occurrences. Ambulation: resident did not require any weight bearing support from staff, should have been coded limited assist by GARY. Locomotion: resident was independent once in his wheelchair for all occurrences. Hygiene: resident was independent at times but did need cueing for some occurrences. All items coded as such on the MDS.
--- NOTE | 2023-01-18 14:08 | PC.SOCIAL ---
Resident's care conference was held today in resident's room at 1:30 pm. Resident's daughter, Muna Orta, was present in person. Updates were provided by Ariela Logan from Nursing, Valery Lund from [facility], Sharda Najera from Nutrition, and this worker from social work. Resident's care plan was reviewed. Resident was encouraged to join in on more activities to get out of the room and have social interaction. Muna supports the recommendation. Resident's mood is stable and there are no further concerns.
[2023-01-18] MEDS: ROSUVASTATIN CALCIUM 10 MG TABLET 40 MG PO (19:39)
[2023-01-19 07:00] VITALS: BP 112/66; PULSE 64; RESP 17; TEMP 36.5; O2SAT 97; BMI 29.8
[2023-01-19] MEDS: ASPIRIN 81 MG TAB.CHEW PO (07:52)
[2023-01-19] MEDS: LORATADINE 10 MG TABLET PO (07:52)
[2023-01-19] MEDS: lisinopriL 2.5 MG TABLET 5 MG PO (07:52)
[2023-01-19] MEDS: CLOPIDOGREL 75 MG TABLET PO (07:52)
[2023-01-19] MEDS: ACETAMINOPHEN 500 MG TABLET 1000 MG PO ×2 (07:52→19:34)
[2023-01-19] MEDS: SERTRALINE 50 MG TABLET 25 MG PO (07:52)
[2023-01-19] MEDS: ROSUVASTATIN CALCIUM 10 MG TABLET 40 MG PO (19:34)
[2023-01-20] MEDS: SERTRALINE 50 MG TABLET 25 MG PO (08:38)
[2023-01-20] MEDS: LORATADINE 10 MG TABLET PO (08:38)
[2023-01-20] MEDS: ACETAMINOPHEN 500 MG TABLET 1000 MG PO ×2 (08:38→20:38)
[2023-01-20] MEDS: CLOPIDOGREL 75 MG TABLET PO (08:38)
[2023-01-20] MEDS: lisinopriL 2.5 MG TABLET 5 MG PO (08:38)
[2023-01-20] MEDS: ASPIRIN 81 MG TAB.CHEW PO (08:38)
--- NOTE | 2023-01-20 09:55 | PC.SPIRITC ---
Janes talked about his and her last days along with his daughter and her visiting a relative who is dying from cancer. I provided visit for support and connection.
[2023-01-20] MEDS: ROSUVASTATIN CALCIUM 10 MG TABLET 40 MG PO (20:38)
--- NOTE | 2023-01-21 01:04 | PC.NURSE ---
WEEKLY CHARTING WEEK 2 Vital signs reviewed. Occasional elevated BP, continue to monitor update SENIOR JAVA J2EE DEVELOPER as needed. Comprehensive and temporary care plan reviewed with no changes made. Res requires Limited assist of 1 staff with gait belt for transfer, FWW with left platform attachment for ambulation with assist of 1 staff. resident is resistive to ambulation in room/ hallway. Able to propel wheelchair independently. Has 1/4 side rails up all the times as anabler for bed mobility. Staff reminded Res to reposition himself. Res is a low fall risk. Fall prevention. wheelchair stayed in bed side wheel locked. Call light within reach, bed in low position brakes on, falling star in the door.
--- NOTE | 2023-01-21 07:40 | PC.NURSE ---
Weekly Charting, Week 2-Mobility: Comprehensive and temporary care plan reviewed. No changes made and nothing added to temporary care plan. Resident needs one assist, gait belt and platform walker for transfers & ambulation. Needs encouragement with ambulation. Is able to wheel self with a left tray for arm support. Able to reposition self in bed/chair.? Bilateral 1/4 side rails up at all times to promote independence with positioning. No alarms. Vital signs reviewed, occasional elevated BP's. Continue weekly monitoring, refer to provider as needed. Fall: No falls the past month. Remains a low fall risk according to assessment done on 01/11/23. Fall interventions: Call light within reach, wheelchair at bedside locked, bed in low position with brakes locked.
[2023-01-21] MEDS: ACETAMINOPHEN 500 MG TABLET 1000 MG PO ×2 (08:12→19:24)
[2023-01-21] MEDS: LORATADINE 10 MG TABLET PO (08:12)
[2023-01-21] MEDS: SERTRALINE 50 MG TABLET 25 MG PO (08:12)
[2023-01-21] MEDS: lisinopriL 2.5 MG TABLET 5 MG PO (08:12)
[2023-01-21] MEDS: CLOPIDOGREL 75 MG TABLET PO (08:12)
[2023-01-21] MEDS: ASPIRIN 81 MG TAB.CHEW PO (08:12)
--- NOTE | 2023-01-21 12:05 | PC.NURSE ---
Recert Visit: Resident seen by Dr. Cifuentes. Orders reviewed and renewed of 75 days without changes.
[2023-01-21] MEDS: ROSUVASTATIN CALCIUM 10 MG TABLET 40 MG PO (19:24)
[2023-01-22] MEDS: LORATADINE 10 MG TABLET PO (07:56)
[2023-01-22] MEDS: lisinopriL 2.5 MG TABLET 5 MG PO (07:56)
[2023-01-22] MEDS: ACETAMINOPHEN 500 MG TABLET 1000 MG PO ×2 (07:56→19:14)
[2023-01-22] MEDS: SERTRALINE 50 MG TABLET 25 MG PO (07:56)
[2023-01-22] MEDS: CLOPIDOGREL 75 MG TABLET PO (07:56)
[2023-01-22] MEDS: ASPIRIN 81 MG TAB.CHEW PO (07:56)
[2023-01-22] MEDS: ROSUVASTATIN CALCIUM 10 MG TABLET 40 MG PO (19:14)
[2023-01-23] MEDS: ACETAMINOPHEN 500 MG TABLET 1000 MG PO ×2 (07:33→19:33)
[2023-01-23] MEDS: CLOPIDOGREL 75 MG TABLET PO (07:34)
[2023-01-23] MEDS: lisinopriL 2.5 MG TABLET 5 MG PO (07:34)
[2023-01-23] MEDS: ASPIRIN 81 MG TAB.CHEW PO (07:34)
[2023-01-23] MEDS: LORATADINE 10 MG TABLET PO (07:34)
[2023-01-23] MEDS: SERTRALINE 50 MG TABLET 25 MG PO (07:34)
[2023-01-23] MEDS: ROSUVASTATIN CALCIUM 10 MG TABLET 40 MG PO (19:33)
[2023-01-24] MEDS: LORATADINE 10 MG TABLET PO (07:20)
[2023-01-24] MEDS: lisinopriL 2.5 MG TABLET 5 MG PO (07:20)
[2023-01-24] MEDS: SERTRALINE 50 MG TABLET 25 MG PO (07:20)
[2023-01-24] MEDS: ACETAMINOPHEN 500 MG TABLET 1000 MG PO ×2 (07:20→19:03)
[2023-01-24] MEDS: ASPIRIN 81 MG TAB.CHEW PO (07:20)
[2023-01-24] MEDS: CLOPIDOGREL 75 MG TABLET PO (07:20)
[2023-01-24] MEDS: ROSUVASTATIN CALCIUM 10 MG TABLET 40 MG PO (19:03)
[2023-01-25] MEDS: SERTRALINE 50 MG TABLET 25 MG PO (08:40)
[2023-01-25] MEDS: CLOPIDOGREL 75 MG TABLET PO (08:40)
[2023-01-25] MEDS: ACETAMINOPHEN 500 MG TABLET 1000 MG PO ×2 (08:40→20:00)
[2023-01-25] MEDS: lisinopriL 2.5 MG TABLET 5 MG PO (08:40)
[2023-01-25] MEDS: ASPIRIN 81 MG TAB.CHEW PO (08:40)
[2023-01-25] MEDS: LORATADINE 10 MG TABLET PO (08:40)
[2023-01-25] MEDS: ROSUVASTATIN CALCIUM 10 MG TABLET 40 MG PO (20:00)
[2023-01-26] MEDS: lisinopriL 2.5 MG TABLET 5 MG PO (07:04)
[2023-01-26] MEDS: ACETAMINOPHEN 500 MG TABLET 1000 MG PO ×2 (07:04→19:15)
[2023-01-26] MEDS: CLOPIDOGREL 75 MG TABLET PO (07:04)
[2023-01-26] MEDS: LORATADINE 10 MG TABLET PO (07:04)
[2023-01-26] MEDS: SERTRALINE 50 MG TABLET 25 MG PO (07:04)
[2023-01-26] MEDS: ASPIRIN 81 MG TAB.CHEW PO (07:04)
[2023-01-26 14:20] VITALS: BP 126/70; PULSE 78; RESP 18; TEMP 36.4; O2SAT 98
[2023-01-26] MEDS: ROSUVASTATIN CALCIUM 10 MG TABLET 40 MG PO (19:15)
[2023-01-27] MEDS: LORATADINE 10 MG TABLET PO (07:40)
[2023-01-27] MEDS: lisinopriL 2.5 MG TABLET 5 MG PO (07:40)
[2023-01-27] MEDS: ACETAMINOPHEN 500 MG TABLET 1000 MG PO ×2 (07:40→19:41)
[2023-01-27] MEDS: CLOPIDOGREL 75 MG TABLET PO (07:40)
[2023-01-27] MEDS: ASPIRIN 81 MG TAB.CHEW PO (07:40)
[2023-01-27] MEDS: SERTRALINE 50 MG TABLET 25 MG PO (07:40)
[2023-01-27] MEDS: ROSUVASTATIN CALCIUM 10 MG TABLET 40 MG PO (19:41)
--- NOTE | 2023-01-28 00:37 | PC.NURSE ---
WEEKLY CHARTING WEEK 3 Vital signs reviewed. Occasional elevated BP, Notify MALE IMPERSONATOR as needed. Comprehensive and temporary care plan reviewed with changes made. Skin: Has old known old scab to SHANIKA MONROY. Skin check done every bath days and during cares. Toileting; Res is continent of bowel and bladder. Use urinal at night. Staff 1 assist with bo cares, clothing and pad management. Res able to use call light to empty urinal. Wears medium pull up.
--- NOTE | 2023-01-28 07:33 | PC.NURSE ---
Weekly Charting, Week 3 - Toileting: Comprehensive and temporary care plan reviewed. No changes made. Nothing added to temporary care plan. Resident is continent of bowel and bladder. Needs one extensive assist with toileting: bo cares, clothing and pad management. Uses a urinal when in bed, emptied by staff. Wears medium pull ups.? Encourage to ambulate to the toilet as much as possible with assist, gait belt and walker. Vital signs reviewed, with few elevated BP's. Continue weekly monitoring & refer to DIRECTOR PLANS/MD as needed. Skin: Has a small, old scab on LLE, TALENT PROGRAM MANAGER, no s/s of infection. Skin is checked during cares and on bath day.
[2023-01-28] MEDS: SERTRALINE 50 MG TABLET 25 MG PO (07:48)
[2023-01-28] MEDS: ASPIRIN 81 MG TAB.CHEW PO (07:48)
[2023-01-28] MEDS: lisinopriL 2.5 MG TABLET 5 MG PO (07:48)
[2023-01-28] MEDS: LORATADINE 10 MG TABLET PO (07:48)
[2023-01-28] MEDS: CLOPIDOGREL 75 MG TABLET PO (07:48)
[2023-01-28] MEDS: ACETAMINOPHEN 500 MG TABLET 1000 MG PO (07:48)
--- NOTE | 2023-01-28 17:30 | PC.NURSE ---
ANA: Resident is on ANA. Traveling to [place], [place], from 01/28/23/ to 01/29/23. Was picked up by daughter, Muna Orta, at 1720.
--- NOTE | 2023-01-29 18:12 | PC.NURSE ---
Return to Facility: Resident returned to [facility] from [place], [place], at 1800. Skin assessed - no concerns noted at this time. Vitals signs are normal, and no signs & symptoms of influenza observed.
[2023-01-29] MEDS: ROSUVASTATIN CALCIUM 10 MG TABLET 40 MG PO (20:02)
[2023-01-29] MEDS: ACETAMINOPHEN 500 MG TABLET 1000 MG PO (20:02)
[2023-01-30] MEDS: ACETAMINOPHEN 500 MG TABLET 1000 MG PO ×2 (07:16→20:56)
[2023-01-30] MEDS: ASPIRIN 81 MG TAB.CHEW PO (07:16)
[2023-01-30] MEDS: CLOPIDOGREL 75 MG TABLET PO (07:16)
[2023-01-30] MEDS: SERTRALINE 50 MG TABLET 25 MG PO (07:16)
[2023-01-30] MEDS: lisinopriL 2.5 MG TABLET 5 MG PO (07:16)
[2023-01-30] MEDS: LORATADINE 10 MG TABLET PO (07:16)
[2023-01-30] MEDS: ROSUVASTATIN CALCIUM 10 MG TABLET 40 MG PO (20:56)
[2023-01-31] MEDS: lisinopriL 2.5 MG TABLET 5 MG PO (08:06)
[2023-01-31] MEDS: CLOPIDOGREL 75 MG TABLET PO (08:06)
[2023-01-31] MEDS: LORATADINE 10 MG TABLET PO (08:06)
[2023-01-31] MEDS: ASPIRIN 81 MG TAB.CHEW PO (08:06)
[2023-01-31] MEDS: ACETAMINOPHEN 500 MG TABLET 1000 MG PO ×2 (08:06→19:44)
[2023-01-31] MEDS: SERTRALINE 50 MG TABLET 25 MG PO (08:06)
[2023-01-31] MEDS: ROSUVASTATIN CALCIUM 10 MG TABLET 40 MG PO (19:44)
[2023-02-01] MEDS: LORATADINE 10 MG TABLET PO (07:15)
[2023-02-01] MEDS: ASPIRIN 81 MG TAB.CHEW PO (07:15)
[2023-02-01] MEDS: SERTRALINE 50 MG TABLET 25 MG PO (07:15)
[2023-02-01] MEDS: CLOPIDOGREL 75 MG TABLET PO (07:15)
[2023-02-01] MEDS: lisinopriL 2.5 MG TABLET 5 MG PO (07:15)
[2023-02-01] MEDS: ACETAMINOPHEN 500 MG TABLET 1000 MG PO ×2 (07:15→20:44)
--- NOTE | 2023-02-01 11:19 | PC.PHA1 ---
FACTORY ENGINEER PHARMACIST'S MEDICATION REVIEW: MEDICATION MONITORING:Sertraline 25 mg po daily, GDR in process, further reduction on hold given recent family illness. IRREGULARITY OR COMMENTS:Patient continues on same medication regimen post stroke, all medications indicated and appropriately dosed. SUGGESTED COURSE OF ACTION TAKEN:No medication recommendations this review.
[2023-02-01] MEDS: ROSUVASTATIN CALCIUM 10 MG TABLET 40 MG PO (20:45)
[2023-02-02 07:00] VITALS: BP 137/84; PULSE 66; RESP 18; TEMP 36.3; O2SAT 96; BMI 29.9
[2023-02-02] MEDS: ASPIRIN 81 MG TAB.CHEW PO (07:43)
[2023-02-02] MEDS: ACETAMINOPHEN 500 MG TABLET 1000 MG PO ×2 (07:43→19:53)
[2023-02-02] MEDS: CLOPIDOGREL 75 MG TABLET PO (07:43)
[2023-02-02] MEDS: lisinopriL 2.5 MG TABLET 5 MG PO (07:43)
[2023-02-02] MEDS: LORATADINE 10 MG TABLET PO (07:44)
[2023-02-02] MEDS: SERTRALINE 50 MG TABLET 25 MG PO (07:44)
--- NOTE | 2023-02-02 13:44 | PC.NURSE ---
Podiatry: Resident refused service.
[2023-02-02] MEDS: ROSUVASTATIN CALCIUM 10 MG TABLET 40 MG PO (19:53)
[2023-02-03] MEDS: LORATADINE 10 MG TABLET PO (07:25)
[2023-02-03] MEDS: CLOPIDOGREL 75 MG TABLET PO (07:25)
[2023-02-03] MEDS: ASPIRIN 81 MG TAB.CHEW PO (07:25)
[2023-02-03] MEDS: lisinopriL 2.5 MG TABLET 5 MG PO (07:25)
[2023-02-03] MEDS: ACETAMINOPHEN 500 MG TABLET 1000 MG PO ×2 (07:25→19:08)
[2023-02-03] MEDS: SERTRALINE 50 MG TABLET 25 MG PO (07:25)
[2023-02-03] MEDS: ROSUVASTATIN CALCIUM 10 MG TABLET 40 MG PO (19:08)
--- NOTE | 2023-02-04 01:28 | PC.NURSE ---
WEEKLY CHARTING WEEK 4: Vital signs reviewed with some BP elevated, Continue to monitor weekly, update PICKLE SOLUTION MAKER as needed. Comprehensive and temporary care plan reviewed with no changes made. Currently on Sertraline 50mg daily with no adverse effects. Able to communicate needs. No hearing impairment. visual deficit corrected with reading glasses. Cognitively intact. All medications administered by Health condition is stable.
--- NOTE | 2023-02-04 07:01 | PC.NURSE ---
Weekly Charting-Week 4: Comprehensive and temporary care plan reviewed. No changes made, & nothing added to temporary care plan. No changes noted in communication, hearing, vision, or orientation. Resident does make his needs known. Uses reading glasses. Hears fine. Cognition intact. Chronic health condition stable. Vital signs reviewed, no concerns. Continue weekly monitoring. Mood/Behavior: No issues documented the last month.? Is on Zoloft? 25mg daily with no adverse effects noted.? Staff to monitor changes and report to provider as needed. No change in medication.
[2023-02-04] MEDS: lisinopriL 2.5 MG TABLET 5 MG PO (08:14)
[2023-02-04] MEDS: CLOPIDOGREL 75 MG TABLET PO (08:14)
[2023-02-04] MEDS: ACETAMINOPHEN 500 MG TABLET 1000 MG PO ×2 (08:14→20:25)
[2023-02-04] MEDS: ASPIRIN 81 MG TAB.CHEW PO (08:14)
[2023-02-04] MEDS: LORATADINE 10 MG TABLET PO (08:18)
[2023-02-04] MEDS: SERTRALINE 50 MG TABLET 25 MG PO (08:18)
[2023-02-04] MEDS: ROSUVASTATIN CALCIUM 10 MG TABLET 40 MG PO (20:25)
[2023-02-05] MEDS: ACETAMINOPHEN 500 MG TABLET 1000 MG PO ×2 (07:16→19:32)
[2023-02-05] MEDS: ASPIRIN 81 MG TAB.CHEW PO (07:16)
[2023-02-05] MEDS: lisinopriL 2.5 MG TABLET 5 MG PO (07:16)
[2023-02-05] MEDS: SERTRALINE 50 MG TABLET 25 MG PO (07:16)
[2023-02-05] MEDS: CLOPIDOGREL 75 MG TABLET PO (07:16)
[2023-02-05] MEDS: LORATADINE 10 MG TABLET PO (07:16)
[2023-02-05] MEDS: ROSUVASTATIN CALCIUM 10 MG TABLET 40 MG PO (19:32)
[2023-02-06] MEDS: ASPIRIN 81 MG TAB.CHEW PO (07:34)
[2023-02-06] MEDS: lisinopriL 2.5 MG TABLET 5 MG PO (07:34)
[2023-02-06] MEDS: ACETAMINOPHEN 500 MG TABLET 1000 MG PO ×2 (07:34→19:24)
[2023-02-06] MEDS: SERTRALINE 50 MG TABLET 25 MG PO (07:34)
[2023-02-06] MEDS: CLOPIDOGREL 75 MG TABLET PO (07:34)
[2023-02-06] MEDS: LORATADINE 10 MG TABLET PO (07:34)
--- NOTE | 2023-02-06 13:25 | PC.NURSE ---
Resident has a small amount of nose bleeding during lunch and the bleeding stop immediately after applying pressure on the bridge of the nose. Staff will continue to monitor
[2023-02-06] MEDS: ROSUVASTATIN CALCIUM 10 MG TABLET 40 MG PO (19:24)
[2023-02-07] MEDS: ACETAMINOPHEN 500 MG TABLET 1000 MG PO ×2 (07:23→20:51)
[2023-02-07] MEDS: LORATADINE 10 MG TABLET PO (07:23)
[2023-02-07] MEDS: lisinopriL 2.5 MG TABLET 5 MG PO (07:23)
[2023-02-07] MEDS: SERTRALINE 50 MG TABLET 25 MG PO (07:23)
[2023-02-07] MEDS: ASPIRIN 81 MG TAB.CHEW PO (07:23)
[2023-02-07] MEDS: CLOPIDOGREL 75 MG TABLET PO (07:23)
[2023-02-07] MEDS: ROSUVASTATIN CALCIUM 10 MG TABLET 40 MG PO (20:51)
[2023-02-08] MEDS: SERTRALINE 50 MG TABLET 25 MG PO (07:23)
[2023-02-08] MEDS: ASPIRIN 81 MG TAB.CHEW PO (07:23)
[2023-02-08] MEDS: lisinopriL 2.5 MG TABLET 5 MG PO (07:23)
[2023-02-08] MEDS: LORATADINE 10 MG TABLET PO (07:23)
[2023-02-08] MEDS: CLOPIDOGREL 75 MG TABLET PO (07:23)
[2023-02-08] MEDS: ACETAMINOPHEN 500 MG TABLET 1000 MG PO ×2 (07:23→19:22)
[2023-02-08] MEDS: ROSUVASTATIN CALCIUM 10 MG TABLET 40 MG PO (19:22)
[2023-02-09 07:00] VITALS: BP 130/69; PULSE 66; RESP 17; TEMP 36.3; O2SAT 94; BMI 30.3
[2023-02-09] MEDS: CLOPIDOGREL 75 MG TABLET PO (07:46)
[2023-02-09] MEDS: ASPIRIN 81 MG TAB.CHEW PO (07:46)
[2023-02-09] MEDS: SERTRALINE 50 MG TABLET 25 MG PO (07:46)
[2023-02-09] MEDS: ACETAMINOPHEN 500 MG TABLET 1000 MG PO ×2 (07:46→19:18)
[2023-02-09] MEDS: lisinopriL 2.5 MG TABLET 5 MG PO (07:46)
[2023-02-09] MEDS: LORATADINE 10 MG TABLET PO (07:46)
[2023-02-09] MEDS: ROSUVASTATIN CALCIUM 10 MG TABLET 40 MG PO (19:18)
[2023-02-10] MEDS: lisinopriL 2.5 MG TABLET 5 MG PO (07:57)
[2023-02-10] MEDS: ASPIRIN 81 MG TAB.CHEW PO (07:57)
[2023-02-10] MEDS: ACETAMINOPHEN 500 MG TABLET 1000 MG PO ×2 (07:57→19:36)
[2023-02-10] MEDS: CLOPIDOGREL 75 MG TABLET PO (07:57)
[2023-02-10] MEDS: SERTRALINE 50 MG TABLET 25 MG PO (08:00)
[2023-02-10] MEDS: LORATADINE 10 MG TABLET PO (08:00)
[2023-02-10] MEDS: ROSUVASTATIN CALCIUM 10 MG TABLET 40 MG PO (19:37)
[2023-02-11] MEDS: LORATADINE 10 MG TABLET PO (08:01)
[2023-02-11] MEDS: lisinopriL 2.5 MG TABLET 5 MG PO (08:01)
[2023-02-11] MEDS: ACETAMINOPHEN 500 MG TABLET 1000 MG PO ×2 (08:01→20:49)
[2023-02-11] MEDS: CLOPIDOGREL 75 MG TABLET PO (08:01)
[2023-02-11] MEDS: SERTRALINE 50 MG TABLET 25 MG PO (08:01)
[2023-02-11] MEDS: ASPIRIN 81 MG TAB.CHEW PO (08:01)
[2023-02-11] MEDS: ROSUVASTATIN CALCIUM 10 MG TABLET 40 MG PO (20:49)
[2023-02-12] MEDS: LORATADINE 10 MG TABLET PO (07:32)
[2023-02-12] MEDS: ASPIRIN 81 MG TAB.CHEW PO (07:32)
[2023-02-12] MEDS: SERTRALINE 50 MG TABLET 25 MG PO (07:32)
[2023-02-12] MEDS: CLOPIDOGREL 75 MG TABLET PO (07:32)
[2023-02-12] MEDS: ACETAMINOPHEN 500 MG TABLET 1000 MG PO ×2 (07:32→20:12)
[2023-02-12] MEDS: lisinopriL 2.5 MG TABLET 5 MG PO (07:32)
[2023-02-12] MEDS: ROSUVASTATIN CALCIUM 10 MG TABLET 40 MG PO (20:12)
[2023-02-13] MEDS: ACETAMINOPHEN 500 MG TABLET 1000 MG PO ×2 (07:35→19:49)
[2023-02-13] MEDS: ASPIRIN 81 MG TAB.CHEW PO (07:35)
[2023-02-13] MEDS: lisinopriL 2.5 MG TABLET 5 MG PO (07:36)
[2023-02-13] MEDS: CLOPIDOGREL 75 MG TABLET PO (07:36)
[2023-02-13] MEDS: LORATADINE 10 MG TABLET PO (07:36)
[2023-02-13] MEDS: SERTRALINE 50 MG TABLET 25 MG PO (07:36)
[2023-02-13] MEDS: ROSUVASTATIN CALCIUM 10 MG TABLET 40 MG PO (19:49)
[2023-02-14] MEDS: CLOPIDOGREL 75 MG TABLET PO (07:41)
[2023-02-14] MEDS: ACETAMINOPHEN 500 MG TABLET 1000 MG PO ×2 (07:41→19:23)
[2023-02-14] MEDS: ASPIRIN 81 MG TAB.CHEW PO (07:41)
[2023-02-14] MEDS: LORATADINE 10 MG TABLET PO (07:42)
[2023-02-14] MEDS: SERTRALINE 50 MG TABLET 25 MG PO (07:42)
[2023-02-14] MEDS: lisinopriL 2.5 MG TABLET 5 MG PO (07:42)
[2023-02-14] MEDS: ROSUVASTATIN CALCIUM 10 MG TABLET 40 MG PO (19:23)
[2023-02-15] MEDS: ASPIRIN 81 MG TAB.CHEW PO (07:28)
[2023-02-15] MEDS: LORATADINE 10 MG TABLET PO (07:28)
[2023-02-15] MEDS: CLOPIDOGREL 75 MG TABLET PO (07:28)
[2023-02-15] MEDS: lisinopriL 2.5 MG TABLET 5 MG PO (07:28)
[2023-02-15] MEDS: ACETAMINOPHEN 500 MG TABLET 1000 MG PO ×2 (07:28→19:53)
[2023-02-15] MEDS: SERTRALINE 50 MG TABLET 25 MG PO (07:28)
[2023-02-15] MEDS: ROSUVASTATIN CALCIUM 10 MG TABLET 40 MG PO (19:53)
[2023-02-16 07:00] VITALS: BP 145/85; PULSE 77; RESP 17; TEMP 36.1; O2SAT 97; BMI 29.8
[2023-02-16] MEDS: lisinopriL 2.5 MG TABLET 5 MG PO (08:48)
[2023-02-16] MEDS: SERTRALINE 50 MG TABLET 25 MG PO (08:48)
[2023-02-16] MEDS: LORATADINE 10 MG TABLET PO (08:48)
[2023-02-16] MEDS: ACETAMINOPHEN 500 MG TABLET 1000 MG PO ×2 (08:48→20:05)
[2023-02-16] MEDS: ASPIRIN 81 MG TAB.CHEW PO (08:48)
[2023-02-16] MEDS: CLOPIDOGREL 75 MG TABLET PO (08:48)
[2023-02-16] MEDS: ROSUVASTATIN CALCIUM 10 MG TABLET 40 MG PO (20:05)
[2023-02-17] MEDS: ACETAMINOPHEN 500 MG TABLET 1000 MG PO ×2 (07:42→20:55)
[2023-02-17] MEDS: lisinopriL 2.5 MG TABLET 5 MG PO (07:42)
[2023-02-17] MEDS: ASPIRIN 81 MG TAB.CHEW PO (07:42)
[2023-02-17] MEDS: CLOPIDOGREL 75 MG TABLET PO (07:42)
[2023-02-17] MEDS: SERTRALINE 50 MG TABLET 25 MG PO (07:42)
[2023-02-17] MEDS: LORATADINE 10 MG TABLET PO (07:42)
[2023-02-17] MEDS: ROSUVASTATIN CALCIUM 10 MG TABLET 40 MG PO (20:55)
--- NOTE | 2023-02-18 02:45 | PC.NURSE ---
Weekly Charting Week 1: Vital signs reviewed with no concerns. Comprehensive and temporary care plane reviewed with no changes made. ?Has history of? chronic right shoulder pain. Currently on acetaminophen 1000mg BID for pain management which is noted to be effective. Able to report pain verbally. No complain of pain this moth. No use of PRN medication. Requires limited to extensive assist with dressing, grooming, and bathing. Participates with ADLs. Needs setup and cues for completion of oral care. Receives a regular diet with regular texture and thin liquids. Appetite is excellent. Eats independently after set-up. Must sit up vertically for all meals.
[2023-02-18] MEDS: CLOPIDOGREL 75 MG TABLET PO (07:07)
[2023-02-18] MEDS: SERTRALINE 50 MG TABLET 25 MG PO (07:07)
[2023-02-18] MEDS: LORATADINE 10 MG TABLET PO (07:07)
[2023-02-18] MEDS: ASPIRIN 81 MG TAB.CHEW PO (07:07)
[2023-02-18] MEDS: ACETAMINOPHEN 500 MG TABLET 1000 MG PO ×2 (07:07→20:54)
[2023-02-18] MEDS: lisinopriL 2.5 MG TABLET 5 MG PO (07:07)
--- NOTE | 2023-02-18 13:54 | PC.NURSE ---
Weekly Charting, Week 1 - ADL's: Comprehensive and temporary care plan reviewed. No changes made, nothing added to temporary care plan. Resident needs extensive to limited assist with dressing, grooming, bathing and hygiene. Encourage to participate as able. Does oral cares and feed independently after set up. Is on regular diet, thin liquids. No problems with chewing/swallowing reported. Vital signs has occasional elevated BP's. No complaints of hypertensive symptoms. Continue weekly monitoring and refer to provider as needed. Pain: Has history of shoulder pain controlled with Tylenol 100mg BID. No complaints presented. Is able to make needs known if in pain.
[2023-02-18] MEDS: ROSUVASTATIN CALCIUM 10 MG TABLET 40 MG PO (20:54)
[2023-02-19] MEDS: ACETAMINOPHEN 500 MG TABLET 1000 MG PO ×2 (07:56→20:10)
[2023-02-19] MEDS: lisinopriL 2.5 MG TABLET 5 MG PO (07:57)
[2023-02-19] MEDS: SERTRALINE 50 MG TABLET 25 MG PO (07:57)
[2023-02-19] MEDS: LORATADINE 10 MG TABLET PO (07:57)
[2023-02-19] MEDS: CLOPIDOGREL 75 MG TABLET PO (07:57)
[2023-02-19] MEDS: ASPIRIN 81 MG TAB.CHEW PO (07:57)
[2023-02-19] MEDS: ROSUVASTATIN CALCIUM 10 MG TABLET 40 MG PO (20:10)
[2023-02-20] MEDS: LORATADINE 10 MG TABLET PO (07:50)
[2023-02-20] MEDS: lisinopriL 2.5 MG TABLET 5 MG PO (07:50)
[2023-02-20] MEDS: ACETAMINOPHEN 500 MG TABLET 1000 MG PO ×2 (07:50→19:45)
[2023-02-20] MEDS: ASPIRIN 81 MG TAB.CHEW PO (07:50)
[2023-02-20] MEDS: SERTRALINE 50 MG TABLET 25 MG PO (07:50)
[2023-02-20] MEDS: CLOPIDOGREL 75 MG TABLET PO (07:50)
[2023-02-20] MEDS: ROSUVASTATIN CALCIUM 10 MG TABLET 40 MG PO (19:46)
[2023-02-21] MEDS: LORATADINE 10 MG TABLET PO (07:21)
[2023-02-21] MEDS: lisinopriL 2.5 MG TABLET 5 MG PO (07:21)
[2023-02-21] MEDS: ACETAMINOPHEN 500 MG TABLET 1000 MG PO ×2 (07:21→21:06)
[2023-02-21] MEDS: CLOPIDOGREL 75 MG TABLET PO (07:21)
[2023-02-21] MEDS: SERTRALINE 50 MG TABLET 25 MG PO (07:21)
[2023-02-21] MEDS: ASPIRIN 81 MG TAB.CHEW PO (07:21)
[2023-02-21] MEDS: ROSUVASTATIN CALCIUM 10 MG TABLET 40 MG PO (21:07)
[2023-02-22] MEDS: ACETAMINOPHEN 500 MG TABLET 1000 MG PO ×2 (07:10→20:00)
[2023-02-22] MEDS: lisinopriL 2.5 MG TABLET 5 MG PO (07:10)
[2023-02-22] MEDS: ASPIRIN 81 MG TAB.CHEW PO (07:10)
[2023-02-22] MEDS: CLOPIDOGREL 75 MG TABLET PO (07:10)
[2023-02-22] MEDS: SERTRALINE 50 MG TABLET 25 MG PO (07:11)
[2023-02-22] MEDS: LORATADINE 10 MG TABLET PO (07:11)
[2023-02-22] MEDS: ROSUVASTATIN CALCIUM 10 MG TABLET 40 MG PO (20:01)
[2023-02-23] MEDS: ASPIRIN 81 MG TAB.CHEW PO (07:09)
[2023-02-23] MEDS: ACETAMINOPHEN 500 MG TABLET 1000 MG PO ×2 (07:09→19:50)
[2023-02-23] MEDS: CLOPIDOGREL 75 MG TABLET PO (07:09)
[2023-02-23] MEDS: LORATADINE 10 MG TABLET PO (07:10)
[2023-02-23] MEDS: lisinopriL 2.5 MG TABLET 5 MG PO (07:10)
[2023-02-23] MEDS: SERTRALINE 50 MG TABLET 25 MG PO (07:10)
[2023-02-23 07:16] VITALS: BP 146/85; PULSE 75; RESP 20; TEMP 36.8; O2SAT 97
[2023-02-23 08:12] VITALS: BMI 29.7
--- NOTE | 2023-02-23 14:32 | PC.SPIRITC ---
Joselito talked about his youth and some cars he used to have. I provided visit for connection and support along with time to reminisce.
[2023-02-23] MEDS: ROSUVASTATIN CALCIUM 10 MG TABLET 40 MG PO (19:50)
[2023-02-24] MEDS: ACETAMINOPHEN 500 MG TABLET 1000 MG PO ×2 (07:42→20:12)
[2023-02-24] MEDS: LORATADINE 10 MG TABLET PO (07:43)
[2023-02-24] MEDS: CLOPIDOGREL 75 MG TABLET PO (07:43)
[2023-02-24] MEDS: lisinopriL 2.5 MG TABLET 5 MG PO (07:43)
[2023-02-24] MEDS: ASPIRIN 81 MG TAB.CHEW PO (07:43)
[2023-02-24] MEDS: SERTRALINE 50 MG TABLET 25 MG PO (07:43)
--- NOTE | 2023-02-24 12:18 | PC.NURSE ---
Order: discontinue Zoloft 25mg daily by Derrick ZIMMERMAN.
[2023-02-24] MEDS: ROSUVASTATIN CALCIUM 10 MG TABLET 40 MG PO (20:12)
--- NOTE | 2023-02-24 23:25 | PC.NURSE ---
Weekly charting: Week 2 Reviewed recent vital signs. BP occasionally elevated. Nursing will continue to monitor and update provider as needed. Reviewed temporary and comprehensive care plans, no new changes noted/ made. Resident is assist of 1 with gait belt and walker for transfers. Resident has 1/4 side rails up at all times to promote independence with self repositioning in bed. Resident is able to propel themselves in wheelchair independently. Resident is at low risk for falls. Interventions in place to prevent falls include having the bed locked and in low position, non skid footwear, call light within reach, and wheelchair locked and next to bed. Resident is on ambulation program to walk to and from meals and to the bathroom with staff, however resident refuses majority of the time. Nursing continues to educate resident on benefits of ambulation.
[2023-02-25] MEDS: LORATADINE 10 MG TABLET PO (07:27)
[2023-02-25] MEDS: ACETAMINOPHEN 500 MG TABLET 1000 MG PO ×2 (07:27→19:15)
[2023-02-25] MEDS: CLOPIDOGREL 75 MG TABLET PO (07:27)
[2023-02-25] MEDS: ASPIRIN 81 MG TAB.CHEW PO (07:27)
[2023-02-25] MEDS: lisinopriL 2.5 MG TABLET 5 MG PO (07:27)
--- NOTE | 2023-02-25 07:52 | PC.NURSE ---
Weekly Charting, Week 2-Mobility: Comprehensive and temporary care plan reviewed. No changes made and nothing added to temporary care plan. Resident needs one assist, gait belt and platform walker for transfers & ambulation. Needs encouragement with ambulation. Is able to wheel self with a left tray for arm support. Able to reposition self in bed/chair.? Bilateral 1/4 side rails up at all times to promote independence with positioning. No alarms. Vital signs reviewed, no concerns. Continue weekly monitoring, refer to provider as needed. Fall: No falls the past month. Remains a low fall risk according to assessment done on 01/11/23. Fall interventions: Call light within reach, wheelchair at bedside locked, bed in low position with brakes locked.
--- NOTE | 2023-02-25 10:01 | PC.NURSE ---
Family Update: Daughter, Muna updated Zoloft discontinued. Staff will continue to monitor for changes in mood/behavior and update her as needed.
[2023-02-25] MEDS: ROSUVASTATIN CALCIUM 10 MG TABLET 40 MG PO (19:15)
[2023-02-26] MEDS: lisinopriL 2.5 MG TABLET 5 MG PO (07:24)
[2023-02-26] MEDS: ACETAMINOPHEN 500 MG TABLET 1000 MG PO ×2 (07:24→20:15)
[2023-02-26] MEDS: ASPIRIN 81 MG TAB.CHEW PO (07:24)
[2023-02-26] MEDS: CLOPIDOGREL 75 MG TABLET PO (07:24)
[2023-02-26] MEDS: LORATADINE 10 MG TABLET PO (07:24)
--- NOTE | 2023-02-26 17:16 | PC.NURSE ---
Out Of Facility: Resident left [facility] at 1705 for a family visit. Was picked up by daughter Muna via family transport.
[2023-02-26] MEDS: ROSUVASTATIN CALCIUM 10 MG TABLET 40 MG PO (20:15)
--- NOTE | 2023-02-26 21:14 | PC.NURSE ---
Out of Facility: [facility]ident returned to [facility] from a family visit at 1999.
[2023-02-27] MEDS: lisinopriL 2.5 MG TABLET 5 MG PO (07:15)
[2023-02-27] MEDS: ACETAMINOPHEN 500 MG TABLET 1000 MG PO ×2 (07:15→20:52)
[2023-02-27] MEDS: ASPIRIN 81 MG TAB.CHEW PO (07:15)
[2023-02-27] MEDS: CLOPIDOGREL 75 MG TABLET PO (07:15)
[2023-02-27] MEDS: LORATADINE 10 MG TABLET PO (07:16)
[2023-02-27] MEDS: ROSUVASTATIN CALCIUM 10 MG TABLET 40 MG PO (20:52)
[2023-02-28] MEDS: ASPIRIN 81 MG TAB.CHEW PO (07:22)
[2023-02-28] MEDS: lisinopriL 2.5 MG TABLET 5 MG PO (07:22)
[2023-02-28] MEDS: CLOPIDOGREL 75 MG TABLET PO (07:22)
[2023-02-28] MEDS: ACETAMINOPHEN 500 MG TABLET 1000 MG PO ×2 (07:22→19:32)
[2023-02-28] MEDS: LORATADINE 10 MG TABLET PO (07:23)
--- NOTE | 2023-02-28 08:21 | PC.NURSE ---
Bowel note: Resident reports he had a moderate formed BM yesterday when asked today. He is therefore not on bowel protocol today.
[2023-02-28] MEDS: ROSUVASTATIN CALCIUM 10 MG TABLET 40 MG PO (19:33)
[2023-03-01] MEDS: ACETAMINOPHEN 500 MG TABLET 1000 MG PO ×2 (07:22→20:16)
[2023-03-01] MEDS: LORATADINE 10 MG TABLET PO (07:23)
[2023-03-01] MEDS: lisinopriL 2.5 MG TABLET 5 MG PO (07:23)
[2023-03-01] MEDS: ASPIRIN 81 MG TAB.CHEW PO (07:23)
[2023-03-01] MEDS: CLOPIDOGREL 75 MG TABLET PO (07:23)
[2023-03-01] MEDS: ROSUVASTATIN CALCIUM 10 MG TABLET 40 MG PO (20:16)
[2023-03-02 07:00] VITALS: BP 123/87; PULSE 86; RESP 18; TEMP 36.5; O2SAT 96; BMI 30.2
[2023-03-02] MEDS: ACETAMINOPHEN 500 MG TABLET 1000 MG PO ×2 (07:21→21:31)
[2023-03-02] MEDS: CLOPIDOGREL 75 MG TABLET PO (07:21)
[2023-03-02] MEDS: ASPIRIN 81 MG TAB.CHEW PO (07:21)
[2023-03-02] MEDS: lisinopriL 2.5 MG TABLET 5 MG PO (07:22)
[2023-03-02] MEDS: LORATADINE 10 MG TABLET PO (07:22)
[2023-03-02] MEDS: ROSUVASTATIN CALCIUM 10 MG TABLET 40 MG PO (21:31)
[2023-03-03] MEDS: ACETAMINOPHEN 500 MG TABLET 1000 MG PO ×2 (07:27→20:52)
[2023-03-03] MEDS: lisinopriL 2.5 MG TABLET 5 MG PO (07:27)
[2023-03-03] MEDS: LORATADINE 10 MG TABLET PO (07:27)
[2023-03-03] MEDS: ASPIRIN 81 MG TAB.CHEW PO (07:27)
[2023-03-03] MEDS: CLOPIDOGREL 75 MG TABLET PO (07:27)
[2023-03-03] MEDS: ROSUVASTATIN CALCIUM 10 MG TABLET 40 MG PO (20:52)
--- NOTE | 2023-03-04 01:24 | PC.NURSE ---
Weekly Charting week 3: Toileting and Skin: Vital signs reviewed. Occasional elevated BP, update provider as needed. Comprehensive and temporary care plan reviewed with changes mad.?Toileting; Res is continent of bowel and bladder. Use urinal at night. Staff 1 assist? with bo cares, clothing and pad management. Res able to use call light? to empty urinal. Wears medium pull up. Skin: Has old known old scab to SHANIKA MONROY. Skin check done every bath days and during cares
--- NOTE | 2023-03-04 06:53 | PC.NURSE ---
Weekly Charting, Week 3 - Toileting: Comprehensive and temporary care plan reviewed. No changes made. Nothing added to temporary care plan. Resident is continent of bowel and bladder. Needs one extensive assist with toileting: bo cares, clothing and pad management. Uses a urinal when in bed, emptied by staff. Wears medium pull ups.? Encourage to ambulate to the toilet as much as possible with assist, gait belt and walker. Vital signs reviewed, with few elevated BP's. Continue weekly monitoring & refer to provider as needed. Skin: Has a small, old scab on LLE, SHANIKA, no s/s of infection. Monitor until healed. Skin is checked during cares and on bath day.
[2023-03-04] MEDS: lisinopriL 2.5 MG TABLET 5 MG PO (07:38)
[2023-03-04] MEDS: CLOPIDOGREL 75 MG TABLET PO (07:38)
[2023-03-04] MEDS: LORATADINE 10 MG TABLET PO (07:38)
[2023-03-04] MEDS: ACETAMINOPHEN 500 MG TABLET 1000 MG PO ×2 (07:38→19:50)
[2023-03-04] MEDS: ASPIRIN 81 MG TAB.CHEW PO (07:38)
[2023-03-04] MEDS: ROSUVASTATIN CALCIUM 10 MG TABLET 40 MG PO (19:50)
[2023-03-05] MEDS: ACETAMINOPHEN 500 MG TABLET 1000 MG PO ×2 (07:34→20:07)
[2023-03-05] MEDS: lisinopriL 2.5 MG TABLET 5 MG PO (07:37)
[2023-03-05] MEDS: LORATADINE 10 MG TABLET PO (07:37)
[2023-03-05] MEDS: CLOPIDOGREL 75 MG TABLET PO (07:37)
[2023-03-05] MEDS: ASPIRIN 81 MG TAB.CHEW PO (07:37)
[2023-03-05] MEDS: ROSUVASTATIN CALCIUM 10 MG TABLET 40 MG PO (20:07)
[2023-03-06] MEDS: lisinopriL 2.5 MG TABLET 5 MG PO (07:39)
[2023-03-06] MEDS: CLOPIDOGREL 75 MG TABLET PO (07:39)
[2023-03-06] MEDS: ACETAMINOPHEN 500 MG TABLET 1000 MG PO ×2 (07:39→19:23)
[2023-03-06] MEDS: ASPIRIN 81 MG TAB.CHEW PO (07:39)
[2023-03-06] MEDS: LORATADINE 10 MG TABLET PO (07:39)
[2023-03-06] MEDS: ROSUVASTATIN CALCIUM 10 MG TABLET 40 MG PO (19:23)
[2023-03-07] MEDS: LORATADINE 10 MG TABLET PO (07:13)
[2023-03-07] MEDS: lisinopriL 2.5 MG TABLET 5 MG PO (07:13)
[2023-03-07] MEDS: ACETAMINOPHEN 500 MG TABLET 1000 MG PO ×2 (07:13→19:42)
[2023-03-07] MEDS: ASPIRIN 81 MG TAB.CHEW PO (07:13)
[2023-03-07] MEDS: CLOPIDOGREL 75 MG TABLET PO (07:13)
[2023-03-07] MEDS: ROSUVASTATIN CALCIUM 10 MG TABLET 40 MG PO (19:42)
[2023-03-08] MEDS: ACETAMINOPHEN 500 MG TABLET 1000 MG PO ×2 (07:20→20:56)
[2023-03-08] MEDS: lisinopriL 2.5 MG TABLET 5 MG PO (07:21)
[2023-03-08] MEDS: ASPIRIN 81 MG TAB.CHEW PO (07:21)
[2023-03-08] MEDS: CLOPIDOGREL 75 MG TABLET PO (07:21)
[2023-03-08] MEDS: LORATADINE 10 MG TABLET PO (07:21)
[2023-03-08] MEDS: ROSUVASTATIN CALCIUM 10 MG TABLET 40 MG PO (20:56)
[2023-03-09] MEDS: ASPIRIN 81 MG TAB.CHEW PO (07:02)
[2023-03-09] MEDS: ACETAMINOPHEN 500 MG TABLET 1000 MG PO ×2 (07:02→20:28)
[2023-03-09] MEDS: LORATADINE 10 MG TABLET PO (07:02)
[2023-03-09] MEDS: CLOPIDOGREL 75 MG TABLET PO (07:02)
[2023-03-09] MEDS: lisinopriL 2.5 MG TABLET 5 MG PO (07:02)
[2023-03-09 10:44] VITALS: BP 129/81; PULSE 77; RESP 18; TEMP 36.2; O2SAT 99; BMI 30.2
--- NOTE | 2023-03-09 11:15 | PC.PHA1 ---
GREEN MEAT GRADER PHARMACIST'S MEDICATION REVIEW: MEDICATION MONITORING:no psychotropic medications currently ordered IRREGULARITY OR COMMENTS:Patient is approximately 12 months post stroke and continues on clopidogrel and aspirin daily. SUGGESTED COURSE OF ACTION TAKEN: Some post stroke guidelines stop daily aspirin and continue clopidogrel, please have addressed at next neuro. appointment or MD review.
[2023-03-09] MEDS: ROSUVASTATIN CALCIUM 10 MG TABLET 40 MG PO (20:28)
[2023-03-10] MEDS: ACETAMINOPHEN 500 MG TABLET 1000 MG PO ×2 (07:23→19:40)
[2023-03-10] MEDS: LORATADINE 10 MG TABLET PO (07:23)
[2023-03-10] MEDS: CLOPIDOGREL 75 MG TABLET PO (07:23)
[2023-03-10] MEDS: lisinopriL 2.5 MG TABLET 5 MG PO (07:23)
[2023-03-10] MEDS: ASPIRIN 81 MG TAB.CHEW PO (07:23)
[2023-03-10] MEDS: ROSUVASTATIN CALCIUM 10 MG TABLET 40 MG PO (19:40)
--- NOTE | 2023-03-11 01:16 | PC.NURSE ---
Weekly Charting Week 4: Vital signs reviewed with some BP elevated, Continue to monitor weekly, update Provider as needed. Comprehensive and temporary care plan reviewed with no changes made. No behavior noted the past moth. Receives? Sertraline 50mg daily with no adverse effects. Able to communicate needs verbally. Able to use call light effectively. No hearing impairment. visual deficit corrected with reading glasses. Cognitively intact. All medications administered by Health condition is stable.
[2023-03-11] MEDS: CLOPIDOGREL 75 MG TABLET PO (07:03)
[2023-03-11] MEDS: LORATADINE 10 MG TABLET PO (07:03)
[2023-03-11] MEDS: lisinopriL 2.5 MG TABLET 5 MG PO (07:03)
[2023-03-11] MEDS: ACETAMINOPHEN 500 MG TABLET 1000 MG PO ×2 (07:03→19:55)
[2023-03-11] MEDS: ASPIRIN 81 MG TAB.CHEW PO (07:03)
--- NOTE | 2023-03-11 07:47 | PC.NURSE ---
Weekly Charting-Week 4: Comprehensive and temporary care plan reviewed. No changes made, & nothing added to temporary care plan. No changes noted in communication, hearing, vision, or orientation. Resident does make his needs known. Uses reading glasses. Hears fine. Cognition is intact. Chronic health condition stable. Vital signs reviewed, with few elevated BP's. Continue weekly monitoring and refer to providers as needed. All medications administered by Nurse. Mood/Behavior: Has episodes of refusing cares.Is on no psychotropic medications. Zoloft?discontinued on 02/24.? Staff to monitor changes and report to providers as needed.
--- NOTE | 2023-03-11 13:15 | PC.NURSE ---
Pharmacist, Rhonda De Jesus, recommended patient's neurologist review need for aspirin continuation at next appointment, however, per [facility] ([phone]) patient has not had an appointment since 08/2022. It appears that Joselito had an appointment on November 25, that was cancelled and has not yet been rescheduled. Email was sent to his sister, Muna, to see if she would like us to reschedule the appointment or if she would prefer to do it. Awaiting return Email from patient's sister.
[2023-03-11] MEDS: ROSUVASTATIN CALCIUM 10 MG TABLET 40 MG PO (19:55)
[2023-03-12] MEDS: lisinopriL 2.5 MG TABLET 5 MG PO (07:03)
[2023-03-12] MEDS: CLOPIDOGREL 75 MG TABLET PO (07:03)
[2023-03-12] MEDS: LORATADINE 10 MG TABLET PO (07:03)
[2023-03-12] MEDS: ACETAMINOPHEN 500 MG TABLET 1000 MG PO ×2 (07:03→20:05)
[2023-03-12] MEDS: ASPIRIN 81 MG TAB.CHEW PO (07:03)
[2023-03-12] MEDS: ROSUVASTATIN CALCIUM 10 MG TABLET 40 MG PO (20:05)
[2023-03-13] MEDS: LORATADINE 10 MG TABLET PO (07:19)
[2023-03-13] MEDS: ASPIRIN 81 MG TAB.CHEW PO (07:19)
[2023-03-13] MEDS: ACETAMINOPHEN 500 MG TABLET 1000 MG PO ×2 (07:19→19:55)
[2023-03-13] MEDS: lisinopriL 2.5 MG TABLET 5 MG PO (07:19)
[2023-03-13] MEDS: CLOPIDOGREL 75 MG TABLET PO (07:19)
[2023-03-13] MEDS: ROSUVASTATIN CALCIUM 10 MG TABLET 40 MG PO (19:55)
[2023-03-14] MEDS: LORATADINE 10 MG TABLET PO (07:04)
[2023-03-14] MEDS: ASPIRIN 81 MG TAB.CHEW PO (07:04)
[2023-03-14] MEDS: lisinopriL 2.5 MG TABLET 5 MG PO (07:04)
[2023-03-14] MEDS: ACETAMINOPHEN 500 MG TABLET 1000 MG PO ×2 (07:04→20:05)
[2023-03-14] MEDS: CLOPIDOGREL 75 MG TABLET PO (07:04)
[2023-03-14] MEDS: ROSUVASTATIN CALCIUM 10 MG TABLET 40 MG PO (20:05)
[2023-03-15] MEDS: ASPIRIN 81 MG TAB.CHEW PO (07:46)
[2023-03-15] MEDS: LORATADINE 10 MG TABLET PO (07:46)
[2023-03-15] MEDS: lisinopriL 2.5 MG TABLET 5 MG PO (07:46)
[2023-03-15] MEDS: ACETAMINOPHEN 500 MG TABLET 1000 MG PO ×2 (07:46→19:30)
[2023-03-15] MEDS: CLOPIDOGREL 75 MG TABLET PO (07:46)
[2023-03-15] MEDS: ROSUVASTATIN CALCIUM 10 MG TABLET 40 MG PO (19:30)
[2023-03-16 07:00] VITALS: BP 117/73; PULSE 70; RESP 17; TEMP 35.9; O2SAT 95; BMI 29.7
[2023-03-16] MEDS: ACETAMINOPHEN 500 MG TABLET 1000 MG PO ×2 (07:38→19:35)
[2023-03-16] MEDS: ASPIRIN 81 MG TAB.CHEW PO (07:39)
[2023-03-16] MEDS: CLOPIDOGREL 75 MG TABLET PO (07:39)
[2023-03-16] MEDS: LORATADINE 10 MG TABLET PO (07:39)
[2023-03-16] MEDS: lisinopriL 2.5 MG TABLET 5 MG PO (07:39)
[2023-03-16] MEDS: ROSUVASTATIN CALCIUM 10 MG TABLET 40 MG PO (19:35)
[2023-03-17] MEDS: ASPIRIN 81 MG TAB.CHEW PO (07:38)
[2023-03-17] MEDS: CLOPIDOGREL 75 MG TABLET PO (07:38)
[2023-03-17] MEDS: ACETAMINOPHEN 500 MG TABLET 1000 MG PO ×2 (07:38→19:41)
[2023-03-17] MEDS: LORATADINE 10 MG TABLET PO (07:38)
[2023-03-17] MEDS: lisinopriL 2.5 MG TABLET 5 MG PO (07:38)
--- NOTE | 2023-03-17 09:15 | PC.NURSE ---
Resident refuse to ambulate to meals but did ambulate in his room .
[2023-03-17] MEDS: ROSUVASTATIN CALCIUM 10 MG TABLET 40 MG PO (19:42)
--- NOTE | 2023-03-18 02:11 | PC.NURSE ---
Weekly charting-Week 1: Vital signs reviewed and noted to be stable. Temporary Care Plan and Comprehensive Care Plan are without any changes. Resident has history of right shoulder pain. Upon review have not noted any complaints of pain. Receives Tylenol ES 1000 mg BID and has been effective. Resident receives Limited to extensive assistance with bathing,grooming,dressing and oral cares can be done independantly after being set up. Resident has good appetite and receives a regular diet and texture and thin liquids. No issues with swallowing or chewing. He sits up on edge of bed to eat in his room. Has been coming to the dining room but infrequently.
--- NOTE | 2023-03-18 06:58 | PC.NURSE ---
Weekly Charting, Week 1 - ADL's: Comprehensive and temporary care plan reviewed. No changes made, nothing added to temporary care plan. Resident needs extensive to limited assist with dressing, grooming, bathing and hygiene. Encourage to participate as able. Does oral cares and feed independently after set up. Is on regular diet, thin liquids. No problems with chewing/swallowing reported. Vital signs reviewed, no concerns. Continue weekly monitoring. Pain: Has history of shoulder pain controlled with Tylenol 1000 mg BID. Has no complain the past months. Is able to make needs known if in pain.
[2023-03-18] MEDS: lisinopriL 2.5 MG TABLET 5 MG PO (07:08)
[2023-03-18] MEDS: LORATADINE 10 MG TABLET PO (07:08)
[2023-03-18] MEDS: ACETAMINOPHEN 500 MG TABLET 1000 MG PO ×2 (07:08→19:16)
[2023-03-18] MEDS: CLOPIDOGREL 75 MG TABLET PO (07:08)
[2023-03-18] MEDS: ASPIRIN 81 MG TAB.CHEW PO (07:08)
[2023-03-18] MEDS: ROSUVASTATIN CALCIUM 10 MG TABLET 40 MG PO (19:16)
[2023-03-19] MEDS: lisinopriL 2.5 MG TABLET 5 MG PO (07:47)
[2023-03-19] MEDS: ASPIRIN 81 MG TAB.CHEW PO (07:47)
[2023-03-19] MEDS: LORATADINE 10 MG TABLET PO (07:47)
[2023-03-19] MEDS: CLOPIDOGREL 75 MG TABLET PO (07:47)
[2023-03-19] MEDS: ACETAMINOPHEN 500 MG TABLET 1000 MG PO ×2 (07:47→20:18)
[2023-03-19] MEDS: ROSUVASTATIN CALCIUM 10 MG TABLET 40 MG PO (20:18)
[2023-03-20] MEDS: LORATADINE 10 MG TABLET PO (07:20)
[2023-03-20] MEDS: ACETAMINOPHEN 500 MG TABLET 1000 MG PO ×2 (07:20→19:51)
[2023-03-20] MEDS: lisinopriL 2.5 MG TABLET 5 MG PO (07:20)
[2023-03-20] MEDS: CLOPIDOGREL 75 MG TABLET PO (07:20)
[2023-03-20] MEDS: ASPIRIN 81 MG TAB.CHEW PO (07:20)
[2023-03-20] MEDS: ROSUVASTATIN CALCIUM 10 MG TABLET 40 MG PO (19:51)
[2023-03-21] MEDS: ASPIRIN 81 MG TAB.CHEW PO (08:14)
[2023-03-21] MEDS: LORATADINE 10 MG TABLET PO (08:14)
[2023-03-21] MEDS: CLOPIDOGREL 75 MG TABLET PO (08:14)
[2023-03-21] MEDS: ACETAMINOPHEN 500 MG TABLET 1000 MG PO ×2 (08:14→20:27)
[2023-03-21] MEDS: lisinopriL 2.5 MG TABLET 5 MG PO (08:14)
--- NOTE | 2023-03-21 13:34 | PC.NURSE ---
Skin: Scab on left gilman measuring healed 03/21/23. Intervention complete.
[2023-03-21] MEDS: ROSUVASTATIN CALCIUM 10 MG TABLET 40 MG PO (20:27)
[2023-03-22] MEDS: LORATADINE 10 MG TABLET PO (08:10)
[2023-03-22] MEDS: CLOPIDOGREL 75 MG TABLET PO (08:10)
[2023-03-22] MEDS: ACETAMINOPHEN 500 MG TABLET 1000 MG PO ×2 (08:10→19:27)
[2023-03-22] MEDS: ASPIRIN 81 MG TAB.CHEW PO (08:10)
[2023-03-22] MEDS: lisinopriL 2.5 MG TABLET 5 MG PO (08:10)
[2023-03-22] MEDS: ROSUVASTATIN CALCIUM 10 MG TABLET 40 MG PO (19:27)
[2023-03-23 07:00] VITALS: BP 109/73; PULSE 76; RESP 18; TEMP 36.3; O2SAT 97; BMI 29.8; BMI 65.8
[2023-03-23] MEDS: LORATADINE 10 MG TABLET PO (08:07)
[2023-03-23] MEDS: ASPIRIN 81 MG TAB.CHEW PO (08:07)
[2023-03-23] MEDS: CLOPIDOGREL 75 MG TABLET PO (08:07)
[2023-03-23] MEDS: lisinopriL 2.5 MG TABLET 5 MG PO (08:07)
[2023-03-23] MEDS: ACETAMINOPHEN 500 MG TABLET 1000 MG PO ×2 (08:07→19:14)
[2023-03-23] MEDS: ROSUVASTATIN CALCIUM 10 MG TABLET 40 MG PO (19:14)
[2023-03-24] MEDS: ACETAMINOPHEN 500 MG TABLET 1000 MG PO ×2 (07:53→21:11)
[2023-03-24] MEDS: ASPIRIN 81 MG TAB.CHEW PO (07:53)
[2023-03-24] MEDS: LORATADINE 10 MG TABLET PO (07:53)
[2023-03-24] MEDS: lisinopriL 2.5 MG TABLET 5 MG PO (07:53)
[2023-03-24] MEDS: CLOPIDOGREL 75 MG TABLET PO (07:53)
--- NOTE | 2023-03-24 12:18 | PC.NURSE ---
Recert Visit : Resident seen by ERASMO Meza order reviewed and renewed of 75 days with no changes made. Ordered some lab for BMP, Hemoglobin and Lipid Profile to be done on the 03/28/23
[2023-03-24] MEDS: ROSUVASTATIN CALCIUM 10 MG TABLET 40 MG PO (21:11)
--- NOTE | 2023-03-25 00:27 | PC.NURSE ---
Weekly Charting Week 2: Mobility. vitals signs reviewed with no concerns. Comprehensive and temporary care plan reviewed with no changes made. Resident requires one staff assist, gait belt and platform walker for transfers & ambulation. Res is able to wheel self with a left tray for arm support. Independent in reposition self in bed/chair.? Has bilateral 1/4 side rails up at all times to promote independence with positioning. No alarms. Fall Risk Assessment Remains a low fall risk. No fall in the past month. Fall interventions: Call light within reach, wheelchair at bedside locked, bed in low position with brakes locked.
[2023-03-25] MEDS: lisinopriL 2.5 MG TABLET 5 MG PO (07:07)
[2023-03-25] MEDS: CLOPIDOGREL 75 MG TABLET PO (07:07)
[2023-03-25] MEDS: ACETAMINOPHEN 500 MG TABLET 1000 MG PO ×2 (07:07→20:04)
[2023-03-25] MEDS: ASPIRIN 81 MG TAB.CHEW PO (07:07)
[2023-03-25] MEDS: LORATADINE 10 MG TABLET PO (07:07)
[2023-03-25] MEDS: ROSUVASTATIN CALCIUM 10 MG TABLET 40 MG PO (20:04)
[2023-03-26] MEDS: lisinopriL 2.5 MG TABLET 5 MG PO (07:13)
[2023-03-26] MEDS: LORATADINE 10 MG TABLET PO (07:13)
[2023-03-26] MEDS: ACETAMINOPHEN 500 MG TABLET 1000 MG PO ×2 (07:13→19:29)
[2023-03-26] MEDS: CLOPIDOGREL 75 MG TABLET PO (07:13)
[2023-03-26] MEDS: ASPIRIN 81 MG TAB.CHEW PO (07:13)
[2023-03-26] MEDS: ROSUVASTATIN CALCIUM 10 MG TABLET 40 MG PO (19:29)
[2023-03-27] MEDS: ASPIRIN 81 MG TAB.CHEW PO (07:23)
[2023-03-27] MEDS: CLOPIDOGREL 75 MG TABLET PO (07:23)
[2023-03-27] MEDS: LORATADINE 10 MG TABLET PO (07:23)
[2023-03-27] MEDS: ACETAMINOPHEN 500 MG TABLET 1000 MG PO ×2 (07:23→20:14)
[2023-03-27] MEDS: lisinopriL 2.5 MG TABLET 5 MG PO (07:23)
[2023-03-27] MEDS: ROSUVASTATIN CALCIUM 10 MG TABLET 40 MG PO (20:15)
[2023-03-28] MEDS: CLOPIDOGREL 75 MG TABLET PO (07:08)
[2023-03-28] MEDS: ASPIRIN 81 MG TAB.CHEW PO (07:08)
[2023-03-28] MEDS: lisinopriL 2.5 MG TABLET 5 MG PO (07:08)
[2023-03-28] MEDS: ACETAMINOPHEN 500 MG TABLET 1000 MG PO ×2 (07:08→20:02)
[2023-03-28] MEDS: LORATADINE 10 MG TABLET PO (07:08)
[2023-03-28 07:54] LABS: Hemoglobin* 15.2 gm/dL (13.5-17.5)
[2023-03-28 08:06] LABS: Chloride* 107 mmol/L (96-114); Potassium* 3.9 mmol/L (3.6-5.1); Sodium* 142 mmol/L (135-149)
[2023-03-28 08:08] LABS: Cholesterol* 151 mg/dL (90-199)
[2023-03-28 08:09] LABS: Blood Urea Nitrogen* 26 mg/dL (7-30); Carbon Dioxide* 28 mmol/L (20-32); Creatinine* 0.9 mg/dL (0.5-1.5); Est. Creatinine Clearance* 59.37; Estimated Glomerular Filt Rate 90 ml/min; Glucose* 98 mg/dL (60-115); Triglycerides* 165 mg/dL (40-149)
[2023-03-28 08:10] LABS: HDL Cholesterol* 46 mg/dL (>=40); LDL Cholesterol Calculated 72 mg/dL (<100)
--- NOTE | 2023-03-28 08:44 | PC.NURSE ---
Lab note: Received results from BMP, Hgb and Lipid profile labs drawn today. All results within normal limits except for triglycerides which are noted to be elevated at 165. Light Rail Signal Technician left note for DESTINATION IMAGINATION COORDINATOR requesting provider to review.
[2023-03-28] MEDS: ROSUVASTATIN CALCIUM 10 MG TABLET 40 MG PO (20:03)
[2023-03-29] MEDS: ASPIRIN 81 MG TAB.CHEW PO (08:48)
[2023-03-29] MEDS: LORATADINE 10 MG TABLET PO (08:48)
[2023-03-29] MEDS: lisinopriL 2.5 MG TABLET 5 MG PO (08:48)
[2023-03-29] MEDS: CLOPIDOGREL 75 MG TABLET PO (08:48)
[2023-03-29] MEDS: ACETAMINOPHEN 500 MG TABLET 1000 MG PO ×2 (08:48→19:22)
[2023-03-29] MEDS: ROSUVASTATIN CALCIUM 10 MG TABLET 40 MG PO (19:22)
[2023-03-30 07:00] VITALS: BP 122/74; PULSE 68; RESP 18; TEMP 36.2; O2SAT 99; BMI 30.2
[2023-03-30] MEDS: CLOPIDOGREL 75 MG TABLET PO (07:58)
[2023-03-30] MEDS: LORATADINE 10 MG TABLET PO (07:58)
[2023-03-30] MEDS: ACETAMINOPHEN 500 MG TABLET 1000 MG PO ×2 (07:58→20:46)
[2023-03-30] MEDS: lisinopriL 2.5 MG TABLET 5 MG PO (07:58)
[2023-03-30] MEDS: ASPIRIN 81 MG TAB.CHEW PO (07:58)
[2023-03-30] MEDS: ROSUVASTATIN CALCIUM 10 MG TABLET 40 MG PO (20:46)
[2023-03-31] MEDS: ASPIRIN 81 MG TAB.CHEW PO (09:00)
[2023-03-31] MEDS: ACETAMINOPHEN 500 MG TABLET 1000 MG PO ×2 (09:00→20:46)
[2023-03-31] MEDS: LORATADINE 10 MG TABLET PO (09:01)
[2023-03-31] MEDS: CLOPIDOGREL 75 MG TABLET PO (09:01)
[2023-03-31] MEDS: lisinopriL 2.5 MG TABLET 5 MG PO (09:01)
[2023-03-31] MEDS: ROSUVASTATIN CALCIUM 10 MG TABLET 40 MG PO (20:46)
--- NOTE | 2023-04-01 00:04 | PC.NURSE ---
Weekly Charting Week 3: Toileting and Skin: Vital signs reviewed with no concerns. Comprehensive and temporary care plan reviewed with no changes made. Toileting: Res is continent of bowel and bladder. Requires assist of 1 with toileting. Staff assist with bo cares, clothing, and pad management. Resident does use urinal independently when in bed NOC. Staff empty the urinal during first round, 3rd round and when needed. Wears medium pull ups. Skin: Skin is clear. Skin check done every bath days and during cares.
--- NOTE | 2023-04-01 06:47 | PC.NURSE ---
WEEKLY CHARTING-WEEK 3- TOILETING & SKIN: Vital signs reviewed with no concerns. Comprehensive and temporary care plan reviewed with no changes made. Res is continent of bowel and bladder and he is of ! assist to with toileting and cares. Staff assist with bo cares, clothing, and pad management. Resident does use urinal independently when in bed and staff emptied it. . Wears medium pull ups. SKIN: there is no skin issue during this time. kin check done every bath days and during cares.
[2023-04-01] MEDS: ACETAMINOPHEN 500 MG TABLET 1000 MG PO ×2 (08:16→20:28)
[2023-04-01] MEDS: ASPIRIN 81 MG TAB.CHEW PO (08:16)
[2023-04-01] MEDS: CLOPIDOGREL 75 MG TABLET PO (08:16)
[2023-04-01] MEDS: lisinopriL 2.5 MG TABLET 5 MG PO (08:17)
[2023-04-01] MEDS: LORATADINE 10 MG TABLET PO (08:17)
[2023-04-01] MEDS: ROSUVASTATIN CALCIUM 10 MG TABLET 40 MG PO (20:28)
[2023-04-02] MEDS: CLOPIDOGREL 75 MG TABLET PO (07:37)
[2023-04-02] MEDS: ASPIRIN 81 MG TAB.CHEW PO (07:37)
[2023-04-02] MEDS: LORATADINE 10 MG TABLET PO (07:37)
[2023-04-02] MEDS: ACETAMINOPHEN 500 MG TABLET 1000 MG PO ×2 (07:37→19:56)
[2023-04-02] MEDS: lisinopriL 2.5 MG TABLET 5 MG PO (07:37)
[2023-04-02] MEDS: ROSUVASTATIN CALCIUM 10 MG TABLET 40 MG PO (19:57)
[2023-04-03] MEDS: ACETAMINOPHEN 500 MG TABLET 1000 MG PO ×2 (07:36→19:42)
[2023-04-03] MEDS: CLOPIDOGREL 75 MG TABLET PO (07:37)
[2023-04-03] MEDS: LORATADINE 10 MG TABLET PO (07:37)
[2023-04-03] MEDS: lisinopriL 2.5 MG TABLET 5 MG PO (07:37)
[2023-04-03] MEDS: ASPIRIN 81 MG TAB.CHEW PO (07:37)
[2023-04-03] MEDS: ROSUVASTATIN CALCIUM 10 MG TABLET 40 MG PO (19:42)
[2023-04-04] MEDS: ASPIRIN 81 MG TAB.CHEW PO (07:50)
[2023-04-04] MEDS: ACETAMINOPHEN 500 MG TABLET 1000 MG PO ×2 (07:50→19:51)
[2023-04-04] MEDS: CLOPIDOGREL 75 MG TABLET PO (07:50)
[2023-04-04] MEDS: LORATADINE 10 MG TABLET PO (07:50)
[2023-04-04] MEDS: lisinopriL 2.5 MG TABLET 5 MG PO (07:50)
[2023-04-04] MEDS: ROSUVASTATIN CALCIUM 10 MG TABLET 40 MG PO (19:51)
[2023-04-05] MEDS: ASPIRIN 81 MG TAB.CHEW PO (07:43)
[2023-04-05] MEDS: lisinopriL 2.5 MG TABLET 5 MG PO (07:43)
[2023-04-05] MEDS: ACETAMINOPHEN 500 MG TABLET 1000 MG PO ×2 (07:43→19:47)
[2023-04-05] MEDS: CLOPIDOGREL 75 MG TABLET PO (07:43)
[2023-04-05] MEDS: LORATADINE 10 MG TABLET PO (07:43)
[2023-04-05] MEDS: ROSUVASTATIN CALCIUM 10 MG TABLET 40 MG PO (19:47)
[2023-04-06] MEDS: ACETAMINOPHEN 500 MG TABLET 1000 MG PO ×2 (07:39→20:17)
[2023-04-06] MEDS: ASPIRIN 81 MG TAB.CHEW PO (07:39)
[2023-04-06] MEDS: CLOPIDOGREL 75 MG TABLET PO (07:39)
[2023-04-06] MEDS: LORATADINE 10 MG TABLET PO (07:40)
[2023-04-06] MEDS: lisinopriL 2.5 MG TABLET 5 MG PO (07:40)
[2023-04-06 09:35] VITALS: BP 130/74; PULSE 72; RESP 18; TEMP 36.3; O2SAT 96; BMI 30.4
[2023-04-06] MEDS: ROSUVASTATIN CALCIUM 10 MG TABLET 40 MG PO (20:17)
[2023-04-07] MEDS: ASPIRIN 81 MG TAB.CHEW PO (08:29)
[2023-04-07] MEDS: ACETAMINOPHEN 500 MG TABLET 1000 MG PO ×2 (08:29→19:37)
[2023-04-07] MEDS: CLOPIDOGREL 75 MG TABLET PO (08:30)
[2023-04-07] MEDS: lisinopriL 2.5 MG TABLET 5 MG PO (08:30)
[2023-04-07] MEDS: LORATADINE 10 MG TABLET PO (08:30)
--- NOTE | 2023-04-07 09:36 | PC.SPIRITC ---
I provided visit for support, connection, and to wish Janes a happy birthday.
[2023-04-07] MEDS: ROSUVASTATIN CALCIUM 10 MG TABLET 40 MG PO (19:38)
--- NOTE | 2023-04-08 00:35 | PC.NURSE ---
Weekly Charting Week 4 Vital signs reviewed with no changes made. Comprehensive and temporary care plan reviewed with no changes made. No behavior recorder this month. Not on Psychotropic medications. No behavior noted the past moth. Communicate needs verbally. Able to use call light properly. No hearing impairment. visual deficit corrected with reading glasses. Cognitively intact. No changes of communication, hearing ability vision or orientation. All medications administered by license nurse with no adverse effect noted. Health condition is stable.
--- NOTE | 2023-04-08 07:24 | PC.NURSE ---
WEEKLY CHARTING -Week 4: Communication,Hearing/Vision,Cognition/Behavior,& Clinical Monitoring Vital signs reviewed with no changes made. Comprehensive and temporary care plan reviewed with no changes made. No behavior recorded since admission. Not on Psychotropic medications currently. Communicate needs verbally. Able to use call light properly. No hearing impairment. visual deficit corrected with reading glasses. Cognitively intact. No changes of communication, hearing ability vision or orientation. All medications administered by license nurse with no adverse effect noted. No changes in chronic health condition noted.
[2023-04-08] MEDS: LORATADINE 10 MG TABLET PO (08:26)
[2023-04-08] MEDS: CLOPIDOGREL 75 MG TABLET PO (08:26)
[2023-04-08] MEDS: ACETAMINOPHEN 500 MG TABLET 1000 MG PO ×2 (08:26→19:45)
[2023-04-08] MEDS: ASPIRIN 81 MG TAB.CHEW PO (08:26)
[2023-04-08] MEDS: lisinopriL 2.5 MG TABLET 5 MG PO (08:26)
[2023-04-08] MEDS: ROSUVASTATIN CALCIUM 10 MG TABLET 40 MG PO (19:45)
[2023-04-08 20:24] VITALS: BP 127/76; PULSE 88; RESP 18; TEMP 36.6; O2SAT 98
--- NOTE | 2023-04-08 20:41 | LTC.FALL ---
[facility] Fall Note: o Fall Date: 04/08/23 o Fall Time: 1900 o What happened? Resident missed wheel chair seat while attempting to sit; therefore, lowered self to sit on the floor as reported by resident. o Who found the resident and who responded? This insurance writer (Nurse). o What was the resident doing? Attempting to self transfer from bed to wheel chair. Performs task independently, anyway. o How the resident was found (knees, left side, arm under them), any hazards (cords, objects, nonskid slippers) brakes on? Proper equipment? Resident was found in a sitting position with legs stretched out. o Did you assess for head trauma, spinal injuries, skeletal injuries, neurological changes and status, and head and neck pain? What did you find? No injuries, and no signs and symptoms of head trauma noted at this time. Resident persistently insisted not hitting his head. o Did you assess ROM in shoulders, elbows, hips, knees, any other affected areas, unless there is suspected spinal injury. ROM performed on lower extremity without C/O pain to lower back an spine. Also tolerated ROM of the right arm, but not so with the left arm due to weakness as related to history of stroke. o Did you Assess for pain or discomfort? Resident denies pain, and no non-verbal signs and symptoms often indicating the presence of pain observed or reported at this time. o What are the injuries and how are they being treated? No injuries observed at this time. o How was the resident transferred from the floor? 2 assist with Jose lift. o Did you call the MD or put a note in the ORACLE CONSULTANT book? Noted in ORACLE CONSULTANT book. o Enter vital signs. BP- 127/76, P- 88, T- 97.9, O2- 98%, R- 18, Pain- 0 o Did you notify family? Yes. o What was the root cause of the fall? Why did it happen? Lack of [id number] device on wheel chair. o Create an IMMEDIATE INTERVENTION to ensure that this won't immediately happen again. (Put in temporary care plan too) o Complete Safety report and huddle (now one form) o If resident is seen in ED or fractured something, note that you started a [facility] Report process. Instructions are at the East nurse's desk in a red binder labeled [facility] report.
--- NOTE | 2023-04-08 21:35 | PC.NURSE ---
Family Update: Resident's daughter, Muna Orta notified and updated on fall incident.
--- NOTE | 2023-04-08 21:39 | PC.NURSE ---
Fall: No injuries, bruising, head trauma, or bruising noted at this time. Resident alert and oriented. PERRLA intact. Peripheral sandoval full, bilaterally. Denies pain with ROM in all joints with exception of the stroked left weak arm. Denies headaches, and no vomiting episode at this time. Vital signs obtained and are WNL. Will continue to monitor.
[2023-04-09 00:24] VITALS: BP 125/81; PULSE 71; RESP 18; TEMP 36.5; O2SAT 94
--- NOTE | 2023-04-09 00:56 | PC.NURSE ---
Fall follow up Resident was asleep when Nurse went to check on him ; Vitals are stable , he denies pain . Will keep monitoring.
[2023-04-09 04:00] VITALS: BP 130/77; PULSE 75; RESP 18; TEMP 36.6; O2SAT 94
--- NOTE | 2023-04-09 06:21 | PC.NURSE ---
Fall follow up Resident did not complain about any pain during night , vitals stable. Will continue to monitor.
[2023-04-09 08:00] VITALS: BP 148/92; PULSE 75; RESP 18; TEMP 36.9; O2SAT 98
[2023-04-09] MEDS: CLOPIDOGREL 75 MG TABLET PO (08:03)
[2023-04-09] MEDS: LORATADINE 10 MG TABLET PO (08:03)
[2023-04-09] MEDS: ASPIRIN 81 MG TAB.CHEW PO (08:03)
[2023-04-09] MEDS: ACETAMINOPHEN 500 MG TABLET 1000 MG PO ×2 (08:03→20:48)
[2023-04-09] MEDS: lisinopriL 2.5 MG TABLET 5 MG PO (08:03)
--- NOTE | 2023-04-09 09:42 | PC.NURSE ---
Fall f/u: Resident in bed sleeping, woke for VS. VSS. No complaints of pain. Told data analyst report writer that he didn't really fall and that he did not hit his head.
[2023-04-09 12:00] VITALS: BP 111/71; PULSE 82; RESP 18; TEMP 37.2; O2SAT 96
--- NOTE | 2023-04-09 12:59 | PC.NURSE ---
Fall f/u: Resident in awake in bed watching TV. A&O. VS are stable and Neuro checks are stable LYNDA. Denies pain.
--- NOTE | 2023-04-09 15:00 | PC.NURSE ---
Fall follow-up: Resident alert and oriented X 4. PERRLA intact. Peripheral sandoval full, bilaterally. Strength in right hand grasps is normal, but strength in left hand grasps remains weak due to history of stroke. Denies pain with ROM in all joints with exception of the stroked left weak arm. Denies headaches, blurriness, and no vomiting episode at this time. Vital signs obtained are within resident's normal values - see 'work list' for current values. Will continue to monitor.
[2023-04-09 15:21] VITALS: BP 134/83; PULSE 85; RESP 18; TEMP 36.6; O2SAT 96
[2023-04-09 20:00] VITALS: BP 126/72; PULSE 76; RESP 18; TEMP 36.2; O2SAT 98
[2023-04-09] MEDS: ROSUVASTATIN CALCIUM 10 MG TABLET 40 MG PO (20:48)
--- NOTE | 2023-04-09 21:38 | PC.NURSE ---
Fall follow-up: Resident alert and oriented X 4. PERRLA intact. Peripheral sandoval full, bilaterally. Denies pain with ROM in all joints with exception of the stroked left weak arm. Denies headaches, blurriness, and no vomiting episode at this time. Vital signs obtained are within resident's normal values - see 'work list' for current values. Will continue to monitor.
[2023-04-10] VITALS: BP 136/60; PULSE 94; RESP 18; TEMP 36.6
[2023-04-10 03:42] VITALS: BP 149/58; PULSE 76; RESP 18; TEMP 36.4; O2SAT 94
--- NOTE | 2023-04-10 05:42 | PC.NURSE ---
FOLLOW UP FALL Resident night went well , denies pain. Neuro checked , left side weakness related to Hx of stroke, pupils react, right upper and lower extremities strong , alert and oriented. No concerns , continue to monitor.
[2023-04-10] MEDS: LORATADINE 10 MG TABLET PO (07:27)
[2023-04-10] MEDS: ASPIRIN 81 MG TAB.CHEW PO (07:27)
[2023-04-10] MEDS: ACETAMINOPHEN 500 MG TABLET 1000 MG PO ×2 (07:27→20:07)
[2023-04-10] MEDS: lisinopriL 2.5 MG TABLET 5 MG PO (07:27)
[2023-04-10] MEDS: CLOPIDOGREL 75 MG TABLET PO (07:27)
--- NOTE | 2023-04-10 07:33 | PC.NURSE ---
Fall followup note: Resident noted to be alert & oriented to correct person, place, time and situation when assessed. Hand grasps noted to be equal bilaterally. PERRLA. Vital signs: B/P 149/84, P 68, R 18, T 97.3, O2 sat 96% on RA. Resident denies pain when asked. Wheelchair in place to left side of bed with wheelchair brakes locked and call light is within reach.
[2023-04-10 08:00] VITALS: BP 149/84; PULSE 68; RESP 18; TEMP 36.3; O2SAT 96
--- NOTE | 2023-04-10 11:09 | PC.NURSE ---
Fall followup note: Resident remains alert & oriented x 4. He continues to deny pain when asked. PERRLA. Hand grasps remain strong bilaterally though resident does have chronic weakness to left arm due to hx of stroke. Vital signs: B/P 110/71, P 81, R 18, T 98.3, O2 sat 96% on RA. Call light remains within reach and wheelchair remains in place to left side of bed with wheelchair brakes locked.
[2023-04-10 11:10] VITALS: BP 110/71; PULSE 81; RESP 18; TEMP 36.8; O2SAT 96
[2023-04-10 16:00] VITALS: BP 122/74; PULSE 86; RESP 18; TEMP 37.1; O2SAT 98
--- NOTE | 2023-04-10 16:30 | PC.NURSE ---
Fall Follow-up: Findings from vital signs and neuro assessment are normal. No new concerns noted or reported as related to fall incident. See under 'work list' for recorded values for current vital signs. Continues to deny pain. Will continue to monitor.
--- NOTE | 2023-04-10 16:36 | PC.NURSE ---
Out of Facility: Resident left [facility] at 1505 to attend birthday festivity at [employer]. Was picked up from the wound clinic entrance door by daughter, Muna Orta, via [employer].
--- NOTE | 2023-04-10 18:59 | PC.NURSE ---
Returns to Facility: Resident returned to [facility] at 1850. No health concern noted at this time.
[2023-04-10 20:00] VITALS: BP 131/78; PULSE 86; RESP 20; TEMP 37.1; O2SAT 96
[2023-04-10] MEDS: ROSUVASTATIN CALCIUM 10 MG TABLET 40 MG PO (20:08)
--- NOTE | 2023-04-10 22:24 | PC.NURSE ---
Fall Follow-up: Findings from vital signs and neuro assessment are normal - level of consciousness remain at baseline. No new concerns noted or reported as related to fall incident. See under 'work list' for recorded values for current vital signs. Continues to deny pain. Will continue to monitor.
[2023-04-11] VITALS: BP 130/75; PULSE 72; RESP 18; TEMP 36.4; O2SAT 94
[2023-04-11 04:00] VITALS: BP 144/73; PULSE 67; RESP 18; TEMP 36.5; O2SAT 94
--- NOTE | 2023-04-11 05:17 | PC.NURSE ---
FOLLOW UP FALL Resident night went well, no concerns, denies pain. Neuro intact,no new findings. Vitals taken, nothing concerning. Will continue to monitor for safety.
[2023-04-11 08:00] VITALS: BP 117/81; PULSE 68; RESP 18; TEMP 36.6; O2SAT 97
[2023-04-11] MEDS: lisinopriL 2.5 MG TABLET 5 MG PO (08:24)
[2023-04-11] MEDS: CLOPIDOGREL 75 MG TABLET PO (08:24)
[2023-04-11] MEDS: ACETAMINOPHEN 500 MG TABLET 1000 MG PO ×2 (08:24→20:17)
[2023-04-11] MEDS: ASPIRIN 81 MG TAB.CHEW PO (08:24)
[2023-04-11] MEDS: LORATADINE 10 MG TABLET PO (08:25)
--- NOTE | 2023-04-11 11:09 | PC.PHA1 ---
GRADER GREEN MEAT PHARMACIST'S MEDICATION REVIEW: MEDICATION MONITORING:No psychotropic medication orders IRREGULARITY OR COMMENTS:Patient continues on same medication regimen for post stroke - statin, clopidogrel and antihypertensive. SUGGESTED COURSE OF ACTION TAKEN:No medication recommendations this review.
[2023-04-11 12:00] VITALS: BP 110/71
[2023-04-11 15:52] VITALS: BP 109/73; PULSE 80; RESP 18; TEMP 36.4; O2SAT 96
--- NOTE | 2023-04-11 16:03 | PC.NURSE ---
Fall follow-up: Resident is alert and oriented X 4. PERRLA intact. Peripheral sandoval full, bilaterally. Strength in right hand grasps is normal, but strength in left hand grasps remains weak due to history of stroke. Denies pain with ROM of the lower extremely. Denies headaches, blurriness, and no vomiting episode noted or reported so far. Vital signs obtained are within resident's normal values - see 'work list' for current values. Will continue to monitor.
[2023-04-11 20:00] VITALS: BP 117/78; PULSE 77; RESP 18; TEMP 36.9; O2SAT 98
[2023-04-11] MEDS: ROSUVASTATIN CALCIUM 10 MG TABLET 40 MG PO (20:18)
--- NOTE | 2023-04-11 21:02 | PC.NURSE ---
Fall Follow-up: Resident is alert and oriented X 4. PERRLA intact. Peripheral sandoval full, bilaterally. Strength in right hand grasps is normal. Vital signs WNL. No new concerns noted or reported at this time.
[2023-04-12] VITALS: BP 135/65; PULSE 85; RESP 17; TEMP 36.6; O2SAT 95
[2023-04-12 04:00] VITALS: BP 114/74; PULSE 79; RESP 18; TEMP 36.8; O2SAT 97
[2023-04-12] MEDS: CLOPIDOGREL 75 MG TABLET PO (07:25)
[2023-04-12] MEDS: ASPIRIN 81 MG TAB.CHEW PO (07:25)
[2023-04-12] MEDS: ACETAMINOPHEN 500 MG TABLET 1000 MG PO ×2 (07:25→20:15)
[2023-04-12] MEDS: LORATADINE 10 MG TABLET PO (07:26)
[2023-04-12] MEDS: lisinopriL 2.5 MG TABLET 5 MG PO (07:26)
[2023-04-12] MEDS: ROSUVASTATIN CALCIUM 10 MG TABLET 40 MG PO (20:15)
[2023-04-13 07:00] VITALS: BP 133/87; PULSE 70; RESP 16; TEMP 36.4; O2SAT 94; BMI 30.4
[2023-04-13] MEDS: lisinopriL 2.5 MG TABLET 5 MG PO (07:17)
[2023-04-13] MEDS: ASPIRIN 81 MG TAB.CHEW PO (07:17)
[2023-04-13] MEDS: CLOPIDOGREL 75 MG TABLET PO (07:17)
[2023-04-13] MEDS: ACETAMINOPHEN 500 MG TABLET 1000 MG PO ×2 (07:17→19:58)
[2023-04-13] MEDS: LORATADINE 10 MG TABLET PO (07:18)
[2023-04-13 14:03] VITALS: BMI 30.4
[2023-04-13] MEDS: ROSUVASTATIN CALCIUM 10 MG TABLET 40 MG PO (19:58)
[2023-04-14] MEDS: LORATADINE 10 MG TABLET PO (07:53)
[2023-04-14] MEDS: lisinopriL 2.5 MG TABLET 5 MG PO (07:53)
[2023-04-14] MEDS: ACETAMINOPHEN 500 MG TABLET 1000 MG PO ×2 (07:53→20:56)
[2023-04-14] MEDS: ASPIRIN 81 MG TAB.CHEW PO (07:53)
[2023-04-14] MEDS: CLOPIDOGREL 75 MG TABLET PO (07:53)
--- NOTE | 2023-04-14 12:41 | PC.NURSE ---
Podiatry: Resident refused podiatry service which was schedule for him.
[2023-04-14] MEDS: ROSUVASTATIN CALCIUM 10 MG TABLET 40 MG PO (20:56)
[2023-04-15] MEDS: lisinopriL 2.5 MG TABLET 5 MG PO (07:08)
[2023-04-15] MEDS: CLOPIDOGREL 75 MG TABLET PO (07:08)
[2023-04-15] MEDS: LORATADINE 10 MG TABLET PO (07:08)
[2023-04-15] MEDS: ACETAMINOPHEN 500 MG TABLET 1000 MG PO ×2 (07:08→19:32)
[2023-04-15] MEDS: ASPIRIN 81 MG TAB.CHEW PO (07:08)
[2023-04-15] MEDS: ROSUVASTATIN CALCIUM 10 MG TABLET 40 MG PO (19:32)
[2023-04-16] MEDS: ACETAMINOPHEN 500 MG TABLET 1000 MG PO ×2 (07:34→19:22)
[2023-04-16] MEDS: lisinopriL 2.5 MG TABLET 5 MG PO (07:34)
[2023-04-16] MEDS: ASPIRIN 81 MG TAB.CHEW PO (07:34)
[2023-04-16] MEDS: CLOPIDOGREL 75 MG TABLET PO (07:34)
[2023-04-16] MEDS: LORATADINE 10 MG TABLET PO (07:35)
[2023-04-16] MEDS: ROSUVASTATIN CALCIUM 10 MG TABLET 40 MG PO (19:22)
[2023-04-17] MEDS: ASPIRIN 81 MG TAB.CHEW PO (07:31)
[2023-04-17] MEDS: CLOPIDOGREL 75 MG TABLET PO (07:31)
[2023-04-17] MEDS: LORATADINE 10 MG TABLET PO (07:31)
[2023-04-17] MEDS: lisinopriL 2.5 MG TABLET 5 MG PO (07:31)
[2023-04-17] MEDS: ACETAMINOPHEN 500 MG TABLET 1000 MG PO ×2 (07:31→19:08)
[2023-04-17] MEDS: ROSUVASTATIN CALCIUM 10 MG TABLET 40 MG PO (19:08)
[2023-04-18] MEDS: CLOPIDOGREL 75 MG TABLET PO (08:04)
[2023-04-18] MEDS: LORATADINE 10 MG TABLET PO (08:04)
[2023-04-18] MEDS: ASPIRIN 81 MG TAB.CHEW PO (08:04)
[2023-04-18] MEDS: lisinopriL 2.5 MG TABLET 5 MG PO (08:04)
[2023-04-18] MEDS: ACETAMINOPHEN 500 MG TABLET 1000 MG PO ×2 (08:04→20:19)
[2023-04-18] MEDS: ROSUVASTATIN CALCIUM 10 MG TABLET 40 MG PO (20:19)
[2023-04-19] MEDS: ASPIRIN 81 MG TAB.CHEW PO (07:32)
[2023-04-19] MEDS: lisinopriL 2.5 MG TABLET 5 MG PO (07:32)
[2023-04-19] MEDS: ACETAMINOPHEN 500 MG TABLET 1000 MG PO ×2 (07:32→20:59)
[2023-04-19] MEDS: CLOPIDOGREL 75 MG TABLET PO (07:32)
[2023-04-19] MEDS: LORATADINE 10 MG TABLET PO (07:33)
--- NOTE | 2023-04-19 14:43 | PC.NURSE ---
CARE CONFERENCE: Resident and daughter Muna present. Nursing, dietary, and SW present. Nursing discussed current medications and provided a med list to daughter. Discussed Full code status - resident confirms desire to be full code. Resident states he is attending more activities than previously. Encouraged resident to continue to go out for meals and to walk with staff.?Also encouraged resident to participate in exercise activities. Resident agrees to this plan. Resdient notes he likes to spend time in room watching TV. SW reports that mood has been stable, no concerns. Dietary - weight has been stable with no concerns. Confirmed with resident that he declined visit with Burglar Alarm Inspector on 04/14/23. Discussed with resident his fall or slip out of wheelchair on 04/08 and that he had no reported injuries from accident. Reminded resident of importance of calling for assistance with transfers as he has had previous falls from not calling staff. Resident states he will try. Briefly discussed concerns with resident and daughter where he will go once termite control representative care closes in June. SW informed them that resident could benefit from assisted living, but more will be discussed tomorrow during resident meeting. Uses no restraints. Does use 2 side rails to assist with positioning per his request.?Vulnerability- is at risk for being harmed due to balance and L sided deficit. Daughter would like assistance getting resident rescheduled for neurology appointment. ZAK will assist with this. Discharge planning in process for resident.
--- NOTE | 2023-04-19 16:45 | PC.SOCIAL ---
Care Conference held today at 1:00 pm. Resident's daughter (Muna) attended in person. Updates from Nursing, Nutrition, and Social Work. Resident's care plan was reviewed. Resident's mood has been stable with no s/s of depression. Resident has been participating in activities. No concerns noted. Resident's daughter discussed looking into Assisted Living facilities for placement.
[2023-04-19] MEDS: ROSUVASTATIN CALCIUM 10 MG TABLET 40 MG PO (20:59)
[2023-04-20] MEDS: LORATADINE 10 MG TABLET PO (07:51)
[2023-04-20] MEDS: ACETAMINOPHEN 500 MG TABLET 1000 MG PO ×2 (07:51→19:46)
[2023-04-20] MEDS: ASPIRIN 81 MG TAB.CHEW PO (07:51)
[2023-04-20] MEDS: lisinopriL 2.5 MG TABLET 5 MG PO (07:51)
[2023-04-20] MEDS: CLOPIDOGREL 75 MG TABLET PO (07:51)
[2023-04-20 07:59] VITALS: BMI 30.3
[2023-04-20 11:25] VITALS: BP 114/78; PULSE 76; RESP 18; TEMP 36.3; O2SAT 97
[2023-04-20] MEDS: ROSUVASTATIN CALCIUM 10 MG TABLET 40 MG PO (19:46)
[2023-04-21] MEDS: LORATADINE 10 MG TABLET PO (07:30)
[2023-04-21] MEDS: ACETAMINOPHEN 500 MG TABLET 1000 MG PO ×2 (07:30→19:37)
[2023-04-21] MEDS: CLOPIDOGREL 75 MG TABLET PO (07:30)
[2023-04-21] MEDS: lisinopriL 2.5 MG TABLET 5 MG PO (07:30)
[2023-04-21] MEDS: ASPIRIN 81 MG TAB.CHEW PO (07:30)
--- NOTE | 2023-04-21 16:05 | PC.SOCIAL ---
Met with resident in room and resident's daughter by phone. Resident's daughter informed that she was calling three facilities for placement which include [facility], [facility], and [facility]. Secure e-mail referral to [facility] to Christine Osuna. Secure e-mail referral to [facility] to [email or web address] and [email or web address]. Faxed referral to [facility] in [place] at [phone]. Provided information to resident's daughter, Muna. Social work will follow up as needed.
[2023-04-21] MEDS: ROSUVASTATIN CALCIUM 10 MG TABLET 40 MG PO (19:37)
--- NOTE | 2023-04-21 23:41 | PC.NURSE ---
Weekly Charting Week 1: PAIN and ADLs Vital signs reviewed with no concerns. Comprehensive and temporary care plan reviewed with no changes made. Pain: Has history of shoulder pain. No complain of pain the past month. Currently on [id number] mg for pain management. ADLs: Resident needs extensive to limited assist with dressing, grooming, bathing and hygiene. Encourage to participate as able. Able to perform oral cares after set up. Is on regular diet, regular texture, thin liquids. Able to feed independently after set up. No problems with chewing/swallowing reported.
--- NOTE | 2023-04-22 06:53 | PC.NURSE ---
Weekly Charting, Week 1 - ADL's: Comprehensive and temporary care plan reviewed. No changes made, nothing added to temporary care plan. Resident needs extensive to limited assist with dressing, grooming, bathing and hygiene. Encourage to participate as able. Does oral cares and feed independently after set up. Is on regular diet, regular texture, thin liquids. No problems with chewing/swallowing reported. Vital signs reviewed, no concerns. Continue weekly monitoring. Pain: Has history of shoulder pain controlled with Tylenol 1000 mg BID. Has no complain the past months. Is able to make needs known if in pain.
[2023-04-22] MEDS: CLOPIDOGREL 75 MG TABLET PO (07:48)
[2023-04-22] MEDS: lisinopriL 2.5 MG TABLET 5 MG PO (07:48)
[2023-04-22] MEDS: ACETAMINOPHEN 500 MG TABLET 1000 MG PO ×2 (07:48→20:19)
[2023-04-22] MEDS: LORATADINE 10 MG TABLET PO (07:48)
[2023-04-22] MEDS: ASPIRIN 81 MG TAB.CHEW PO (07:48)
[2023-04-22] MEDS: ROSUVASTATIN CALCIUM 10 MG TABLET 40 MG PO (20:19)
[2023-04-23] MEDS: ACETAMINOPHEN 500 MG TABLET 1000 MG PO ×2 (07:29→19:55)
[2023-04-23] MEDS: lisinopriL 2.5 MG TABLET 5 MG PO (07:30)
[2023-04-23] MEDS: ASPIRIN 81 MG TAB.CHEW PO (07:30)
[2023-04-23] MEDS: CLOPIDOGREL 75 MG TABLET PO (07:30)
[2023-04-23] MEDS: LORATADINE 10 MG TABLET PO (07:30)
[2023-04-23] MEDS: ROSUVASTATIN CALCIUM 10 MG TABLET 40 MG PO (19:55)
[2023-04-24] MEDS: ACETAMINOPHEN 500 MG TABLET 1000 MG PO ×2 (07:31→19:41)
[2023-04-24] MEDS: ASPIRIN 81 MG TAB.CHEW PO (07:31)
[2023-04-24] MEDS: CLOPIDOGREL 75 MG TABLET PO (07:32)
[2023-04-24] MEDS: LORATADINE 10 MG TABLET PO (07:32)
[2023-04-24] MEDS: lisinopriL 2.5 MG TABLET 5 MG PO (07:32)
[2023-04-24] MEDS: ROSUVASTATIN CALCIUM 10 MG TABLET 40 MG PO (19:41)
[2023-04-25] MEDS: ACETAMINOPHEN 500 MG TABLET 1000 MG PO ×2 (07:39→20:28)
[2023-04-25] MEDS: lisinopriL 2.5 MG TABLET 5 MG PO (07:40)
[2023-04-25] MEDS: ASPIRIN 81 MG TAB.CHEW PO (07:40)
[2023-04-25] MEDS: CLOPIDOGREL 75 MG TABLET PO (07:40)
[2023-04-25] MEDS: LORATADINE 10 MG TABLET PO (07:40)
--- NOTE | 2023-04-25 12:32 | PC.NURSE ---
Made follow up for resident with neurologist, Dr. Ratliff ([phone]) on May 20 at 12:00pm. Appointment will be at [address] [place], [place] [id number]. E-mail was sent to resident's daughter Muna with appointment information. Information will also be added to resident's discharge paperwork once he has placement.
--- NOTE | 2023-04-25 15:29 | PC.NURSE ---
Returns to facility: Resident returned to [facility] at 1510 after outing with daughter, Muna.
[2023-04-25] MEDS: ROSUVASTATIN CALCIUM 10 MG TABLET 40 MG PO (20:28)
[2023-04-26] MEDS: lisinopriL 2.5 MG TABLET 5 MG PO (07:24)
[2023-04-26] MEDS: CLOPIDOGREL 75 MG TABLET PO (07:24)
[2023-04-26] MEDS: ACETAMINOPHEN 500 MG TABLET 1000 MG PO ×2 (07:24→19:27)
[2023-04-26] MEDS: LORATADINE 10 MG TABLET PO (07:24)
[2023-04-26] MEDS: ASPIRIN 81 MG TAB.CHEW PO (07:24)
[2023-04-26] MEDS: ROSUVASTATIN CALCIUM 10 MG TABLET 40 MG PO (19:28)
[2023-04-27 07:00] VITALS: BP 117/75; PULSE 70; RESP 17; TEMP 36.2; O2SAT 97; BMI 30.7
[2023-04-27] MEDS: ACETAMINOPHEN 500 MG TABLET 1000 MG PO ×2 (07:06→19:48)
[2023-04-27] MEDS: CLOPIDOGREL 75 MG TABLET PO (07:06)
[2023-04-27] MEDS: lisinopriL 2.5 MG TABLET 5 MG PO (07:06)
[2023-04-27] MEDS: LORATADINE 10 MG TABLET PO (07:06)
[2023-04-27] MEDS: ASPIRIN 81 MG TAB.CHEW PO (07:07)
[2023-04-27] MEDS: ROSUVASTATIN CALCIUM 10 MG TABLET 40 MG PO (19:48)
[2023-04-28] MEDS: ACETAMINOPHEN 500 MG TABLET 1000 MG PO ×2 (07:43→19:20)
[2023-04-28] MEDS: ASPIRIN 81 MG TAB.CHEW PO (07:43)
[2023-04-28] MEDS: lisinopriL 2.5 MG TABLET 5 MG PO (07:43)
[2023-04-28] MEDS: CLOPIDOGREL 75 MG TABLET PO (07:43)
[2023-04-28] MEDS: LORATADINE 10 MG TABLET PO (07:43)
--- NOTE | 2023-04-28 10:16 | PC.SPIRITC ---
I provided visit for support and time to process upcoming changes. Janes expressed some aspects he is looking forward as he moves to his next home.
[2023-04-28] MEDS: ROSUVASTATIN CALCIUM 10 MG TABLET 40 MG PO (19:20)
--- NOTE | 2023-04-28 23:59 | PC.NURSE ---
Weekly Charting Week 2: Mobility Vital signs reviewed with no concerns. Comprehensive and temporary care plan reviewed with no changes made. Res needs one staff assist, gait belt and platform walker for transfers. Res is able to wheel self with a left tray for arm support. Independent in reposition self in bed/chair. Staff to remind Res to reposition as needed.? Has bilateral 1/4 side rails up at all times to promote independence with turning and repositioning. No alarms. On ambulation program. Requires limited to extensive assistance with one assist. Ambulate with 2WW and gait belt, however Res has history of refusing to ambulate. Fall Risk Assessment remains a low fall risk base on assessment done on 04/14/23. Had a fall on 04/08. Fall interventions: Call light within reach, wheelchair at bedside locked, bed in low position with brakes locked.
[2023-04-29] MEDS: ACETAMINOPHEN 500 MG TABLET 1000 MG PO ×2 (07:16→19:44)
[2023-04-29] MEDS: lisinopriL 2.5 MG TABLET 5 MG PO (07:16)
[2023-04-29] MEDS: ASPIRIN 81 MG TAB.CHEW PO (07:16)
[2023-04-29] MEDS: LORATADINE 10 MG TABLET PO (07:16)
[2023-04-29] MEDS: CLOPIDOGREL 75 MG TABLET PO (07:16)
--- NOTE | 2023-04-29 07:34 | PC.NURSE ---
Weekly Charting, Week 2-Mobility: Comprehensive and temporary care plan reviewed. No changes made and nothing added to temporary care plan. Resident needs one assist, gait belt and platform walker for transfers & ambulation. Needs encouragement with ambulation. Is able to wheel self with a left tray for arm support. Able to reposition self in bed/chair.? Bilateral 1/4 side rails up at all times to promote independence with positioning. No alarms. Vital signs reviewed, no concerns. Continue weekly monitoring, refer to provider as needed. Fall: Had a fall on 04/08 with no injury. Missed wheelchair seat, lowered self to the floor. Remains a low fall risk according to assessment done on 04/14/23. Fall interventions: Call light within reach, wheelchair at bedside locked, bed in low position with brakes locked.
[2023-04-29] MEDS: ROSUVASTATIN CALCIUM 10 MG TABLET 40 MG PO (19:44)
[2023-04-30] MEDS: lisinopriL 2.5 MG TABLET 5 MG PO (08:02)
[2023-04-30] MEDS: LORATADINE 10 MG TABLET PO (08:02)
[2023-04-30] MEDS: ASPIRIN 81 MG TAB.CHEW PO (08:02)
[2023-04-30] MEDS: ACETAMINOPHEN 500 MG TABLET 1000 MG PO ×2 (08:02→19:09)
[2023-04-30] MEDS: CLOPIDOGREL 75 MG TABLET PO (08:02)
[2023-04-30] MEDS: ROSUVASTATIN CALCIUM 10 MG TABLET 40 MG PO (19:09)
[2023-05-01] MEDS: ASPIRIN 81 MG TAB.CHEW PO (07:27)
[2023-05-01] MEDS: LORATADINE 10 MG TABLET PO (07:27)
[2023-05-01] MEDS: ACETAMINOPHEN 500 MG TABLET 1000 MG PO ×2 (07:27→19:25)
[2023-05-01] MEDS: lisinopriL 2.5 MG TABLET 5 MG PO (07:27)
[2023-05-01] MEDS: CLOPIDOGREL 75 MG TABLET PO (07:27)
[2023-05-01] MEDS: ROSUVASTATIN CALCIUM 10 MG TABLET 40 MG PO (19:25)
[2023-05-02] MEDS: LORATADINE 10 MG TABLET PO (07:18)
[2023-05-02] MEDS: ACETAMINOPHEN 500 MG TABLET 1000 MG PO ×2 (07:18→20:16)
[2023-05-02] MEDS: lisinopriL 2.5 MG TABLET 5 MG PO (07:18)
[2023-05-02] MEDS: ASPIRIN 81 MG TAB.CHEW PO (07:18)
[2023-05-02] MEDS: CLOPIDOGREL 75 MG TABLET PO (07:18)
[2023-05-02] MEDS: ROSUVASTATIN CALCIUM 10 MG TABLET 40 MG PO (20:16)
[2023-05-03] MEDS: CLOPIDOGREL 75 MG TABLET PO (07:20)
[2023-05-03] MEDS: ACETAMINOPHEN 500 MG TABLET 1000 MG PO ×2 (07:20→19:36)
[2023-05-03] MEDS: LORATADINE 10 MG TABLET PO (07:20)
[2023-05-03] MEDS: lisinopriL 2.5 MG TABLET 5 MG PO (07:20)
[2023-05-03] MEDS: ASPIRIN 81 MG TAB.CHEW PO (07:20)
[2023-05-03] MEDS: ROSUVASTATIN CALCIUM 10 MG TABLET 40 MG PO (19:36)
[2023-05-04] MEDS: ASPIRIN 81 MG TAB.CHEW PO (07:50)
[2023-05-04] MEDS: ACETAMINOPHEN 500 MG TABLET 1000 MG PO ×2 (07:50→19:08)
[2023-05-04] MEDS: LORATADINE 10 MG TABLET PO (07:51)
[2023-05-04] MEDS: CLOPIDOGREL 75 MG TABLET PO (07:51)
[2023-05-04] MEDS: lisinopriL 2.5 MG TABLET 5 MG PO (07:51)
[2023-05-04 08:03] VITALS: BMI 30.7
--- NOTE | 2023-05-04 09:13 | PC.PHA1 ---
CONTROL PANEL TESTER PHARMACIST'S MEDICATION REVIEW: MEDICATION MONITORING:No psychotropic medications to monitor. IRREGULARITY OR COMMENTS:Patient doing well on same medication regimen, vitals stable. SUGGESTED COURSE OF ACTION TAKEN:No recommendations this review.
[2023-05-04 09:46] VITALS: BP 144/67; PULSE 70; RESP 18; TEMP 36.3; O2SAT 96
[2023-05-04] MEDS: ROSUVASTATIN CALCIUM 10 MG TABLET 40 MG PO (19:08)
[2023-05-05] MEDS: lisinopriL 2.5 MG TABLET 5 MG PO (07:10)
[2023-05-05] MEDS: CLOPIDOGREL 75 MG TABLET PO (07:10)
[2023-05-05] MEDS: ASPIRIN 81 MG TAB.CHEW PO (07:10)
[2023-05-05] MEDS: ACETAMINOPHEN 500 MG TABLET 1000 MG PO ×2 (07:10→19:40)
[2023-05-05] MEDS: LORATADINE 10 MG TABLET PO (07:10)
[2023-05-05] MEDS: ROSUVASTATIN CALCIUM 10 MG TABLET 40 MG PO (19:40)
[2023-05-06] MEDS: ASPIRIN 81 MG TAB.CHEW PO (07:22)
[2023-05-06] MEDS: CLOPIDOGREL 75 MG TABLET PO (07:22)
[2023-05-06] MEDS: lisinopriL 2.5 MG TABLET 5 MG PO (07:22)
[2023-05-06] MEDS: LORATADINE 10 MG TABLET PO (07:22)
[2023-05-06] MEDS: ACETAMINOPHEN 500 MG TABLET 1000 MG PO ×2 (07:22→20:44)
--- NOTE | 2023-05-06 08:00 | PC.NURSE ---
Weekly Charting, Week 3 - Toileting: Comprehensive and temporary care plan reviewed. No changes made. Nothing added to temporary care plan. Resident is continent of bowel and bladder. Needs one extensive assist with toileting: bo cares, clothing and pad management. Uses a urinal when in bed, emptied by staff. Wears medium pull ups.? Encourage to ambulate to the toilet as much as possible with assist, gait belt and walker. Vital signs reviewed, no concerns. Continue weekly monitoring & refer to provider as needed. Skin: No issues at this time. Skin is checked during cares and on bath day.
--- NOTE | 2023-05-06 18:18 | PC.NURSE ---
Out/Returned to Facility: Resident was out of [facility] to dinning with family at 1440. Returned to facility at 1815. No concerns noted at this time.
[2023-05-06] MEDS: ROSUVASTATIN CALCIUM 10 MG TABLET 40 MG PO (20:44)
[2023-05-07] MEDS: ACETAMINOPHEN 500 MG TABLET 1000 MG PO ×2 (07:48→19:17)
[2023-05-07] MEDS: ASPIRIN 81 MG TAB.CHEW PO (07:48)
[2023-05-07] MEDS: CLOPIDOGREL 75 MG TABLET PO (07:48)
[2023-05-07] MEDS: LORATADINE 10 MG TABLET PO (07:48)
[2023-05-07] MEDS: lisinopriL 2.5 MG TABLET 5 MG PO (07:48)
[2023-05-07] MEDS: ROSUVASTATIN CALCIUM 10 MG TABLET 40 MG PO (19:17)
[2023-05-08] MEDS: ACETAMINOPHEN 500 MG TABLET 1000 MG PO ×2 (07:19→19:15)
[2023-05-08] MEDS: ASPIRIN 81 MG TAB.CHEW PO (07:19)
[2023-05-08] MEDS: lisinopriL 2.5 MG TABLET 5 MG PO (07:19)
[2023-05-08] MEDS: CLOPIDOGREL 75 MG TABLET PO (07:19)
[2023-05-08] MEDS: LORATADINE 10 MG TABLET PO (07:19)
[2023-05-08] MEDS: ROSUVASTATIN CALCIUM 10 MG TABLET 40 MG PO (19:16)
[2023-05-09] MEDS: CLOPIDOGREL 75 MG TABLET PO (07:17)
[2023-05-09] MEDS: ACETAMINOPHEN 500 MG TABLET 1000 MG PO ×2 (07:17→19:07)
[2023-05-09] MEDS: ASPIRIN 81 MG TAB.CHEW PO (07:17)
[2023-05-09] MEDS: LORATADINE 10 MG TABLET PO (07:18)
[2023-05-09] MEDS: lisinopriL 2.5 MG TABLET 5 MG PO (07:18)
--- NOTE | 2023-05-09 09:03 | PC.NURSE ---
Skin note: GARY reported that resident had an itchy bug bite noted to R arm. Technical Operations Specialist noted one small bug slightly raised bug bite noted to measure approximately 0.2 cm x 0.2 cm in size to anterior/lateral aspect of R forearm. Surrounding area noted to have superficial scratching as resident reported area to be itchy. He reports bug bite occurred on 05/08/23. Area left open to air as no warmth or drainage currently observed. Technical Operations Specialist applied lotion to arm and encouraged resident to refrain from scratching. Note left for TRANSCRIBING OPERATOR HEAD and tx set being set up to apply lotion BID and monitor for s/s of infection until resolved.
[2023-05-09] MEDS: ROSUVASTATIN CALCIUM 10 MG TABLET 40 MG PO (19:07)
[2023-05-10] MEDS: CLOPIDOGREL 75 MG TABLET PO (07:23)
[2023-05-10] MEDS: LORATADINE 10 MG TABLET PO (07:23)
[2023-05-10] MEDS: ASPIRIN 81 MG TAB.CHEW PO (07:23)
[2023-05-10] MEDS: ACETAMINOPHEN 500 MG TABLET 1000 MG PO ×2 (07:23→20:23)
[2023-05-10] MEDS: lisinopriL 2.5 MG TABLET 5 MG PO (07:23)
[2023-05-10 10:14] VITALS: BP 120/70; PULSE 82; RESP 18; TEMP 36.4; O2SAT 96
[2023-05-10 10:16] VITALS: BMI 30.4
[2023-05-10 10:17] VITALS: BMI 30.4
[2023-05-10] MEDS: ROSUVASTATIN CALCIUM 10 MG TABLET 40 MG PO (20:23)
[2023-05-11 07:00] VITALS: BP 120/70; BP 144/67; PULSE 82; RESP 18; TEMP 36.4; O2SAT 96; BMI 30.4
[2023-05-11] MEDS: ASPIRIN 81 MG TAB.CHEW PO (07:41)
[2023-05-11] MEDS: LORATADINE 10 MG TABLET PO (07:41)
[2023-05-11] MEDS: ACETAMINOPHEN 500 MG TABLET 1000 MG PO ×2 (07:41→19:43)
[2023-05-11] MEDS: lisinopriL 2.5 MG TABLET 5 MG PO (07:41)
[2023-05-11] MEDS: CLOPIDOGREL 75 MG TABLET PO (07:41)
[2023-05-11] MEDS: ROSUVASTATIN CALCIUM 10 MG TABLET 40 MG PO (19:43)
[2023-05-12] MEDS: CLOPIDOGREL 75 MG TABLET PO (07:28)
[2023-05-12] MEDS: ASPIRIN 81 MG TAB.CHEW PO (07:28)
[2023-05-12] MEDS: ACETAMINOPHEN 500 MG TABLET 1000 MG PO ×2 (07:28→20:20)
[2023-05-12] MEDS: lisinopriL 2.5 MG TABLET 5 MG PO (07:28)
[2023-05-12] MEDS: LORATADINE 10 MG TABLET PO (07:28)
[2023-05-12] MEDS: ROSUVASTATIN CALCIUM 10 MG TABLET 40 MG PO (20:20)
--- NOTE | 2023-05-13 07:22 | PC.NURSE ---
Weekly Charting-Week 4: Comprehensive and temporary care plan reviewed. No changes made, & nothing added to temporary care plan. No changes noted in communication, hearing, vision, or orientation. Resident does make his needs known. Uses reading glasses. Hears fine. Cognition is intact. Chronic health condition stable. Vital signs reviewed, with few elevated BP's. Continue weekly monitoring and refer to providers as needed. All medications administered by Nurse. Mood/Behavior: No behavior issues documented..Is on no psychotropic medications. Staff to monitor changes and report to providers as needed.
[2023-05-13] MEDS: ACETAMINOPHEN 500 MG TABLET 1000 MG PO ×2 (07:37→19:18)
[2023-05-13] MEDS: LORATADINE 10 MG TABLET PO (07:37)
[2023-05-13] MEDS: ASPIRIN 81 MG TAB.CHEW PO (07:37)
[2023-05-13] MEDS: lisinopriL 2.5 MG TABLET 5 MG PO (07:37)
[2023-05-13] MEDS: CLOPIDOGREL 75 MG TABLET PO (07:37)
[2023-05-13] MEDS: ROSUVASTATIN CALCIUM 10 MG TABLET 40 MG PO (19:18)
[2023-05-14] MEDS: ACETAMINOPHEN 500 MG TABLET 1000 MG PO ×2 (08:06→19:43)
[2023-05-14] MEDS: lisinopriL 2.5 MG TABLET 5 MG PO (08:06)
[2023-05-14] MEDS: CLOPIDOGREL 75 MG TABLET PO (08:06)
[2023-05-14] MEDS: LORATADINE 10 MG TABLET PO (08:06)
[2023-05-14] MEDS: ASPIRIN 81 MG TAB.CHEW PO (08:06)
[2023-05-14] MEDS: ROSUVASTATIN CALCIUM 10 MG TABLET 40 MG PO (19:43)
[2023-05-15] MEDS: lisinopriL 2.5 MG TABLET 5 MG PO (07:24)
[2023-05-15] MEDS: LORATADINE 10 MG TABLET PO (07:24)
[2023-05-15] MEDS: ASPIRIN 81 MG TAB.CHEW PO (07:24)
[2023-05-15] MEDS: ACETAMINOPHEN 500 MG TABLET 1000 MG PO ×2 (07:24→19:11)
[2023-05-15] MEDS: CLOPIDOGREL 75 MG TABLET PO (07:24)
[2023-05-15] MEDS: ROSUVASTATIN CALCIUM 10 MG TABLET 40 MG PO (19:12)
[2023-05-16] MEDS: ASPIRIN 81 MG TAB.CHEW PO (07:18)
[2023-05-16] MEDS: ACETAMINOPHEN 500 MG TABLET 1000 MG PO ×2 (07:18→19:40)
[2023-05-16] MEDS: LORATADINE 10 MG TABLET PO (07:18)
[2023-05-16] MEDS: lisinopriL 2.5 MG TABLET 5 MG PO (07:18)
[2023-05-16] MEDS: CLOPIDOGREL 75 MG TABLET PO (07:18)
[2023-05-16] MEDS: ROSUVASTATIN CALCIUM 10 MG TABLET 40 MG PO (19:40)
[2023-05-17] MEDS: CLOPIDOGREL 75 MG TABLET PO (08:04)
[2023-05-17] MEDS: lisinopriL 2.5 MG TABLET 5 MG PO (08:04)
[2023-05-17] MEDS: ACETAMINOPHEN 500 MG TABLET 1000 MG PO ×2 (08:04→19:28)
[2023-05-17] MEDS: ASPIRIN 81 MG TAB.CHEW PO (08:04)
[2023-05-17] MEDS: LORATADINE 10 MG TABLET PO (08:04)
[2023-05-17 09:14] VITALS: BP 118/74; PULSE 68; TEMP 36.4; O2SAT 94
[2023-05-17] MEDS: ROSUVASTATIN CALCIUM 10 MG TABLET 40 MG PO (19:28)
[2023-05-18] MEDS: ASPIRIN 81 MG TAB.CHEW PO (07:16)
[2023-05-18] MEDS: ACETAMINOPHEN 500 MG TABLET 1000 MG PO (07:16)
[2023-05-18] MEDS: lisinopriL 2.5 MG TABLET 5 MG PO (07:16)
[2023-05-18] MEDS: LORATADINE 10 MG TABLET PO (07:16)
[2023-05-18] MEDS: CLOPIDOGREL 75 MG TABLET PO (07:16)
--- NOTE | 2023-05-18 10:00 | PC.NURSE ---
Discharge: Resident discharge to [facility] via [facility] r/t facility closure with daughter. All appropriate medications, medical records, personal belongings sent
--- NOTE | 2023-05-18 10:39 | PC.NURSE ---
Resident discharged to [facility] today at 0940. All belongings removed from room. Resident was accompanied to [facility] by daughter and [facility] GARY.
--- NOTE | 2023-05-18 10:44 | PC.NURSE ---
RECAPITULATION NOTE: Resident was admitted to [facility] term [facility] on 01/27/2022. 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 They discharged today to [facility] for ongoing care needs since [facility] is closing. Resident was sent with discharge orders, remaining supply of medications, POLST/Advance directives, signed active med list, active care plan and MDS. They did not require any opiates or anxiolytic medications. Belongings were inventoried and signed. Discharge summary completed by provider. Resident remains Full Code status. Discharge orders and pertinent notes E-mailed to Viv Hutson at [facility]. Resident was accompanied by RN/Louis to the care center. All questions answered.?
--- NOTE | 2023-05-18 15:38 | PC.SPIRITC ---
I provided visit for support and encouragement as resident moves to new home.
== END | DRG 65 ==
PROVIDERS: Family Medicine; Admitting Provider Family Medicine; Family Provider Nurse Practitioner Gerontology; Visit Provider Family Medicine
DX: I63.211 Cerebral infarction due to unspecified occlusion or stenosis of right vertebral artery (principal); I69.354 Hemiplegia and hemiparesis following cerebral infarction affecting left non-dominant side; I63.233 Cerebral infarction due to unspecified occlusion or stenosis of bilateral carotid arteries; R47.81 Slurred speech; R29.810 Facial weakness; L89.899 Pressure ulcer of other site, unspecified stage; I10 Essential (primary) hypertension; E83.51 Hypocalcemia; I67.9 Cerebrovascular disease, unspecified; F32.A Depression, unspecified; Z87.892 Personal history of anaphylaxis; J30.2 Other seasonal allergic rhinitis
CPT/HCPCS: 36415; 80048; 80061; 85018; 87502; 87635; 90471; 90662; 97110; 97116; 97161; 97162; 97166; 97530; 97535